=== PATIENT | male | born 1950 ===

== ENCOUNTER 2019-12-14 07:40 | Day surgery (SDC) | payer MEDICARE, OTHER, SELFPAY ==
[2019-12-08 15:07] VITALS: BMI 48.6
--- NOTE | 2019-12-09 10:58 | HO.ANESPROP2 ---
Documented by User: Ciarra Haider 12/13/19 13:17 HPI - Anesthesia Eval Consult details Narrative: 69 yo M for colonoscopy COUNT INCLUDES THE [facility] Past Medical History Medical History (Updated 12/14/19 @ 09:06 by Dixie Washington) Arthritis Asthma DVT (deep venous thrombosis) Elevated PSA History of diverticulitis Surgical History Surgical History H/O nasal septoplasty Hx of colonoscopy Hx of hemorrhoidectomy Social History Social History Smoking Status: Former smoker Smoking Quit Date: 1977 Use of substances other than those prescribed or required for medical reasons: No Advance Directives: No Advance Directives Information Provided: No Advance Directives on File: No Recently lost weight without trying: No Meds Allergies Allergy/AdvReac Type Severity Reaction Status Date / Time Penicillins [PENICILLINS] Allergy Severe CHEST Verified 12/14/19 08:31 TIGHTNESS shellfish derived Allergy Severe CHEST Verified 12/14/19 08:31 [SHELLFISH DERIVED] TIGHTNESS Sulfa (Sulfonamide Allergy Severe CHEST Verified 12/14/19 08:31 Antibiotics) TIGHTNESS [SULFA (SULFONAMIDE ANTIBIOTICS)] meperidine [From Demerol] AdvReac Mild Nausea and Verified 12/14/19 08:31 Vomiting SHELLFISH Allergy Severe CHEST Uncoded 12/08/19 15:01 TIGHTNESS Home Medications Medication Instructions Recorded Confirmed Type albuterol sulfate [ProAir HFA] 2 puff INHALATION Q6H PRN 12/08/19 12/08/19 History aspirin 81 mg PO DAILY 12/08/19 12/08/19 History ibuprofen 400 mg PO Q6H PRN 12/08/19 12/08/19 History omega-3 fatty acids-fish oil 1 cap PO DAILY 12/08/19 12/08/19 History [[place] 3 Fish Oil] Exam Exam Date and Time: December 09, 2019 1058 Height,Weight and Vital Signs: Height 5 ft 8 in Weight 145.15 kg BMI=48 Assessment and Plan Assessment Anesthesia Assessment: Chart Reviewed Documented by User: Dixie Washington 12/14/19 09:07 COUNT INCLUDES THE [facility] Past Medical History Medical History (Updated 12/14/19 @ 09:06 by Dixie Washington) Arthritis Asthma DVT (deep venous thrombosis) Elevated PSA History of diverticulitis Family History Family history of problems with anesthesia: No Surgical History Surgical History H/O nasal septoplasty Hx of colonoscopy Hx of hemorrhoidectomy History of Problems with Anesthesia: No Social History Social History Smoking Status: Former smoker Smoking Quit Date: 1977 Use of substances other than those prescribed or required for medical reasons: No Advance Directives: No Advance Directives Information Provided: No Advance Directives on File: No Recently lost weight without trying: No Meds Allergies Allergy/AdvReac Type Severity Reaction Status Date / Time Penicillins [PENICILLINS] Allergy Severe CHEST Verified 12/14/19 08:31 TIGHTNESS shellfish derived Allergy Severe CHEST Verified 12/14/19 08:31 [SHELLFISH DERIVED] TIGHTNESS Sulfa (Sulfonamide Allergy Severe CHEST Verified 12/14/19 08:31 Antibiotics) TIGHTNESS [SULFA (SULFONAMIDE ANTIBIOTICS)] meperidine [From Demerol] AdvReac Mild Nausea and Verified 12/14/19 08:31 Vomiting SHELLFISH Allergy Severe CHEST Uncoded 12/08/19 15:01 TIGHTNESS Home Medications Medication Instructions Recorded Confirmed Type albuterol sulfate [ProAir HFA] 2 puff INHALATION Q6H PRN 12/08/19 12/08/19 History aspirin 81 mg PO DAILY 12/08/19 12/08/19 History ibuprofen 400 mg PO Q6H PRN 12/08/19 12/08/19 History omega-3 fatty acids-fish oil 1 cap PO DAILY 12/08/19 12/08/19 History [[place] 3 Fish Oil] Exam Height,Weight and Vital Signs: Vital Signs Temp Pulse Resp BP Pulse Ox 12/14/19 08:18 99 F 104 H 20 150/91 H 98 Airway Neck ROM: Full Assessment and Plan Assessment Anesthesia Assessment: Anesthesia Plan Discussed, Consent Obtained and Chart Reviewed Final Anesthetic Review NPO: Yes Intake Type: Clears and Solids Intake Timing: Greater than 8 hours ASA Class: III Final Preanesthetic Review: No Changes in Pt Med Stat, Meds & Allergies Reviewed, Consent Obtained/Reviewed, Med/Surg/Anes Hx Reviewed and Anes Risks/Benef Reviewed Patient Risk: Intermediate Procedure Risk: Low Anesthetic Plan Anesthetic Plan: MAC: Disposition: Standard PACU
--- NOTE | 2019-12-14 | CT_ITS ---
EXAMINATION: CT COLONOGRAPHY CLINICAL INFORMATION: Incomplete colonoscopy COMPARISON: None TECHNIQUE: Bowel preparation: Adequate. Colonic distention: CO2 mechanical insufflator used via enema tube with good distention. Acquisition: Low dose imaging targeted to colonic was performed in the supine and prone positions. Due to patient's body habitus, he was unable to fit adequately into the scanner in the prone position and portions of the left lateral bowel or excluded on the prone exam. Procedure: The procedure was well tolerated. Review: The acquired images were reviewed in axial, coronal and sagittal planes. Additional 3-D fly through images were reviewed at an independent workstation. This CT examination was performed using dose optimization techniques as appropriate, variously including the following: *Automated exposure control *Adjustment of mA and/or kV according to patient size (this includes techniques or standardized protocols for targeted exams where dose is matched to indication/reason for exam; i.e. extremities or head) *Use of iterative reconstruction technique DLP: 1087 mGy-cm FINDINGS: Colonic findings: Colon is redundant with scattered colonic diverticula more so in the region of the sigmoid colon. I do not appreciate any evidence for diverticulitis. Residual fluid is seen but this does appear to be mobile between supine and prone imaging. I do not appreciate any significant colonic wall thickening. No pericolonic inflammatory changes. No discrete colonic mass or significant colonic polyp was identified on the study. Non-colonic findings: Low-attenuation renal cysts are suggested but not well delineated. Small hiatal hernia is present. IMPRESSION: Examination is limited due to patient body habitus. Colon is redundant with scattered diverticulosis but no obvious diverticulitis. No colonic mass lesion or significant fixed colonic polyp.
[2019-12-14 08:18] VITALS: BP 150/91; PULSE 104; RESP 20; TEMP 37.2; O2SAT 98
[2019-12-14] MEDS: Lactated Ringers 1,000 ML 100 ML IVCONT (08:29)
--- NOTE | 2019-12-14 08:51 | MHC.SHP ---
Pre-Procedural Eval Section B Chief Complaint: SCREENING Details of Present Illness: see h and p no changes Relevant Family History (Specify if Yes): No Present Medications: see Short Stay Collaborative assessment Medical History: No relevant PMH (saee h and p no changes) History of Previous Operations: No relevant previous surgery Allergies: Allergies Allergy/AdvReac Type Severity Reaction Status Date / Time Penicillins [PENICILLINS] Allergy Severe CHEST Verified 12/14/19 08:31 TIGHTNESS shellfish derived Allergy Severe CHEST Verified 12/14/19 08:31 [SHELLFISH DERIVED] TIGHTNESS Sulfa (Sulfonamide Allergy Severe CHEST Verified 12/14/19 08:31 Antibiotics) TIGHTNESS [SULFA (SULFONAMIDE ANTIBIOTICS)] meperidine [From Demerol] AdvReac Mild Nausea and Verified 12/14/19 08:31 Vomiting SHELLFISH Allergy Severe CHEST Uncoded 12/08/19 15:01 TIGHTNESS Review of Systems Sugical H&P ROS: Negative: Constitution, Cardiovascular, Respiratory, Neurological, Psychiatric, Hem-Onc, Allergic/Immunologic, Gastrointestinal, Genitourinary, Musculoskeletal, Integumentary, Endocrine and Eyes/Ears/Nose/Throat Exam Surgical H&P Exam: Normal: HEENT, Normal: Heart, Normal: Lungs, Normal: Extremities, Normal: Abdomen, Normal: Skin and Normal: Neurological Plan Diagnosis/Plan: Unchanged Patient has been examined and remains a candidate for the planned procedure
--- NOTE | 2019-12-14 09:34 | PM.OP ---
Brief Operative Note Date of procedure: 12/14/19 Pre-op diagnosis: screening Post-op diagnosis: other (incomplete colonosocpy, diverticulosis) Procedure: colonoscopy to 45 cm Anesthesia: MAC Surgeon: Amaury Sevilla Estimated blood loss (mL): 0 Pathology: none sent Condition: stable Disposition: PACU
[2019-12-14 09:40] VITALS: BP 120/66; PULSE 103; RESP 16; TEMP 37.1; O2SAT 95
[2019-12-14 09:56] VITALS: BP 110/70; PULSE 91; RESP 16; O2SAT 95
[2019-12-14 10:11] VITALS: BP 108/55; PULSE 94; RESP 16; O2SAT 97
[2019-12-14 10:53] VITALS: BP 178/93; PULSE 95; RESP 16; TEMP 36.6; O2SAT 97
--- NOTE | 2019-12-14 11:26 | HO.POSTANES ---
Post Anesthesia Evaluation Post Anesthesia Evaluation Vital Signs: Vital Signs Temp Pulse Resp BP Pulse Ox 12/14/19 10:53 97.8 F 95 16 178/93 H 97 12/14/19 10:11 94 16 108/55 L 97 12/14/19 09:56 91 16 110/70 95 12/14/19 09:40 98.8 F 103 H 16 120/66 95 12/14/19 08:18 99 F 104 H 20 150/91 H 98 recheck bp in discharge = 138/90 Anesthesia: Monitored Mental Status: Awake Pain Control: Satisfactory Nausea/Vomiting: None Hydration: Adequate Anesthesia-Related Issues: No Anes. Related Issues
--- NOTE | 2019-12-14 12:04 | PC.NURSE ---
Anesthesia to bedside to discharge pt from anesthesia. Pt's last BP elevated (178/93). Repeat BP perfromed in DC. Pt BP 138/90. Pt cleared by anesthesia to go home.
--- NOTE | 2019-12-14 12:08 | OP_ITS ---
SURGEON: Amaury Sevilla MD INDICATIONS: Colon cancer screening and prior history of adenomatous colon polyps. PREOPERATIVE DIAGNOSIS: POSTOPERATIVE DIAGNOSIS: PROCEDURE PERFORMED: Colonoscopy to 45 cm. ESTIMATED BLOOD LOSS: COMPLICATIONS: ANESTHESIA: ASSISTANTS: SPECIMENS: MEDICATIONS: Monitored anesthesia care. DESCRIPTION OF PROCEDURE: History and physical performed. The risks and benefits of the procedure were explained to the patient. Informed consent was obtained. The patient was placed in the left lateral decubitus position. A digital rectal exam was performed and was found to be normal. The Olympus pediatric video colonoscope was introduced into the rectum and advanced to the 45 cm quan. At this point, there was acute angulation and moderate to severe diverticulosis, which did not permit further advancement of the scope. Examination was performed and the scope was removed. He tolerated the procedure well and was taken to recovery area in stable condition. FINDINGS: There was moderate to extensive diverticulosis involving the sigmoid. The quality of the prep was good. No polyps were identified. Retroflexed examination showed small internal hemorrhoids. IMPRESSION: Diverticulosis, incomplete colonoscopy. RECOMMENDATIONS: 1. CT colonography will be obtained to evaluate the remainder of the colon. 2. Repeat colonoscopy, which should be done in 5 years. The patient has a prior history of colon polyps, however, followup will depend on his findings at the time of CT colonography. MD PRATIBHA Santizo/GLENIS / [phone]
== END 2019-12-14 13:00 | disposition home or self-care (01) ==
PROVIDERS: PCP Internal Medicine; Visit Provider Internal Medicine Gastroenterology
PROC: 0DJD8ZZ Inspection of Lower Intestinal Tract, Via Natural or Artificial Opening Endoscopic (ICD-10-PCS; CPT 45378; principal; 2019-12-14 09:10)
DX: Z12.11 Encounter for screening for malignant neoplasm of colon (principal); Z86.010 Personal history of colon polyps; K57.30 Diverticulosis of large intestine without perforation or abscess without bleeding; R97.20 Elevated prostate specific antigen [PSA]; J45.909 Unspecified asthma, uncomplicated; E78.00 Pure hypercholesterolemia, unspecified; R73.9 Hyperglycemia, unspecified; Z79.82 Long term (current) use of aspirin; Z88.0 Allergy status to penicillin; Z88.2 Allergy status to sulfonamides; Z88.8 Allergy status to other drugs, medicaments and biological substances; Z91.013 Allergy to seafood; Z86.718 Personal history of other venous thrombosis and embolism; Z87.891 Personal history of nicotine dependence; K64.8 Other hemorrhoids
CPT/HCPCS: 45330; 74261; J2765

== ENCOUNTER 2020-01-26 08:29 | Outpatient (REF) | payer MEDICARE, OTHER, SELFPAY ==
[2020-01-26 11:19] LABS: Hematocrit 48.6 % (42-52); MANUAL DIFF FLAG SCAN; PLT CLUMP 1; SCAN SMEAR FLAG 1
[2020-01-26 11:22] LABS: Basophils Absolute Auto 0.1 X10*3/uL (0.0-0.2); Basophils Percent Auto 0.8 % (0-2); Eosinophils Absolute Auto 0.2 X10*3/uL (0.0-0.4); Eosinophils Percent Auto 2.9 % (0-4); Hemoglobin 16.1 g/dl (14.0-18.0); Imm Gran Abs Auto 0.03 X10*3/uL (0.00-0.03); Imm Gran Pct Auto 0.5 % (0.0-0.4); Lymphocytes Absolute Auto 1.8 X10*3/uL (1.2-4.9); Lymphocytes Percent Auto 26.6 % (20-40); Mean Corpuscular HGB Conc 33.1 g/dl (31.0-36.0); Mean Corpuscular Hemoglobin 32.7 pg (27.0-33.0); Mean Corpuscular Volume 98.8 fL (80-98); Mean Platelet Volume 10.8 fL (9.4-12.4); Monocytes Absolute Auto 0.8 X10*3/uL (0.1-1.2); Monocytes Percent Auto 12.3 % (2-11); Neutrophils Absolute Auto 3.7 X10*3/uL (2.0-8.3); Neutrophils Percent Auto 56.9 % (45-73); Red Blood Count 4.92 X10*6/uL (4.60-5.80); Red Cell Distribution Width 13.2 % (11.0-16.0); White Blood Count 6.6 X10*3/uL (4.8-10.8)
[2020-01-26 12:09] LABS: Estimated Average Glucose 134 mg/dL; Hemoglobin A1c % 6.3 %
[2020-01-26 12:27] LABS: Alanine Aminotransferase 25 U/L (0-40); Albumin Level 4.2 g/dL (3.5-5.0); Alkaline Phosphatase 61 U/L (39-117); Anion Gap 13 (12-20); Aspartate Amino Transferase 20 U/L (5-37); Bilirubin Total 0.4 mg/dL (0.0-1.0); Blood Urea Nitrogen 19 mg/dL (9-16); Calcium 9.8 mg/dL (8.4-10.2); Carbon Dioxide 26 mmol/L (22-29); Chloride 100 mmol/L (96-108); Estimated Glomerular Filt Rate > 60; Glucose Random 125 mg/dL (60-115); Potassium 4.4 mmol/l (3.3-5.1); Sodium 135 mmol/L (135-145)
[2020-01-26 12:36] LABS: Platelet Count 212 X10*3/uL (160-400)
[2020-01-26 12:37] LABS: SLIDE REVIEW VERIFIED
== END 2020-01-26 08:30 | disposition home or self-care (01) ==
LOC: HO.HMGCLDS 08:29
PROVIDERS: PCP Internal Medicine; Visit Provider Internal Medicine
DX: E78.00 Pure hypercholesterolemia, unspecified (principal); R73.03 Prediabetes; J45.909 Unspecified asthma, uncomplicated
CPT/HCPCS: 36415; 80053; 83036; 84153; 85025

== ENCOUNTER 2020-04-14 09:41 | Outpatient (REF) | payer MEDICARE, OTHER, SELFPAY ==
[2020-04-14 10:26] LABS: Estimated Average Glucose 123 mg/dL; Hemoglobin A1c % 5.9 %
[2020-04-14 10:45] LABS: Anion Gap 11 (12-20); Blood Urea Nitrogen 19 mg/dL (9-16); Calcium 9.9 mg/dL (8.4-10.2); Carbon Dioxide 27 mmol/L (22-29); Chloride 105 mmol/L (96-108); Estimated Glomerular Filt Rate > 60; Glucose Random 116 mg/dL (60-115); Potassium 4.9 mmol/L (3.3-5.1); Sodium 138 mmol/L (135-145)
== END 2020-04-14 09:42 | disposition home or self-care (01) ==
LOC: HO.10HDL 09:41
PROVIDERS: Visit Provider Internal Medicine
DX: R73.03 Prediabetes (principal); R03.0 Elevated blood-pressure reading, without diagnosis of hypertension; M19.90 Unspecified osteoarthritis, unspecified site
CPT/HCPCS: 36415; 80048; 83036

== ENCOUNTER 2020-05-10 01:11 | Inpatient (IN) | payer OTHER, MEDICARE, SELFPAY ==
[2020-05-10] VITALS (12 sets, daily range): BP systolic 147–190; BP diastolic 85–99; PULSE 90–110; RESP 12–19; TEMP 36.4–36.6; O2SAT 95–99; BMI 49.2; BMI 51.4
--- NOTE | 2020-05-10 | ECG_ITS ---
Test Reason : EPI GASTRIC Blood Pressure : / mmHG Vent. Rate : 105 BPM Atrial Rate : 105 BPM P-R Int : 126 ms QRS Dur : 086 ms QT Int : 336 ms P-R-T Axes : 033 -36 063 degrees QTc Int : 444 ms Sinus tachycardia Left axis deviation Nonspecific ST and T wave abnormality Abnormal ECG No previous ECGs available Referred By: Jesenia Kenyon Electronically Signed By:NAOMI POWERS
--- NOTE | ~2020-05-10 | CT_ITS ---
EXAMINATION: CT ABDOMEN AND PELVIS WITH CONTRAST CLINICAL INFORMATION: Nausea, vomiting, obstipation COMPARISON: 12/14/2019 TECHNIQUE: Multidetector volumetric images were obtained from the superior aspect of the liver through the pubic symphysis following administration 100 mL of Omnipaque 350 intravenous contrast. Sagittal and coronal reformatted images were obtained on the technologist's workstation. Oral contrast: No This CT examination was performed using dose optimization techniques as appropriate, variously including the following: *Automated exposure control *Adjustment of mA and/or kV according to patient size (this includes techniques or standardized protocols for targeted exams where dose is matched to indication/reason for exam; i.e. extremities or head) *Use of iterative reconstruction technique DLP: 1259 mGy-cm FINDINGS: LUNG BASES: The visualized lung bases are unremarkable. LIVER, GALLBLADDER, AND BILIARY TREE: The liver demonstrates hypoattenuation suggesting steatosis. No focal hepatic lesion or biliary ductal dilatation is present. The gallbladder is unremarkable with no evidence of radiopaque gallstones, gallbladder wall thickening, or obvious pericholecystic inflammatory changes. PANCREAS: Unremarkable. SPLEEN: Unremarkable. ADRENAL GLANDS: Thickened appearance of the right adrenal gland appears similar to 10/01/2014, favoring a benign etiology. KIDNEYS AND URETERS: The kidneys are normal in size, shape, and attenuation. Redemonstrated bilateral renal hypodensities favoring cysts. No hydronephrosis, hydroureter, or obstructing calculi seen. No perinephric stranding. BLADDER: Unremarkable. GASTROINTESTINAL TRACT: There is colonic diverticulosis without convincing diverticulitis. No evidence of bowel obstruction. The appendix is unremarkable. No free fluid or free air is seen. ABDOMINAL WALL: Bilateral fat-containing inguinal hernias. LYMPH NODES: Normal. VASCULAR: Scattered atherosclerotic calcifications. PELVIC VISCERA: The prostate gland is enlarged, measuring 5.6 cm in transverse diameter. OSSEOUS STRUCTURES: Degenerative changes are noted in the spine. CT/CT abdomen pelvis w con IMPRESSION: 1. No acute findings identified in the abdomen/pelvis. 2. Enlarged prostate gland.
--- NOTE | ~2020-05-10 | XR_ITS ---
EXAMINATION: XR CHEST CLINICAL INFORMATION: Cough COMPARISON: None TECHNIQUE: Frontal view of the chest was obtained. FINDINGS: Lung volumes are symmetric. No focal consolidation is seen. No evidence of pneumothorax, significant pleural effusion, or pulmonary edema. The cardiomediastinal contour is unremarkable. No acute osseous findings are seen. XR/XR chest 1V IMPRESSION: No acute cardiopulmonary findings.
--- NOTE | 2020-05-10 01:52 | ED_ITS ---
HPI - Chest Pain General Chief Complaint: Chest Pain Stated Complaint: ?Indigestion Time Seen by Provider: 05/10/20 01:38 Source: patient Mode of arrival: ambulatory History of Present Illness HPI narrative: This is a 69-year-old male who presents with 2-3 days of epigastric/chest burning/sharp, nonradiating pain that is not been associated with fever but he reports chills as well as the inability to burp for the past 6-12 hours. Otherwise, he has not had any nausea, vomiting, shortness of breath, chest pain/palpitations, urinary symptoms. He states he tried to have a bowel movement today but only had a ?pellets? but does endorse that he has a history of constipation. In addition, he states he a has not been passing flatus. The discomfort is worsened by lying flat. Related Data Home Medications Medication Instructions Recorded Confirmed albuterol sulfate [ProAir HFA] 2 puff INHALATION Q6H PRN 12/08/19 12/08/19 aspirin 81 mg PO DAILY 12/08/19 12/08/19 ibuprofen 400 mg PO Q6H PRN 12/08/19 12/08/19 omega-3 fatty acids-fish oil 1 cap PO DAILY 12/08/19 12/08/19 Allergies Allergy/AdvReac Type Severity Reaction Status Date / Time Penicillins [PENICILLINS] Allergy Severe CHEST Verified 12/14/19 08:31 TIGHTNESS shellfish derived Allergy Severe CHEST Verified 12/14/19 08:31 [SHELLFISH DERIVED] TIGHTNESS Sulfa (Sulfonamide Allergy Severe CHEST Verified 12/14/19 08:31 Antibiotics) TIGHTNESS [SULFA (SULFONAMIDE ANTIBIOTICS)] meperidine [From Demerol] AdvReac Mild Nausea and Verified 12/14/19 08:31 Vomiting SHELLFISH Allergy Severe CHEST Uncoded 12/08/19 15:01 TIGHTNESS Review of Systems Review of Systems: Pertinent positives and negatives as stated in HPI 10 point review of systems is otherwise negative. [facility] Past Medical History Source: nursing notes reviewed Medical History Arthritis Asthma DVT (deep venous thrombosis) Elevated PSA History of diverticulitis Surgical History H/O nasal septoplasty Hx of colonoscopy Hx of hemorrhoidectomy Social History Social History Smoking Status: Former smoker Advance Directives: No Physical Exam Vital Signs: Vital Signs: Last Vital Signs Temp 97.5 F 05/10/20 04:18 Pulse 98 05/10/20 06:21 Resp 19 05/10/20 04:18 BP 147/88 H 05/10/20 06:21 Pulse Ox 98 05/10/20 04:18 Body Mass Index 49.2 VITAL SIGNS: Reviewed. GENERAL: Well developed, well nourished, in no acute distress. HEAD: Normocephalic/atraumatic, NOSE: Nares patent bilateral OROPHARYNX: no oral lesions noted, posterior pharynx clear NECK: Supple, no adenopathy LUNGS: Normal breath sounds. No adventitious sounds or accessory muscle use. SpO2<98> CARDIOVASCULAR: Regular rate and rhythm without noted murmurs, no JVD or lower extremity edema. ABDOMEN: Morbidly obese, Soft, non-tender, non-distended with bowel sounds. SKIN: Inspection of the skin reveals no rashes NEUROLOGIC: Alert and oriented x 4. Course Course Course Narrative: This is a 69-year-old male with history and clinical presentation possible pericarditis, gastritis, pancreatitis, GERD, SBO (history of hernia repair), less likely cardiopulmonary etiologies but of note patient does have history of DVT so I will keep that in mind as well. Initial review of all investigations negative for acute findings and on re- evaluation patient without relief after GI cocktail on still needing to remain upright. Chest x-ray, CT scan was negative for any acute findings to explain patient's presenting symptoms. High sensitivity troponin was noted to be 160, but there was no significant findings on EKG however there were none available for comparison. Repeat troponin was noted to be flat, however patient had in the interim as documented below complained of chest pressure and was given 325 mg of aspirin. Repeat EKG demonstrating a bigeminy with maintained hemodynamic stability. Case discussed with cardiology who agrees with admission rule out ACS, and case was discussed with inpatient hospitalist team who agrees with aspirin covering cardiac as well as pericarditis symptoms and recommends administration of morphine. Reevaluation(s) Reevaluation #1: Patient now complains of chest pressure and will receive 325 mg of aspirin, rpt Trop#2, D-dimer. Time: 05:00 [facility] - Chest Pain Lab Data Result diagrams: 05/10/20 02:02 05/10/20 02:02 Labs: Lab Results 05/10/20 05/10/20 05/10/20 Range/Units 02:02 02:02 02:02 WBC 10.4 (4.8-10.8) X10*3/uL RBC 4.80 (4.60-5.80) X10*6/uL Hgb 16.3 (14.0-18.0) g/dl Hct 46.7 (42-52) % MCV 97.3 (80-98) fL MCH 34.0 H (27.0-33.0) pg MCHC 34.9 (31.0-36.0) g/dl RDW 12.8 (11.0-16.0) % Plt Count 214 (160-400) X10*3/uL MPV 10.1 (9.4-12.4) fL Immature Gran % (Auto) 0.6 H (0.0-0.4) % Neut % (Auto) 66.5 (45-73) % Lymph % (Auto) 19.7 L (20-40) % Stevens % (Auto) 10.5 (2-11) % Eos % (Auto) 2.2 (0-4) % Baso % (Auto) 0.5 (0-2) % Lymph # (Auto) 2.0 (1.2-4.9) X10*3/uL Stevens # (Auto) 1.1 (0.1-1.2) X10*3/uL Eos # (Auto) 0.2 (0.0-0.4) X10*3/uL Baso # (Auto) 0.1 (0.0-0.2) X10*3/uL Abs Immat Gran (auto) 0.06 H (0.00-0.03) X10*3/uL Absolute Neuts (auto) 6.9 (2.0-8.3) X10*3/uL Absolute Nucleated RBC 0.000 (0.0-0.012) X10*3/uL Nucleated RBC % (auto) 0.0 (0.0-0.2) /100WBC D-Dimer NG/ML Sodium 137 (135-145) mmol/L Potassium 4.6 (3.3-5.1) mmol/L Chloride 103 (96-108) mmol/L Carbon Dioxide 23 (22-29) mmol/L Anion Gap 16 (12-20) BUN 15 (9-16) mg/dL Creatinine 0.97 (0.5-1.4) mg/dL Estim Creat Clear Calc 104.3 Estimated GFR > 60 Random Glucose 129 H (60-115) mg/dL Calcium 10.2 (8.4-10.2) mg/dL Magnesium 2.1 (1.6-2.6) mg/dL Total Bilirubin 0.5 (0.0-1.0) mg/dL AST 27 (5-37) U/L ALT 32 (0-40) U/L Alkaline Phosphatase 58 (39-117) U/L Troponin I High Sens (<3.5-35.0) ng/L Total Protein 7.1 (6.5-8.0) g/dL Albumin 4.2 (3.5-5.0) g/dL Lipase 45 (8-78) U/L Urine Color Urine Appearance Urine pH (5.0-8.0) Ur Specific [place] (1.005-1.025) Urine Protein (NEG-TRACE) MG/DL Urine Glucose (UA) (NEG) MG/DL Urine Ketones (NEG) MG/DL Urine Blood (NEG) Urine Nitrite (NEG) Ur Leukocyte Esterase (NEG) Urine Opiates Screen (Not Detect) Ur Barbiturates Screen (Not Detect) Ur Phencyclidine Scrn (Not Detect) Ur Amphetamines Screen (Not Detect) U Benzodiazepines Scrn (Not Detect) Urine Cocaine Screen (Not Detect) U Marijuana (THC) Screen (Not Detect) 05/10/20 05/10/20 05/10/20 Range/Units 02:02 02:02 02:02 WBC (4.8-10.8) X10*3/uL RBC (4.60-5.80) X10*6/uL Hgb (14.0-18.0) g/dl Hct (42-52) % MCV (80-98) fL MCH (27.0-33.0) pg MCHC (31.0-36.0) g/dl RDW (11.0-16.0) % Plt Count (160-400) X10*3/uL MPV (9.4-12.4) fL Immature Gran % (Auto) (0.0-0.4) % Neut % (Auto) (45-73) % Lymph % (Auto) (20-40) % Stevens % (Auto) (2-11) % Eos % (Auto) (0-4) % Baso % (Auto) (0-2) % Lymph # (Auto) (1.2-4.9) X10*3/uL Stevens # (Auto) (0.1-1.2) X10*3/uL Eos # (Auto) (0.0-0.4) X10*3/uL Baso # (Auto) (0.0-0.2) X10*3/uL Abs Immat Gran (auto) (0.00-0.03) X10*3/uL Absolute Neuts (auto) (2.0-8.3) X10*3/uL Absolute Nucleated RBC (0.0-0.012) X10*3/uL Nucleated RBC % (auto) (0.0-0.2) /100WBC D-Dimer NG/ML Sodium (135-145) mmol/L Potassium (3.3-5.1) mmol/L Chloride (96-108) mmol/L Carbon Dioxide (22-29) mmol/L Anion Gap (12-20) BUN (9-16) mg/dL Creatinine (0.5-1.4) mg/dL Estim Creat Clear Calc Estimated GFR Random Glucose (60-115) mg/dL Calcium (8.4-10.2) mg/dL Magnesium (1.6-2.6) mg/dL Total Bilirubin (0.0-1.0) mg/dL AST (5-37) U/L ALT (0-40) U/L Alkaline Phosphatase (39-117) U/L Troponin I High Sens 160.8 H (<3.5-35.0) ng/L Total Protein (6.5-8.0) g/dL Albumin (3.5-5.0) g/dL Lipase (8-78) U/L Urine Color YELLOW Urine Appearance CLEAR Urine pH 6.5 (5.0-8.0) Ur Specific [place] 1.015 (1.005-1.025) Urine Protein NEG (NEG-TRACE) MG/DL Urine Glucose (UA) NEG (NEG) MG/DL Urine Ketones NEG (NEG) MG/DL Urine Blood NEG (NEG) Urine Nitrite NEG (NEG) Ur Leukocyte Esterase NEG (NEG) Urine Opiates Screen Not Detected (Not Detect) Ur Barbiturates Screen Not Detected (Not Detect) Ur Phencyclidine Scrn Not Detected (Not Detect) Ur Amphetamines Screen Not Detected (Not Detect) U Benzodiazepines Scrn Not Detected (Not Detect) Urine Cocaine Screen Not Detected (Not Detect) U Marijuana (THC) Screen Not Detected (Not Detect) 05/10/20 05/10/20 Range/Units 05:00 05:00 WBC (4.8-10.8) X10*3/uL RBC (4.60-5.80) X10*6/uL Hgb (14.0-18.0) g/dl Hct (42-52) % MCV (80-98) fL MCH (27.0-33.0) pg MCHC (31.0-36.0) g/dl RDW (11.0-16.0) % Plt Count (160-400) X10*3/uL MPV (9.4-12.4) fL Immature Gran % (Auto) (0.0-0.4) % Neut % (Auto) (45-73) % Lymph % (Auto) (20-40) % Stevens % (Auto) (2-11) % Eos % (Auto) (0-4) % Baso % (Auto) (0-2) % Lymph # (Auto) (1.2-4.9) X10*3/uL Stevens # (Auto) (0.1-1.2) X10*3/uL Eos # (Auto) (0.0-0.4) X10*3/uL Baso # (Auto) (0.0-0.2) X10*3/uL Abs Immat Gran (auto) (0.00-0.03) X10*3/uL Absolute Neuts (auto) (2.0-8.3) X10*3/uL Absolute Nucleated RBC (0.0-0.012) X10*3/uL Nucleated RBC % (auto) (0.0-0.2) /100WBC D-Dimer 267 NG/ML Sodium (135-145) mmol/L Potassium (3.3-5.1) mmol/L Chloride (96-108) mmol/L Carbon Dioxide (22-29) mmol/L Anion Gap (12-20) BUN (9-16) mg/dL Creatinine (0.5-1.4) mg/dL Estim Creat Clear Calc Estimated GFR Random Glucose (60-115) mg/dL Calcium (8.4-10.2) mg/dL Magnesium (1.6-2.6) mg/dL Total Bilirubin (0.0-1.0) mg/dL AST (5-37) U/L ALT (0-40) U/L Alkaline Phosphatase (39-117) U/L Troponin I High Sens 159.7 H (<3.5-35.0) ng/L Total Protein (6.5-8.0) g/dL Albumin (3.5-5.0) g/dL Lipase (8-78) U/L Urine Color Urine Appearance Urine pH (5.0-8.0) Ur Specific [place] (1.005-1.025) Urine Protein (NEG-TRACE) MG/DL Urine Glucose (UA) (NEG) MG/DL Urine Ketones (NEG) MG/DL Urine Blood (NEG) Urine Nitrite (NEG) Ur Leukocyte Esterase (NEG) Urine Opiates Screen (Not Detect) Ur Barbiturates Screen (Not Detect) Ur Phencyclidine Scrn (Not Detect) Ur Amphetamines Screen (Not Detect) U Benzodiazepines Scrn (Not Detect) Urine Cocaine Screen (Not Detect) U Marijuana (THC) Screen (Not Detect) ECG Data ECG #1: Attestation: I personally reviewed and interpreted this ECG as follows: Prior ECG tracings: not available for review Interpretation: Sinus tachycardia, HR -105, no evidence of acute ischemia, [place]/QRS/QTC are within normal limits. Discharge Plan Discharge Clinical Impression: ACS (acute coronary syndrome) Chest pain Qualifiers: Chest pain type: unspecified Qualified Code(s): R07.9 - Chest pain, unspecified Pericarditis Qualifiers: Pericarditis type: unspecified type Chronicity: acute Qualified Code(s): I30.9 - Acute pericarditis, unspecified Patient Disposition: Admitted As Inpatient
[2020-05-10] MEDS: Magnesium Hydrox/Alum Hydrox 30 ML ORAL.SUSP PO (01:57)
[2020-05-10] MEDS: Lidocaine HCl Viscous 2 % 15 ML SOLUTION 10 ML MUCOUS MEM (01:57)
[2020-05-10 02:10] LABS: Basophils Absolute Auto 0.1 X10*3/uL (0.0-0.2); Basophils Percent Auto 0.5 % (0-2); PLT CLUMP 1; SCAN SMEAR FLAG 1
[2020-05-10 02:11] LABS: Glucose Urine UA NEG (NEG); Leukocyte Esterase Urine NEG (NEG); Nitrite Urine NEG (NEG); PH 6.5 (5.0-8.0); Specific Gravity - Urine 1.015 (1.005-1.025); Urine Blood NEG (NEG); Urine Ketones NEG (NEG); Urine Protein NEG (NEG-TRACE)
[2020-05-10 02:13] LABS: Appearance Urine CLEAR; Color Urine YELLOW; UACC Culture Trigger NO
[2020-05-10 02:14] LABS: Monocytes Absolute Auto 1.1 X10*3/uL (0.1-1.2)
[2020-05-10 02:16] LABS: Eosinophils Absolute Auto 0.2 X10*3/uL (0.0-0.4); Eosinophils Percent Auto 2.2 % (0-4); Hematocrit 46.7 % (42-52); Hemoglobin 16.3 g/dl (14.0-18.0); Imm Gran Abs Auto 0.06 X10*3/uL (0.00-0.03); Imm Gran Pct Auto 0.6 % (0.0-0.4); Lymphocytes Percent Auto 19.7 % (20-40); Mean Corpuscular HGB Conc 34.9 g/dl (31.0-36.0); Mean Corpuscular Volume 97.3 fL (80-98); Mean Platelet Volume 10.1 fL (9.4-12.4); Monocytes Percent Auto 10.5 % (2-11); Neutrophils Absolute Auto 6.9 X10*3/uL (2.0-8.3); Neutrophils Percent Auto 66.5 % (45-73); Red Cell Distribution Width 12.8 % (11.0-16.0); White Blood Count 10.4 X10*3/uL (4.8-10.8)
[2020-05-10 02:30] LABS: MANUAL DIFF FLAG NO; Platelet Count 214 X10*3/uL (160-400)
[2020-05-10 02:40] LABS: Alanine Aminotransferase 32 U/L (0-40); Albumin Level 4.2 g/dL (3.5-5.0); Alkaline Phosphatase 58 U/L (39-117); Anion Gap 16 (12-20); Aspartate Amino Transferase 27 U/L (5-37); Bilirubin Total 0.5 mg/dL (0.0-1.0); Blood Urea Nitrogen 15 mg/dL (9-16); Calcium 10.2 mg/dL (8.4-10.2); Carbon Dioxide 23 mmol/L (22-29); Chloride 103 mmol/L (96-108); Creatinine Clr Calc Pharmacy 104.3; Estimated Glomerular Filt Rate > 60; Glucose Random 129 mg/dL (60-115); Lipase 45 U/L (8-78); Potassium 4.6 mmol/L (3.3-5.1); Sodium 137 mmol/L (135-145); Total Protein 7.1 g/dL (6.5-8.0)
[2020-05-10 02:55] LABS: Amphetamine Screen Urine Not Detected (Not Detect); Barbiturates, Urine Not Detected (Not Detect); Benzodiazepines Screen Urine Not Detected (Not Detect); Cannabinoid Screen Urine Not Detected (Not Detect); Cocaine Screen Urine Not Detected (Not Detect); Opiate Screen Urine Not Detected (Not Detect); Phencyclidine Screen Urine Not Detected (Not Detect)
[2020-05-10] MEDS: iohexoL 350 MG/ML 100 ML INFUS..BTL IV (03:03)
[2020-05-10 04:54] LABS: Troponin-I High Sensitivity 160.8 ng/L (<3.5-35.0)
--- NOTE | 2020-05-10 05:01 | ECG_ITS ---
Test Reason : REPEAT Blood Pressure : / mmHG Vent. Rate : 095 BPM Atrial Rate : 095 BPM P-R Int : 130 ms QRS Dur : 096 ms QT Int : 358 ms P-R-T Axes : 042 -33 040 degrees QTc Int : 449 ms Sinus rhythm with frequent Premature ventricular complexes in a pattern of bigeminy Left axis deviation Incomplete right bundle branch block Nonspecific ST abnormality Abnormal ECG When compared with ECG of 10-MAY-2020 01:30, Premature ventricular complexes are now Present Referred By: Jesenia Kenyon Electronically Signed By:NAOMI POWERS
[2020-05-10] MEDS: Aspirin Enteric Coated 325 MG TABLET.DR PO (05:08)
[2020-05-10 05:13] LABS: D Dimer 267 NG/ML
[2020-05-10 05:55] LABS: Troponin-I High Sensitivity 159.7 ng/L (<3.5-35.0)
[2020-05-10 06:10] LABS: Magnesium 2.1 mg/dL (1.6-2.6)
[2020-05-10] MEDS: Morphine Sulfate 2 MG/ML CARTRIDGE 1 MG IVPUSH (06:30)
[2020-05-10 07:00] LABS: COVID-19 Test Negative (Negative); IDNOW Serial# 9DD0AD1C
--- NOTE | 2020-05-10 07:56 | PC.NURSE ---
dr. adler (hosp) at bedside, pt aware of plan of care for admission to hosp. pt amb (i) gait steady earlier to bathroom and btb.
--- NOTE | 2020-05-10 08:07 | PM.IMHP ---
History of Present Illness Date of Service: 05/10/20 Chief Complaint: chest pain 69M presented with chest pain. Chest pain began 2 days prior to presentation. Begins in the epigastric region and radiates upwards. Is dull aching character, persistent, aggravated by lying back, relieved by forward. Denies any shortness of breath, fever, chills, diaphoresis. Patient takes about 800 mg of ibuprofen daily. In ED, EKG with bigeminy lateral ST depressions, troponin flat 160. Review of Systems Review of Systems: Constitutional: Denies fever, denies Chills Eyes: denies blurry vision ENT: denies sore throat CVS: chest pain Respiratory: Denies dyspnea GI: no abdominal pain : denies dysuria MSK: denies neck pain Skin: denies rash Neuro: denies specific motor weakness Psych: denies suicidal ideation Endocrine: denies heat/cold intoleratnce Hematologic: denies easy bleeding Allergy: denies hives [facility] Medical History (Updated 05/10/20 @ 08:11 by Luis Carlos Gunderson MD) Arthritis Asthma DVT (deep venous thrombosis) Elevated PSA History of diverticulitis Pertinent family history: cad Surgical History H/O nasal septoplasty Hx of colonoscopy Hx of hemorrhoidectomy Social History Smoking Status: Former smoker Advance Directives: No Meds Allergies Allergy/AdvReac Type Severity Reaction Status Date / Time Penicillins [PENICILLINS] Allergy Severe CHEST Verified 12/14/19 08:31 TIGHTNESS shellfish derived Allergy Severe CHEST Verified 12/14/19 08:31 [SHELLFISH DERIVED] TIGHTNESS Sulfa (Sulfonamide Allergy Severe CHEST Verified 12/14/19 08:31 Antibiotics) TIGHTNESS [SULFA (SULFONAMIDE ANTIBIOTICS)] meperidine [From Demerol] AdvReac Mild Nausea and Verified 12/14/19 08:31 Vomiting SHELLFISH Allergy Severe CHEST Uncoded 12/08/19 15:01 TIGHTNESS Home Medications Medication Instructions Recorded Confirmed Last Taken Type albuterol sulfate [ProAir HFA] 2 puff INHALATION Q6H PRN 12/08/19 05/10/20 05/09/20 09:00 History aspirin 81 mg PO DAILY 12/08/19 05/10/20 05/09/20 09:00 History ibuprofen 400 mg PO Q6H PRN 12/08/19 05/10/20 05/09/20 09:00 History omega-3 fatty acids-fish oil 1 cap PO DAILY 12/08/19 05/10/20 05/09/20 09:00 History Physical Exam Vital Signs and Narrative: Vital Signs: Last Vital Signs Temp 97.7 F 05/10/20 07:30 Pulse 93 05/10/20 07:30 Resp 13 05/10/20 07:30 BP 161/98 H 05/10/20 07:30 Pulse Ox 96 05/10/20 07:30 Body Mass Index 49.2 General: no acute distress HEENT: atraumatic Neck: normal to visual inspection CVS: S1, S2, RRR Resp: CTA bilateral Chest: non tender GI: soft, non tender, non distended : no CVA tenderness Skin: no rashes Extremities: no edema Neuro: Oriented X3, grossly intact Psych: cooperative, Results Labs CBC and Chem 7: 05/10/20 02:02 05/10/20 02:02 Labs: Laboratory Results - last 24 hr 05/10/20 05/10/20 05/10/20 02:02 02:02 02:02 MCV 97.3 MCH 34.0 H MCHC 34.9 RDW 12.8 Plt Count 214 MPV 10.1 Immature Gran % (Auto) 0.6 H Neut % (Auto) 66.5 Lymph % (Auto) 19.7 L [place] % (Auto) 10.5 Eos % (Auto) 2.2 Baso % (Auto) 0.5 Lymph # (Auto) 2.0 [place] # (Auto) 1.1 Eos # (Auto) 0.2 Baso # (Auto) 0.1 Abs Immat Gran (auto) 0.06 H Absolute Neuts (auto) 6.9 Absolute Nucleated RBC 0.000 Nucleated RBC % (auto) 0.0 D-Dimer Anion Gap 16 Estim Creat Clear Calc 104.3 Estimated GFR > 60 Random Glucose 129 H Calcium 10.2 Magnesium 2.1 Total Bilirubin 0.5 AST 27 ALT 32 Alkaline Phosphatase 58 Troponin I High Sens Total Protein 7.1 Albumin 4.2 Lipase 45 Urine Color Urine Appearance Urine pH Ur Specific [place] Urine Protein Urine Glucose (UA) Urine Ketones Urine Blood Urine Nitrite Ur Leukocyte Esterase Urine Opiates Screen Ur Barbiturates Screen Ur Phencyclidine Scrn Ur Amphetamines Screen U Benzodiazepines Scrn Urine Cocaine Screen U Marijuana (THC) Screen COVID-19 (LAZARO) COVID-19 [facility] Com 05/10/20 05/10/20 05/10/20 02:02 02:02 02:02 MCV MCH MCHC RDW Plt Count MPV Immature Gran % (Auto) Neut % (Auto) Lymph % (Auto) [place] % (Auto) Eos % (Auto) Baso % (Auto) Lymph # (Auto) [place] # (Auto) Eos # (Auto) Baso # (Auto) Abs Immat Gran (auto) Absolute Neuts (auto) Absolute Nucleated RBC Nucleated RBC % (auto) D-Dimer Anion Gap Estim Creat Clear Calc Estimated GFR Random Glucose Calcium Magnesium Total Bilirubin AST ALT Alkaline Phosphatase Troponin I High Sens 160.8 H Total Protein Albumin Lipase Urine Color YELLOW Urine Appearance CLEAR Urine pH 6.5 Ur Specific [place] 1.015 Urine Protein NEG Urine Glucose (UA) NEG Urine Ketones NEG Urine Blood NEG Urine Nitrite NEG Ur Leukocyte Esterase NEG Urine Opiates Screen Not Detected Ur Barbiturates Screen Not Detected Ur Phencyclidine Scrn Not Detected Ur Amphetamines Screen Not Detected U Benzodiazepines Scrn Not Detected Urine Cocaine Screen Not Detected U Marijuana (THC) Screen Not Detected COVID-19 (LAZARO) COVID-19 [employer] Com 05/10/20 05/10/20 05/10/20 05:00 05:00 06:36 MCV MCH MCHC RDW Plt Count MPV Immature Gran % (Auto) Neut % (Auto) Lymph % (Auto) [place] % (Auto) Eos % (Auto) Baso % (Auto) Lymph # (Auto) [place] # (Auto) Eos # (Auto) Baso # (Auto) Abs Immat Gran (auto) Absolute Neuts (auto) Absolute Nucleated RBC Nucleated RBC % (auto) D-Dimer 267 Anion Gap Estim Creat Clear Calc Estimated GFR Random Glucose Calcium Magnesium Total Bilirubin AST ALT Alkaline Phosphatase Troponin I High Sens 159.7 H Total Protein Albumin Lipase Urine Color Urine Appearance Urine pH Ur Specific [place] Urine Protein Urine Glucose (UA) Urine Ketones Urine Blood Urine Nitrite Ur Leukocyte Esterase Urine Opiates Screen Ur Barbiturates Screen Ur Phencyclidine Scrn Ur Amphetamines Screen U Benzodiazepines Scrn Urine Cocaine Screen U Marijuana (THC) Screen COVID-19 (LAZARO) Negative COVID-19 Clin Com See Note Imaging Radiologist's Impressions: Impressions Chest X-Ray 05/10/20 01:39 IMPRESSION: No acute cardiopulmonary findings. Abdomen/Pelvis CT 05/10/20 02:42 IMPRESSION: 1. No acute findings identified in the abdomen/pelvis. 2. Enlarged prostate gland. Assessment and Plan (1) Chest pain: Qualifiers: Chest pain type: unspecified Qualified Code(s): R07.9 - Chest pain, unspecified Status: Acute 69M presented with chest pain, found to have elevated troponin and abnormal EKG epigastric/chest pain differential includes pericarditis, gastritis/PUD, CAD will continue asa, statin check repeat troponin, echo, cardio eval hold NSAIDs start prilosec consitipation miralax hisotry of DVT 2016 was considered provoked, no longer on A/C, ddimer 267, no sob, doubt current VTE morbid obesity weight loss asthma stable
--- NOTE | 2020-05-10 09:00 | PC.NURSE ---
pt eating breakfast.
--- NOTE | 2020-05-10 09:50 | PC.NURSE ---
dr. beltrán at bedside, pt aware of plan of care.
--- NOTE | 2020-05-10 09:55 | P.CONCA_ITS ---
History of Present Illness History of Present Illness Date of Service: 05/10/20 Chief complaint: CHEST PAIN Narrative: This is a cardiology consultation regarding elevated troponins. Patient does not have any known cardiac problems. Few days ago, his brother apparently had chest pain and then was diagnosed to have multivessel CAD and valvular issues. While in the hospital awaiting surgery, he apparently . This happened somewhere in [place]. Patient had just traveled there and came back. Then he just did not feel good at all. He started having some discomfort in the chest that felt like a burning. He thought he was having acid reflux. I but as the symptoms kept getting worse he came to the ER. He was found to have elevated troponins. Thought to have possibly pericarditis as apparently he mention some postural changes but to me he states that he was having the pain no matter how he was. Currently somewhat improved but not resolved completely. Otherwise no previous cardiac issues himself. No coronary disease or myocardial infarction. Not a known hypertensive or diabetic. Remote history of smoking. Review of Systems Review of Systems: Yes all other systems are reviewed and are negative Cardiovascular: Cardiovascular: Reports as per HPI, Reports no additional cardiovascular complaints, Denies acrocyanosis, Denies cool extremities, Denies painful fingertips, Reports chest pain, Denies chest pain at rest, Denies diaphoresis, Denies syncope, Denies irregular heart rhythm, Denies claudication, Denies leg edema, Denies lightheadedness, Denies palpitations and Denies dyspnea Respiratory: Respiratory: Denies dyspnea Neurologic: Denies syncope Endocrine: Endocrine: Denies palpitations [facility] Past Medical History Medical History (Updated 05/10/20 @ 10:05 by Frank Bynum MD) Arthritis Asthma DVT (deep venous thrombosis) Elevated PSA History of diverticulitis Family History Pertinent family history: Coronary disease in brother who from the same at 69. Surgical History Surgical History H/O nasal septoplasty Hx of colonoscopy Hx of hemorrhoidectomy Social History Social History Smoking Status: Former smoker Advance Directives: No Meds Allergies Allergy/AdvReac Type Severity Reaction Status Date / Time Penicillins [PENICILLINS] Allergy Severe CHEST Verified 12/14/19 08:31 TIGHTNESS shellfish derived Allergy Severe CHEST Verified 12/14/19 08:31 [SHELLFISH DERIVED] TIGHTNESS Sulfa (Sulfonamide Allergy Severe CHEST Verified 12/14/19 08:31 Antibiotics) TIGHTNESS [SULFA (SULFONAMIDE ANTIBIOTICS)] meperidine [From Demerol] AdvReac Mild Nausea and Verified 12/14/19 08:31 Vomiting SHELLFISH Allergy Severe CHEST Uncoded 12/08/19 15:01 TIGHTNESS Active Medications: Current Medications Generic Name Dose Route Start Last Admin Trade Name Freq PRN Reason Stop Dose Admin Omeprazole 40 mg 05/10/20 09:37 Omeprazole 40 Mg Capsule.Dr PO DAILY [facility] Home Medications Medication Instructions Recorded Confirmed Last Taken Type albuterol sulfate [ProAir HFA] 2 puff INHALATION Q6H PRN 12/08/19 05/10/20 05/09/20 09:00 History aspirin 81 mg PO DAILY 12/08/19 05/10/20 05/09/20 09:00 History ibuprofen 400 mg PO Q6H PRN 12/08/19 05/10/20 05/09/20 09:00 History omega-3 fatty acids-fish oil 1 cap PO DAILY 12/08/19 05/10/20 05/09/20 09:00 History Physical Exam Vital Signs: Vital Signs: Last Vital Signs Temp 97.7 F 05/10/20 07:30 Pulse 93 05/10/20 07:30 Resp 13 05/10/20 07:30 BP 161/98 H 05/10/20 07:30 Pulse Ox 96 05/10/20 07:30 Body Mass Index 49.2 Const: General: cooperative, comfortable and no acute distress Orientation/consciousness: patient oriented x3 HENMT: Other: Unremarkable Neck: Neck: Yes normal visual inspection Chest: Chest palpation & inspection: normal inspection of the chest Resp: Auscultation: clear to auscultation bilaterally, no crackles and no wheezes Cardio: Jugular venous distension: no JVD Palpation: normal PMI Heart sounds: S1 normal heart sound present, S2 normal heart sound present, no gallops, no murmurs and no rubs GI: Palpation (GI): Soft to palpation Back/Spine/Pelvis: Other: unremarkable Skin: General skin exam: no rashes or lesions noted Neuro: General: patient oriented x3 Extrem: General: Yes no clubbing, cyanosis or edema Psych: Mental Status: mental status grossly normal Results Labs and Meds Result diagrams: 05/10/20 02:02 05/10/20 02:02 Lab results: Laboratory Results - last 24 hr 05/10/20 05/10/20 05/10/20 02:02 02:02 02:02 WBC 10.4 RBC 4.80 Hgb 16.3 Hct 46.7 MCV 97.3 MCH 34.0 H MCHC 34.9 RDW 12.8 Plt Count 214 MPV 10.1 Immature Gran % (Auto) 0.6 H Neut % (Auto) 66.5 Lymph % (Auto) 19.7 L [place] % (Auto) 10.5 Eos % (Auto) 2.2 Baso % (Auto) 0.5 Lymph # (Auto) 2.0 [place] # (Auto) 1.1 Eos # (Auto) 0.2 Baso # (Auto) 0.1 Abs Immat Gran (auto) 0.06 H Absolute Neuts (auto) 6.9 Absolute Nucleated RBC 0.000 Nucleated RBC % (auto) 0.0 D-Dimer Sodium 137 Potassium 4.6 Chloride 103 Carbon Dioxide 23 Anion Gap 16 BUN 15 Creatinine 0.97 Estim Creat Clear Calc 104.3 Estimated GFR > 60 Random Glucose 129 H Calcium 10.2 Magnesium 2.1 Total Bilirubin 0.5 AST 27 ALT 32 Alkaline Phosphatase 58 Troponin I High Sens Total Protein 7.1 Albumin 4.2 Lipase 45 Urine Color Urine Appearance Urine pH Ur Specific [place] Urine Protein Urine Glucose (UA) Urine Ketones Urine Blood Urine Nitrite Ur Leukocyte Esterase Urine Opiates Screen Ur Barbiturates Screen Ur Phencyclidine Scrn Ur Amphetamines Screen U Benzodiazepines Scrn Urine Cocaine Screen U Marijuana (THC) Screen COVID-19 (LAZARO) COVID-19 Clin Com 05/10/20 05/10/20 05/10/20 02:02 02:02 02:02 WBC RBC Hgb Hct MCV MCH MCHC RDW Plt Count MPV Immature Gran % (Auto) Neut % (Auto) Lymph % (Auto) [place] % (Auto) Eos % (Auto) Baso % (Auto) Lymph # (Auto) [place] # (Auto) Eos # (Auto) Baso # (Auto) Abs Immat Gran (auto) Absolute Neuts (auto) Absolute Nucleated RBC Nucleated RBC % (auto) D-Dimer Sodium Potassium Chloride Carbon Dioxide Anion Gap BUN Creatinine Estim Creat Clear Calc Estimated GFR Random Glucose Calcium Magnesium Total Bilirubin AST ALT Alkaline Phosphatase Troponin I High Sens 160.8 H Total Protein Albumin Lipase Urine Color YELLOW Urine Appearance CLEAR Urine pH 6.5 Ur Specific [place] 1.015 Urine Protein NEG Urine Glucose (UA) NEG Urine Ketones NEG Urine Blood NEG Urine Nitrite NEG Ur Leukocyte Esterase NEG Urine Opiates Screen Not Detected Ur Barbiturates Screen Not Detected Ur Phencyclidine Scrn Not Detected Ur Amphetamines Screen Not Detected U Benzodiazepines Scrn Not Detected Urine Cocaine Screen Not Detected U Marijuana (THC) Screen Not Detected COVID-19 ([place]ZARO) COVID-19 [place] 05/10/20 05/10/20 05/10/20 05:00 05:00 06:36 WBC RBC Hgb Hct MCV MCH MCHC RDW Plt Count MPV Immature Gran % (Auto) Neut % (Auto) Lymph % (Auto) [place] % (Auto) Eos % (Auto) Baso % (Auto) Lymph # (Auto) [place] # (Auto) Eos # (Auto) Baso # (Auto) Abs Immat Gran (auto) Absolute Neuts (auto) Absolute Nucleated RBC Nucleated RBC % (auto) D-Dimer 267 Sodium Potassium Chloride Carbon Dioxide Anion Gap BUN Creatinine Estim Creat Clear Calc Estimated GFR Random Glucose Calcium Magnesium Total Bilirubin AST ALT Alkaline Phosphatase Troponin I High Sens 159.7 H Total Protein Albumin Lipase Urine Color Urine Appearance Urine pH Ur Specific [place] Urine Protein Urine Glucose (UA) Urine Ketones Urine Blood Urine Nitrite Ur Leukocyte Esterase Urine Opiates Screen Ur Barbiturates Screen Ur Phencyclidine Scrn Ur Amphetamines Screen U Benzodiazepines Scrn Urine Cocaine Screen U Marijuana (THC) Screen COVID-19 (LAZARO) Negative COVID-19 Clin Com See Note ECG Attestation: I personally reviewed and interpreted this ECG as follows: Interpretation: Admission EKG with sinus rhythm at 105/Min; nonspecific ST-T changes; Repeat EKG with sinus rhythm and PVCs in a bigeminal pattern. Imaging Radiologist's impression: Impressions Chest X-Ray 05/10/20 01:39 IMPRESSION: No acute cardiopulmonary findings. Abdomen/Pelvis CT 05/10/20 02:42 IMPRESSION: 1. No acute findings identified in the abdomen/pelvis. 2. Enlarged prostate gland. Assessment and Plan (1) NSTEMI (non-ST elevated myocardial infarction): Status: Acute His chest pain symptoms and recent from coronary disease/ND in his brother are concerning. Per ER, thought to have possibly pericarditis but need to assess for coronary disease/plaque rupture. He needs a diagnostic cardiac catheterization. Start IV heparin. Aspirin/high-dose statins. Beta-blockers. Will arrange for transferred to [facility]. Discussed with patient about the plan and he understands and agrees. Procedures Date of Service Date of Service: 05/10/20
--- NOTE | 2020-05-10 09:56 | PC.NURSE ---
pt is a/o x 3 no sob/ciera noted, lungs - cta. speaks in full sentences. pt states l ankle is slightly swollen which is chronic from prior injury.
[2020-05-10] MEDS: polyethylene glycoL 3350 17 GM POWD.PACK PO (10:01)
[2020-05-10] MEDS: Omeprazole 40 MG CAPSULE.DR PO (10:01)
[2020-05-10 10:43] LABS: Hematocrit 48.8 % (42-52); Hemoglobin 16.5 g/dl (14.0-18.0); Mean Corpuscular HGB Conc 33.8 g/dl (31.0-36.0); Mean Corpuscular Hemoglobin 32.9 pg (27.0-33.0); Mean Corpuscular Volume 97.4 fL (80-98); Mean Platelet Volume 9.3 fL (9.4-12.4); Platelet Count 290 X10*3/uL (160-400); Red Blood Count 5.01 X10*6/uL (4.60-5.80); Red Cell Distribution Width 12.8 % (11.0-16.0); White Blood Count 12.1 X10*3/uL (4.8-10.8)
[2020-05-10] MEDS: Metoprolol Tartrate 25 MG TABLET PO (10:53)
[2020-05-10 10:54] LABS: Prothrombin Time 11.8 SEC (10.8-13.0)
[2020-05-10] MEDS: Heparin Sodium,Porcine 5,000 UNIT/ML VIAL 10000 UNIT IVPUSH (10:54)
--- NOTE | 2020-05-10 10:54 | CA_ITS ---
Transthoracic Echocardiogram Patient (Last, First, Middle): Manjeet Victor, Gender: Male Date of : 1950 Age: 69 Procedure Date: 05/10/2020 Procedure Type: Transthoracic Echocardiogram Location: ER Height: 172.72 cm Weight: 146.97 kg BSA: 2.51 m2 Heart Rate: bpm BP: 150 / 95 mmHg Oyster Grower: ALYSSA Referring MD: Frank Bynum MD Symptoms: NSTEMI Study Quality: Technically Difficult ECG Rhythm: Sinus Conclusions: - The left ventricular systolic function is normal. The visually estimated ejection fraction is between 55-60%. - Even with contrast use, unable to assess for wall motion abnormalities. Grossly, no major findings. - Valves were not well visualized. There is evidence of mitral annular and aortic valve calcification but no obvious dysfunction. Findings Procedure Information The patient receives contrast. Left Ventricle Normal left ventricular cavity size. There is mildly increased left ventricular wall thickness. The left ventricular systolic function is normal. The visually estimated ejection fraction is between 55-60%. E/E prime ratio is >15, consistent with elevated filling pressures. Evidence suggests grade I (mild) diastolic dysfunction. Even with contrast use, unable to assess for wall motion abnormalities. Grossly, no major findings. Right Ventricle The right ventricle was not well visualized. There is normal right ventricular systolic function. Atria The left atrium is normal in size. The right atrium was not well visualized. Aortic Valve The aortic valve was not well visualized. There is moderate calcification of the aortic valve. There is no aortic valve stenosis. There is no aortic valve regurgitation. Mitral Valve There is moderate mitral annular calcification. There is trace mitral valve regurgitation. There is no mitral valve stenosis. Pulmonic Valve The pulmonic valve was not well visualized. Tricuspid Valve The tricuspid valve was not well visualized. There is trace tricuspid valve regurgitation. Tricuspid regurgitation envelope is inadequate for calculation of right ventricular systolic pressure. Great Vessels The aortic annulus, sinuses of valsalva, and asc aorta are normal in size. Venous The inferior vena cava was not well visualized. Pericardium/Pleural There is no evidence of pericardial effusion. Prior Study Comparison No prior study available for comparison. Measurements 2D Linear Measurements IVSd: 1.24 0.6-0.9/0.6-1.0 cm LVIDd: 3.89 3.9-5.3/4.2-5.9 cm LVIDd Index: 1.55 2.4-3.2/2.2-3.1 cm/m2 LVIDs: 2.43 2.0-3.6 cm LVPWd: 1.22 0.7-1.1 cm Ao Root: 3.50 2.1-3.5 cm LA Diam: 3.20 2.7-3.8/3.0-4.0 cm LAIDs Index: 1.27 1.5-2.3 cm/m2 LV Mass: 205.07 67-162/88-224 g LV Mass Index: 81.70 43-95/49-115 g/m2 LVOT Diam: 2.10 3.0+(-)1.3 cm Mitral Valve MV VTI: 0.24 MV Pk Parviz: 1.46 MV Mn Parviz: 0.80 MV Pk Grad: 9.00 MV Mn Grad: 3.00 MV Pk E: 0.90 MV PK A: 1.46 MV Decel Time: 162.00 E/A: 0.60 E'Lateral: 5.42 E'Medial: 5.13 E/E' Med: 17.60 E/E' Lat: 16.70 PHT: 47.00 MVA PHT: 4.68 MVA Continuity: 2.73 Decel [place]: 5.57 Aortic Valve AoV Pk Parviz: 1.43 AoV Mn Parviz: 0.88 AoV VTI: 0.21 AoV Pk Grad: 8.00 Aov Mn Grad: 4.00 TERELL Cont.VTI: 3.16 LVOT LVOT Pk Parviz: 0.87 LVOT Mn Parviz: 0.62 LVOT VTI: 0.19 LVOT Pk Grad: 3.00 LVOT Mn Grad: 2.00 LVOT Diam: 2.10 LVOT Area: 3.46 Diastolic Function MV Pk E: 0.90 MV Pk A: 1.46 E/A: 0.60 E'Medial: 5.13 E/E' Med: 17.60 E' Laterial: 5.42 E/E' Lat: 16.70 Great Vessels Aorta Ao Root-2D: 3.50 2.0-3.7 cm Ao Asc: 3.30 2.1-3.4 cm Updated in Other Vendor System with Status of Final Frank Bynum MD electronically signed on 05/10/2020 12:11:33 PM with status of Final
--- NOTE | 2020-05-10 10:55 | PM.DS ---
DS: Providers Provider Date of Service: 05/10/20 Date of admission: 05/10/20 10:21 Primary care physician: Mane Huitron MD Consults: 05/10/20 09:37 Consult to Cardiology Routine Consulting Provider: Frank Bynum Reason for consultation: chest pain, troponins, bigeminy, st depressions DS: Diagnosis Discharge Diagnosis (1) NSTEMI (non-ST elevated myocardial infarction): Status: Acute DS: Medications Discharge Medications Home Medications: Home Medications Medication Instructions Recorded Confirmed albuterol sulfate [ProAir HFA] 2 puff INHALATION Q6H PRN 12/08/19 05/10/20 aspirin 81 mg PO DAILY 12/08/19 05/10/20 ibuprofen 400 mg PO Q6H PRN 12/08/19 05/10/20 omega-3 fatty acids-fish oil 1 cap PO DAILY 12/08/19 05/10/20 DS: Summary Hospital Course Hospital Course: patient was admitted for chest pain and elevated troponins, increased from 160 to 917. he was seen by cardiology who felt this was ACS. patient was started on iv heparin and will be transfered to [facility] for cardiac catheterization Time Spent with Patient Time attestation: Total time spent providing and/or coordinating discharge services: Discharge coordination time: Greater than 30 minutes Physical Exam Vital Signs: Vital Signs: Last Vital Signs Temp 97.9 F 05/10/20 10:51 Pulse 104 H 05/10/20 10:51 Resp 19 05/10/20 10:51 BP 150/95 H 05/10/20 10:51 Pulse Ox 98 05/10/20 10:51 Body Mass Index 49.2 General: AO X 3, no acute distress Resp: CTA bilateral CVS: S1,S2,RRR GI: soft, non tender, non distended Neuro: motor grossly intact Psych: appropriate affect DS: Data Data Completed and Pending Labs on day of discharge: Laboratory Results - last 24 hr 05/10/20 05/10/20 05/10/20 02:02 02:02 02:02 WBC 10.4 RBC 4.80 Hgb 16.3 Hct 46.7 MCV 97.3 MCH 34.0 H MCHC 34.9 RDW 12.8 Plt Count 214 MPV 10.1 Immature Gran % (Auto) 0.6 H Neut % (Auto) 66.5 Lymph % (Auto) 19.7 L [place] % (Auto) 10.5 Eos % (Auto) 2.2 Baso % (Auto) 0.5 Lymph # (Auto) 2.0 [place] # (Auto) 1.1 Eos # (Auto) 0.2 Baso # (Auto) 0.1 Abs Immat Gran (auto) 0.06 H Absolute Neuts (auto) 6.9 Absolute Nucleated RBC 0.000 Nucleated RBC % (auto) 0.0 D-Dimer Sodium 137 Potassium 4.6 Chloride 103 Carbon Dioxide 23 Anion Gap 16 BUN 15 Creatinine 0.97 Estim Creat Clear Calc 104.3 Estimated GFR > 60 Random Glucose 129 H Calcium 10.2 Magnesium 2.1 Total Bilirubin 0.5 AST 27 ALT 32 Alkaline Phosphatase 58 Troponin I High Sens Total Protein 7.1 Albumin 4.2 Lipase 45 Urine Color Urine Appearance Urine pH Ur Specific [place] Urine Protein Urine Glucose (UA) Urine Ketones Urine Blood Urine Nitrite Ur Leukocyte Esterase Urine Opiates Screen Ur Barbiturates Screen Ur Phencyclidine Scrn Ur Amphetamines Screen U Benzodiazepines Scrn Urine Cocaine Screen U Marijuana (THC) Screen COVID-19 (LAZARO) COVID-19 [place] 05/10/20 05/10/20 05/10/20 02:02 02:02 02:02 WBC RBC Hgb Hct MCV MCH MCHC RDW Plt Count MPV Immature Gran % (Auto) Neut % (Auto) Lymph % (Auto) [place] % (Auto) Eos % (Auto) Baso % (Auto) Lymph # (Auto) [place] # (Auto) Eos # (Auto) Baso # (Auto) Abs Immat Gran (auto) Absolute Neuts (auto) Absolute Nucleated RBC Nucleated RBC % (auto) D-Dimer Sodium Potassium Chloride Carbon Dioxide Anion Gap BUN Creatinine Estim Creat Clear Calc Estimated GFR Random Glucose Calcium Magnesium Total Bilirubin AST ALT Alkaline Phosphatase Troponin I High Sens 160.8 H Total Protein Albumin Lipase Urine Color YELLOW Urine Appearance CLEAR Urine pH 6.5 Ur Specific [place] 1.015 Urine Protein NEG Urine Glucose (UA) NEG Urine Ketones NEG Urine Blood NEG Urine Nitrite NEG Ur Leukocyte Esterase NEG Urine Opiates Screen Not Detected Ur Barbiturates Screen Not Detected Ur Phencyclidine Scrn Not Detected Ur Amphetamines Screen Not Detected U Benzodiazepines Scrn Not Detected Urine Cocaine Screen Not Detected U Marijuana (THC) Screen Not Detected COVID-19 (LAZARO) COVID-19 Clin Com 05/10/20 05/10/20 05/10/20 05:00 05:00 06:36 WBC RBC Hgb Hct MCV MCH MCHC RDW Plt Count MPV Immature Gran % (Auto) Neut % (Auto) Lymph % (Auto) [place] % (Auto) Eos % (Auto) Baso % (Auto) Lymph # (Auto) [place] # (Auto) Eos # (Auto) Baso # (Auto) Abs Immat Gran (auto) Absolute Neuts (auto) Absolute Nucleated RBC Nucleated RBC % (auto) D-Dimer 267 Sodium Potassium Chloride Carbon Dioxide Anion Gap BUN Creatinine Estim Creat Clear Calc Estimated GFR Random Glucose Calcium Magnesium Total Bilirubin AST ALT Alkaline Phosphatase Troponin I High Sens 159.7 H Total Protein Albumin Lipase Urine Color Urine Appearance Urine pH Ur Specific [place] Urine Protein Urine Glucose (UA) Urine Ketones Urine Blood Urine Nitrite Ur Leukocyte Esterase Urine Opiates Screen Ur Barbiturates Screen Ur Phencyclidine Scrn Ur Amphetamines Screen U Benzodiazepines Scrn Urine Cocaine Screen U Marijuana (THC) Screen COVID-19 (LAZARO) Negative COVID-19 Clin Com See Note 05/10/20 10:32 WBC 12.1 H RBC 5.01 Hgb 16.5 Hct 48.8 MCV 97.4 MCH 32.9 MCHC 33.8 RDW 12.8 Plt Count 290 D MPV 9.3 L Immature Gran % (Auto) Neut % (Auto) Lymph % (Auto) [place] % (Auto) Eos % (Auto) Baso % (Auto) Lymph # (Auto) [place] # (Auto) Eos # (Auto) Baso # (Auto) Abs Immat Gran (auto) Absolute Neuts (auto) Absolute Nucleated RBC 0.000 Nucleated RBC % (auto) 0.0 D-Dimer Sodium Potassium Chloride Carbon Dioxide Anion Gap BUN Creatinine Estim Creat Clear Calc Estimated GFR Random Glucose Calcium Magnesium Total Bilirubin AST ALT Alkaline Phosphatase Troponin I High Sens Total Protein Albumin Lipase Urine Color Urine Appearance Urine pH Ur Specific [place] Urine Protein Urine Glucose (UA) Urine Ketones Urine Blood Urine Nitrite Ur Leukocyte Esterase Urine Opiates Screen Ur Barbiturates Screen Ur Phencyclidine Scrn Ur Amphetamines Screen U Benzodiazepines Scrn Urine Cocaine Screen U Marijuana (THC) Screen COVID-19 (LAZARO) COVID-19 Clin Com Discharge Plan Discharge Patient Disposition: Xfer Acute Care Hospital Referrals: Mane Huitron MD [Primary Care Provider] - Discharge Medications: Continued ibuprofen 200 mg Tablet 400 mg PO Q6H PRN (Reason: Pain) RF: 0 aspirin 81 mg Tablet 81 mg PO DAILY RF: 0 omega-3 fatty acids-fish oil 684-1,200 mg Capsule,Delayed Release(Dr/Ec) 1 cap PO DAILY RF: 0 albuterol sulfate [ProAir HFA] 90 mcg/actuation Hfa Aerosol Inhaler 2 puff INHALATION Q6H PRN (Reason: Shortness Of Breath Or Wheezing) RF: 0 Discharge Orders: Discharge Order (Routine); Ordered 05/10/20 Ordered By: Luis Carlos Gunderson Diet: advance to usual diet Activity on Discharge: As tolerated Stand Alone Forms: Patient Portal Discharge page Care Plan Goals: manage acs Health Concerns: acs Plan of Treatment: transfer to [facility] for cath
[2020-05-10 10:57] LABS: PTT Heparin Drip 31.3 SEC (53-77.9)
[2020-05-10] MEDS: Heparin Sodium,Porcine/1/2NS 25,000 UNIT/250 ML IV.SOLN 20.58 UNIT IVCONT (11:01)
--- NOTE | 2020-05-10 11:04 | PC.NURSE ---
cardiology - echocardiogram is being done at bedside.
[2020-05-10 11:50] LABS: Troponin-I High Sensitivity 917.1 ng/L (<3.5-35.0)
--- NOTE | 2020-05-10 12:33 | PC.NURSE ---
pt appear of plan of care for transfer to [facility] via ambulance.
--- NOTE | 2020-05-10 13:31 | PC.NURSE ---
NURSE TO NURSE GIVEN TO THU THORNE ([facility], [facility], ). PT AWARE OF PLAN OF CARE FOR TRANSFER TO [facility] VIA AMBULANCE.
== END 2020-05-10 17:03 | disposition short-term general hospital (02) | DRG 281 ==
LOC: HO.ED 06:21 → HO.EDOVER 08:20 → HO.IMC 10:17
PROVIDERS: Admitting Provider Internal Medicine; Emergency Provider Student in an Organized Health Care Education/Training Program; PCP Internal Medicine; Visit Provider Internal Medicine
DX: I21.4 Non-ST elevation (NSTEMI) myocardial infarction (principal); Z68.43 Body mass index [BMI] 50.0-59.9, adult; E66.01 Morbid (severe) obesity due to excess calories; K59.00 Constipation, unspecified; Z20.822 Contact with and (suspected) exposure to COVID-19; Z86.718 Personal history of other venous thrombosis and embolism; Z88.0 Allergy status to penicillin; Z88.2 Allergy status to sulfonamides; Z79.1 Long term (current) use of non-steroidal anti-inflammatories (NSAID); Z79.82 Long term (current) use of aspirin; Z79.899 Other long term (current) drug therapy
CPT/HCPCS: 36415; 71045; 74177; 80053; 80307; 81003; 83690; 83735; 84484; 85025; 85027; 85379; 85610; 85730; 87635; 93005; 93306; 96374; 99285; J2270; Q9957; Q9967

== ENCOUNTER → 2020-05-30 11:13 | Outpatient (BNVA) | payer MEDICARE, SELFPAY | PROVIDERS: PCP Internal Medicine; Visit Provider Nurse Practitioner Family | DX: R07.9 Chest pain, unspecified (principal); I21.4 Non-ST elevation (NSTEMI) myocardial infarction; I25.10 Atherosclerotic heart disease of native coronary artery without angina pectoris; I10 Essential (primary) hypertension; E78.5 Hyperlipidemia, unspecified; Z95.1 Presence of aortocoronary bypass graft; Z79.01 Long term (current) use of anticoagulants; Z87.891 Personal history of nicotine dependence | CPT/HCPCS: 93005; 99212 ==

== ENCOUNTER → 2020-07-14 07:28 | Outpatient (REF) | payer MEDICARE, OTHER, SELFPAY ==
--- NOTE | 2020-07-14 07:31 | CA_ITS ---
Transthoracic Echocardiogram Patient (Last, First, Middle): Manjeet Victor, Gender: Male Date of : 1950 Age: 69 Procedure Date: 07/14/2020 Procedure Type: Transthoracic Echocardiogram Location: OP Height: 172.72 cm Weight: 154.22 kg BSA: 2.56 m2 Heart Rate: bpm BP: 130 / 70 mmHg Assistant Professor Surgical Technology: DSG Referring MD: Francy Enriquez INDEPENDENT LIVING SPECIALIST-Franck Symptoms: Z95.1 - Presence of aortocoronary bypass graft Study Quality: Fair with contrast ECG Rhythm: Sinus Conclusions: - The left ventricular systolic function is hyperdynamic. The visually estimated ejection fraction is >70%. Findings Procedure Information Contrast agent, definity, is being given per protocol without apparent complications. Left Ventricle Normal left ventricular cavity size. There is normal left ventricular wall thickness. The left ventricular systolic function is hyperdynamic. The visually estimated ejection fraction is >70%. There is no evidence of regional wall motion abnormalities. There is paradoxical septal motion consistent with post-operative status. Prior Study Comparison No significant change compared to prior study dated: 05/10/2020. Measurements 2D Systolic Function EF 4C: 71.90 >55% EF 2C: 70.10 >55% EF BiP: 72.30 >55% Mitral Valve E'Lateral: 9.38 E'Medial: 6.09 Diastolic Function E'Medial: 6.09 E' Laterial: 9.38 Updated in Other Vendor System with Status of Final Frank Bynum MD electronically signed on 07/15/2020 4:23:55 PM with status of Final
== END ==
LOC: HO.CARD 07:28
PROVIDERS: PCP Internal Medicine; Visit Provider Nurse Practitioner Family
DX: Z95.1 Presence of aortocoronary bypass graft (principal)
CPT/HCPCS: 93308; Q9957

== ENCOUNTER → 2020-07-19 10:42 | Outpatient (BNVA) | payer MEDICARE, OTHER, SELFPAY | PROVIDERS: PCP Internal Medicine; Referring Provider Internal Medicine; Visit Provider Internal Medicine | DX: I25.10 Atherosclerotic heart disease of native coronary artery without angina pectoris (principal); E66.01 Morbid (severe) obesity due to excess calories; Z95.1 Presence of aortocoronary bypass graft | CPT/HCPCS: 99212 ==

== ENCOUNTER 2020-10-06 07:23 | Outpatient (REF) | payer MEDICARE, OTHER, SELFPAY ==
[2020-10-06 11:11] LABS: MANUAL DIFF FLAG NO
[2020-10-06 11:24] LABS: Basophils Percent Auto 0.6 % (0-2); Eosinophils Absolute Auto 0.3 X10*3/uL (0.0-0.4); Eosinophils Percent Auto 4.1 % (0-4); Hematocrit 48.4 % (42-52); Imm Gran Abs Auto 0.03 X10*3/uL (0.00-0.03); Imm Gran Pct Auto 0.4 % (0.0-0.4); Lymphocytes Absolute Auto 1.7 X10*3/uL (1.2-4.9); Lymphocytes Percent Auto 25.4 % (20-40); Mean Corpuscular HGB Conc 33.1 g/dl (31.0-36.0); Mean Corpuscular Hemoglobin 32.1 pg (27.0-33.0); Mean Corpuscular Volume 97.2 fL (80-98); Mean Platelet Volume 9.9 fL (9.4-12.4); Monocytes Percent Auto 13.9 % (2-11); Neutrophils Absolute Auto 3.8 X10*3/uL (2.0-8.3); Neutrophils Percent Auto 55.6 % (45-73); Platelet Count 232 X10*3/uL (160-400); Red Blood Count 4.98 X10*6/uL (4.60-5.80); White Blood Count 6.8 X10*3/uL (4.8-10.8)
[2020-10-06 11:43] LABS: Cholesterol 140 mg/dL; HDL Cholesterol 32 mg/dL; LDL Cholesterol Calculated 88 mg/dl; Triglycerides 101 mg/dL
[2020-10-06 11:46] LABS: Alanine Aminotransferase 25 U/L (0-40); Alkaline Phosphatase 86 U/L (39-117); Anion Gap 11 (12-20); Aspartate Amino Transferase 24 U/L (5-37); Bilirubin Total 0.5 mg/dL (0.0-1.0); Blood Urea Nitrogen 17 mg/dL (9-16); Calcium 9.9 mg/dL (8.4-10.2); Carbon Dioxide 24 mmol/L (22-29); Chloride 108 mmol/L (96-108); Estimated Glomerular Filt Rate > 60; Glucose Random 110 mg/dL (60-115); Potassium 4.5 mmol/L (3.3-5.1); Sodium 138 mmol/L (135-145); Total Protein 6.7 g/dL (6.5-8.0)
[2020-10-06 11:54] LABS: Thyroid Stimulating Hormone 2.65 uIU/mL (0.32-4.0)
== END 2020-10-06 07:24 | disposition home or self-care (01) ==
LOC: HO.HMGCLDS 07:23
PROVIDERS: PCP Internal Medicine; Visit Provider Internal Medicine
DX: I25.10 Atherosclerotic heart disease of native coronary artery without angina pectoris (principal); R60.0 Localized edema; I10 Essential (primary) hypertension; E78.5 Hyperlipidemia, unspecified
CPT/HCPCS: 36415; 80053; 80061; 84443; 85025

== ENCOUNTER 2021-01-08 07:58 | Outpatient (REF) | payer MEDICARE, OTHER, SELFPAY ==
[2021-01-08 11:37] LABS: MANUAL DIFF FLAG NO
[2021-01-08 11:42] LABS: Basophils Percent Auto 0.6 % (0-2); Eosinophils Absolute Auto 0.2 X10*3/uL (0.0-0.4); Eosinophils Percent Auto 3.3 % (0-4); Hematocrit 46.8 % (42.0-52.0); Hemoglobin 15.4 g/dl (14.0-18.0); Imm Gran Abs Auto 0.03 X10*3/uL (0.00-0.03); Imm Gran Pct Auto 0.4 % (0.0-0.4); Lymphocytes Absolute Auto 1.6 X10*3/uL (1.2-4.9); Lymphocytes Percent Auto 22.5 % (20-40); Mean Corpuscular HGB Conc 32.9 g/dl (31.0-36.0); Mean Corpuscular Hemoglobin 32.8 pg (27.0-33.0); Mean Corpuscular Volume 99.8 fL (80.0-98.0); Monocytes Absolute Auto 0.9 X10*3/uL (0.1-1.2); Monocytes Percent Auto 12.4 % (2-11); Neutrophils Percent Auto 60.8 % (45-73); Platelet Count 261 X10*3/uL (160-400); Red Blood Count 4.69 X10*6/uL (4.60-5.80); Red Cell Distribution Width 13.2 % (11.0-16.0); White Blood Count 6.9 X10*3/uL (4.8-10.8)
[2021-01-08 11:54] LABS: Estimated Average Glucose 131 mg/dL; Hemoglobin A1c % 6.2 %
[2021-01-08 12:09] LABS: Alanine Aminotransferase 23 U/L (0-40); Albumin Level 3.9 g/dL (3.5-5.0); Alkaline Phosphatase 78 U/L (39-117); Anion Gap 12 (12-20); Aspartate Amino Transferase 20 U/L (5-37); Bilirubin Total 0.5 mg/dL (0.0-1.0); Blood Urea Nitrogen 14 mg/dL (9-16); Calcium 9.4 mg/dL (8.4-10.2); Carbon Dioxide 23 mmol/L (22-29); Chloride 106 mmol/L (96-108); Cholesterol 139 mg/dL; Estimated Glomerular Filt Rate > 60; Glucose Fasting 130 mg/dL (60-99); HDL Cholesterol 37 mg/dL; LDL Cholesterol Calculated 83 mg/dl; Potassium 4.6 mmol/L (3.3-5.1); Sodium 136 mmol/L (135-145); Total Protein 6.5 g/dL (6.5-8.0); Triglycerides 98 mg/dL
[2021-01-08 12:17] LABS: Prostate Specific Antigen Scr 1.52 ng/mL (<0.05-4.0)
[2021-01-08 12:44] LABS: Creatinine Urine 118.57 mg/dL; Microalbum/Creatinine Ratio Ur 9.2 ug/mg cr
== END 2021-01-08 07:59 | disposition home or self-care (01) ==
LOC: HO.HMGCLDS 07:58
PROVIDERS: PCP Internal Medicine; Visit Provider Internal Medicine
DX: R97.20 Elevated prostate specific antigen [PSA] (principal); R73.03 Prediabetes
CPT/HCPCS: 36415; 80053; 80061; 82043; 83036; 84153; 85025

== ENCOUNTER → 2021-01-31 08:11 | Outpatient (BNVA) | payer MEDICARE, OTHER, SELFPAY | PROVIDERS: PCP Internal Medicine; Referring Provider Internal Medicine; Visit Provider Internal Medicine | DX: I25.10 Atherosclerotic heart disease of native coronary artery without angina pectoris (principal); E78.5 Hyperlipidemia, unspecified; E66.01 Morbid (severe) obesity due to excess calories; Z95.1 Presence of aortocoronary bypass graft | CPT/HCPCS: 99212 ==

== ENCOUNTER → 2021-07-31 08:07 | Outpatient (BNVA) | payer MEDICARE, OTHER, SELFPAY | PROVIDERS: PCP Internal Medicine; Referring Provider Internal Medicine; Visit Provider Internal Medicine | DX: I25.10 Atherosclerotic heart disease of native coronary artery without angina pectoris (principal); E66.01 Morbid (severe) obesity due to excess calories; E78.5 Hyperlipidemia, unspecified; Z95.1 Presence of aortocoronary bypass graft; Z68.43 Body mass index [BMI] 50.0-59.9, adult | CPT/HCPCS: 93005; 99212 ==

== ENCOUNTER 2021-10-25 08:34 | Outpatient (REF) | payer MEDICARE, OTHER, SELFPAY ==
[2021-10-25 11:15] LABS: MANUAL DIFF FLAG NO
[2021-10-25 11:31] LABS: Basophils Absolute Auto 0.1 X10*3/uL (0.0-0.2); Basophils Percent Auto 1.1 % (0-2); Eosinophils Absolute Auto 0.2 X10*3/uL (0.0-0.4); Eosinophils Percent Auto 3.7 % (0-4); Hematocrit 45.2 % (42.0-52.0); Hemoglobin 15.1 g/dl (14.0-18.0); Imm Gran Abs Auto 0.05 X10*3/uL (0.00-0.03); Imm Gran Pct Auto 0.8 % (0.0-0.4); Lymphocytes Absolute Auto 1.7 X10*3/uL (1.2-4.9); Lymphocytes Percent Auto 26.5 % (20-40); Mean Corpuscular HGB Conc 33.4 g/dl (31.0-36.0); Mean Corpuscular Volume 98.7 fL (80.0-98.0); Monocytes Absolute Auto 0.9 X10*3/uL (0.1-1.2); Monocytes Percent Auto 13.9 % (2-11); Neutrophils Absolute Auto 3.6 x10*3/uL (2.0-8.3); Platelet Count 256 X10*3/uL (160-400); Red Blood Count 4.58 X10*6/uL (4.60-5.80); Red Cell Distribution Width 13.2 % (11.0-16.0); White Blood Count 6.6 X10*3/uL (4.8-10.8)
[2021-10-25 11:38] LABS: Estimated Average Glucose 154 mg/dL
[2021-10-25 12:11] LABS: Alanine Aminotransferase 18 U/L (0-40); Albumin Level 3.8 g/dL (3.5-5.0); Alkaline Phosphatase 81 U/L (39-117); Anion Gap 14 (12-20); Aspartate Amino Transferase 16 U/L (5-37); Bilirubin Total 0.4 mg/dL (0.0-1.0); Blood Urea Nitrogen 13 mg/dL (9-16); Calcium 9.5 mg/dL (8.4-10.2); Carbon Dioxide 25 mmol/L (22-29); Chloride 105 mmol/L (96-108); Estimated Glomerular Filt Rate > 60; Glucose Random 169 mg/dL (60-115); Potassium 4.7 mmol/L (3.3-5.1); Sodium 139 mmol/L (135-145); Total Protein 6.4 g/dL (6.5-8.0)
== END 2021-10-25 08:35 | disposition home or self-care (01) ==
LOC: HO.HMGCLDS 08:34
PROVIDERS: PCP Internal Medicine; Visit Provider Internal Medicine
DX: I25.10 Atherosclerotic heart disease of native coronary artery without angina pectoris (principal); I10 Essential (primary) hypertension; R73.03 Prediabetes
CPT/HCPCS: 36415; 80053; 83036; 85025

== ENCOUNTER 2022-04-19 08:18 | Outpatient (REF) | payer MEDICARE, OTHER, SELFPAY ==
[2022-04-19 11:35] LABS: MANUAL DIFF FLAG NO
[2022-04-19 11:45] LABS: Basophils Absolute Auto 0.1 X10*3/uL (0.0-0.2); Basophils Percent Auto 0.8 % (0-2); Eosinophils Absolute Auto 0.4 X10*3/uL (0.0-0.4); Eosinophils Percent Auto 4.8 % (0-4); Hematocrit 47.4 % (42.0-52.0); Imm Gran Abs Auto 0.03 X10*3/uL (0.00-0.03); Imm Gran Pct Auto 0.4 % (0.0-0.4); Lymphocytes Absolute Auto 1.6 X10*3/uL (1.2-4.9); Lymphocytes Percent Auto 22.5 % (20-40); Mean Corpuscular HGB Conc 33.8 g/dl (31.0-36.0); Mean Corpuscular Hemoglobin 33.8 pg (27.0-33.0); Mean Platelet Volume 11.3 fL (9.4-12.4); Monocytes Absolute Auto 0.9 X10*3/uL (0.1-1.2); Monocytes Percent Auto 12.9 % (2-11); Neutrophils Absolute Auto 4.3 x10*3/uL (2.0-8.3); Neutrophils Percent Auto 58.6 % (45-73); Platelet Count 218 X10*3/uL (160-400); Red Blood Count 4.74 X10*6/uL (4.60-5.80); Red Cell Distribution Width 12.9 % (11.0-16.0); White Blood Count 7.3 X10*3/uL (4.8-10.8)
[2022-04-19 12:01] LABS: Estimated Average Glucose 177 mg/dL; Hemoglobin A1c % 7.8 %
[2022-04-19 12:24] LABS: Creatinine Urine 151.47 mg/dL; Microalbum/Creatinine Ratio Ur 17.8 ug/mg cr
[2022-04-19 12:52] LABS: Alanine Aminotransferase 22 U/L (0-40); Albumin Level 3.9 g/dL (3.5-5.0); Alkaline Phosphatase 105 U/L (39-117); Anion Gap 13 (12-20); Aspartate Amino Transferase 22 U/L (5-37); Bilirubin Total 0.6 mg/dL (0.0-1.0); Blood Urea Nitrogen 12 mg/dL (9-16); Calcium 9.7 mg/dL (8.4-10.2); Carbon Dioxide 23 mmol/L (22-29); Chloride 107 mmol/L (96-108); Cholesterol 118 mg/dL; Estimated Glomerular Filt Rate > 60; Glucose Fasting 151 mg/dL (60-99); HDL Cholesterol 32 mg/dL; LDL Cholesterol Calculated 70 mg/dl; Potassium 4.9 mmol/L (3.3-5.1); Sodium 138 mmol/L (135-145); Total Protein 6.6 g/dL (6.5-8.0); Triglycerides 81 mg/dL
== END 2022-04-19 08:19 | disposition home or self-care (01) ==
LOC: HO.HMGCLDS 08:18
PROVIDERS: PCP Internal Medicine; Visit Provider Internal Medicine
DX: Z00.00 Encounter for general adult medical examination without abnormal findings (principal); Z12.5 Encounter for screening for malignant neoplasm of prostate; E11.9 Type 2 diabetes mellitus without complications
CPT/HCPCS: 36415; 80053; 80061; 82043; 83036; 84153; 85025

== ENCOUNTER 2022-07-29 10:06 | Outpatient (REF) | payer MEDICARE, OTHER, SELFPAY ==
[2022-07-29 11:06] LABS: Estimated Average Glucose 134 mg/dL; Hemoglobin A1c % 6.3 %
[2022-07-29 11:40] LABS: Anion Gap 12 (12-20); Blood Urea Nitrogen 12 mg/dL (9-16); Calcium 10.1 mg/dL (8.4-10.2); Carbon Dioxide 24 mmol/L (22-29); Chloride 106 mmol/L (96-108); Estimated Glomerular Filt Rate > 60; Glucose Random 120 mg/dL (60-115); Potassium 4.7 mmol/L (3.3-5.1); Sodium 137 mmol/L (135-145)
[2022-07-29 11:42] LABS: Creatinine Urine 104.83 mg/dL; Microalbum/Creatinine Ratio Ur 10.4 ug/mg cr
== END 2022-07-29 10:07 | disposition home or self-care (01) ==
LOC: HO.10HDL 10:06
PROVIDERS: Visit Provider Internal Medicine
DX: E11.9 Type 2 diabetes mellitus without complications (principal); I10 Essential (primary) hypertension; I25.10 Atherosclerotic heart disease of native coronary artery without angina pectoris
CPT/HCPCS: 36415; 80048; 82043; 83036

== ENCOUNTER → 2022-08-01 13:21 | Outpatient (BNVA) | payer MEDICARE, OTHER, SELFPAY | PROVIDERS: PCP Internal Medicine; Visit Provider Internal Medicine | DX: I25.10 Atherosclerotic heart disease of native coronary artery without angina pectoris (principal); E78.5 Hyperlipidemia, unspecified; E66.01 Morbid (severe) obesity due to excess calories; Z95.1 Presence of aortocoronary bypass graft; Z68.43 Body mass index [BMI] 50.0-59.9, adult | CPT/HCPCS: 93005; 99212 ==

== ENCOUNTER → 2022-10-23 09:48 | Outpatient (BNVA) | payer MEDICARE, OTHER, SELFPAY | PROVIDERS: PCP Internal Medicine; Visit Provider Physician Assistant ==

== ENCOUNTER 2022-11-04 10:41 | Outpatient (REF) | payer MEDICARE, OTHER, SELFPAY ==
[2022-11-04 13:11] LABS: MANUAL DIFF FLAG NO
[2022-11-04 13:19] LABS: Basophils Absolute Auto 0.1 X10*3/uL (0.0-0.2); Eosinophils Absolute Auto 0.3 X10*3/uL (0.0-0.4); Eosinophils Percent Auto 4.4 % (0-4); Hematocrit 45.3 % (42.0-52.0); Hemoglobin 15.1 g/dl (14.0-18.0); Imm Gran Abs Auto 0.03 X10*3/uL (0.00-0.03); Imm Gran Pct Auto 0.4 % (0.0-0.4); Lymphocytes Absolute Auto 1.7 X10*3/uL (1.2-4.9); Mean Corpuscular HGB Conc 33.3 g/dl (31.0-36.0); Mean Corpuscular Hemoglobin 33.3 pg (27.0-33.0); Mean Platelet Volume 10.1 fL (9.4-12.4); Monocytes Absolute Auto 0.8 X10*3/uL (0.1-1.2); Monocytes Percent Auto 10.3 % (2-11); Neutrophils Absolute Auto 4.7 x10*3/uL (2.0-8.3); Neutrophils Percent Auto 61.9 % (45-73); Platelet Count 263 X10*3/uL (160-400); Red Blood Count 4.53 X10*6/uL (4.60-5.80); Red Cell Distribution Width 13.3 % (11.0-16.0); White Blood Count 7.7 X10*3/uL (4.8-10.8)
[2022-11-04 13:30] LABS: Estimated Average Glucose 137 mg/dL; Hemoglobin A1c % 6.4 % (<6.0)
[2022-11-04 13:31] LABS: Alanine Aminotransferase 20 U/L (0-40); Albumin Level 3.8 g/dL (3.5-5.0); Alkaline Phosphatase 79 U/L (39-117); Anion Gap 10 (12-20); Aspartate Amino Transferase 21 U/L (5-37); Bilirubin Total 0.6 mg/dL (0.0-1.0); Blood Urea Nitrogen 12 mg/dL (9-16); Carbon Dioxide 26 mmol/L (22-29); Chloride 106 mmol/L (96-108); Estimated Glomerular Filt Rate > 60; Glucose Random 150 mg/dL (60-115); Potassium 4.5 mmol/L (3.3-5.1); Sodium 137 mmol/L (135-145); Total Protein 6.7 g/dL (6.5-8.0)
== END 2022-11-04 10:42 | disposition home or self-care (01) ==
LOC: HO.10HDL 10:41
PROVIDERS: Visit Provider Internal Medicine
DX: I25.10 Atherosclerotic heart disease of native coronary artery without angina pectoris (principal); I10 Essential (primary) hypertension; R60.0 Localized edema; E11.9 Type 2 diabetes mellitus without complications
CPT/HCPCS: 36415; 80053; 83036; 85025

== ENCOUNTER 2022-12-02 13:00 | Outpatient (AMB) | payer MEDICARE, OTHER, SELFPAY ==
--- NOTE | 2022-12-02 12:56 | MHC.OFFVISWM ---
Intake VS Expanded 12/02/22 14:08 Height 5 ft 8 in Weight 370 lb BMI 56.3 Intake Visit Reasons: (TV) [employer] MAIL [employer]ER SWL BMI 53.3 Allergies Penicillins [PENICILLINS] Allergy (Severe, Verified 08/01/22 13:29) CHEST TIGHTNESS shellfish derived [SHELLFISH DERIVED] Allergy (Severe, Verified 08/01/22 13:29) CHEST TIGHTNESS Sulfa (Sulfonamide Antibiotics) [SULFA (SULFONAMIDE ANTIBIOTICS)] Allergy (Severe, Verified 08/01/22 13:29) CHEST TIGHTNESS meperidine [From Demerol] Adverse Reaction (Mild, Verified 08/01/22 13:29) Nausea and Vomiting HPI HPI Comments History of Present Illness Details This is a 72 year old man s/p Triple cardiac bypass and DVT who wants more information regarding our SWL program. He was referred here by Dr Bynum. His goal is to weigh low 200's. He lives with and his 2 autistic children. 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 He wakes at: 7-8 am, bed at 11 pm - 12 am - has interrupted sleep due to autistic child Breakfast: Coffee 2-3 cups with 2% milk, no sweetener. 8am - bowl of bran flakes with 1% cereal OR 2 rye toast and 2 eggs and ham or sausage Lunch: 1-2 pm - can of tuna and can of spinach with shredded cheese OR ham and cheese sandwich. coffee Dinner: 6pm - pizza OR spaghetti with tomato sauce, vegetables 2-3 d/ week. May have some sausage for dinner but usually no protein at dinner. After dinner: will have popcorn and chips while watching TV. Other snacks: no snacks during the day. Liquids: Drinks coffee all day until bedtime, 10 - 12 cups per day. Has Alcohol intake: last drink 9 months ago, tobacco: quit over 45 years ago, marijuana: none Has shellfish allergy. Exercise: none, ankle injury. Has cane to walk, can walk with ankle brace up to 1/2 mile. LELA: 0 ESS: 7 GERD: 0 QOL: 86 PFSH Medical History Morbid obesity Atherosclerotic cardiovascular disease HLD (hyperlipidemia) HTN (hypertension) Arthritis History of diverticulitis Elevated PSA DVT (deep venous thrombosis) Asthma Surgical History (Updated 12/02/22 @ 13:20 by Susan Valera PA-C) S/P cardiac cath S/P CABG (coronary artery bypass graft) Hx of hemorrhoidectomy H/O nasal septoplasty Hx of colonoscopy Family History Mother No problems noted. Brother No problems noted. Social History Alcohol intake: current Alcohol intake frequency: holidays/special occasions only Patient Tobacco Use Status: Former Tobacco user Quit Date: 1977 Years Smoked: 7 +/- Assessment & Plan Assessment & Plan (1) Morbid obesity: Code(s): E66.01 - Morbid (severe) obesity due to excess calories Plan: This is a 72 yo man with severe cardiac disease and morbid obesity who would like to discuss gastric balloon placement. He is unsure whether he wants to make the changes necessary for bariatric surgery. He is being scheduled for consultation with Dr Richey and in the mean time has agreed to start making the following changes: 1. Decrease caffeine - no caffeine after 3pm - may have decaf for now - try to limit to 6 cups in total per day. 2. Healthy meal plan - have protein at every meal (3 tiems per day), have vegetables at lunch and dinner., limit carbs to 1/4 of plate. 3. Buy protein bar and cut into 10 pieces to eat over 60 minutes whiel watching TV - stop chips and popcorn. Exercise - Gen Kerr 30 minute chair exercises - this week 3 days, next week 4 d then increase to 5 non- consecutive days per week. He needs referral to urology for enlarged prostate on CT in 2020 and urinary symptoms. He does not own a cell phone, but can send information via email . Pt will purchase body composition analyzer (recommended list given to patient) and weight himself weekly. Patient is morbidly obese and is not considered stable at this time.?I spent a total of 60 minutes reviewing/updating records, and counseling the patient via telephone on weight management as detailed above. (2) S/P CABG (coronary artery bypass graft): Comment: May 2020 - triple bypass Code(s): Z95.1 - Presence of aortocoronary bypass graft (3) DVT (deep venous thrombosis): Comment: LEFT LEG. On xarelto for about 18months. Stopped about 2016, considered provoked from perforated diverticulitis Code(s): I82.409 - Acute embolism and thrombosis of unspecified deep veins of unspecified lower extremity (4) S/P cardiac cath: Comment: 05/11/20 Prox LAD 80%, mid LAD 65%, distal LAD 99%, LCx 1st OM 90%, 2nd OM 70%, RCA mild luminal irreg < 30% stenosis Code(s): Z98.890 - Other specified postprocedural states (5) Atherosclerotic cardiovascular disease: Code(s): I25.10 - Atherosclerotic heart disease of alutiiq coronary artery without angina pectoris (6) HLD (hyperlipidemia): Code(s): E78.5 - Hyperlipidemia, unspecified (7) HTN (hypertension): Code(s): I10 - Essential (primary) hypertension (8) NSTEMI (non-ST elevated myocardial infarction): Code(s): I21.4 - Non-ST elevation (NSTEMI) myocardial infarction (9) Pre-op evaluation: Code(s): Z01.818 - Encounter for other preprocedural examination (10) Migraine: Code(s): G43.909 - Migraine, unspecified, not intractable, without status migrainosus Orders: Referrals Urology Referral E66.01 - Morbid (severe) obesity due to excess calories, N40.1 - Benign prostatic hyperplasia with lower urinary tract symptoms, Z95.1 - Presence of aortocoronary bypass graft Telehealth Telehealth Location of provider rendering services: practice address Location of patient: address on file Patient Identification confirmed using: Name, : Yes Telehealth method: voice only Patient verbally consented to treatment: Yes Patient verbally consented to billing insurance company: Yes Patient informed of any privacy concerns related to visit: Yes Coding Level of Care Code Tele Est Pt Level 5 (24480) Diagnoses Morbid obesity E66.01 S/P CABG (coronary artery bypass graft) Z95.1 DVT (deep venous thrombosis) I82.409 S/P cardiac cath Z98.890 Atherosclerotic cardiovascular disease I25.10 HLD (hyperlipidemia) E78.5 HTN (hypertension) I10 NSTEMI (non-ST elevated myocardial infarction) I21.4 Pre-op evaluation Z01.818 Migraine G43.909
[2022-12-02 14:08] VITALS: BMI 56.3
== END 2022-12-02 14:44 | disposition home or self-care (01) ==
LOC: HO.HBS 14:16
PROVIDERS: PCP Internal Medicine; Visit Provider Physician Assistant
DX: E66.01 Morbid (severe) obesity due to excess calories (principal); Z68.43 Body mass index [BMI] 50.0-59.9, adult; I10 Essential (primary) hypertension; G43.909 Migraine, unspecified, not intractable, without status migrainosus
CPT/HCPCS: 99443

== ENCOUNTER → 2022-12-02 13:00 | Outpatient (BNVA) | payer MEDICARE, OTHER, SELFPAY | PROVIDERS: PCP Internal Medicine; Visit Provider Physician Assistant | DX: N40.1 Benign prostatic hyperplasia with lower urinary tract symptoms (principal); E66.01 Morbid (severe) obesity due to excess calories; Z95.1 Presence of aortocoronary bypass graft; I82.409 Acute embolism and thrombosis of unspecified deep veins of unspecified lower extremity; Z98.890 Other specified postprocedural states; I25.10 Atherosclerotic heart disease of native coronary artery without angina pectoris; E78.5 Hyperlipidemia, unspecified; I10 Essential (primary) hypertension; I21.4 Non-ST elevation (NSTEMI) myocardial infarction; Z01.818 Encounter for other preprocedural examination; G43.909 Migraine, unspecified, not intractable, without status migrainosus ==

== ENCOUNTER 2022-12-04 08:02 | Outpatient (AMB) | payer MEDICARE, OTHER, SELFPAY ==
--- NOTE | 2022-12-04 10:54 | A.OFFVIS_ITS ---
Intake VS Expanded 12/04/22 11:18 Height 5 ft 8 in Weight 350 lb 6 oz BMI 53.3 Body Fat 159.4 Body Fat Percentage 45.5 Free Fat Mass 191.2 Visceral Mass 38 Water Mass 153 BMR 2,740 Intake Visit Reasons: TV Gastric Balloon Allergies Penicillins [PENICILLINS] Allergy (Severe, Verified 12/04/22 10:56) CHEST TIGHTNESS shellfish derived [SHELLFISH DERIVED] Allergy (Severe, Verified 12/04/22 10:56) CHEST TIGHTNESS Sulfa (Sulfonamide Antibiotics) [SULFA (SULFONAMIDE ANTIBIOTICS)] Allergy (Severe, Verified 12/04/22 10:56) CHEST TIGHTNESS meperidine [From Demerol] Adverse Reaction (Mild, Verified 12/04/22 10:56) Nausea and Vomiting Medication List - Last Reconciled 12/04/22 by Jorje Gamboa MD albuterol sulfate 90 mcg/actuation (ProAir HFA) 2 puffs inhalation Q6H PRN aspirin 81 mg PO DAILY atorvastatin 80 mg PO BEDTIME ezetimibe (Zetia) 10 mg PO DAILY metoprolol tartrate 50 mg PO BID 90 days HPI TV Gastric Balloon HPI Details Start time: 10.40am, End time: 11.44am ?I spent 59 minutes speaking with the patient on the phone plus an additional 5 minutes reviewing and updating records for a total of 64 minutes HPI Comments History of Present Illness Details Previous weight loss efforts: high protein diet, GOLO Wakes up: 7am, sleep: 11pm Breakfast: 8am (cereal, toast with eggs, sausage) Lunch: 1pm (1/2 can spinach and tuna, ham and cheese sandwich) Dinner: 5-6pm (chicken, vegetables) Snacks: 2-3 times after dinner (chips, popcorn, pretzels) Exercise: none Fluids: Coffee up to 12 cups/day (2% milk), tea: 1 cup/day (milk), soda: none, juice: <1/wk, ETOH: rarely PFSH Medical History (Updated 12/04/22 @ 11:07 by Jorje Gamboa MD) DJD (degenerative joint disease) GERD (gastroesophageal reflux disease) Diverticulitis Morbid obesity Atherosclerotic cardiovascular disease HLD (hyperlipidemia) HTN (hypertension) Arthritis History of diverticulitis Elevated PSA DVT (deep venous thrombosis) Asthma Surgical History (Updated 12/02/22 @ 13:20 by Susan Valera PA-C) S/P cardiac cath S/P CABG (coronary artery bypass graft) Hx of hemorrhoidectomy H/O nasal septoplasty Hx of colonoscopy Family History Mother No problems noted. Brother No problems noted. Social History Alcohol intake: current Alcohol intake frequency: holidays/special occasions only Patient Tobacco Use Status: Former Tobacco user Quit Date: 1977 Smoked: 7 +/- Assessment & Plan Assessment & Plan (1) Morbid obesity: Code(s): E66.01 - Morbid (severe) obesity due to excess calories Plan: 1.? Plan for lap sleeve gastrectomy. If diaphragmatic or ventral hernias are present at time of surgery, these will be repaired laparoscopically as well. Risks and complications were discussed in detail including possible conversion to an open procedure, anastomotic leak, bleeding requiring transfusion, small bowel obstruction, , DVT and pulmonary embolism, cardiac, or pulmonary complications, as snf complications such as anastomotic ulcer, insufficient weight loss and vitamin deficiencies. I emphasized the importance of close follow-up, adherence to instructions and good communication. 2. Nutritional counseling. Start with 2 CELEBRATE REBUILD protein (buy at [facility]) shakes (ONE scoop EACH in 8oz low fat unsweetened almond milk each) at 8am-10am and 11am-1pm, 1 CELEBRATE protein bar (buy at the [facility] [employer]) at 2pm-4pm, dinner at 5pm (14 forks of protein and 14 forks of salad/vegetables) and two more protein barS after dinner at 6pm-8pm and 8pm-10pm. Meal to include lean meat (beef, fish, pork, turkey, chicken), or maltese yogurt, or egg whites, or beans with a salad with olive oil and fruits (berries, pears, apples, kiwi). Avoid salt, breads, potatoes, rice, pasta, desserts. 3. Each shake would be drunk slowly, like coffee in a period of 2 hours. May add your coffee into your shakes, if flavors match. 4. Cut each bar in 4 pieces and eat each piece in 30min ?to make each bar last 2 hours. 5. I emphasized the importance of measuring accurately the food portion and measure it when serving the food in plate 6. The meal portions include 14 full-size forks of meat and 14 full-size forks of salad. You always eat the meat portion but you can replace up to 7 forks for salad/vegetables with rice, potatoes or pasta, or a fruit ?if you like. The less you do it the better weight loss will be. 7. One full-size fork is what it can be scooped on the fork without falling aside and not what can be bit with the fork. Use regular forks like those you find in a typical restaurant. 8.? Please send me weight measurements as soon as possible and then once a week. Always include your diet and exercise plan. 9. Please purchase a stationary bike, or a rowing machine at home that can track calories. Let me know if you do so I can give you an exercise plan. 10.?Goal is to lose at least 1.5-2lbs per week 11. Goal to lose 10% of your weight before surgery, which is about 35lbs. Ultimate weight goal: 315lbs before surgery 12. Please follow the diet plan exactly without any change. If you don't like something about the plan or you feel hungry you need to communicate with me so I can help you revise the plan. You should not change the plan yourself. (2) Atherosclerotic cardiovascular disease: Code(s): I25.10 - Atherosclerotic heart disease of [place] coronary artery without angina pectoris (3) HLD (hyperlipidemia): Code(s): E78.5 - Hyperlipidemia, unspecified (4) HTN (hypertension): Code(s): I10 - Essential (primary) hypertension (5) CAD (coronary artery disease): Code(s): I25.10 - Atherosclerotic heart disease of [place] coronary artery without angina pectoris (6) NSTEMI (non-ST elevated myocardial infarction): Code(s): I21.4 - Non-ST elevation (NSTEMI) myocardial infarction (7) Migraine: Code(s): G43.909 - Migraine, unspecified, not intractable, without status migrainosus (8) DVT (deep venous thrombosis): Comment: LEFT LEG. On xarelto for about 18months. Stopped about 2017, considered provoked from perforated diverticulitis Code(s): I82.409 - Acute embolism and thrombosis of unspecified deep veins of unspecified lower extremity Orders: Orders Insulin Today E66.01 - Morbid (severe) obesity due to excess calories, E78.5 - Hyperlipidemia, unspecified, I10 - Essential (primary) hypertension, I21.4 - Non-ST elevation (NSTEMI) myocardial infarction, I25.10 - Atherosclerotic heart disease of [place] coronary artery without angina pectoris, I82.409 - Acute embolism and thrombosis of unspecified deep veins of unspecified lower extremity Lipid Panel Today E66.01 - Morbid (severe) obesity due to excess calories, E78.5 - Hyperlipidemia, unspecified, I10 - Essential (primary) hypertension, I21.4 - Non-ST elevation (NSTEMI) myocardial infarction, I25.10 - Atherosclerotic heart disease of [place] coronary artery without angina pectoris, I82.409 - Acute embolism and thrombosis of unspecified deep veins of unspecified lower extremity Vitamin A Today E66.01 - Morbid (severe) obesity due to excess calories, E78.5 - Hyperlipidemia, unspecified, I10 - Essential (primary) hypertension, I21.4 - Non-ST elevation (NSTEMI) myocardial infarction, I25.10 - Atherosclerotic heart disease of [place] coronary artery without angina pectoris, I82.409 - Acute embolism and thrombosis of unspecified deep veins of unspecified lower extremity C Reactive Protein Today E66.01 - Morbid (severe) obesity due to excess calories, E78.5 - Hyperlipidemia, unspecified, I10 - Essential (primary) hypertension, I21.4 - Non-ST elevation (NSTEMI) myocardial infarction, I25.10 - Atherosclerotic heart disease of [place] coronary artery without angina pectoris, I82.409 - Acute embolism and thrombosis of unspecified deep veins of unspecified lower extremity Ferritin Today E66.01 - Morbid (severe) obesity due to excess calories, E78.5 - Hyperlipidemia, unspecified, I10 - Essential (primary) hypertension, I21.4 - Non-ST elevation (NSTEMI) myocardial infarction, I25.10 - Atherosclerotic heart disease of [place] coronary artery without angina pectoris, I82.409 - Acute embolism and thrombosis of unspecified deep veins of unspecified lower extremity Vitamin D 25-OH Total Today E66.01 - Morbid (severe) obesity due to excess calories, E78.5 - Hyperlipidemia, unspecified, I10 - Essential (primary) hypertension, I21.4 - Non-ST elevation (NSTEMI) myocardial infarction, I25.10 - Atherosclerotic heart disease of [place] coronary artery without angina pectoris, I82.409 - Acute embolism and thrombosis of unspecified deep veins of unspecified lower extremity Hemoglobin A1c Today E66.01 - Morbid (severe) obesity due to excess calories, E78.5 - Hyperlipidemia, unspecified, I10 - Essential (primary) hypertension, I21.4 - Non-ST elevation (NSTEMI) myocardial infarction, I25.10 - Atherosclerotic heart disease of [place] coronary artery without angina pectoris, I82.409 - Acute embolism and thrombosis of unspecified deep veins of unspecified lower extremity US abdomen comp w elastography Today E66.01 - Morbid (severe) obesity due to excess calories, E78.5 - Hyperlipidemia, unspecified, I10 - Essential (primary) hypertension, I21.4 - Non-ST elevation (NSTEMI) myocardial infarction, I25.10 - Atherosclerotic heart disease of [place] coronary artery without angina pectoris, I82.409 - Acute embolism and thrombosis of unspecified deep veins of unspecified lower extremity XR chest 2V Today E66.01 - Morbid (severe) obesity due to excess calories, E78.5 - Hyperlipidemia, unspecified, I10 - Essential (primary) hypertension, I21.4 - Non-ST elevation (NSTEMI) myocardial infarction, I25.10 - Atherosclerotic heart disease of [place] coronary artery without angina pectoris, I82.409 - Acute embolism and thrombosis of unspecified deep veins of unspecified lower extremity ECG 12 lead EKG Today E66.01 - Morbid (severe) obesity due to excess calories, E78.5 - Hyperlipidemia, unspecified, I10 - Essential (primary) hypertension, I21.4 - Non-ST elevation (NSTEMI) myocardial infarction, I25.10 - Atheroscler otic heart disease of [place] coronary artery without angina pectoris, I82.409 - Acute embolism and thrombosis of unspecified deep veins of unspecified lower extremity IRON PROFILE Today E66.01 - Morbid (severe) obesity due to excess calories, E78.5 - Hyperlipidemia, unspecified, I10 - Essential (primary) hypertension, I21.4 - Non-ST elevation (NSTEMI) myocardial infarction, I25.10 - Atherosclerotic heart disease of [place] coronary artery without angina pectoris, I82.409 - Acute embolism and thrombosis of unspecified deep veins of unspecified lower extremity Complete Blood Count Auto Diff Today E66.01 - Morbid (severe) obesity due to excess calories, E78.5 - Hyperlipidemia, unspecified, I10 - Essential (primary) hypertension, I21.4 - Non-ST elevation (NSTEMI) myocardial infarction, I25.10 - Atherosclerotic heart disease of [place] coronary artery without angina pectoris, I82.409 - Acute embolism and thrombosis of unspecified deep veins of unspecified lower extremity Vitamin B12 and Folate Today E66.01 - Morbid (severe) obesity due to excess calories, E78.5 - Hyperlipidemia, unspecified, I10 - Essential (primary) hypertension, I21.4 - Non-ST elevation (NSTEMI) myocardial infarction, I25.10 - Atherosclerotic heart disease of [place] coronary artery without angina pectoris, I82.409 - Acute embolism and thrombosis of unspecified deep veins of unspecified lower extremity Zinc Today E66.01 - Morbid (severe) obesity due to excess calories, E78.5 - Hyperlipidemia, unspecified, I10 - Essential (primary) hypertension, I21.4 - Non-ST elevation (NSTEMI) myocardial infarction, I25.10 - Atherosclerotic heart disease of [place] coronary artery without angina pectoris, I82.409 - Acute embolism and thrombosis of unspecified deep veins of unspecified lower extremity Comprehensive Met. Panel Today E66.01 - Morbid (severe) obesity due to excess calories, E78.5 - Hyperlipidemia, unspecified, I10 - Essential (primary) hypertension, I21.4 - Non-ST elevation (NSTEMI) myocardial infarction, I25.10 - Atherosclerotic heart disease of [place] coronary artery without angina pectoris, I82.409 - Acute embolism and thrombosis of unspecified deep veins of unspecified lower extremity Vitamin B1 Today E66.01 - Morbid (severe) obesity due to excess calories, E78.5 - Hyperlipidemia, unspecified, I10 - Essential (primary) hypertension, I21.4 - Non-ST elevation (NSTEMI) myocardial infarction, I25.10 - Atherosclerotic heart disease of [place] coronary artery without angina pectoris, I82.409 - Acute embolism and thrombosis of unspecified deep veins of unspecified lower extremity PTHI Today E66.01 - Morbid (severe) obesity due to excess calories, E78.5 - Hyperlipidemia, unspecified, I10 - Essential (primary) hypertension, I21.4 - Non-ST elevation (NSTEMI) myocardial infarction, I25.10 - Atherosclerotic heart disease of [place] coronary artery without angina pectoris, I82.409 - Acute embolism and thrombosis of unspecified deep veins of unspecified lower extremity TSH reflex Free T4 Today E66.01 - Morbid (severe) obesity due to excess calories, E78.5 - Hyperlipidemia, unspecified, I10 - Essential (primary) hypertension, I21.4 - Non-ST elevation (NSTEMI) myocardial infarction, I25.10 - Atherosclerotic heart disease of [place] coronary artery without angina pectoris, I82.409 - Acute embolism and thrombosis of unspecified deep veins of unspecified lower extremity H Pylori Breath Test Today E66.01 - Morbid (severe) obesity due to excess calories, E78.5 - Hyperlipidemia, unspecified, I10 - Essential (primary) hypertension, I21.4 - Non-ST elevation (NSTEMI) myocardial infarction, I25.10 - Atherosclerotic heart disease of [place] coronary artery without angina pectoris, I82.409 - Acute embolism and thrombosis of unspecified deep veins of unspecified lower extremity FL upper GI w air Today E66.01 - Morbid (severe) obesity due to excess calories, E78.5 - Hyperlipidemia, unspecified, I10 - Essential (primary) hypertension, I21.4 - Non-ST elevation (NSTEMI) myocardial infarction, I25.10 - Atherosclerotic heart disease of [place] coronary artery without angina pectoris, I82.409 - Acute embolism and thrombosis of unspecified deep veins of unspecified lower extremity Referrals Behavioral Health Referral E66.01 - Morbid (severe) obesity due to excess calories, E78.5 - Hyperlipidemia, unspecified, I10 - Essential (primary) hypertension, I21.4 - Non-ST elevation (NSTEMI) myocardial infarction, I25.10 - Atherosclerotic heart disease of [place] coronary artery without angina pectoris, I82.409 - Acute embolism and thrombosis of unspecified deep veins of unspecified lower extremity Nutrition/Dietitian Referral E66.01 - Morbid (severe) obesity due to excess calories, E78.5 - Hyperlipidemia, unspecified, I10 - Essential (primary) hypertension, I21.4 - Non-ST elevation (NSTEMI) myocardial infarction, I25.10 - Atherosclerotic heart disease of [place] coronary artery without angina pectoris, I82.409 - Acute embolism and thrombosis of unspecified deep veins of unspecified lower extremity Telehealth Telehealth Location of provider rendering services: practice address Location of patient: address on file Patient Identification confirmed using: Name, : Yes Telehealth method: voice only Patient verbally consented to treatment: Yes Patient verbally consented to billing insurance company: Yes Patient informed of any privacy concerns related to visit: Yes Minutes spent on Phone/Video with Pt.: 64 Coding Level of Care Code Tele Est Pt Level 5 (86506) Diagnoses Morbid obesity E66.01 Atherosclerotic cardiovascular disease I25.10 HLD (hyperlipidemia) E78.5 HTN (hypertension) I10 CAD (coronary artery disease) I25.10 NSTEMI (non-ST elevated myocardial infarction) I21.4 Migraine G43.909 DVT (deep venous thrombosis) I82.409 Time Spent (min) 64
[2022-12-04 11:18] VITALS: BMI 53.3
== END 2022-12-04 11:46 | disposition home or self-care (01) ==
LOC: HO.HBS 08:02
PROVIDERS: PCP Internal Medicine; Visit Provider Surgery
DX: E66.01 Morbid (severe) obesity due to excess calories (principal); Z68.43 Body mass index [BMI] 50.0-59.9, adult
CPT/HCPCS: 99443

== ENCOUNTER → 2022-12-04 08:02 | Outpatient (BNVA) | payer MEDICARE, OTHER, SELFPAY | PROVIDERS: PCP Internal Medicine; Visit Provider Surgery ==

== ENCOUNTER 2023-01-03 09:28 | Outpatient (REF) | payer MEDICARE, OTHER, SELFPAY ==
--- NOTE | ~2023-01-03 | FL_ITS ---
EXAMINATION: XR FLUOROSCOPY UPPER GI WITH AIR CLINICAL INFORMATION: Obesity. COMPARISON: None available. TECHNIQUE: Upper GI was performed using thin and thick barium and effervescent granules. FINDINGS: Esophageal motility is normal. There is mild gastroesophageal reflux. There is a small sliding-type hiatal hernia with Schatzki ring. There is question of a small sliding-type paraesophageal hernia as well. The stomach and duodenum are otherwise normal. No fold thickening, mass, ulcer or stricture. FLUOROSCOPY TIME: 1 minute 14 seconds. DOSE AREA PRODUCT: 251 dGy-cm2. Total Dose: 53 mGy. 31 saved fluoroscopic images. FL/FL upper GI w air IMPRESSION: Gastroesophageal reflux. Small sliding hiatal hernia with Schatzki ring. Question small sliding paraesophageal hernia.
--- NOTE | ~2023-01-03 | XR_ITS ---
EXAMINATION: XR CHEST CLINICAL INFORMATION: Morbid obesity due to excess calories COMPARISON: 05/10/2020 TECHNIQUE: 3 views of the chest. Limited visualization due to body habitus. FINDINGS: There is no gross pneumothorax. Status post median sternotomy with mediastinal wires and plates. Degenerative changes in the thoracic spine. Heart size is normal. There is no gross pneumothorax. Chin obscures the lung apices. No focal consolidation to suggest pneumonia. Possible trace left pleural effusion. XR/XR chest 2V IMPRESSION: Postsurgical mediastinal changes. Possible trace left pleural effusion. Limited visualization due to body habitus.
== END 2023-01-03 09:29 | disposition home or self-care (01) ==
LOC: HO.XRAY 09:28
PROVIDERS: PCP Internal Medicine; Visit Provider Surgery
DX: E66.01 Morbid (severe) obesity due to excess calories (principal); I25.10 Atherosclerotic heart disease of native coronary artery without angina pectoris; E78.5 Hyperlipidemia, unspecified; I10 Essential (primary) hypertension; I21.4 Non-ST elevation (NSTEMI) myocardial infarction
CPT/HCPCS: 71046; 74246

== ENCOUNTER → 2023-01-03 09:32 | Outpatient (BNV) | payer MEDICARE, OTHER, SELFPAY | PROVIDERS: PCP Internal Medicine; Visit Provider Radiology Diagnostic Radiology | DX: K21.9 Gastro-esophageal reflux disease without esophagitis (principal); K44.0 Diaphragmatic hernia with obstruction, without gangrene | CPT/HCPCS: 74246 ==

== ENCOUNTER 2023-01-06 12:41 | Outpatient (AMB) | payer MEDICARE, OTHER, SELFPAY ==
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
== END 2023-01-06 13:55 | disposition home or self-care (01) ==
PROVIDERS: PCP Internal Medicine; Visit Provider Counselor Mental Health
DX: F43.20 Adjustment disorder, unspecified (principal); E66.01 Morbid (severe) obesity due to excess calories; Z68.43 Body mass index [BMI] 50.0-59.9, adult
CPT/HCPCS: 90791

== ENCOUNTER → 2023-01-06 12:41 | Outpatient (BNVA) | payer MEDICARE, OTHER, SELFPAY | PROVIDERS: PCP Internal Medicine; Visit Provider Counselor Mental Health ==

== ENCOUNTER 2023-01-08 08:05 | Outpatient (AMB) | payer MEDICARE, OTHER, SELFPAY ==
--- NOTE | 2023-01-08 09:01 | MHC.OFFVISWM ---
Intake VS Expanded 01/08/23 15:05 Height 5 ft 8 in Weight 332 lb BMI 50.5 Intake Visit Reasons: TV Follow Up SWL - 1ST Allergies Penicillins [PENICILLINS] Allergy (Severe, Verified 12/04/22 10:56) CHEST TIGHTNESS shellfish derived [SHELLFISH DERIVED] Allergy (Severe, Verified 12/04/22 10:56) CHEST TIGHTNESS Sulfa (Sulfonamide Antibiotics) [SULFA (SULFONAMIDE ANTIBIOTICS)] Allergy (Severe, Verified 12/04/22 10:56) CHEST TIGHTNESS meperidine [From Demerol] Adverse Reaction (Mild, Verified 12/04/22 10:56) Nausea and Vomiting HPI TV Follow Up SWL - 1ST HPI Details Start time: 8.45am, End time: 9.30am ?I spent 35 minutes speaking with the patient on the phone plus an additional 10 minutes reviewing and updating records for a total of 45 minutes HPI Comments History of Present Illness Details Overall weight loss: 18.6 lbs, or 5.31% TBWL Reviewed recent UGI and Chest xray results Coming tomorrow for the abdominal US [facility] Medical History (Updated 01/06/23 @ 13:53 by Shauna Goznales) DJD (degenerative joint disease) GERD (gastroesophageal reflux disease) Diverticulitis Morbid obesity Atherosclerotic cardiovascular disease HLD (hyperlipidemia) HTN (hypertension) Arthritis History of diverticulitis Elevated PSA DVT (deep venous thrombosis) Asthma Surgical History (Updated 12/02/22 @ 13:20 by Susan Valera PA-C) S/P cardiac cath S/P CABG (coronary artery bypass graft) Hx of hemorrhoidectomy H/O nasal septoplasty Hx of colonoscopy Family History Mother No problems noted. Brother No problems noted. Social History Alcohol intake: current Alcohol intake frequency: holidays/special occasions only Patient Tobacco Use Status: Former Tobacco user Quit Date: 1977 Years Smoked: 7 +/- Assessment & Plan Assessment & Plan (1) Morbid obesity: Code(s): E66.01 - Morbid (severe) obesity due to excess calories Plan: 1. Nutritional counseling. Start with 2 CELEBRATE REBUILD protein (buy at [facility] gift shop) shakes (ONE scoop EACH in 8oz low fat unsweetened almond milk each) at 8am-10am and 11am-1pm, 1 CELEBRATE protein bar (buy at the hospital's gift shop) at 2pm-4pm, dinner at 5pm (14 forks of protein and 14 forks of salad/vegetables) and two more protein barS after dinner at 6pm-8pm and 8pm-10pm. Meal to include lean meat (beef, fish, pork, turkey, chicken), or slovenian yogurt, or egg whites, or beans with a salad with olive oil and fruits (berries, pears, apples, kiwi). Avoid salt, breads, potatoes, rice, pasta, desserts. 2. Each shake would be drunk slowly, like coffee in a period of 2 hours. May add your coffee into your shakes, if flavors match. 3. Cut each bar in 4 pieces and eat each piece in 30min ?to make each bar last 2 hours. 4. I emphasized the importance of measuring accurately the food portion and measure it when serving the food in plate 5. The meal portions include 14 full-size forks of meat and 14 full-size forks of salad. You always eat the meat portion but you can replace up to 7 forks for salad/vegetables with rice, potatoes or pasta, or a fruit ?if you like. The less you do it the better weight loss will be. 6. One full-size fork is what it can be scooped on the fork without falling aside and not what can be bit with the fork. Use regular forks like those you find in a typical restaurant. 7.? Please send me weight measurements as soon as possible and then once a week. Always include your diet and exercise plan. If you can't send from your home scale through your phone, please come to the office for a weight check weekly 8. Please purchase a stationary bike, or a rowing machine at home that can track calories. Let me know if you do so I can give you an exercise plan. 9.?Goal is to lose at least 1.5-2lbs per week 10. Goal to lose 10% of your weight before surgery, which is about 35lbs. Ultimate weight goal: 315lbs before surgery 11. Please follow the diet plan exactly without any change. If you don't like something about the plan or you feel hungry you need to communicate with me so I can help you revise the plan. You should not change the plan yourself. Telehealth Telehealth Location of provider rendering services: practice address Location of patient: address on file Patient Identification confirmed using: Name, : Yes Telehealth method: voice only Patient verbally consented to treatment: Yes Patient verbally consented to billing insurance company: Yes Patient informed of any privacy concerns related to visit: Yes Minutes spent on Phone/Video with Pt.: 45 Coding Level of Care Code Tele Est Pt Level 4 (58778) Diagnoses Morbid obesity E66.01 Time Spent (min) 45
[2023-01-08 15:05] VITALS: BMI 50.5
== END 2023-01-08 15:13 | disposition home or self-care (01) ==
LOC: HO.HBS 08:05
PROVIDERS: PCP Internal Medicine; Visit Provider Surgery
DX: E66.01 Morbid (severe) obesity due to excess calories (principal); Z68.43 Body mass index [BMI] 50.0-59.9, adult
CPT/HCPCS: 99443

== ENCOUNTER → 2023-01-08 08:05 | Outpatient (BNVA) | payer MEDICARE, OTHER, SELFPAY | PROVIDERS: PCP Internal Medicine; Visit Provider Surgery ==

== ENCOUNTER 2023-01-09 07:41 | Outpatient (REF) | payer MEDICARE, OTHER, SELFPAY ==
--- NOTE | ~2023-01-09 | US_ITS ---
EXAMINATION: US COMPLETE ABDOMEN WITH LIVER ELASTOGRAPHY CLINICAL INFORMATION: Morbid (severe) obesity due to excess calories COMPARISON: CT scan abdomen and pelvis 05/10/2020 TECHNIQUE: Real-time imaging of the abdominal viscera. Noninvasive ultrasound liver fibrosis assessment is performed using Cecy ElastPQ point quantification shear wave elastography (2D-SWE) with a C5-2 MHz transducer. Multiple elastography samples are obtained. FINDINGS: PANCREAS: Normal. The visualized pancreatic head and body are normal in appearance. The remainder of the pancreas is obscured from visualization by the overlying bowel gas. ABDOMINAL AORTA: The proximal abdominal aorta is normal in caliber. The mid and distal abdominal aorta are obscured by bowel gas. INFERIOR VENA CAVA: Visualized portions are normal. LIVER: The liver is enlarged. There is increased echogenicity of the liver which can be seen with hepatic steatosis. 1.0 x 0.6 x 0.6 cm simple cyst is seen in the inferior tip of the right lobe. No intrahepatic biliary duct dilatation. The right lobe measures 16.0 cm in length. The left lobe measures 12.0 cm in length. Portal flow is hepatopedal. Shear wave liver elastography median stiffness is 1.27 m/s (reference: normal median stiffness is 1.3 m/s or less). IQR/median stiffness to assess sampling precision is 0.15 (reference: good quality data set is IQR/median stiffness of 0.15 or less). GALLBLADDER: Normal. The gallbladder is physiologically distended without evidence of stones, sludge, polyps, wall thickening or pericholecystic fluid. COMMON BILE DUCT: Normal in caliber measuring 0.6 cm in diameter. RIGHT KIDNEY: 2.0 x 1.8 x 1.8 cm simple medial exophytic upper pole cyst is seen. No imaging follow-up is recommended. 2.4 x 2.2 x 2.4 cm lateral mid pole with dependent calcification likely represents benign milk of calcium. No imaging follow-up is recommended. No hydronephrosis. No renal calculi or focal parenchymal lesions. The kidney measures 13.1 cm in maximum dimension. LEFT KIDNEY: 6.4 x 6.2 x 6.3 cm exophytic upper pole simple cyst is seen. No imaging follow-up is recommended. No hydronephrosis. No renal calculi or focal parenchymal lesions. The kidney measures 11.8 cm in maximum dimension. SPLEEN: Normal. The spleen measures 8.9 cm in maximum dimension. FREE FLUID: None. US/US abdomen comp w elastography IMPRESSION: 1. Enlarged liver with increased echogenicity which can be seen with fatty infiltration and 1.0 cm simple cyst in the inferior tip of the right lobe. 2. Liver elastography: Normal median stiffness. High probability of being normal. Good quality of data set. REFERENCE: Society of Radiologists in Ultrasound Liver Stiffness Thresholds (2020): LIVER STIFFNESS THRESHOLDS: *Liver Stiffness equal or less than 1.3 m/s: High probability of being normal. *Liver Stiffness less than 1.7 m/s: In the absence of other known clinical signs, rules out compensated advanced chronic liver disease. *Liver Stiffness 1.7-2.1 m/s: Suggestive of compensated advanced chronic liver disease but need further test for confirmation. *Liver Stiffness over 2.1 m/s: Rules in compensated advanced chronic liver disease. *Liver Stiffness over 2.4 m/s: Suggestive of clinically significant portal hypertension. QUALITY OF DATA SET: *IQR/Median value equal or less than 0.15 implies a quality data set. *IQR/Median value over 0.15 implies a poor quality data set. SIGNIFICANT CHANGE FROM PRIOR EXAM: Significant change if liver stiffness measurement is 10% or greater from prior exam. OTHER CONSIDERATIONS: The stage of liver fibrosis may be overestimated in the setting of acute hepatitis, liver inflammation, elevated liver function tests, hepatic vascular congestion, obstructive cholestasis, non-fasting state, and infiltrative diseases such as amyloidosis and lymphoma. In some patients with NAFLD, the liver stiffness thresholds for compensated advanced chronic liver disease may be lower. In causes other than viral hepatitis and NAFLD, liver stiffness thresholds are not well established.
[2023-01-09 10:29] LABS: MANUAL DIFF FLAG NO
[2023-01-09 10:54] LABS: Basophils Percent Auto 0.5 % (0-2); Eosinophils Absolute Auto 0.2 X10*3/uL (0.0-0.4); Eosinophils Percent Auto 3.3 % (0-4); Hematocrit 45.4 % (42.0-52.0); Hemoglobin 15.4 g/dl (14.0-18.0); Imm Gran Abs Auto 0.03 X10*3/uL (0.00-0.03); Imm Gran Pct Auto 0.4 % (0.0-0.4); Lymphocytes Absolute Auto 1.7 X10*3/uL (1.2-4.9); Lymphocytes Percent Auto 23.7 % (20-40); Mean Corpuscular HGB Conc 33.9 g/dl (31.0-36.0); Mean Corpuscular Hemoglobin 32.8 pg (27.0-33.0); Mean Corpuscular Volume 96.6 fL (80.0-98.0); Mean Platelet Volume 9.5 fL (9.4-12.4); Monocytes Absolute Auto 0.7 X10*3/uL (0.1-1.2); Monocytes Percent Auto 9.4 % (2-11); Neutrophils Absolute Auto 4.6 x10*3/uL (2.0-8.3); Neutrophils Percent Auto 62.7 % (45-73); Platelet Count 279 X10*3/uL (160-400); Red Cell Distribution Width 12.5 % (11.0-16.0); White Blood Count 7.3 X10*3/uL (4.8-10.8)
[2023-01-09 11:03] LABS: Estimated Average Glucose 140 mg/dL; Hemoglobin A1c % 6.5 % (<6.0)
[2023-01-09 11:31] LABS: Alanine Aminotransferase 38 U/L (0-40); Albumin Level 4.1 g/dL (3.5-5.0); Alkaline Phosphatase 95 U/L (39-117); Anion Gap 11 (12-20); Aspartate Amino Transferase 31 U/L (5-37); Bilirubin Total 0.5 mg/dL (0.0-1.0); Blood Urea Nitrogen 13 mg/dL (9-16); C Reactive Protein 0.16 mg/dL (< or = 0.50); Calcium 10.2 mg/dL (8.4-10.2); Carbon Dioxide 22 mmol/L (22-29); Chloride 109 mmol/L (96-108); Cholesterol 109 mg/dL (<200); Estimated Glomerular Filt Rate > 60; Glucose Random 130 mg/dL (60-115); HDL Cholesterol 25 mg/dL (>40); Iron 99 mcg/dL (45-160); LDL Cholesterol Calculated 69 mg/dL (<100); Percent Iron Saturation 36 % (15-50); Potassium 4.4 mmol/L (3.3-5.1); Sodium 138 mmol/L (135-145); Total Iron Binding Capacity 277 mcg/dL (228-428); Total Protein 7.3 g/dL (6.5-8.0); Triglycerides 79 mg/dL (<150); Unsaturated Iron Binding 178 ug/dL
[2023-01-09 11:48] LABS: Ferritin 443 ng/mL (20-250); Insulin 22 uU/mL (2-29); TSH reflex Free T4 0.75 uIU/mL (0.32-4.0)
[2023-01-09 12:00] LABS: Folate 10.1 ng/mL (> or = 4.0); Vitamin B12 837 pg/mL (200-900)
[2023-01-10 17:49] LABS: Calcium (PTHI) 10.2 mg/dL (8.6-10.3); PTHI 76 pg/mL (16-77)
[2023-01-13 16:18] LABS: Zinc 74 mcg/dL (60-130)
[2023-01-14 00:47] LABS: Vitamin B1 12 nmol/L (8-30)
[2023-01-14 08:44] LABS: Vitamin A 66 mcg/dL (38-98)
== END 2023-01-09 07:42 | disposition home or self-care (01) ==
LOC: HO.US 07:41
PROVIDERS: PCP Internal Medicine; Visit Provider Surgery
DX: E66.01 Morbid (severe) obesity due to excess calories (principal); I25.10 Atherosclerotic heart disease of native coronary artery without angina pectoris; E78.5 Hyperlipidemia, unspecified; I10 Essential (primary) hypertension; I21.4 Non-ST elevation (NSTEMI) myocardial infarction; Z86.718 Personal history of other venous thrombosis and embolism
CPT/HCPCS: 36415; 76705; 76981; 80053; 80061; 82306; 82607; 82728; 82746; 83036; 83525; 83540; 83970; 84425; 84443; 84590; 84630; 85025; 86140

== ENCOUNTER 2023-01-13 08:36 | Outpatient (REF) | payer MEDICARE, OTHER, SELFPAY ==
[2023-01-15 15:24] LABS: H Pylori Breath Test Negative (Negative)
[2023-01-15 21:34] LABS: Zinc 65 mcg/dL (60-130)
[2023-01-16 04:19] LABS: Vitamin A 55 mcg/dL (38-98)
[2023-01-18 16:54] LABS: Vitamin B1 9 nmol/L (8-30)
== END 2023-01-13 08:37 | disposition home or self-care (01) ==
LOC: HO.LAB 08:36
PROVIDERS: Absent Provider Surgery; PCP Internal Medicine; Visit Provider Physician Assistant Surgical
DX: E66.9 Obesity, unspecified (principal); Z11.0 Encounter for screening for intestinal infectious diseases; Z71.3 Dietary counseling and surveillance
CPT/HCPCS: 36415; 83013; 84425; 84590; 84630; 97802; 99211

== ENCOUNTER 2023-01-14 15:54 | Outpatient (REF) | payer MEDICARE, OTHER, SELFPAY | END 2023-01-14 15:55 | disposition home or self-care (01) | LOC: HO.LNP 15:54 | PROVIDERS: Visit Provider Surgery | DX: Z13.89 Encounter for screening for other disorder (principal) | CPT/HCPCS: 83013 ==

== ENCOUNTER → 2023-01-15 09:35 | Outpatient (REF) | payer MEDICARE, OTHER, SELFPAY | LOC: HO.SL 09:35 | PROVIDERS: PCP Internal Medicine; Visit Provider Surgery | DX: G47.10 Hypersomnia, unspecified (principal) | CPT/HCPCS: 95806 ==

== ENCOUNTER → 2023-01-15 09:52 | Outpatient (BNV) | payer MEDICARE, OTHER, SELFPAY | PROVIDERS: PCP Internal Medicine; Visit Provider Internal Medicine | DX: G47.33 Obstructive sleep apnea (adult) (pediatric) (principal) | CPT/HCPCS: 95806 ==

== ENCOUNTER 2023-01-22 09:38 | Outpatient (AMB) | payer MEDICARE, OTHER, SELFPAY ==
--- NOTE | 2023-01-22 09:49 | MHC.OFFVISWM ---
Intake VS Expanded 01/22/23 09:57 BP 131/71 Blood Pressure Location Rt brachial Blood Pressure Position Sitting Pulse 77 Pulse Source Pulse Oximeter Temp 97.1 F Temperature Source Temporal Artery Scan Pulse Oximetry 97 Oxygen Delivery Method Room Air Height 5 ft 8 in Weight 325 lb 12.8 oz BMI 49.5 Body Fat % 43.9 Body Fat Mass 142.8 Fat Free Mass 182.8 Visceral Fat Rating 34.0 Body Water % 42.0 Body Water Mass 136.6 Muscle Mass/Score 173.8 Basal Metabolic Rate/Score 2,589 Neck Circumference 20.5 in Waist Circumference 4 ft 8 in Intake Visit Reasons: OV Follow Up SWL Allergies Penicillins [PENICILLINS] Allergy (Severe, Verified 01/22/23 09:54) CHEST TIGHTNESS shellfish derived [SHELLFISH DERIVED] Allergy (Severe, Verified 01/22/23 09:54) CHEST TIGHTNESS Sulfa (Sulfonamide Antibiotics) [SULFA (SULFONAMIDE ANTIBIOTICS)] Allergy (Severe, Verified 01/22/23 09:54) CHEST TIGHTNESS meperidine [From Demerol] Adverse Reaction (Mild, Verified 01/22/23 09:54) Nausea and Vomiting HPI HPI Comments History of Present Illness Details Overall weight loss: 24.8 lbs, or 7.07% TBWL His abdominal complaints have improved since we adjusted the bar and food portions Is doing 2 Celebrate Rebuild shakes with one scoop each in 8oz almond milk, 2.5 Celebrate protein bars and one meal (10 forks of protein and 10 forks of salad or vegetables). Exercise: walking outside daily Reviewed with the patient recent results: H pylori: negative Abd US: hepatoegaly Blood work: low vitamin D PFSH Medical History (Updated 01/22/23 @ 10:23 by Jorje Gamboa MD) DJD (degenerative joint disease) GERD (gastroesophageal reflux disease) Diverticulitis Morbid obesity Atherosclerotic cardiovascular disease HLD (hyperlipidemia) HTN (hypertension) Arthritis History of diverticulitis Elevated PSA DVT (deep venous thrombosis) Asthma Surgical History S/P cardiac cath S/P CABG (coronary artery bypass graft) Hx of hemorrhoidectomy H/O nasal septoplasty Hx of colonoscopy Family History Mother No problems noted. Brother No problems noted. Social History Alcohol intake: current Alcohol intake frequency: holidays/special occasions only Patient Tobacco Use Status: Former Tobacco user Quit Date: 1977 Years Smoked: 7 +/- Physical Exam Vital Signs: Last Vital Signs Temp 97.1 F 01/22/23 09:57 Pulse 77 01/22/23 09:57 BP 131/71 01/22/23 09:57 Pulse Ox 97 01/22/23 09:57 Oxygen Delivery Method Room Air 01/22/23 09:57 BMI result Body Mass Index 49.5 Assessment & Plan Assessment & Plan (1) Morbid obesity: Code(s): E66.01 - Morbid (severe) obesity due to excess calories Plan: 1. Continue same nutritional plan of 2 Celebrate Rebuild shakes with one scoop each in 8oz almond milk, 2.5 Celebrate protein bars and one meal (10 forks of protein and 10 forks of salad or vegetables). 2. Exercise: continue walking outside daily 3. Send me weight measurements with the [employer] scale on the Wednesdays that you are not coming at the office Medications: New cholecalciferol (vitamin D3) 125 mcg PO DAILY 30 caps 2RF E55.9 - Vitamin D deficiency, unspecified Coding Level of Care Code Est Pt Level 4 (29214) Diagnoses Morbid obesity E66.01 Time Spent (min) 30
[2023-01-22 09:57] VITALS: BP 131/71; PULSE 77; TEMP 36.2; O2SAT 97; BMI 49.5
== END 2023-01-22 10:31 | disposition home or self-care (01) ==
PROVIDERS: PCP Internal Medicine; Visit Provider Surgery
DX: E66.01 Morbid (severe) obesity due to excess calories (principal); Z68.42 Body mass index [BMI] 45.0-49.9, adult
CPT/HCPCS: 99214

== ENCOUNTER → 2023-01-22 09:38 | Outpatient (BNVA) | payer MEDICARE, OTHER, SELFPAY | PROVIDERS: PCP Internal Medicine; Visit Provider Surgery | DX: E66.01 Morbid (severe) obesity due to excess calories (principal); Z68.42 Body mass index [BMI] 45.0-49.9, adult | CPT/HCPCS: 99212 ==

== ENCOUNTER 2023-01-27 08:39 | Outpatient (AMB) | payer MEDICARE, OTHER, SELFPAY ==
--- NOTE | 2023-01-27 08:59 | A.OFFVIS_ITS ---
Intake Intake Visit Reasons: BPH Intake Note: New Patient is Present for BPH Urology Medication: None Antibiotic Allergies: Penicillin, Sulfa Blood Thinners: Aspirin PVR: 57 Complaints: Urinates more than 6 times during the night. Has history of Urinary Tract Infections, has not had one recently. States that when he does feel like he has a UTI he will drink lots of cranberry juice and states that it does help. Allergies Penicillins [PENICILLINS] Allergy (Severe, Verified 01/27/23 09:00) CHEST TIGHTNESS shellfish derived [SHELLFISH DERIVED] Allergy (Severe, Verified 01/27/23 09:00) CHEST TIGHTNESS Sulfa (Sulfonamide Antibiotics) [SULFA (SULFONAMIDE ANTIBIOTICS)] Allergy (Severe, Verified 01/27/23 09:00) CHEST TIGHTNESS meperidine [From Demerol] Adverse Reaction (Mild, Verified 01/27/23 09:00) Nausea and Vomiting Medication List - Last Reconciled 01/27/23 by Pato Burden MD albuterol sulfate 90 mcg/actuation (ProAir HFA) 2 puffs inhalation Q6H PRN alfuzosin ER 10 mg PO DAILY aspirin 81 mg PO DAILY atorvastatin 80 mg PO BEDTIME cholecalciferol (vitamin D3) 125 mcg PO DAILY ezetimibe (Zetia) 10 mg PO DAILY metoprolol tartrate 50 mg PO BID HPI HPI Comments History of Present Illness Details Manjeet is a 72-year-old male who is here as a new patient evaluation for enlarged prostate. Past medical history includes coronary artery disease status post CABG, former smoker quit 1977, morbid obesity, degenerative joint disease, hypertension, arthritis, asthma. The patient complains of getting up many times at night up to 5 times, he has a sensation of not emptying the bladder some of the time, weak stream and urgency. AUA symptoms score 14. He states that he has UTI symptoms in the past and has used cranberry juice with improvement in symptoms. In regards to nocturia symptoms, nocturia can be associated with sleep apnea and the patient states that he did have a sleep study done bleeding results in have discussed a trial of an alpha gissel. I have discussed side effects to include retrograde ejaculation, stuffy nose. And he is to call with any concerns regarding the medication. The patient states he is being evaluated by the Bariatric surgeon; he has been losing weight, he was 396 lb now down to 325lb he has been cutting carbohydrates out of his diet. Evaluation today: Urinalysis-leukocytes negative, blood negative, bladder scan PVR 57 mL. Review of chart: Imaging CT scan of abdomen and pelvis with IV contrast 05/10/2020 kidneys within n ormal limits enlarged prostate noted. Labs 04/19/2022--PSA 2.50 01/08/2021--PSA 1.5 to Plan: Alfuzosin 10 mg daily follow-up in 3 months. [facility] Medical History DJD (degenerative joint disease) GERD (gastroesophageal reflux disease) Diverticulitis Morbid obesity Atherosclerotic cardiovascular disease HLD (hyperlipidemia) HTN (hypertension) Arthritis History of diverticulitis Elevated PSA DVT (deep venous thrombosis) Asthma Surgical History S/P cardiac cath S/P CABG (coronary artery bypass graft) Hx of hemorrhoidectomy H/O nasal septoplasty Hx of colonoscopy Family History Mother No problems noted. Brother No problems noted. Social History Alcohol intake: current Alcohol intake frequency: holidays/special occasions only Patient Tobacco Use Status: Former Tobacco user Quit Date: 1977 Years Smoked: 7 +/- Questionnaire AUA Symptom Score AUA Incomplete emptying - It does not feel like I empty my bladder all the way.: 2 - Less than half the time Frequency - I have to go again less than two hours after I finish urinating.: 3 - About half the time Intermittency - I stop and start again several times when I urinate.: 2 - Less than half the time Urgency - It is hard to wait when I have to urinate.: 0 - Not at all Weak stream - I have a weak urinary stream.: 2 - Less than half the time Straining - I have to push or strain to begin urination.: 0 - Not at all Nocturia - I get up to urinate after I go to bed until the time I get up in the morning.: 5 time or more AUA Symptom Score: 14 Quality of life due to urinary symptoms: If you were to spend the rest of your life with your urinary condition the way it is now, how would you feel about that?: Mixed: about equally satisfied and dissatisfied Source: Steve CHEN, Maryjane ROCA Jr, O'Doris MP, et al, and the Measurement Committee of the [employer]. The [employer] symptom index for benign prostatic hyperplasia. J Urol. 1992; 148: 0039-8677. Copyright 1992 [employer] Review of Systems Const All systems reviewed & are unremarkable except as noted in HPI and below Reports no additional complaints Eyes Reports no additional complaints ENT Reports no additional complaints Card Denies dyspnea Resp Denies cough and Denies dyspnea GI Reports no additional complaints Musc Reports no additional complaints Skin/Breast Denies rash and Denies unusual bruising Neuro Reports no additional complaints Psych Reports no additional complaints Endo Reports no additional complaints Augie/Lymph Reports no additional complaints Aller/Immun Reports no additional complaints Physical Exam Const General: healthy appearing, no acute distress and well developed Orientation/consciousness: patient oriented x3 HEENT Head: Yes normocephalic and Yes atraumatic Eyes Conjunctivae: conjunctivae normal Neck Neck: Yes normal visual inspection Chest Chest palpation & inspection: normal inspection of the chest Resp Effort & Inspection: normal respiratory effort Cardio Rate: regular rate GI Inspection: Yes normal to inspection Palpation (GI): Soft to palpation Other: Prostate Exam: deferred Skin General skin exam: no rashes or lesions noted Neuro General: patient oriented x3 Extrem General: No pedal edema Psych Appearance: grossly normal Affect: normal affect Office Procedures Post Void Residual Post Residual Void Post Void Residual (PVR): 57 [id number] Void Residual by ultrasound Results AMB Urinalysis, Automated UA Leukoctes 0 Tosha/uL Last Edit by BRENDA Ledezma on 01/27/23 09:18 UA Nitrite Negative Last Edit by BRENDA Ledezma on 01/27/23 09:18 UA Urobilinogen 0.2 mg/dL Last Edit by BRENDA Ledezma on 01/27/23 09:1 8 UA Protein 0 mg/dL Last Edit by BRENDA Ledezma on 01/27/23 09:18 UA pH 6.0 Last Edit by BRENDA Ledezma on 01/27/23 09:18 UA Blood 0 Samuel/uL Last Edit by Yue Woodson A on 01/27/23 09:18 UA Specific [place] 1.015 Last Edit by Yue Woodson A on 01/27/23 09: 18 UA Ketone Negative Last Edit by Yue Woodson A on 01/27/23 09:18 UA Bilirubin 0 mg/dL Last Edit by Yue Woodson A on 01/27/23 09:18 UA Glucose 0 mg/dL Last Edit by Yue Woodson A on 01/27/23 09:18 Results Reviewed Results Reviewed: Laboratory Last Values Urine pH (Auto) 6.0 01/27/23 09:06 Specific [place] (Auto) 1.015 01/27/23 09:06 Urine Protein (Auto) 0 mg/dL 01/27/23 09:06 Glucose (UA)(Auto) 0 mg/dL 01/27/23 09:06 Urine Ketones (Auto) Negative 01/27/23 09:06 Urine Blood (Auto) 0 Samuel/uL 01/27/23 09:06 Urine Nitrite (Auto) Negative 01/27/23 09:06 Urine Bilirubin (Auto) 0 mg/dL 01/27/23 09:06 Urine Urobilinogen (Auto) 0.2 mg/dL 01/27/23 09:06 Leukocyte Esterase (Auto) 0 Tosha/uL 01/27/23 09:06 Date of Service: 05/10/20 EXAMINATION: CT ABDOMEN AND PELVIS WITH CONTRAST CLINICAL INFORMATION: Nausea, vomiting, obstipation COMPARISON: 12/14/2019 TECHNIQUE: Multidetector volumetric images were obtained from the superior aspect of the liver through the pubic symphysis following administration 100 mL of Omnipaque 350 intravenous contrast. Sagittal and coronal reformatted images were obtained on the technologist's workstation. Oral contrast: No This CT examination was performed using dose optimization techniques as appropriate, variously including the following: *Automated exposure control *Adjustment of mA and/or kV according to patient size (this includes techniques or standardized protocols for targeted exams where dose is matched to indication/reason for exam; i.e. extremities or head) *Use of iterative reconstruction technique DLP: 1259 mGy-cm FINDINGS: LUNG BASES: The visualized lung bases are unremarkable. LIVER, GALLBLADDER, AND BILIARY TREE: The liver demonstrates hypoattenuation suggesting steatosis. No focal hepatic lesion or biliary ductal dilatation is present. The gallbladder is unremarkable with no evidence of radiopaque gallstones, gallbladder wall thickening, or obvious pericholecystic inflammatory changes. PANCREAS: Unremarkable. SPLEEN: Unremarkable. ADRENAL GLANDS: Thickened appearance of the right adrenal gland appears similar to 10/01/2014, favoring a benign etiology. KIDNEYS AND URETERS: The kidneys are normal in size, shape, and attenuation. Redemonstrated bilateral renal hypodensities favoring cysts. No hydronephrosis, hydroureter, or obstructing calculi seen. No perinephric stranding. BLADDER: Unremarkable. GASTROINTESTINAL TRACT: There is colonic diverticulosis without convincing diverticulitis. No evidence of bowel obstruction. The appendix is unremarkable. No free fluid or free air is seen. ABDOMINAL WALL: Bilateral fat-containing inguinal hernias. LYMPH NODES: Normal. VASCULAR: Scattered atherosclerotic calcifications. PELVIC VISCERA: The prostate gland is enlarged, measuring 5.6 cm in transverse diameter. OSSEOUS STRUCTURES: Degenerative changes are noted in the spine. IMPRESSION: 1. No acute findings identified in the abdomen/pelvis. 2. Enlarged prostate gland. Assessment & Plan Assessment & Plan (1) BPH loc w urin obs/LUTS: Code(s): N40.1 - Benign prostatic hyperplasia with lower urinary tract symptoms (2) Nocturia: Code(s): R35.1 - Nocturia Plan Alfuzosin 10 mg daily follow-up in 3 months. Orders: Orders AMB Urinalysis Automated Today Z13.9 - Encounter for screening, unspecified AMB Post Void Residual by ultrasound Today N40.1 - Benign prostatic hyperplasia with lower urinary tract symptoms Medications: New alfuzosin ER administer after the same meal each day 10 mg PO DAILY 90 tabs 1RF Patient Instructions: The patient had an opportunity to ask questions regarding treatment plan. All questions were answered. Imaging, Laboratory studies and physical exam results were discussed and reviewed in detail. No major barriers to understanding were identified. The patient expressed understanding and agreement with the above treatment plan. The patient is aware they should contact our office by phone for worsening of their current condition or the appearance of new symptoms. Compliance is encouraged with any medications and followup testing that is ordered. It is a privilege to be allowed the opportunity to participate in the urologic care of your patient. If you have any questions or concerns regarding treatment for the above conditions please do not hesitate to contact me. The office telephone contact is [phone]. This note is constructed in part using voice recognition software. While every effort has been made to ensure accuracy foreign exchange services manager errors may have been included. Yours sincerely, Pato Burden MD Quality Reporting (2019) Benign Prostatic Hyperplasia ([facility] [address]) AUA symptom score: 14 Quality of life due to urinary symptoms: If you were to spend the rest of your life with your urinary condition the way it is now, how would you feel about that?: Mixed: about equally satisfied and dissatisfied Coding Level of Care Code New Pt Level 4 (21455) Diagnoses BPH loc w urin obs/LUTS N40.1 Nocturia R35.1 CPT Codes Post Residual Void - PVR CPT Code: 57401-Rcfb Void Residual by ultrasound ([id number])
== END 2023-01-27 10:07 | disposition home or self-care (01) ==
PROVIDERS: PCP Internal Medicine; Referring Provider Physician Assistant; Visit Provider Urology
DX: N40.1 Benign prostatic hyperplasia with lower urinary tract symptoms (principal); R35.1 Nocturia; Z13.9 Encounter for screening, unspecified
CPT/HCPCS: 99204

== ENCOUNTER → 2023-01-27 08:39 | Outpatient (BNVA) | payer MEDICARE, OTHER, SELFPAY | PROVIDERS: PCP Internal Medicine; Referring Provider Physician Assistant; Visit Provider Urology | DX: N40.1 Benign prostatic hyperplasia with lower urinary tract symptoms (principal); R35.1 Nocturia | CPT/HCPCS: 51798; 81003; 99202 ==

== ENCOUNTER 2023-02-05 09:41 | Outpatient (AMB) | payer MEDICARE, OTHER, SELFPAY ==
--- NOTE | 2023-02-05 09:43 | MHC.OFFVISWM ---
Intake VS Expanded 02/05/23 09:49 BP 140/69 H Blood Pressure Location Rt brachial Blood Pressure Position Sitting Pulse 80 Pulse Source Pulse Oximeter Temp 968 F H Temperature Source Temporal Artery Scan Pulse Oximetry 98 Oxygen Delivery Method Room Air Height 5 ft 8 in Weight 325 lb 12.8 oz BMI 49.5 Body Fat % 43.7 Body Fat Mass 142.2 Fat Free Mass 183.4 Visceral Fat Rating 34.0 Body Water % 42.6 Body Water Mass 138.6 Muscle Mass/Score 174.4 Basal Metabolic Rate/Score 2,597 Intake Visit Reasons: OV Follow Up SWL Allergies Penicillins [PENICILLINS] Allergy (Severe, Verified 02/05/23 09:48) CHEST TIGHTNESS shellfish derived [SHELLFISH DERIVED] Allergy (Severe, Verified 02/05/23 09:48) CHEST TIGHTNESS Sulfa (Sulfonamide Antibiotics) [SULFA (SULFONAMIDE ANTIBIOTICS)] Allergy (Severe, Verified 02/05/23 09:48) CHEST TIGHTNESS meperidine [From Demerol] Adverse Reaction (Mild, Verified 02/05/23 09:48) Nausea and Vomiting HPI HPI Comments History of Present Illness Details Overall weight loss: 24.8lbs, or 7.07% TBWL Is doing 2 Celebrate Rebuild protein shakes (1 scoop each in 8oz almond milk), 2 Celebrate protein bars and one meal (10 forks of protein and 10 forks of salad or vegetables) Exercise: walking outside [facility] Medical History DJD (degenerative joint disease) GERD (gastroesophageal reflux disease) Diverticulitis Morbid obesity Atherosclerotic cardiovascular disease HLD (hyperlipidemia) HTN (hypertension) Arthritis History of diverticulitis Elevated PSA DVT (deep venous thrombosis) Asthma Surgical History S/P cardiac cath S/P CABG (coronary artery bypass graft) Hx of hemorrhoidectomy H/O nasal septoplasty Hx of colonoscopy Family History Mother No problems noted. Brother No problems noted. Social History Alcohol intake: current Alcohol intake frequency: holidays/special occasions only Comment: used for heart protection Patient Tobacco Use Status: Former Tobacco user Quit Date: 1977 Years Smoked: 7 +/- Physical Exam Vital Signs: Last Vital Signs Temp 968 F H 02/05/23 09:49 Pulse 80 02/05/23 09:49 BP 140/69 H 02/05/23 09:49 Pulse Ox 98 02/05/23 09:49 Oxygen Delivery Method Room Air 02/05/23 09:49 BMI result Body Mass Index 49.5 GI Inspection: Yes obesity Palpation (GI): Soft to palpation (softer) Extrem Right lower extremity: normal to inspection (decreased edema) Left lower extremity: normal to inspection (decreased edema) Assessment & Plan Assessment & Plan (1) Sleep apnea: Code(s): G47.30 - Sleep apnea, unspecified Plan: 1. Continue same nutritional plan of 2 Celebrate Rebuild protein shakes (1 scoop each in 8oz almond milk), 2 Celebrate protein bars and one meal (10 forks of protein and 10 forks of salad or vegetables) 2. Exercise: walking outside. Recommended multiple, but short (10-15min) walks per day, daily 3. Continue to send me weight measurements weekly on Wednesdays (2) Morbid obesity: Code(s): E66.01 - Morbid (severe) obesity due to excess calories Orders: Referrals Sleep Medicine Referral E66.01 - Morbid (severe) obesity due to excess calories, G47.30 - Sleep apnea, unspecified Coding Level of Care Code Est Pt Level 4 (18251) Diagnoses Sleep apnea G47.30 Morbid obesity E66.01 Time Spent (min) 30
[2023-02-05 09:49] VITALS: BP 140/69; PULSE 80; TEMP 520; TEMP 968; O2SAT 98; BMI 49.5
== END 2023-02-05 10:26 | disposition home or self-care (01) ==
PROVIDERS: PCP Internal Medicine; Visit Provider Surgery
DX: E66.01 Morbid (severe) obesity due to excess calories (principal); Z68.42 Body mass index [BMI] 45.0-49.9, adult; G47.30 Sleep apnea, unspecified
CPT/HCPCS: 99213

== ENCOUNTER → 2023-02-05 09:41 | Outpatient (BNVA) | payer MEDICARE, OTHER, SELFPAY | PROVIDERS: PCP Internal Medicine; Visit Provider Surgery | DX: E66.01 Morbid (severe) obesity due to excess calories (principal); G47.30 Sleep apnea, unspecified; Z68.42 Body mass index [BMI] 45.0-49.9, adult | CPT/HCPCS: 99212 ==

== ENCOUNTER 2023-02-19 09:30 | Outpatient (AMB) | payer MEDICARE, OTHER, SELFPAY ==
--- NOTE | 2023-02-19 09:32 | MHC.OFFVISWM ---
Intake VS Expanded 02/19/23 09:39 BP 124/68 Blood Pressure Location Rt brachial Blood Pressure Position Sitting Pulse 78 Pulse Source Pulse Oximeter Temp 96.9 F Temperature Source Tympanic Pulse Oximetry 97 Oxygen Delivery Method Room Air Height 5 ft 8 in Weight 320 lb 3.2 oz BMI 48.7 Body Fat % 42.9 Body Fat Mass 137.4 Fat Free Mass 182.8 Visceral Fat Rating 33.0 Body Water % 43.3 Body Water Mass 138.6 Muscle Mass/Score 173.8 Basal Metabolic Rate/Score 2,579 Intake Visit Reasons: OV Follow Up SWL Allergies Penicillins [PENICILLINS] Allergy (Severe, Verified 02/19/23 09:44) CHEST TIGHTNESS shellfish derived [SHELLFISH DERIVED] Allergy (Severe, Verified 02/19/23 09:44) CHEST TIGHTNESS Sulfa (Sulfonamide Antibiotics) [SULFA (SULFONAMIDE ANTIBIOTICS)] Allergy (Severe, Verified 02/19/23 09:44) CHEST TIGHTNESS meperidine [From Demerol] Adverse Reaction (Mild, Verified 02/19/23 09:44) Nausea and Vomiting HPI HPI Comments History of Present Illness Details Overall weight loss: 30.3lbs, or 8.64% TBWL Is doing 2 Celebrate Rebuild protein shakes with one scoop each in 8oz almond milk, 3 Celebrate protein bars and one meal (10 forks of meat and 10 forks of salad or vegetables) Exercise: Increased to 3 walks per day, daily PFSH Medical History DJD (degenerative joint disease) GERD (gastroesophageal reflux disease) Diverticulitis Morbid obesity Atherosclerotic cardiovascular disease HLD (hyperlipidemia) HTN (hypertension) Arthritis History of diverticulitis Elevated PSA DVT (deep venous thrombosis) Asthma Surgical History S/P cardiac cath S/P CABG (coronary artery bypass graft) Hx of hemorrhoidectomy H/O nasal septoplasty Hx of colonoscopy Family History Mother No problems noted. Brother No problems noted. Social History Alcohol intake: current Alcohol intake frequency: holidays/special occasions only Comment: used for heart protection Patient Tobacco Use Status: Former Tobacco user Quit Date: 1977 Years Smoked: 7 +/- Physical Exam Vital Signs: Last Vital Signs Temp 96.9 F 02/19/23 09:39 Pulse 78 02/19/23 09:39 BP 124/68 02/19/23 09:39 Pulse Ox 97 02/19/23 09:39 Oxygen Delivery Method Room Air 02/19/23 09:39 BMI result Body Mass Index 48.7 Assessment & Plan Assessment & Plan (1) Morbid obesity: Code(s): E66.01 - Morbid (severe) obesity due to excess calories Plan: 1. Continue same nutritional plan of 2 Celebrate Rebuild protein shakes with one scoop each in 8oz almond milk, 3 Celebrate protein bars and one meal (10 forks of meat and 10 forks of salad or vegetables) 2. Exercise: continue the 3 walks per day, daily. Try to increase the time of each walk a little as you feel better 3. Try again the rowing machine 4. Continue to send me weight measurements weekly Coding Level of Care Code Est Pt Level 3 (01645) Diagnoses Morbid obesity E66.01 Time Spent (min) 25
[2023-02-19 09:39] VITALS: BP 124/68; PULSE 78; TEMP 36.1; O2SAT 97; BMI 48.7
== END 2023-02-19 10:22 | disposition home or self-care (01) ==
PROVIDERS: PCP Internal Medicine; Visit Provider Surgery
DX: E66.01 Morbid (severe) obesity due to excess calories (principal); Z68.32 Body mass index [BMI] 32.0-32.9, adult; Z90.3 Acquired absence of stomach [part of]; Z98.84 Bariatric surgery status
CPT/HCPCS: 99213

== ENCOUNTER → 2023-02-19 09:30 | Outpatient (BNVA) | payer MEDICARE, OTHER, SELFPAY | PROVIDERS: PCP Internal Medicine; Visit Provider Surgery | DX: E66.01 Morbid (severe) obesity due to excess calories (principal); Z68.42 Body mass index [BMI] 45.0-49.9, adult | CPT/HCPCS: 99212 ==

== ENCOUNTER 2023-03-12 09:00 | Outpatient (AMB) | payer MEDICARE, OTHER, SELFPAY ==
--- NOTE | 2023-03-12 09:03 | MHC.OFFVISWM ---
Intake VS Expanded 03/12/23 09:10 BP 145/75 H Blood Pressure Location Rt brachial Blood Pressure Position Sitting Pulse 72 Pulse Source Pulse Oximeter Temp 96.2 F L Temperature Source Temporal Artery Scan Pulse Oximetry 98 Oxygen Delivery Method Room Air Height 5 ft 8 in Weight 324 lb BMI 49.3 Body Fat % 43.0 Body Fat Mass 139.4 Fat Free Mass 184.6 Visceral Fat Rating 34.0 Body Water % 44.2 Body Water Mass 143.4 Muscle Mass/Score 175.4 Basal Metabolic Rate/Score 2,608 Intake Visit Reasons: OV Follow Up SWL Allergies Penicillins [PENICILLINS] Allergy (Severe, Verified 03/12/23 09:10) CHEST TIGHTNESS shellfish derived [SHELLFISH DERIVED] Allergy (Severe, Verified 03/12/23 09:10) CHEST TIGHTNESS Sulfa (Sulfonamide Antibiotics) [SULFA (SULFONAMIDE ANTIBIOTICS)] Allergy (Severe, Verified 03/12/23 09:10) CHEST TIGHTNESS meperidine [From Demerol] Adverse Reaction (Mild, Verified 03/12/23 09:10) Nausea and Vomiting HPI HPI Comments History of Present Illness Details Overall weight loss: 26.6lbs, or 7.6% TBWL PFSH Medical History DJD (degenerative joint disease) GERD (gastroesophageal reflux disease) Diverticulitis Morbid obesity Atherosclerotic cardiovascular disease HLD (hyperlipidemia) HTN (hypertension) Arthritis History of diverticulitis Elevated PSA DVT (deep venous thrombosis) Asthma Surgical History S/P cardiac cath S/P CABG (coronary artery bypass graft) Hx of hemorrhoidectomy H/O nasal septoplasty Hx of colonoscopy Family History Mother No problems noted. Brother No problems noted. Social History Alcohol intake: current Alcohol intake frequency: holidays/special occasions only Comment: used for heart protection Patient Tobacco Use Status: Former Tobacco user Quit Date: 1977 Years Smoked: 7 +/- Physical Exam Vital Signs: Last Vital Signs Temp 96.2 F L 01/03/24 09:10 Pulse 72 03/12/23 09:10 BP 145/75 H 03/12/23 09:10 Pulse Ox 98 03/12/23 09:10 Oxygen Delivery Method Room Air 03/12/23 09:10 BMI result Body Mass Index 49.3 Assessment & Plan Assessment & Plan (1) Morbid obesity: Code(s): E66.01 - Morbid (severe) obesity due to excess calories Plan: 1. Continue same nutritional plan of 2 Celebrate Rebuild protein shakes with one scoop each in 8oz almond milk, 3 Celebrate protein bars and one meal (10 forks of meat and 10 forks of salad or vegetables) 2. Exercise: continue the 3 walks per day, daily. Try to increase the time of each walk a little as you feel better 3. Try again the rowing machine 4. Continue to send me weight measurements weekly Coding Level of Care Code Est Pt Level 3 (55882) Diagnoses Morbid obesity E66.01 Time Spent (min) 25
[2023-03-12 09:10] VITALS: BP 145/75; PULSE 72; TEMP 35.7; O2SAT 98; BMI 49.3
== END 2023-03-12 10:41 | disposition home or self-care (01) ==
PROVIDERS: PCP Internal Medicine; Visit Provider Surgery
DX: E66.01 Morbid (severe) obesity due to excess calories (principal); Z68.42 Body mass index [BMI] 45.0-49.9, adult
CPT/HCPCS: 99213

== ENCOUNTER → 2023-03-12 09:00 | Outpatient (BNVA) | payer MEDICARE, OTHER, SELFPAY | PROVIDERS: PCP Internal Medicine; Visit Provider Surgery | DX: E66.01 Morbid (severe) obesity due to excess calories (principal); Z68.42 Body mass index [BMI] 45.0-49.9, adult | CPT/HCPCS: 99212 ==

== ENCOUNTER 2023-04-11 08:57 | Outpatient (AMB) | payer MEDICARE, OTHER, SELFPAY ==
--- NOTE | 2023-04-11 09:06 | A.OFFVIS_ITS ---
Intake VS Expanded 04/11/23 09:13 BP 120/59 L Blood Pressure Location Rt brachial Blood Pressure Position Sitting Pulse 86 Pulse Source Pulse Oximeter Temp 96.3 F L Temperature Source Temporal Artery Scan Pulse Oximetry 97 Oxygen Delivery Method Room Air Height 5 ft 8 in Weight 312 lb BMI 47.4 Body Fat % 42.2 Body Fat Mass 131.6 Fat Free Mass 180.4 Visceral Fat Rating 32.0 Body Water % 43.7 Body Water Mass 136.2 Muscle Mass/Score 171.6 Basal Metabolic Rate/Score 2,534 Intake Visit Reasons: OV Follow Up SWL Allergies Penicillins [PENICILLINS] Allergy (Severe, Verified 04/11/23 09:06) CHEST TIGHTNESS shellfish derived [SHELLFISH DERIVED] Allergy (Severe, Verified 04/11/23 09:06) CHEST TIGHTNESS Sulfa (Sulfonamide Antibiotics) [SULFA (SULFONAMIDE ANTIBIOTICS)] Allergy (Severe, Verified 04/11/23 09:06) CHEST TIGHTNESS meperidine [From Demerol] Adverse Reaction (Mild, Verified 04/11/23 09:06) Nausea and Vomiting HPI HPI Comments History of Present Illness Details Overall weight loss: 38.6lbs, or 11% TBWL Is doing 2 Celebrate Rebuild shakes (1 scoop each in 8oz almond milk), 2 Celebrate protein bars and one meal (7 forks of protein and 7 forks of salad or vegetables) Did more walking since last visit [facility] Medical History DJD (degenerative joint disease) GERD (gastroesophageal reflux disease) Diverticulitis Morbid obesity Atherosclerotic cardiovascular disease HLD (hyperlipidemia) HTN (hypertension) Arthritis History of diverticulitis Elevated PSA DVT (deep venous thrombosis) Asthma Surgical History S/P cardiac cath S/P CABG (coronary artery bypass graft) Hx of hemorrhoidectomy H/O nasal septoplasty Hx of colonoscopy Family History Mother No problems noted. Brother No problems noted. Social History Alcohol intake: current Alcohol intake frequency: holidays/special occasions only Comment: used for heart protection Patient Tobacco Use Status: Former Tobacco user Quit Date: 1977 Years Smoked: 7 +/- Physical Exam Vital Signs: Last Vital Signs BP 120/59 L 04/11/23 09:13 GI Inspection: Yes normal to inspection Palpation (GI): Soft to palpation (softer than before) Extrem Right lower extremity: normal to inspection (+1 edema) Left lower extremity: normal to inspection (+1 edema) Assessment & Plan Assessment & Plan (1) Morbid obesity: Code(s): E66.01 - Morbid (severe) obesity due to excess calories Plan: 1. Continue same nutritional plan of 2 Celebrate Rebuild protein shakes with one scoop each in 8oz almond milk, 2 Celebrate protein bars and one meal (7 forks of meat and 7 forks of salad or vegetables) 2. Exercise: continue the 3 walks per day, daily. Try to increase the time of each walk a little as you feel better 3. Try again the rowing machine 4. Continue to send me weight measurements weekly Coding Level of Care Code Est Pt Level 3 (40287) Diagnoses Morbid obesity E66.01 Time Spent (min) 25
[2023-04-11 09:13] VITALS: BP 120/59; PULSE 86; TEMP 35.7; O2SAT 97; BMI 47.4
== END 2023-04-11 09:31 | disposition home or self-care (01) ==
PROVIDERS: PCP Internal Medicine; Visit Provider Surgery
DX: E66.01 Morbid (severe) obesity due to excess calories (principal); Z68.42 Body mass index [BMI] 45.0-49.9, adult
CPT/HCPCS: 99213

== ENCOUNTER → 2023-04-11 08:57 | Outpatient (BNVA) | payer MEDICARE, OTHER, SELFPAY | PROVIDERS: PCP Internal Medicine; Visit Provider Surgery | DX: E66.01 Morbid (severe) obesity due to excess calories (principal); Z68.42 Body mass index [BMI] 45.0-49.9, adult | CPT/HCPCS: 99212 ==

== ENCOUNTER 2023-04-21 08:24 | Outpatient (AMB) | payer MEDICARE, OTHER, SELFPAY ==
--- NOTE | 2023-04-21 08:25 | A.OFFVIS_ITS ---
Intake Vital Signs 04/21/23 08:32 Height 5 ft 8 in Weight 318 lb 6 oz BMI 48.4 BP 132/80 Blood Pressure Location Lt brachial Position Sitting Pulse 63 Pulse Source Pulse Oximeter Temp 98 F Pulse Oximetry (%) 98 Oxygen Delivery Method Room Air Intake Visit Reasons: I-CERTIFIED DIALYSIS TECHNICIAN: Sleep Apnea-Conf Intake Note: Patient presents for f/u. Allergies Penicillins [PENICILLINS] Allergy (Severe, Verified 04/11/23 09:06) CHEST TIGHTNESS shellfish derived [SHELLFISH DERIVED] Allergy (Severe, Verified 04/11/23 09:06) CHEST TIGHTNESS Sulfa (Sulfonamide Antibiotics) [SULFA (SULFONAMIDE ANTIBIOTICS)] Allergy (Severe, Verified 04/11/23 09:06) CHEST TIGHTNESS meperidine [From Demerol] Adverse Reaction (Mild, Verified 04/11/23 09:06) Nausea and Vomiting HPI HPI Comments History of Present Illness Details 72 y/o male patient presents for new in- person visit for sleep consultation. Pt reports he is in medical wt loss program and plans to have gastric sleeve soon. Pt underwent sleep study and diagnosed with COURTNEY in January,. He lost about 70 lb since January 2023. The home sleep study result was mild to moderate degree of sleep apnea. The total sleep AHI was 14/hr, snoring for 47% for the sleep time. There is also mild hypoxemia with average O2 sat 93%, lowest O2 sat 81% and O2 sat below 88% for 15 min. Pt reports he has claustrophobia wants to try nasal mask. Sleep questionnaire: Have you ever been diagnosed with a sleep disorder? Yes, COURTNEY. Have you ever had a sleep study in the past? Yes, home sleep study. Have you ever been treated for a sleep disorder? Not yet. Do you take medications for a sleep disorder? No. Do you snore? Yes. Do you wake up gasping at night? No. Do you have episodes of apneas? Yes. If yes, are they witnessed? Yes. Do you have episodes of nocturnal chest pain or dyspnea? Yes. Do you have difficulty initiating sleep? No. Do you have difficulty maintaining sleep? Yes, due to his autistic son. Do you wake up tired? Yes, if he sleep 5-6 hrs. Do you have headaches upon awakening? No. Do you wake up with dry mouth or throat? Yes. Do you have GERD? Yes. Do you have nocturia? Yes. Do you have nocturnal leg cramps? No. Do you have symptoms of restless legs? No. Do you act out your dreams? No. Sleep hygiene questionnaire: What is your usual sleep routine? Usual bedtime is at 12 am; Usual wake up time is at 8 am. Do you take naps? Yes. Is your sleep environment cool, dark, and quiet? Yes. Do you exercise? Walking. Do you take caffeine or other stimulants? Coffee 10-12 cups a day. Do you use electronics in bed? No. What is your work schedule? Retired. Hypersomnolence questionnaire: Do you have daytime tiredness or fatigue? Yes. Do you easily fall asleep when inactive? Yes. Have you ever had episodes of sudden weakness? No. Have you ever had episodes of sudden weakness associated with strong emotions? No. PFSH Medical History DJD (degenerative joint disease) GERD (gastroesophageal reflux disease) Diverticulitis Morbid obesity Atherosclerotic cardiovascular disease HLD (hyperlipidemia) HTN (hypertension) Arthritis History of diverticulitis Elevated PSA DVT (deep venous thrombosis) Asthma Surgical History S/P cardiac cath S/P CABG (coronary artery bypass graft) Hx of hemorrhoidectomy H/O nasal septoplasty Hx of colonoscopy Family History Mother No problems noted. Brother No problems noted. Social History Alcohol intake: current Alcohol intake frequency: holidays/special occasions only Comment: used for heart protection Patient Tobacco Use Status: Former Tobacco user Quit Date: 1977 Years Smoked: 7 +/- Review of Systems Const All systems reviewed & are unremarkable except as noted in HPI and below Physical Exam Vital Signs: Last Vital Signs Temp 98 F 04/21/23 08:32 Pulse 63 04/21/23 08:32 BP 132/80 04/21/23 08:32 Pulse Ox 98 04/21/23 08:32 Oxygen Delivery Method Room Air 04/21/23 08:32 BMI result Body Mass Index 48.4 Const General: cooperative Nutritional Appearance: obese Orientation/consciousness: patient oriented x3 Neck Neck: Yes full ROM and Yes supple Resp Effort & Inspection: normal respiratory effort and able to speak in complete sentences Neuro General: patient oriented x3 and gait normal Cranial nerves: Yes CN's II-XII intact bilaterally Cognition (Neuro): normal cognition Motor exam (neuro): 5/5 motor strength present throughout Psych Appearance: grossly normal Mental Status: mental status grossly normal Speech and movement: Normal speech and movement present Affect: normal affect Attitude: cooperative Assessment & Plan Assessment & Plan (1) Sleep apnea: Comment: mild to moderate degree sleep apnea. The AHI was 14/hr and oxygen brien was 81%. Code(s): G47.30 - Sleep apnea, unspecified Plan Advised patient to start APAP [id number] with nasal mask. Stressed compliance, use CPAP nightly and more than 4hrs. Continue to follow up with wt management. Sleep hygiene education provided. Coding Level of Care Code New Pt Level 3 (91687) Diagnoses Sleep apnea G47.30
[2023-04-21 08:32] VITALS: BP 132/80; PULSE 63; TEMP 36.6; O2SAT 98; BMI 48.4
== END 2023-04-21 09:01 | disposition home or self-care (01) ==
PROVIDERS: PCP Internal Medicine; Visit Provider Nurse Practitioner Family
DX: G47.30 Sleep apnea, unspecified (principal)
CPT/HCPCS: 99203; 99213

== ENCOUNTER → 2023-04-21 08:24 | Outpatient (BNVA) | payer MEDICARE, OTHER, SELFPAY | PROVIDERS: PCP Internal Medicine; Visit Provider Nurse Practitioner Family | DX: G47.30 Sleep apnea, unspecified (principal) | CPT/HCPCS: 99202 ==

== ENCOUNTER 2023-04-30 12:57 | Outpatient (AMB) | payer MEDICARE, OTHER, SELFPAY ==
--- NOTE | 2023-04-30 12:59 | A.OFFVIS_ITS ---
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 He states he is doing well he denies dysuria. Bladder scan PVR 11 mL Urinalysis leukocytes 0, blood 0 Review of chart 01/28/24-- Manjeet is a 72-year-old male who is here as a new patient evaluation for enlarged prostate. Past medical history includes coronary artery disease status post CABG, former smoker quit 1977, morbid obesity, degenerative joint disease, hypertension, arthritis, asthma. The patient complains of getting up many times at night up to 5 times, he has a sensation of not emptying the bladder some of the time, weak stream and urgency. AUA symptoms score 14. He states that he has UTI symptoms in the past and has used cranberry juice with improvement in symptoms. In regards to nocturia symptoms, nocturia can be associated with sleep apnea and the patient states that he did have a sleep study done bleeding results in have discussed a trial of an alpha gissel. I have discussed side effects to include retrograde ejaculation, stuffy nose. And he is to call with any concerns regarding the medication. The patient states he is being evaluated by the Bariatric surgeon; he has been losing weight, he was 396 lb now down to 325lb he has been cutting carbohydrates out of his diet. Evaluation today: Urinalysis-leukocytes negative, blood negative, bladder scan PVR [address] scan of abdomen and pelvis with IV contrast 05/10/2020 kidneys within normal limits enlarged prostate noted. Labs 04/19/2022--PSA 2.50 01/08/2021--PSA 1.5 to Plan: Prescribed Alfuzosin 10 mg daily [facility] Medical History DJD (degenerative joint disease) GERD (gastroesophageal reflux disease) Diverticulitis Morbid obesity Atherosclerotic cardiovascular disease HLD (hyperlipidemia) HTN (hypertension) Arthritis History of diverticulitis Elevated PSA DVT (deep venous thrombosis) Asthma Surgical History S/P cardiac cath S/P CABG (coronary artery bypass graft) Hx of hemorrhoidectomy H/O nasal septoplasty Hx of colonoscopy Family History Mother No problems noted. Brother No problems noted. Social History Alcohol intake: current Alcohol intake frequency: holidays/special occasions only Comment: used for heart protection Patient Tobacco Use Status: Former Tobacco user Quit Date: 1977 Years Smoked: 7 +/- Review of Systems Const All systems reviewed & are unremarkable except as noted in HPI and below Reports no additional complaints Eyes Reports no additional complaints ENT Reports no additional complaints Card Reports no additional complaints Resp Reports no additional complaints GI Reports no additional complaints Reports as per HPI Musc Reports no additional complaints Skin/Breast Reports system reviewed and no additional complaints, except as documented Neuro Reports no additional complaints Psych Reports no additional complaints Endo Reports no additional complaints Augie/Lymph Reports no additional complaints Aller/Immun Reports no additional complaints Office Procedures Post Void Residual Post Residual Void Post Void Residual (PVR): 11 [id number] Void Residual by ultrasound Results AMB Urinalysis, Automated UA Leukoctes 0 Tosha/uL Last Edit by BRENDA Frye on 04/30/23 13:14 UA Nitrite Negative Last Edit by BRENDA Frye on 04/30/23 13:14 UA Urobilinogen 0.2 mg/dL Last Edit by Neel Bose, A on 04/30/23 13:1 4 UA Protein 0 mg/dL Last Edit by Neel Bose, A on 04/30/23 13:14 UA pH 6.5 Last Edit by Neel Bose, A on 04/30/23 13:14 UA Blood 0 Samuel/uL Last Edit by Neel Bose, A on 04/30/23 13:14 UA Specific [place] 1.015 Last Edit by Neel Bose, A on 04/30/23 13: 14 UA Ketone Negative Last Edit by Neel Bose A on 04/30/23 13:14 UA Bilirubin 0 mg/dL Last Edit by Neel Bose A on 04/30/23 13:14 UA Glucose 0 mg/dL Last Edit by Neel Bose A on 04/30/23 13:14 Results Reviewed Results Reviewed: Laboratory Last Values Urine pH (Auto) 6.5 04/30/23 13:05 Specific [place] (Auto) 1.015 04/30/23 13:05 Urine Protein (Auto) 0 mg/dL 04/30/23 13:05 Glucose (UA)(Auto) 0 mg/dL 04/30/23 13:05 Urine Ketones (Auto) Negative 04/30/23 13:05 Urine Blood (Auto) 0 Samuel/uL 04/30/23 13:05 Urine Nitrite (Auto) Negative 04/30/23 13:05 Urine Bilirubin (Auto) 0 mg/dL 04/30/23 13:05 Urine Urobilinogen (Auto) 0.2 mg/dL 04/30/23 13:05 Leukocyte Esterase (Auto) 0 Tosha/uL 04/30/23 13:05 Assessment & Plan Assessment & Plan (1) BPH loc w urin obs/LUTS: Code(s): N40.1 - Benign prostatic hyperplasia with lower urinary tract symptoms (2) Nocturia: Code(s): R35.1 - Nocturia Plan Alfuzosin 10 mg daily Orders: Orders AMB Urinalysis Automated 04/30/23 Z13.9 - Encounter for screening, unspecified AMB Post Void Residual by ultrasound 04/30/23 N39.8 - Other specified disorders of urinary system Patient Instructions: The patient had an opportunity to ask questions regarding treatment plan. All questions were answered. The patient is aware they should contact our office by phone for worsening of their current condition or the appearance of new symptoms. Compliance is encouraged with any medications and followup testing that is ordered. It is a privilege to be allowed the opportunity to participate in the urologic care of your patient. If you have any questions or concerns regarding treatment for the above conditions please do not hesitate to contact me. The office telephone contact is [phone]. This note is constructed in part using voice recognition software. While every e ffort has been made to ensure accuracy disability advocate errors may have been included. Yours sincerely, Pato Burden MD Coding Level of Care Code Est Pt Level 3 (77588) Diagnoses BPH loc w urin obs/LUTS N40.1 Nocturia R35.1 CPT Codes Post Residual Void - PVR CPT Code: 28617-Vjbo Void Residual by ultrasound ([id number])
== END 2023-04-30 14:11 | disposition home or self-care (01) ==
PROVIDERS: PCP Internal Medicine; Visit Provider Urology
DX: N40.1 Benign prostatic hyperplasia with lower urinary tract symptoms (principal); R35.1 Nocturia
CPT/HCPCS: 99213

== ENCOUNTER → 2023-04-30 12:57 | Outpatient (BNVA) | payer MEDICARE, OTHER, SELFPAY | PROVIDERS: PCP Internal Medicine; Visit Provider Urology | DX: N40.1 Benign prostatic hyperplasia with lower urinary tract symptoms (principal); R35.1 Nocturia | CPT/HCPCS: 51798; 81003; 99212 ==

== ENCOUNTER 2023-05-16 08:14 | Outpatient (AMB) | payer MEDICARE, OTHER, SELFPAY ==
--- NOTE | 2023-05-16 08:17 | A.OFFVIS_ITS ---
Intake VS Expanded 05/16/23 08:22 BP 119/68 Blood Pressure Location Rt brachial Blood Pressure Position Sitting Pulse 88 Pulse Source Pulse Oximeter Temp 96.4 F L Temperature Source Tympanic Pulse Oximetry 98 Oxygen Delivery Method Room Air Height 5 ft 8 in Weight 307 lb 3.2 oz BMI 46.7 Body Fat % 41.7 Body Fat Mass 128.0 Fat Free Mass 179.0 Visceral Fat Rating 31.0 Body Water % 43.8 Body Water Mass 134.4 Muscle Mass/Score 170.2 Basal Metabolic Rate/Score 2,509 Intake Visit Reasons: OV Follow Up SWL Allergies Penicillins [PENICILLINS] Allergy (Severe, Verified 05/16/23 08:28) CHEST TIGHTNESS shellfish derived [SHELLFISH DERIVED] Allergy (Severe, Verified 05/16/23 08:28) CHEST TIGHTNESS Sulfa (Sulfonamide Antibiotics) [SULFA (SULFONAMIDE ANTIBIOTICS)] Allergy (Severe, Verified 05/16/23 08:28) CHEST TIGHTNESS meperidine [From Demerol] Adverse Reaction (Mild, Verified 05/16/23 08:28) Nausea and Vomiting HPI HPI Comments History of Present Illness Details Overall weight loss: 43.4lbs, or 12.4% TBWL Is doing 2 Celebrate Rebuild shakes with one scoop each in 8oz almond milk,one Celebrate bar and one meal (7 forks each) Exercise: walking outside when weather allows [facility] Medical History DJD (degenerative joint disease) GERD (gastroesophageal reflux disease) Diverticulitis Morbid obesity Atherosclerotic cardiovascular disease HLD (hyperlipidemia) HTN (hypertension) Arthritis History of diverticulitis Elevated PSA DVT (deep venous thrombosis) Asthma Surgical History S/P cardiac cath S/P CABG (coronary artery bypass graft) Hx of hemorrhoidectomy H/O nasal septoplasty Hx of colonoscopy Family History Mother No problems noted. Brother No problems noted. Social History Alcohol intake: current Alcohol intake frequency: holidays/special occasions only Comment: used for heart protection Patient Tobacco Use Status: Former Tobacco user Quit Date: 1977 Years Smoked: 7 +/- Physical Exam Vital Signs: Last Vital Signs Temp 96.4 F L 05/16/23 08:22 Pulse 88 05/16/23 08:22 BP 119/68 05/16/23 08:22 Pulse Ox 98 05/16/23 08:22 Oxygen Delivery Method Room Air 05/16/23 08:22 BMI result Body Mass Index 46.7 GI Inspection: Yes normal to inspection and Yes obesity Palpation (GI): Soft to palpation (softer) Extrem Right lower extremity: normal to inspection (mild ankle edema) Left lower extremity: normal to inspection (mild ankle edema) Assessment & Plan Assessment & Plan (1) Morbid obesity: Code(s): E66.01 - Morbid (severe) obesity due to excess calories Plan: 1. Continue same nutritional plan of 2 Celebrate Rebuild shakes with one scoop each in 8oz almond milk,one Celebrate bar and one meal (7 forks each). 2. Consider replacing the dinner 2 days per week with an additional Celebrate Rebuild shake with 2 scoops in almond milk 3. Continue walking outside as much as possible 4. Consider purchasing a stationary bike at home to use the days you can't walk outside 5. Continue to send me weight measurements weekly Coding Level of Care Code Est Pt Level 3 (34496) Diagnoses Morbid obesity E66.01 Time Spent (min) 25
[2023-05-16 08:22] VITALS: BP 119/68; PULSE 88; TEMP 35.8; O2SAT 98; BMI 46.7
== END 2023-05-16 08:48 | disposition home or self-care (01) ==
PROVIDERS: PCP Internal Medicine; Visit Provider Surgery
DX: E66.01 Morbid (severe) obesity due to excess calories (principal); Z68.42 Body mass index [BMI] 45.0-49.9, adult
CPT/HCPCS: 99213

== ENCOUNTER → 2023-05-16 08:14 | Outpatient (BNVA) | payer MEDICARE, OTHER, SELFPAY | PROVIDERS: PCP Internal Medicine; Visit Provider Surgery | DX: E66.01 Morbid (severe) obesity due to excess calories (principal); Z68.42 Body mass index [BMI] 45.0-49.9, adult | CPT/HCPCS: 99212 ==

== ENCOUNTER 2023-06-20 08:41 | Outpatient (AMB) | payer MEDICARE, OTHER, SELFPAY ==
--- NOTE | 2023-06-20 08:45 | A.OFFVIS_ITS ---
Intake VS Expanded 06/20/23 08:51 BP 154/72 H Blood Pressure Location Rt brachial Blood Pressure Position Sitting Pulse 72 Pulse Source Pulse Oximeter Temp 96.9 F Temperature Source Temporal Artery Scan Pulse Oximetry 96 Oxygen Delivery Method Room Air Height 5 ft 8 in Weight 308 lb 12.8 oz BMI 46.9 Body Fat % 41.4 Body Fat Mass 127.8 Fat Free Mass 180.8 Visceral Fat Rating 31.0 Body Water % 44.4 Body Water Mass 137.2 Muscle Mass/Score 172.0 Basal Metabolic Rate/Score 2,534 Intake Visit Reasons: OV Follow Up SWL Allergies Penicillins [PENICILLINS] Allergy (Severe, Verified 06/20/23 08:47) CHEST TIGHTNESS shellfish derived [SHELLFISH DERIVED] Allergy (Severe, Verified 06/20/23 08:47) CHEST TIGHTNESS Sulfa (Sulfonamide Antibiotics) [SULFA (SULFONAMIDE ANTIBIOTICS)] Allergy (Severe, Verified 06/20/23 08:47) CHEST TIGHTNESS meperidine [From Demerol] Adverse Reaction (Mild, Verified 06/20/23 08:47) Nausea and Vomiting HPI HPI Comments History of Present Illness Details Overall weight loss: 41.8lbs, or 11.92% TBWL Is doing one Celebrate Rebuild protein shake (2 scoops in 8oz almond milk), another Rebuild shake with one scoop in 8oz almond milk), one Celebrate protein bar and one meal (10 forks of protein and 10 forks of salad or vegetables) Exercise: none, hurt his back with the stationary bike Is using the CPAP but has difficulties as he breathes with mouth open PFSH Medical History DJD (degenerative joint disease) GERD (gastroesophageal reflux disease) Diverticulitis Morbid obesity Atherosclerotic cardiovascular disease HLD (hyperlipidemia) HTN (hypertension) Arthritis History of diverticulitis Elevated PSA DVT (deep venous thrombosis) Asthma Surgical History S/P cardiac cath S/P CABG (coronary artery bypass graft) Hx of hemorrhoidectomy H/O nasal septoplasty Hx of colonoscopy Family History Mother No problems noted. Brother No problems noted. Social History Alcohol intake: current Alcohol intake frequency: holidays/special occasions only Comment: used for heart protection Patient Tobacco Use Status: Former Tobacco user Quit Date: 1977 Years Smoked: 7 +/- Physical Exam Vital Signs: Last Vital Signs Temp 96.9 F 06/20/23 08:51 Pulse 72 06/20/23 08:51 BP 154/72 H 06/20/23 08:51 Pulse Ox 96 06/20/23 08:51 Oxygen Delivery Method Room Air 06/20/23 08:51 BMI result Body Mass Index 46.9 GI Inspection: Yes normal to inspection and Yes obesity Palpation (GI): Soft to palpation (softer) Extrem Right lower extremity: normal to inspection (+1 edema) Left lower extremity: normal to inspection (+1 edema) Assessment & Plan Assessment & Plan (1) Morbid obesity: Code(s): E66.01 - Morbid (severe) obesity due to excess calories Plan: 1. Continue same nutritional plan of one Celebrate Rebuild protein shake (2 scoops in 8oz almond milk), another Rebuild shake with one scoop in 8oz almond milk), one Celebrate protein bar and one meal (10 forks of protein and 10 forks of salad or vegetables) 2. Consider trying a recumbent stationary bike 3. Continue to use the CPAP as much as possible and encouraged him to continue to talk to the clerical coordinator for an alternative face mask 4. Continue to send me weight measurements weekly on Fridays Coding Level of Care Code Est Pt Level 3 (68927) Diagnoses Morbid obesity E66.01 Time Spent (min) 25
[2023-06-20 08:51] VITALS: BP 154/72; PULSE 72; TEMP 36.1; O2SAT 96; BMI 46.9
== END 2023-06-20 09:26 | disposition home or self-care (01) ==
PROVIDERS: PCP Internal Medicine; Visit Provider Surgery
DX: E66.01 Morbid (severe) obesity due to excess calories (principal); Z68.42 Body mass index [BMI] 45.0-49.9, adult
CPT/HCPCS: 99213

== ENCOUNTER → 2023-06-20 08:41 | Outpatient (BNVA) | payer MEDICARE, OTHER, SELFPAY | PROVIDERS: PCP Internal Medicine; Visit Provider Surgery | DX: E66.01 Morbid (severe) obesity due to excess calories (principal); Z68.42 Body mass index [BMI] 45.0-49.9, adult | CPT/HCPCS: 99212 ==

== ENCOUNTER 2023-07-18 09:49 | Outpatient (AMB) | payer MEDICARE, OTHER, SELFPAY ==
[2023-07-18 10:07] VITALS: BP 118/67; PULSE 75; TEMP 35.8; O2SAT 96; BMI 46.8
--- NOTE | 2023-07-18 10:07 | MHC.OFFVISWM ---
VS Expanded 07/18/23 10:07 BP 118/67 Blood Pressure Location Rt brachial Blood Pressure Position Sitting Pulse 75 Pulse Source Pulse Oximeter Temp 96.5 F L Temperature Source Tympanic Pulse Oximetry 96 Oxygen Delivery Method Room Air Height 5 ft 8 in Weight 307 lb 12.8 oz BMI 46.8 Body Fat % 41.3 Body Fat Mass 127.2 Fat Free Mass 180.6 Visceral Fat Rating 31.0 Body Water % 44.6 Body Water Mass 137.4 Muscle Mass/Score 171.8 Basal Metabolic Rate/Score 2,530 Intake Visit Reasons: OV Follow Up SWL Allergies Penicillins [PENICILLINS] Allergy (Severe, Verified 07/18/23 10:09) CHEST TIGHTNESS shellfish derived [SHELLFISH DERIVED] Allergy (Severe, Verified 07/18/23 10:09) CHEST TIGHTNESS Sulfa (Sulfonamide Antibiotics) [SULFA (SULFONAMIDE ANTIBIOTICS)] Allergy (Severe, Verified 07/18/23 10:09) CHEST TIGHTNESS meperidine [From Demerol] Adverse Reaction (Mild, Verified 07/18/23 10:09) Nausea and Vomiting HPI Comments Details: Overall weight loss: 42.8lbs, or 12.21% TBWL Is doing 2 Celebrate Rebuild protein shakes (2 scoops in almond venita), one Celebrate bar and one meal (10 forks of meat and 10 forks of salad or vegetables) Exercise: none due to back pain and hey fever [facility] Medical History DJD (degenerative joint disease) GERD (gastroesophageal reflux disease) Diverticulitis Morbid obesity Atherosclerotic cardiovascular disease HLD (hyperlipidemia) HTN (hypertension) Arthritis History of diverticulitis Elevated PSA DVT (deep venous thrombosis) Asthma Surgical History S/P cardiac cath S/P CABG (coronary artery bypass graft) Hx of hemorrhoidectomy H/O nasal septoplasty Hx of colonoscopy Family History Mother No problems noted. Brother No problems noted. Social History Alcohol intake: current Alcohol intake frequency: holidays/special occasions only Comment: used for heart protection Patient Tobacco Use Status: Former Tobacco user Quit Date: 1977 Years Smoked: 7 +/- Physical Exam Vital Signs: Last Vital Signs Temp 96.5 F L 07/18/23 10:07 Pulse 75 07/18/23 10:07 BP 118/67 07/18/23 10:07 Pulse Ox 96 07/18/23 10:07 Oxygen Delivery Method Room Air 07/18/23 10:07 BMI result Body Mass Index 46.8 GI Inspection: Yes normal to inspection and Yes obesity Palpation (GI): Soft to palpation Extrem Right lower extremity: normal to inspection Left lower extremity: normal to inspection Assessment & Plan Assessment & Plan (1) Morbid obesity: Code(s): E66.01 - Morbid (severe) obesity due to excess calories Category: Medical Plan: 1. Continue same nutritional plan 2. Continue to try to exercise 3. We discussed that if by next appointment there is no substantial weight loss (>7lbs) we will proceed with surgery
== END 2023-07-18 10:36 | disposition home or self-care (01) ==
PROVIDERS: PCP Internal Medicine; Visit Provider Surgery
DX: E66.01 Morbid (severe) obesity due to excess calories (principal)
CPT/HCPCS: 99212; 99213

== ENCOUNTER → 2023-07-18 09:49 | Outpatient (BNVA) | payer MEDICARE, OTHER, SELFPAY | PROVIDERS: PCP Internal Medicine; Visit Provider Surgery | DX: E66.01 Morbid (severe) obesity due to excess calories (principal); Z68.42 Body mass index [BMI] 45.0-49.9, adult | CPT/HCPCS: 99212 ==

== ENCOUNTER 2023-08-22 08:06 | Outpatient (AMB) | payer MEDICARE, OTHER, SELFPAY ==
--- NOTE | 2023-08-22 09:00 | MHC.OFFVISWM ---
VS Expanded 08/22/23 09:02 Height 5 ft 8 in Weight 292 lb 8 oz BMI 44.5 Intake Visit Reasons: TV Follow Up SWL Allergies Penicillins [PENICILLINS] Allergy (Severe, Verified 07/18/23 10:09) CHEST TIGHTNESS shellfish derived [SHELLFISH DERIVED] Allergy (Severe, Verified 07/18/23 10:09) CHEST TIGHTNESS Sulfa (Sulfonamide Antibiotics) [SULFA (SULFONAMIDE ANTIBIOTICS)] Allergy (Severe, Verified 07/18/23 10:09) CHEST TIGHTNESS meperidine [From Demerol] Adverse Reaction (Mild, Verified 07/18/23 10:09) Nausea and Vomiting HPI HPI TV Follow Up SWL: Details: Start time: 8.58am, End time: 9.12am ?I spent 9 minutes speaking with the patient on the phone plus an additional 5 minutes reviewing and updating records for a total of 14 minutes HPI Comments Details: Overall weight loss: Is doing 2 Celebrate Rebuild protein shakes (1 scoop in 8oz almond milk), one Celebrate protein bar and one meal (10 forks of protein and 10 forks of vegetables) Exercise: 2 walks per day, daily [facility] Medical History DJD (degenerative joint disease) GERD (gastroesophageal reflux disease) Diverticulitis Morbid obesity Atherosclerotic cardiovascular disease HLD (hyperlipidemia) HTN (hypertension) Arthritis History of diverticulitis Elevated PSA DVT (deep venous thrombosis) Asthma Surgical History S/P cardiac cath S/P CABG (coronary artery bypass graft) Hx of hemorrhoidectomy H/O nasal septoplasty Hx of colonoscopy Family History Mother No problems noted. Brother No problems noted. Social History Alcohol intake: current Alcohol intake frequency: holidays/special occasions only Comment: used for heart protection Patient Tobacco Use Status: Former Tobacco user Years Smoked: 7 +/- Telehealth Telehealth Telehealth Platform: Telephone Location of provider rendering services: practice address Location of patient: address on file Patient Identification confirmed using: Name, : Yes Telehealth method: voice only Patient verbally consented to treatment: Yes Patient verbally consented to billing insurance company: Yes Patient informed of any privacy concerns related to visit: Yes Minutes spent on Phone/Video with Pt.: 14 Assessment & Plan Assessment & Plan (1) Morbid obesity: Code(s): E66.01 - Morbid (severe) obesity due to excess calories Category: Medical Plan: 1. Plan for lap sleeve gastrectomy including upper GI endoscopy. All tests has been completed and reviewed and the patient is cleared for the surgery. ?If diaphragmatic or ventral hernias are present at time of surgery, these will be repaired laparoscopically as well. Risks and complications were discussed in detail including possible conversion to an open procedure, anastomotic leak, bleeding requiring transfusion, small bowel obstruction, , DVT and pulmonary embolism, cardiac, or pulmonary complications, as oysterman complications such as anastomotic ulcer, insufficient weight loss and vitamin deficiencies. I emphasized the importance of close follow-up, adherence to instructions and good communication. So far she has proven to be an excellent communicator and very compliant with all our directions accomplishing a great weight loss. I believe that she is an excellent candidate and she is ready. 2. The patient participated in a structured preoperative lifestyle intervention program supervised by a physician the 8 months preceding the surgical procedure. The lifestyle intervention included a structured nutritional plan with a specific daily protein intake goal, an exercise plan with a 2000 calorie burn weekly goal, weekly behavior modification guidance and completion of eight 1-hour online nutritional classes and passing successfully the corresponding quizzes. Adherence to preoperative care plan was demonstrated by completing an extensive preoperative work-up. Program participation was demonstrated by completing 13 visits with our medical team and by sharing weekly weight measurements weekly for 8 consecutive months via an approved body composition scale. Compliance to the lifestyle intervention was demonstrated by achieving a 57.8lbs weight-loss or 16.5% total body weight loss (TBWL). No medications were used to achieve this weight loss. In our published experience an over 7% preoperative TBWL, achieved by meeting the diet and exercise goals of our program improves surgical outcomes, reduces the potential for surgical complications, and predicts a statistically significant higher weight loss up to 6 years postoperatively. 3. Continue present nutritional plan of 2 Celebrate Rebuild protein shakes (1 scoop in 8oz almond milk), one Celebrate protein bar and one meal (10 forks of protein and 10 forks of vegetables) 4. Exercise: continue 2 walks per day, daily
[2023-08-22 09:02] VITALS: BMI 44.5
== END 2023-08-22 09:13 | disposition home or self-care (01) ==
LOC: HO.HBS 08:06
PROVIDERS: PCP Internal Medicine; Visit Provider Surgery
DX: E66.01 Morbid (severe) obesity due to excess calories (principal); Z68.41 Body mass index [BMI] 40.0-44.9, adult
CPT/HCPCS: 99442

== ENCOUNTER → 2023-08-22 08:06 | Outpatient (BNVA) | payer MEDICARE, OTHER, SELFPAY | PROVIDERS: PCP Internal Medicine; Visit Provider Surgery ==

== ENCOUNTER 2023-08-25 13:43 | Outpatient (AMB) | payer MEDICARE, OTHER, SELFPAY ==
--- NOTE | 2023-08-25 14:27 | A.OFFVIS_ITS ---
Vital Signs 08/25/23 14:28 Height 5 ft 8 in Weight 310 lb 13.628 oz BMI 47.3 BP 128/68 Blood Pressure Location Lt brachial Position Sitting Pulse 78 Pulse Source Pulse Oximeter Intake Visit Reasons: 1 yr fu Allergies Penicillins [PENICILLINS] Allergy (Severe, Verified 07/18/23 10:09) CHEST TIGHTNESS shellfish derived [SHELLFISH DERIVED] Allergy (Severe, Verified 07/18/23 10:09) CHEST TIGHTNESS Sulfa (Sulfonamide Antibiotics) [SULFA (SULFONAMIDE ANTIBIOTICS)] Allergy (Severe, Verified 07/18/23 10:09) CHEST TIGHTNESS meperidine [From Demerol] Adverse Reaction (Mild, Verified 07/18/23 10:09) Nausea and Vomiting Medication List - Last Reconciled 08/25/23 by Frank Bynum MD albuterol sulfate 90 mcg/actuation (ProAir HFA) 2 puffs inhalation Q6H PRN aspirin 81 mg PO DAILY atorvastatin 80 mg PO BEDTIME cholecalciferol (vitamin D3) 125 mcg PO DAILY ezetimibe (Zetia) 10 mg PO DAILY metoprolol tartrate 50 mg PO BID HPI Comments Details: Manjeet returns for follow-up regarding coronary artery disease and coronary artery bypass surgery. Overall, no new issues. Seems to be doing well. [facility]LY [facility] Medical History DJD (degenerative joint disease) GERD (gastroesophageal reflux disease) Diverticulitis Morbid obesity Atherosclerotic cardiovascular disease HLD (hyperlipidemia) HTN (hypertension) Arthritis History of diverticulitis Elevated PSA DVT (deep venous thrombosis) Asthma Surgical History S/P cardiac cath S/P CABG (coronary artery bypass graft) Hx of hemorrhoidectomy H/O nasal septoplasty Hx of colonoscopy Family History Mother No problems noted. Brother No problems noted. Social History Alcohol intake: current Alcohol intake frequency: holidays/special occasions only Comment: used for heart protection Patient Tobacco Use Status: Former Tobacco user Years Smoked: 7 +/- Review of Systems Const Denies weakness ENT Denies dizziness Card Denies chest pain, Denies chest pain with activity, Denies syncope, Denies rapid heart rate, Denies pedal edema, Denies edema, Denies leg edema, Denies lightheadedness, Denies palpitations, Denies dyspnea, Denies dyspnea on exertion and Denies orthopnea Resp Denies cough, Denies dyspnea and Denies dyspnea on exertion GI Denies hematochezia and Denies change in stool character Musc Denies abnormal gait, Denies muscle cramps, Denies muscle weakness, Denies numbness, Denies radiating pain into limb and Denies tingling Neuro Denies abnormal gait, Denies dizziness, Denies syncope, Denies numbness, Denies tingling and Denies weakness Endo Denies palpitations Physical Exam Vital Signs: Last Vital Signs Pulse 78 08/25/23 14:28 BP 128/68 08/25/23 14:28 BMI result Body Mass Index 47.3 Const General: comfortable and no acute distress Orientation/consciousness: patient oriented x3 HEENT Other: Unremarkable Head: Yes normal to inspection Neck Neck: Yes normal visual inspection Chest Chest palpation & inspection: normal inspection of the chest Resp Auscultation: clear to auscultation bilaterally Cardio Palpation: normal PMI Heart sounds: S1 normal heart sound present, S2 normal heart sound present, no gallops, no murmurs and no rubs GI Palpation (GI): Soft to palpation Back/Spine/Pelvis Other: unremarkable Skin General skin exam: no rashes or lesions noted Neuro General: patient oriented x3 Extrem General: Yes normal to inspection Psych Mental Status: mental status grossly normal Office Procedures EKG Details: EKG with sinus rhythm at 78/Min; no significant ST-T changes and otherwise [place]remark[place]. [id number]-[id number], Complete Assessment & Plan Assessment & Plan (1) Atherosclerotic cardiovascular disease: Code(s): I25.10 - Atherosclerotic heart disease of [place] coronary artery without angina pectoris Category: Medical Plan: Doing well. Remains on aspirin, beta-blockers and statins. Last LDL 69 mg/dL. (2) S/P CABG (coronary artery bypass graft): Comment: May 2020 - triple bypass Code(s): Z95.1 - Presence of aortocoronary bypass graft Category: Surgical Plan: Doing well. (3) Other and unspecified hyperlipidemia: Code(s): E78.5 - Hyperlipidemia, unspecified Category: Medical Plan: Stable. On statins and Zetia. (4) Morbid obesity: Code(s): E66.01 - Morbid (severe) obesity due to excess calories Category: Medical Plan: He has going to the bariatric department. Patient states he would rather not have any surgery but just medical weight loss. Coding Level of Care Code Est Pt Level 4 (32264) Diagnoses Atherosclerotic cardiovascular disease I25.10 S/P CABG (coronary artery bypass graft) Z95.1 Other and unspecified hyperlipidemia E78.5 Morbid obesity E66.01 CPT Codes EKG - CPT: 85049-[id number], Complete ([id number])
[2023-08-25 14:28] VITALS: BP 128/68; PULSE 78; BMI 47.3
== END 2023-08-25 15:05 | disposition home or self-care (01) ==
PROVIDERS: PCP Internal Medicine; Visit Provider Internal Medicine
DX: I25.10 Atherosclerotic heart disease of native coronary artery without angina pectoris (principal); Z95.1 Presence of aortocoronary bypass graft; E78.5 Hyperlipidemia, unspecified; E66.01 Morbid (severe) obesity due to excess calories
CPT/HCPCS: 93010; 99214

== ENCOUNTER → 2023-08-25 13:43 | Outpatient (BNVA) | payer MEDICARE, OTHER, SELFPAY | PROVIDERS: PCP Internal Medicine; Visit Provider Internal Medicine | DX: I25.10 Atherosclerotic heart disease of native coronary artery without angina pectoris (principal); E78.5 Hyperlipidemia, unspecified; E66.01 Morbid (severe) obesity due to excess calories; Z95.1 Presence of aortocoronary bypass graft; Z68.42 Body mass index [BMI] 45.0-49.9, adult | CPT/HCPCS: 93005; 99212 ==

== ENCOUNTER 2023-10-31 10:08 | Outpatient (REF) | payer MEDICARE, OTHER, SELFPAY ==
[2023-10-31 13:51] LABS: Estimated Average Glucose 126 mg/dL
[2023-10-31 14:00] LABS: Alanine Aminotransferase 17 U/L (0-40); Albumin Level 3.9 g/dL (3.5-5.0); Alkaline Phosphatase 64 U/L (39-117); Anion Gap 10 (12-20); Aspartate Amino Transferase 19 U/L (5-37); Bilirubin Total 0.5 mg/dL (0.0-1.0); Blood Urea Nitrogen 14 mg/dL (9-16); Calcium 10.3 mg/dL (8.4-10.2); Carbon Dioxide 27 mmol/L (22-29); Chloride 108 mmol/L (96-108); Estimated Glomerular Filt Rate > 60; Glucose Random 118 mg/dL (60-115); Potassium 4.5 mmol/L (3.3-5.1); Sodium 140 mmol/L (135-145); Total Protein 6.7 g/dL (6.5-8.0)
[2023-10-31 14:09] LABS: Creatinine Urine 60.87 mg/dL; Microalbum/Creatinine Ratio Ur 16.4 ug/mg cr (<30)
== END 2023-10-31 10:09 | disposition home or self-care (01) ==
LOC: HO.HMGCLDS 10:08
PROVIDERS: PCP Internal Medicine; Visit Provider Internal Medicine
DX: E11.9 Type 2 diabetes mellitus without complications (principal); I10 Essential (primary) hypertension; I25.10 Atherosclerotic heart disease of native coronary artery without angina pectoris; E78.00 Pure hypercholesterolemia, unspecified
CPT/HCPCS: 36415; 80053; 82043; 82570; 83036

== ENCOUNTER 2024-03-15 14:14 | Outpatient (AMB) | payer MEDICARE, OTHER, SELFPAY ==
[2024-03-15 14:19] VITALS: BP 122/70; PULSE 83; O2SAT 91; BMI 54.5
--- NOTE | 2024-03-15 14:19 | A.OFFVIS_ITS ---
Vital Signs 03/15/24 14:19 Height 5 ft 8 in Weight 358 lb 8 oz BMI 54.5 BP 122/70 Blood Pressure Location Rt brachial Position Sitting Pulse 83 Pulse Source Pulse Oximeter Pulse Oximetry (%) 91 L Oxygen Delivery Method Room Air Intake Visit Reasons: Follow up Accompanied by: self Allergies Penicillins [PENICILLINS] Allergy (Severe, Verified 03/15/24 14:21) CHEST TIGHTNESS shellfish derived [SHELLFISH DERIVED] Allergy (Severe, Verified 03/15/24 14:21) CHEST TIGHTNESS Sulfa (Sulfonamide Antibiotics) [SULFA (SULFONAMIDE ANTIBIOTICS)] Allergy (Severe, Verified 03/15/24 14:21) CHEST TIGHTNESS meperidine [From Demerol] Adverse Reaction (Mild, Verified 03/15/24 14:21) Nausea and Vomiting Medication List - Last Reconciled 03/15/24 by YANIRA Bernal albuterol sulfate 90 mcg/actuation (ProAir HFA) 2 puffs inhalation Q6H PRN aspirin 81 mg PO DAILY atorvastatin 80 mg PO BEDTIME ezetimibe (Zetia) 10 mg PO DAILY metoprolol tartrate 50 mg PO BID HPI Comments Details: 73-yr-old male presents for follow-up visit of sleep apnea. Patient reports he tried to use the CPAP, however he could not tolerate the CPAP even with using a nasal mask. He acknowledges that he has a chronic history of claustrophobia and anxiety. He has a remote history of nasal injury and repair, some 40 years ago. He continues to have bothersome snoring. [facility] Medical History DJD (degenerative joint disease) GERD (gastroesophageal reflux disease) Diverticulitis Morbid obesity Atherosclerotic cardiovascular disease HLD (hyperlipidemia) HTN (hypertension) Arthritis History of diverticulitis Elevated PSA DVT (deep venous thrombosis) Asthma Surgical History S/P cardiac cath S/P CABG (coronary artery bypass graft) Hx of hemorrhoidectomy H/O nasal septoplasty Hx of colonoscopy Family History Mother No problems noted. Brother No problems noted. Social History Alcohol intake: current Alcohol intake frequency: holidays/special occasions only Comment: used for heart protection Patient Tobacco Use Status: Former Tobacco user Years Smoked: 7 +/- Physical Exam Vital Signs: Last Vital Signs Pulse 83 03/15/24 14:19 BP 122/70 03/15/24 14:19 Pulse Ox 91 L 03/15/24 14:19 Oxygen Delivery Method Room Air 03/15/24 14:19 BMI result Body Mass Index 54.5 Const General: no acute distress Orientation/consciousness: patient oriented x3 Resp Effort & Inspection: normal respiratory effort and able to speak in complete sentences Neuro General: patient oriented x3 Psych Mental Status: mental status grossly normal Speech and movement: Clear speech present Attitude: cooperative Assessment & Plan Assessment & Plan (1) Sleep apnea: Comment: mild to moderate degree sleep apnea. The AHI was 14/hr and oxygen brien was 81%. Code(s): G47.30 - Sleep apnea, unspecified Category: Medical (2) Snoring: Code(s): R06.83 - Snoring Category: Medical Plan We will request ENT consult, to assess for alternate treatment intervention for patient's snoring and sleep apnea symptoms.. In the meantime, patient may try sleeping inclined, or on his left side (as he had most mild degree of sleep apnea in this position), and continue weight loss efforts. Will follow-up upon review of above and patient to follow-up in clinic in 6 months or sooner prn. Orders: Referrals Ear/Nose/Throat Referral G47.30 - Sleep apnea, unspecified, R06.83 - Snoring Coding Level of Care Code Est Pt Level 3 (97118) Diagnoses Sleep apnea G47.30 Snoring R06.83
--- OUTSIDE RECORDS SUMMARY | 2024-03-15 16:29 | XMS_ITS | Encounter Summary ---
Author Name [facility] [facility] [place] [facility] [place] Address [address] [place] [address] Care Team Providers Care Softball Umpire Name Role Phone DUSTY PATEL Primary Care Provider Unavailabl e Insurance Providers: All historical and current Section Date Range: From patient's date of to the date document was created. This section includes the names of all active insurance providers for the patient. Insurance Provider Type of Coverage Plan Name Start of Policy Coverage End of Policy Coverage Group Number Member ID Insurance Provider's Telephone Number Policy Howard's Name Patient's Relationship to Policy Howard MEDICARE (WNR) MEDICARE (M) PART A Aug 08, 2017 PART A [id number] [facility] [phone] TERRI WILSON PATIENT MEDICARE (WNR) MEDICARE (M) PART B Aug 08, 2017 PART B [id number] [facility] TERRI WILSON PATIENT FOR LIFE TFL* Aug 08, 2017 [id number] TERRI WILSON PATIENT [facility] USP Oct 08, 2012 [facility] [id number] TERRI WILSON PATIENT Selected Encounter This section includes the information on record at [place] for the Encounter. Date/Time Encounter Type Encounter Description Reason Provider Source July 28, 2023 09:30 AM OFFICE O/P EST LOW 20 MIN PRIMARY CARE/MEDICINE ICD-10-CM I10 Essential (primary) hypertension DUSTY PATEL Encounter Template Text not used by [place] Assessments - Encounter Diagnoses This section includes the primary and secondary diagnoses documented for the Encounter. Date/Time Primary/Secondary Diagnosis Diagnosis Name Provider Source July 28, 2023 10:06 AM PRIMARY Essential (primary) hypertension DUSTY PATEL July 28, 2023 10:06 AM SECONDARY Morbid (severe) obesity due to excess calories DUSTY PATEL MICHELINE Social History: Smoking Status (Most current) and Tobacco Use (All prior to encounter date) This section includes the most current, and the historical, smoking and tobacco- related health factors from the [place] facility where the Encounter took place. Current Smoking Status This section includes the most current smoking, or tobacco-related health factor, from the [place] facility where the Encounter took place. Date/Time Current Smoking Status Comment Facil ity July 28, 2023 09:30 AM VA-TOBACCO NEVER USED [place] Tobacco Use History This section includes a history of the smoking, or tobacco-related health factors, that were collected on or before the date of the Encounter. The data comes from the [place] facility where the Encounter took place. Date/Time Smoking Status/Tobacco Use Comment F acility July 23, 2022 02:00 PM VA-TOBACCO FORMER USER [facility] July 23, 2022 02:00 PM VA-TOBACCO QUIT 15 YRS OR MORE [facility] Encounter Notes: All associated encounter notes This section contains the clinical notes associated to the Encounter. Date/Time Encounter Note(s) Provider Source July 28, 2023 09:39 AM PREVENTIVE MEDICIN E NURSING NOTE: LOCAL TITLE: CLINICAL REMINDERS/NURSING STANDARD TITLE: PREVENTIVE MEDICINE NURSING NOTE DATE OF NOTE: JULY 28, 2023@09:39 ENTRY DATE: JULY 28, 2023@09:40 AUTHOR: ELI KELLY COSIGNER: URGENCY: STATUS: COMPLETED Advance Directive Screen MH AD: Patient does not have a completed advance directive on file at any facility, [place] or outside. S/he is not interested in completing one at this time. The patient received education about Advance Directives and written notification of his/her rights. Suicide Screen: C-SSRS Screening [place] Suicide Severity Rating Scale (C-SSRS) screener 1. Over the past month, have you wished you were or wished you could go to sleep and not wake up? No 2. Over the past month, have you had any actual thoughts of killing yourself? No 3. Over the past month, have you been thinking about how you might do this? Response not required due to responses to other questions. 4. Over the past month, have you had these thoughts and had some intention of acting on them? Response not required due to responses to other questions. 5. Over the past month, have you started to work out or worked out the details of how to kill yourself? Response not required due to responses to other questions. 6. If yes, at any time in the past month did you intend to carry out this plan? Response not required due to responses to other questions. 7. In your lifetime, have you ever done anything, started to do anything, or prepared to do anything to end your life (for example, collected pills, obtained a gun, gave away valuables, went to the roof but didn't jump)? No 8. If YES, was this within the past 3 months? Response not required due to responses to other questions. Homelessness/Food Insecurity Screen: In the past 2 months, have you been living in stable housing that you own, rent, or stay in as part of a household? Yes - Living in stable housing. Are you worried or concerned that in the next 2 months you may NOT have stable housing that you own, rent, or stay in as part of a household? No - Not worried about housing near future [facility] [place] reports the following: Within the past 12 months, you worried whether your food would run out before you got money to buy more. Never true Within the past 12 months, the food you bought just didn't last and you didn't have money to get more. Never true Depression Screening: Perform PHQ-2 A PHQ-2 screen was performed. The score was 0 which is a negative screen for depression. Over the past two weeks, how often have you been bothered by the following problems? 1. Little interest or pleasure in doing things Not at all 2. Feeling down, depressed, or hopeless Not at all Pneumococcal Conjugate Vaccine (PCV15/PCV20): Refuses PCV vaccine Immunization: PNEUMOCOCCAL CONJUGATE, UNSPECIFIED FORMULATION Refusal Reason: PATIENT DECISION Patient refuses all immunization(s) in the PneumoPCV group Date Documented: 07/28/23 09:41 Tobacco Use Screening: The patient has never used tobacco. Influenza Immunization: No influenza vaccination was received during the recent influenza season. Alcohol Use Screen (AUDIT-C): Alcohol Screen: SCREEN FOR ALCOHOL (AUDIT-C) An alcohol screening test (AUDIT-C) was negative (score=1). 1. How often did you have a drink containing alcohol in the past year? Consider a drink to be a 12 ounce can or bottle of regular beer, 8 ounces of malt liquor, a 5 ounce glass of table wine, or a 1.5 ounce shot of liquor (like scotch, gin, or vodka). Monthly or less 2. How many drinks containing alcohol did you have on a typical day when you were drinking in the past year? One or two drinks 3. How often did you have six or more drinks on one occasion in the past year? Never COVID-19 Immunization: Refused Moderna Monovalent COVID-19 vaccine Immunization: COVID-19 (MODERNA), MRNA, LNP-S, PF, 50 MCG/0.5 ML (AGES 12+ YEARS) Refusal Reason: PATIENT DECISION Patient refuses all immunization(s) in the COVID-19 group Date Documented: 07/28/23 09:42 Refused Pfizer Monovalent COVID-19 vaccine Immunization: COVID-19 (PFIZER), MRNA, LNP-S, PF, OWEN-SUCROSE, 30 MCG/0.3 ML (AGES 12+ YEARS) Refusal Reason: PATIENT DECISION Patient refuses all immunization(s) in the COVID-19 group Date Documented: 07/28/23 09:42 Refused Novavax COVID-19 vaccine Immunization: COVID-19 (NOVAVAX), SUBUNIT, RS-NANOPARTICLE, ADJUVANTED, PF, 5 MCG/0.5 ML (AGES 12+ YEARS) Refusal Reason: PATIENT DECISION Patient refuses all immunization(s) in the COVID-19 group Date Documented: 07/28/23 09:42 Tdap Immunization: The patient declines to receive the recommended dose of Tdap vaccine. Immunization: TDAP Refusal Reason: PATIENT DECISION Patient refuses all immunization(s) in the TDAP group Date Documented: 07/28/23 09:42 Herpes Zoster (Shingles) Vaccine: The patient declines to receive the recommended dose of zoster (shingles) vaccine. Immunization: ZOSTER RECOMBINANT Refusal Reason: PATIENT DECISION Patient refuses all immunization(s) in the ZOSTER group Date Documented: 07/28/23 09:43 Sexual Orientation: The patient thinks of their sexual orientation as: Straight or Heterosexual RHS Screen: RHS Screen Session Format: Face to Face Environmental Check Upon inquiry, the individual reports that the environment is safe to proceed. Informed Consent to Screen and Document The individual consents to proceed with screening. The individual consents to documentation of responses. PRIMARY SCREEN: In the past 12 months, how often did a current or former intimate partner (e.g., boyfriend, girlfriend, , , sexual partner): 1. Scream or curse at you Never 2. Insult or talk down to you Never 3. Threaten you with harm Never 4. Physically hurt you Never 5. Force or pressure you to have sexual contact against your will, or when you were unable to say no Never ?? The HITS tool (items 1-4 above) is [place] copyright protected by Ramy Ruvalcaba MD, and the user has full rights to use it throughout the [place] system. PRIMARY SCREEN RESULT: The Primary Screen is NEGATIVE. The individual answered never to all forms of IPV above (i.e., answered never to all 5 items) The individual accepts education and/or resources: No EDUCATION: The individual indicated readiness to learn. Education offered during this session as noted above. The individual indicated understanding by asking relevant questions and making appropriate comments. No barriers to learning were observed or identified. PAVE Foot Check: A complete foot check was completed at this encounter. VISUAL INSPECTION: Includes inspection for skin breaks, deformity, erythema, trauma, pallor on elevation, dependent rubor, nail deformities, extensive callus and pitting edema. Visual exam results: Normal PEDAL PULSES: Includes palpation of dorsalis and posterior tibial pulses and signs/symptoms of vascular compromise like pain, pallor, parasthesia or paralysis. Present (even if diminished) SENSORY CHECK: Includes 10 gram Monofilament ([place]) test of sensation. Intact (Greater than or equal to 80% of sites checked) Abnormal (Less than 80% of sites checked): Intact LOW-RISK: LOW RISK INFORMATION PROVIDED: 1. Advised patient not to walk barefoot. 2. Explained the importance of daily foot checks for changes. 3. Stressed the importance of daily foot hygiene, including bathing and complete drying. The patient verbalized understanding and was offered a detailed handout on diabetic foot care. Eye Care At-Risk Screen : Patient identified to be at risk for the following eye condition(s): DIABETIC RETINOPATHY: Diabetes Diagnosis Information: Encounter Diagnosis: 07/23/2022@14:00 E11.9 (ICD-10-CM) Type 2 Diabetes Mellitus without Complications rank: SECONDARY Prov. Narr. - Type 2 diabetes mellitus ([facility] [id number]) MACULAR DEGENERATION: Macular Degeneration Risk Factors Information: Reminder Term: VA-AMD RISK FACTORS Encounter Diagnosis: 07/23/2022@14:00 I25.10 (ICD-10-CM) Atherosclerotic Heart Disease of [place] Coronary Artery without Angina Pectoris rank: PRIMARY Prov. Narr. - Coronary artery disease ([facility] [id number]) Action: No Referral Ordered: The patient declined/refused referral for Tele-Eye screening and Eye Clinic appointment. Comment: refused /es/ ELI KELLY LPN PACT 10 Signed: 07/28/2023 09:44 ELI KELLY [facility] July 28, 2023 05:31 AM PHYSICIAN NOTE: LOCAL TITLE: MD NOTE STANDARD TITLE: PHYSICIAN NOTE DATE OF NOTE: JULY 28, 2023@05:31 ENTRY DATE: JULY 28, 2023@05:31:53 AUTHOR: DUSTY PATEL EXP COSIGNER: URGENCY: STATUS: COMPLETED HISTORY OF PRESENT ILLNESS: TERRI ZAYDA WILSON, is a 72 yo MALE [place], who presents at the [facility] for his annual visit. He maintains a nonVA PCP: Dr Mane Huitron. He established 07/23/22 w/[facility]. No prior medical records to date. Active problems - Computerized Problem List is the source for the followin. Colonoscopy Screening 2. Ex-smoker 3. Hyperlipidemia 4. Hypertension 5. Coronary artery disease 6. History of deep vein thrombosis 7. Type 2 diabetes mellitus 8. Asthma 9. Obesity 10. Seasonal Allergies 11. Outside Providers The following VA and Non-VA meds were reconciled with patient: Active Outpatient Medications (including Supplies): Start Date Active Non-VA Medications Refills Expiration ======= 1) Non-VA ALBUTEROL 90MCG (CFC-F) 200D ORAL ACTIVE INHL Si PUFFS BY MOUTH Q4-6HRS NEEDED 2) Non-VA ASPIRIN 81MG EC TAB SiMG BY ACTIVE MOUTH ONCE DAILY 3) Non-VA ATORVASTATIN CALCIUM 80MG TAB ACTIVE SiMG BY MOUTH AT BEDTIME 4) Non-VA EZETIMIBE 10MG TAB SiMG BY ACTIVE MOUTH ONCE DAILY 5) Non-VA METOPROLOL TARTRATE 50MG TAB ACTIVE SiMG BY MOUTH TWICE DAILY ALLERGIES: ========= PENICILLIN, SHELLFISH HISTORY: PERIOD OF SERVICE - [employer] FROM Nov TO Nov COMBAT SERVICE INDICATED: No VITAL SIGNS: Blood Pressure 121/78 (07/28/2023 09:38) Pulse 73 (07/28/2023 09:38) Respiration 18 (07/28/2023 09:38) Pulse Oximetry 95% (07/28/2023 09:38) Temperature 97.6 F [36.4 C] (07/28/2023 09:38) Pain 0 (07/28/2023 09:38) Height 68 in [172.7 cm] (07/28/2023 09:38) Weight 319.8 lb [145.06 kg] (07/28/2023 09:38) BMI BMI: 48.7 REVIEW OF SYSTEMS: ENT: No sore throat, no cough CARDIOVASCULAR: No chest pain, no palpitations RESPIRATORY: No SOB, no wheezing GASTROINTESTINAL: No abd pain, no N/V/D GENITOURINARY: No dysuria, no hematuria MUSCULOSKELETAL: No joint pain, no joint swelling PSYCHIATRIC: No anxiety, no trouble sleeping, no depression NEUROLOGIC: No H/A, no numbness, no weakness, no tingling EXAMINATION: GENERAL: WD/WN , pleasant & in NAD HEENT: Moist mucosa NECK: Supple HEART: RRR, S1-S2 LUNGS: CTA B/L ABDOMEN: Soft, NT/ND, morbidly obese PERIPH PULSES: 2+ B/L EXTREMITIES: FROM x 4 NEUROLOGIC: AAO x3, no focal neurological deficits PSYCHIATRIC: Good eye contact, affect normal ASSESSMENT/PLAN: 1. CAD: s/p CABG x 3 in 2020, on BB, statin, & ASA, managed by Dr Anil Bynum/cardio 2. Hx Left DVT: 2015 (in the calf) 3. Hypertension: on metoprolol tartrate 50mg/BID 4. Hyperlipidemia: on atorvastatin 80mg/QHS and zetia 10mg/day 5. DM II: diet controlled 6. Morbid Obesity: BMI ~49, considering getting his stomach stapled 7. Colonoscopy Screenin, Dr Amaury Sevilla, ? repeat FOLLOW UP: 1 year - Annual - vet to bring PCP labs ========= No barriers; Patient understands and agrees to current treatment plan. If pt has any questions, concerns, or changes in current health status he/she will call or come in to the [facility]. Assess Statin Use - Lipids (CVD/DM): The patient is still taking the NON-VA statin medication as documented. Hemoglobin A1C: Patient declines Hemoglobin A1C testing at this time. Hepatitis C Testing: Patient declines HCV lab test. HIV Screening: Patient has been offered HIV testing and has declined. I have explained that HIV testing is recommended for all adults, even if all risk factors are absent. The patient was educated on the risk of delayed screening. Lipid Screening: Patient was educated about cardiac risk factors related to cholesterol control, which includes, all elements of the Lipid Panel including HDL, LDL and Triglycerides. [facility] declined testing at this time. Comment: nonVA PCP orders labs Diabetes: Kidney Health Evaluation: Last eGFR: EGFR No data available for: eGFR(CKD-EPI 2020) eGFR Last uACR: No uACR found within the past year eGFR and uACR (estimated Glomerular Filtration Rate and Urine Albumin-Creatinine Ratio)* Patient declines having lab(s) done Comment: nonVA PCO orders labs Eye Care At-Risk Eval (Provider) : Patient identified to be at risk for the following eye condition(s): DIABETIC RETINOPATHY: Diabetes Diagnosis Information: Encounter Diagnosis: 07/23/2022@14:00 E11.9 (ICD-10-CM) Type 2 Diabetes Mellitus without Complications rank: SECONDARY Prov. Narr. - Type 2 diabetes mellitus ([facility] [id number]) MACULAR DEGENERATION: Macular Degeneration Risk Factors Information: Reminder Term: VA-AMD RISK FACTORS Encounter Diagnosis: 07/28/2023@09:30 E66.01 (ICD-10-CM) Morbid (Severe) Obesity due to Excess Calories rank: SECONDARY Prov. Narr. - Morbid (Severe) Obesity due to Excess Calories Provider educated patient on potential risk of permanent vision loss and recommendation to obtain eye care assessment. Patient verbalized understanding and No Referral Ordered: Eye exam completed elsewhere by an Stud Setter or Egg Breaking Machine Operator Diabetic retinal exam result: Results Unknown (recommended that patient proceed with eye care request or obtain outside retinal exam result within 90 days) Date: August, ? Exact date is unknown Location: Outside Healthcare Provider // DUSTY PATEL MD Primary Care Physician Signed: 07/28/2023 10:07 DUSTY PATEL
--- OUTSIDE RECORDS SUMMARY | 2024-03-15 16:29 | XMS_ITS ---
Author Name [facility] Organization Unknown Problems Problem Status Onset Date Problem Type Date of Resoluti on Source Pain, unspecified active EncounterDiagnosisAct [id number]
--- OUTSIDE RECORDS SUMMARY | 2024-03-15 16:29 | XMS_ITS | Encounter Summary ---
Author Name [facility] [place] [facility] [place] [facility] [place] Address [address] [place] [id number] Care Team Providers Care Belly Dump Driver Name Role Phone DUSTY PATEL Primary Care [...] PART A Aug 08, 2017 PART A [id number] [facility] TERRI WILSON PATIENT MEDICARE (WNR) MEDICARE (M) PART B Aug 08, 2017 PART B [id number] [facility] TERRI WILSON PATIENT FOR LIFE TFL* Aug 08, 2017 [id number] TERRI WILSON PATIENT [facility] [id number] [phone] TERRI WILSON PATIENT Selected Encounter This section includes the information on record at [place] for the Encounter. Date/Time Encounter Type Encounter Description Reason Pro vider Source Jun 20, 2023 12:00 AM Outpatient Encounter EVENT (HISTORICAL) IHE Encounter Template Text not used by [place] Plan of Treatment: Future Appointments (+ 6 months) and Future Tests (+/- 45 days) The Plan of Treatment section includes future care activities for the patient from all [place] treatmentfacilities. This section includes future appointments and future orders which are active, pending or scheduled. Future Appointments This section includes appointments that were scheduled to occur 6 months from the date of the Encounter, up to a maximum of 20 appointments. The data comes from all [place] treatment facilities. Appointment Date/Time Appointment Type Appointme nt Facility Name July 28, 2023 09:30 AM AMBULATORY - MEDICINE [facility] Encounter Notes: All associated encounter notes This section contains the clinical notes associated to the Encounter. Date/Time Encounter Note(s) Provider Source Jun 20, 2023 12:00 AM NONVA NOTE: LOCAL TITLE: NON-VA OUTPATIENT NOTES STANDARD TITLE: NONVA NOTE DATE OF NOTE: JUN 20, 2023 ENTRY DATE: AUGUST 07, 2023@12:45:45 AUTHOR: RENETTA SALAZAR EXP COSIGNER: URGENCY: STATUS: COMPLETED VistA Imaging - Scanned Document SCANNED DOCUMENT SIGNATURE NOT REQUIRED Electronically Filed: 08/07/2023 by: RENETTA ELL[facility]OTT [facility]
--- OUTSIDE RECORDS SUMMARY | 2024-03-15 16:29 | XMS_ITS | Continuity of Care Document ---
Author Name [facility] Organization [facility] Care Team Providers Care Sample Color Maker Name Role Phone [facility] Unavailable Unavailable Problems Combined list of problems from Department of [facility] and [facility] facilities. It does not include entries that were removed or entered in error. Problem Status Onset Date Problem Type Date of Resolution Comments Source Asthma Active Condition [facility] Colonoscopy Screening Active Condition July 23, 2022 Entered By: DUSTY PATEL Comment: 2009, 2014, 2019 [facility] Coronary artery disease Active Condition July 23, 2022 Entered By: DUSTY PATEL Comment: 2020 - CABG x 3 [facility] Ex-smoker Active Condition July 23 Entered By: DUSTY PATEL Comment: Quit 1977 - smoked x 6 yrs [facility] History of deep vein thrombosis Active Condition July 23, 2022 Entered By: DUSTY PATEL Comment: 2015 [facility] Hyperlipidemia Active Condition [facility] Hypertension Active Condition [facility] Morbid obesity Active Condition [facility] Outside Providers Active Condition [place] 2022 Entered By: DUSTY PATEL Comment: Dr. Mane Huitron- Primary Care, P: [phone] [id number] Entered By: MILLIE KELLY Comment: Dr. Anil Bynum- Cardiology, P: [phone] [id number] Entered By: DUSTY PATEL Comment: Dr Conti - Test Car Driver [facility] Seasonal Allergies Active Condition [facility] Type 2 diabetes mellitus Active Condition [facility] Diagnosis: ICD-10-CM I10 Essential (primary) hypertension Active Diagnosis [facility] Medications Combined list of outpatient medications from Department of [facility] facilities.Medications provided include 1) outpatient medications from the last 15 months, and 2) patient-reported medications. Medication Details Route Status Patient Instructions Prescription Expires Prescription Number Last Dispense Date Ordering Provider Order Date Order Qty Source ALBUTEROL 90MCG/ACTUA T (CFC-F) INHL,ORAL,8 .5GM DOSE COUNTER INHALE 2 PUFFS BY MOUTH Q4-6HRS PRN RESPIR ATORY (INHAL ATION) ACTIVE ANA CRISTINA PATEL SA spring [place] ALFUZOSIN HCL ER (alfuzosin HCl), 10 MG, TAB ER 24H, ORAL, APOTEX ARAVIND, 90 ea. BOTTLE Cancele d [id number] : 2023 0 Pharmac y Data Transac tion Service Facilit y ALFUZOSIN HCL ER (alfuzosin HCl), 10 MG, TAB ER 24H, ORAL, APOTEX ARAVIND, 90 ea. BOTTLE Active [id number] 4 2023 9 Pharmac y Data Transac tion Service Facilit y ALFUZOSIN HCL ER (ALFUZOSIN HCL), 10 MG, TAB ER 24H, ORAL, CITRON PHARMA L, 90 ea. BOTTLE Cancele d [id number] : 2023 0 Pharmac y Data Transac tion Service Facilit y ALFUZOSIN HCL ER (ALFUZOSIN HCL), 10 MG, TAB ER 24H, ORAL, CITRON PHARMA L, 90 ea. BOTTLE Cancele d [id number] : 2023 0 Pharmac y Data Transac tion Service Facilit y ASPIRIN 81MG TAB,EC TAKE ONE TABLET BY MOUTH ONCE DAILY ORAL ACTIVE ANA CRISTINA PATEL SA [place] ATORVASTATI N CA 80MG TAB TAKE ONE TABLET BY MOUTH AT BEDTIME ORAL ACTIVE ANA CRISTINA PATEL SA [place] ATORVASTATI N CALCIUM (atorvastat in calcium), 80 MG, TABLET, ORAL, 'S LAB, 500 ea. BOTTLE Active [id number] 3 2022 90 Pharmac y Data Transac tion Service Facilit y ATORVASTATI N CALCIUM (atorvastat in calcium), 80 MG, TABLET, ORAL, 'S LAB, 500 ea. BOTTLE Active [id number] 2023 90 Pharmac y Data Transac tion Service Facilit y ATORVASTATI N CALCIUM (atorvastat in calcium), 80 MG, TABLET, ORAL, 'S LAB, 500 ea. BOTTLE Active [id number] 4 2023 90 Pharmac y Data Transac tion Service Facilit y EZETIMIBE (ezetimibe) , 10 MG, TABLET, ORAL, AUROBINDO PHARM, 30 ea. BOTTLE Cancele d [id number] : 2023 0 Pharmac y Data Transac tion Service Facilit y EZETIMIBE (ezetimibe) , 10 MG, TABLET, ORAL, AUROBINDO PHARM, 90 ea. BOTTLE Active [id number] 4 2023 90 Pharmac y Data Transac tion Service Facilit y EZETIMIBE (ezetimibe) , 10 MG, TABLET, ORAL, AUROBINDO PHARM, 90 ea. BOTTLE Cancele d [id number] : 2022 0 Pharmac y Data Transac tion Service Facilit y Ezetimibe ([employer] [place]) 30 TABLET in 1 BOTTLE Cancele d [id number] : 2023 0 Pharmac y Data Transac tion Service Facilit y EZETIMIBE 10MG TAB TAKE ONE TABLET BY MOUTH ONCE DAILY ORAL ACTIVE ANA CRISTINA PATEL SA 2022 [place] METOPROLOL TARTRATE (METOPROLOL TARTRATE), 50MG, TABLET, ORAL, MYLAN, 1000 ea. BOTTLE Active [id number] 3 2022 180 Pharmac y Data Transac tion Service Facilit y METOPROLOL TARTRATE (METOPROLOL TARTRATE), 50MG, TABLET, ORAL, MYLAN, 1000 ea. BOTTLE Active [id number] 4 2023 180 Pharmac y Data Transac tion Service Facilit y METOPROLOL TARTRATE (METOPROLOL TARTRATE), 50MG, TABLET, ORAL, MYLAN, 1000 ea. BOTTLE Active [id number] 4 2023 180 Pharmac y Data Transac tion Service Facilit y METOPROLOL TARTRATE 50MG TAB TAKE ONE TABLET BY MOUTH TWICE DAILY ORAL ACTIVE ANA CRISTINA PATEL SA 2022 [facility] Allergies, Adverse Reactions, Alerts Combined list of allergies from Department of Defense and Veterans Affairs facilities. It does not include entries that were removed or entered in error. Substance Category Reaction Severity Reaction type Status Date Reported Comments Source PENICILLIN Propensity to adverse reactions to drug (finding) Chest pain active 3 [facility] PENICILLINS Drug allergy (disorder) Chest Pain active 3 [facility] SHELLFISH Propensity to adverse reactions to food (finding) Chest pain active 3 [facility] Immunizations Combined list of available immunizations from the Department of Defense and Veterans Affairs facilities. Immunization Series Date Given Administered By Site Reaction Lot Number CVX Code Drug Bleach Boiler Packer Status Comments Source zoster recombinant 2021 BOGDASARIAN, () Not Given zoster recombina nt [facility] zoster recombinant 2020 BOGDASARIAN, () Not Given zoster recombina nt [facility] Results Combined list of recent chemistry, hematology and other laboratory results from [facility], ranging from 15 months to all on record, depending upon the facility. Order Name Results Value Reference Range Date Interpretation Specimen Comments Source OCCULT BLOOD FIT X1 SCREEN (MFP ONLY) HEMOGLOBIN. GASTROINTES TINAL.LOWER [PRESENCE] IN STOOL BY IMMUNOASSAY Negative 02/27 Specimen Type: FECES No comment entered. Ordering Provider: DUSTY PATEL Report Released Date/Time: Feb 09, 2024 11:04 AM Reporting [facility] [address] [address] Performing Lab: [facility] [address] [address] [facility] Vital Signs Combined list of inpatient and outpatient Vital Signs from [facility], ranging from 12 months to all on record, depending upon the facility. Vital Sign Value Date Comments Source SYSTOLIC BLOOD PRESSURE 121 07/28/19 24 09:38:52 [facility] DIASTOLIC BLOOD PRESSURE 78 024 09:38:52 [facility] PULSE OXIMETRY 95 07/28/2023 09:38:52 [facility] WEIGHT 319.8 07/28/2023 09:38:52 [facility] BMI 49kg/m2 07/28/2023 09:38:52 [facility] PAIN 0 07/28/2023 09:38:52 [facility] HEIGHT 68 07/28/2023 09:38:52 [facility] TEMPERATURE 97.6 07/28/2023 09:38:52 [facility] PULSE 73 07/28/2023 09:38:52 [facility] RESPIRATION 18 07/28/2023 09:38:52 [facility] Encounters Combined list of: 1) Encounters from Department of Veterans Affairs facilities going back up to thelast 18 months. 2) Encounters from the Department of Defense facilities going back up to 280 months. Location Location Details Encounter Type Encounter Number Reason For Visit Attending Provider ADM Date DC Date Status Disposition Source [facility] Outpatient Encounter [id number] 01/13 [facility] Outpatient Encounter [id number] 06/19 [facility] OFFICE O/P EST LOW 20 MIN [id number] Diagnos is: ICD-10- CM I10 Essenti al (primar y) hyperte nsion<b r/> PEE PATEL PREM 07/27 [facility] Social History Combined list of available smoking, tobacco, and other social history from Department of Defense and Veterans Affairs facilities. Social History Type Response Date Comment Sourc e Tobacco smoking status [facility] VA-TOBACCO NEVER USED 07/28/19 [facility] History of tobacco use NM-TOBACCO FORMER USER 07/23/2022 [facility] This section is an empty soc ial history section. DoD Plan of Care List of future care activities from Department of Veterans Affairs facilities. Additional future care activities may be listed in the Assessment and Plan section. Date/Time Care Activity Care Activity Detail Facili ty 07/27/2024 AMBULATORY - MEDICINE AMBULATORY - MEDICI [facility]
== END 2024-03-15 15:15 | disposition home or self-care (01) ==
PROVIDERS: PCP Internal Medicine; Visit Provider Nurse Practitioner Family
DX: G47.30 Sleep apnea, unspecified (principal); R06.83 Snoring
CPT/HCPCS: 99213

== ENCOUNTER 2024-07-09 09:20 | Outpatient (AMB) | payer MEDICARE, OTHER, SELFPAY ==
[2024-07-09 09:35] VITALS: BP 124/80; PULSE 80; TEMP 36.2; O2SAT 97; BMI 56.7
--- NOTE | 2024-07-09 09:35 | A.OFFPC_ITS ---
Vital Signs 07/09/24 09:35 Height 5 ft 8 in Weight 373 lb BMI 56.7 BP 124/80 Blood Pressure Location Rt brachial Position Sitting Pulse 80 Pulse Source Pulse Oximeter Temp 97.2 F Temp Source Axillary Pulse Oximetry (%) 97 Oxygen Delivery Method Room Air Intake Visit Reasons: Routine Stereo Equipment Salesperson Required: No Accompanied by: Self / Same As Patient Allergies Penicillins [PENICILLINS] Allergy (Severe, Verified 07/09/24 09:36) CHEST TIGHTNESS shellfish derived [SHELLFISH DERIVED] Allergy (Severe, Verified 07/09/24 09:36) CHEST TIGHTNESS Sulfa (Sulfonamide Antibiotics) [SULFA (SULFONAMIDE ANTIBIOTICS)] Allergy (Severe, Verified 07/09/24 09:36) CHEST TIGHTNESS meperidine [From Demerol] Adverse Reaction (Mild, Verified 07/09/24 09:36) Nausea and Vomiting Tobacco use date assessed: 07/09/24 Fall risk assessment: No Falls in past year Last assessed Fall Risk: 07/09/24 Dental Screening Dental Screen Date: 07/09/24 Did you have a dental visit in the last 12 months?: Yes Did you have a dental problem in the last 6 months where you did not have access to dental care?: No HPI HPI Comments History of Present Illness Details The patient is a 73 year old male with a past medical history of CAD s/p CABG, DM, htn, hld, obesity, courtney, GERD, bph presenting for follow up CV: Follows with cardiology [facility] [place]. last seen 08/2023. On metoprolol, atorvastatin, ASA. Endorses fatigue DM: Controlled off medications.Decline trial of GLP. 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 Has OA. Colonoscopy: 2019 Dr Roel YIP CONSTITUTIONAL: Denies weight loss, fever and chills. HEENT: Denies changes in vision and hearing. RESPIRATORY: Denies SOB and cough. CV: Denies palpitations and CP GI: Denies abdominal pain, nausea, vomiting and diarrhea. : Denies dysuria and urinary frequency. MSK: Denies new myalgia and joint pain. SKIN: Denies rash and pruritus. NEUROLOGICAL: Denies headache PSYCHIATRIC: Denies recent changes in mood. PHYSICAL EXAM: GENERAL: Alert and oriented x 3. NAD EYES: EOMI. Anicteric. HENT: Moist mucous membranes. No scleral icterus. No cervical lymphadenopathy. LUNGS: Clear to auscultation bilaterally. CARDIOVASCULAR: Regular rate and rhythm. No murmur. No JVD. ABDOMEN: Soft, non-tender +bs EXTREMITIES: No edema. Non-tender. SKIN: No rashes or lesions. Warm. NEUROLOGIC: No focal neurological deficits. CN II-XII grossly intact PSYCHIATRIC: Cooperative. Appropriate mood and affect [facility] Medical History DJD (degenerative joint disease) GERD (gastroesophageal reflux disease) Diverticulitis Morbid obesity Atherosclerotic cardiovascular disease HLD (hyperlipidemia) HTN (hypertension) Arthritis History of diverticulitis Elevated PSA DVT (deep venous thrombosis) Asthma Surgical History S/P cardiac cath S/P CABG (coronary artery bypass graft) Hx of hemorrhoidectomy H/O nasal septoplasty Hx of colonoscopy (~12/14/19) Family History Mother No problems noted. Brother No problems noted. Social History Housing: House Alcohol intake: current Alcohol intake frequency: holidays/special occasions only Comment: used for heart protection Patient Tobacco Use Status: Former Tobacco user Years Smoked: 7 +/- e-Cigarette/Vaping Use: Former Use service: No Current occupational status: retired Cognitive needs: No Hearing needs: No Vision needs: Yes (rx glasses) Questionnaire PHQ-9 Over the last 2 weeks, how often have you been bothered by any of the following problems? 1. Little interest or pleasure in doing things: not at all 2. Feeling down, depressed, or hopeless: not at all 3. Trouble falling or staying asleep, or sleeping too much: not at all 4. Feeling tired or having little energy: not at all 5. Poor appetite or overeating: not at all 6. Feeling bad about yourself - or that you are a failure or have let yourself or your family down: not at all 7. Trouble concentrating on things, such as reading the newspaper or watching television: not at all 8. Moving or speaking so slowly that other people could have noticed. Or the opposite - being so fidgety or restless that you have been moving around a lot more than usual: not at all 9. Thoughts that you would be better off or of hurting yourself in some way: not at all Total score: 0 Depression Screening Interpretation: Negative Depression Screening Done: Yes 99110 - PHQ-9 Billing: Yes Source: Developed by Drs. Sabas Silva, Em Rice, Paco Melo and colleagues, with an educational moriah from [employer]. Thrive Questionnaire Date Thrive assessed: 07/09/24 I am a: Patient Within the past 12 months, did the food you bought not last and you didn't have the money to get more?: Never true Within the past 12 months, did you worry whether your food would run out before you got money to buy more?: Never true Do you have trouble paying for medicines?: No Do you have trouble getting transportation to medical appointments?: No Do you have trouble paying your heating and electricity bill?: No Do you have trouble taking care of your child, family member or friend?: No Do you have trouble with day-to-day activities such as bathing, preparing meals, shopping, managing finances, etc.?: No Are you currently unemployed and looking for a job?: No Are you interested in more education?: No THRIVE Score: 0 AUDIT C Alcohol Use Questionnaire (AUDIT-C) 1. How often do you have a drink containing alcohol?: Monthly or less 2. How many drinks containing alcohol do you have on a typical day when you are drinking?: 1 or 2 3. How often do you have six or more drinks on one occasion?: Less than monthly Total Score: 2 STEFANIA-7 AMB Questionnaire STEFANIA-7 Date STEFANIA - 7 assessed: 07/09/24 Feeling nervous, anxious, or on edge: 0 = Not at all Not being able to stop or control worryin = Not at all Worrying too much about different things: 0 = Not at all Trouble relaxin = Not at all Being so restless that it is hard to sit still: 0 = Not at all Becoming easily annoyed or irritable: 0 = Not at all Feeling afraid as if something awful might happen: 0 = Not at all Total STEFANIA-7 score (0-4 normal; 5-9 mild; 10-14 moderate; 15-21 severe): 0 Source: Developed by Drs. Sabas Silva, Em Rice, Paco Melo and colleagues, with an educational moriah from [employer]. Physical exam (Primary Care) Vital Signs: Last Vital Signs Temp 97.2 F 07/09/24 09:35 Pulse 80 07/09/24 09:35 BP 124/80 07/09/24 09:35 Pulse Ox 97 07/09/24 09:35 Oxygen Delivery Method Room Air 07/09/24 09:35 BMI result Body Mass Index 56.7 Tobacco/Smoking Status: Tobacco use Status Tobacco use date assessed 07/09/24 07/09/24 09:38 Patient Tobacco Use Status Former Tobacco user 07/09/24 09:38 e-Cigarette/Vaping Use Former Use 07/09/24 09:48 PHQ-9: PHQ-9 Score PHQ-9: Total score 0 07/09/24 09:49 Depression Screening Interpretation: Negative Thrive Assessment: Date of Thrive Assessment Date Thrive assessed 07/09/24 07/09/24 09:38 Coding Level of Care Code New Pt Level 4 (81843) Complex EM visit Add On G2211 Diagnoses Obstructive sleep apnea syndrome G47.33 Sleep apnea type: obstructive Primary osteoarthritis involving multiple joints M15.0 Osteoarthritis location: multiple joints Osteoarthritis type: primary Fatigue, unspecified type R53.83 Fatigue type: unspecified Gastroesophageal reflux disease, unspecified whether esophagitis present K21.9 Esophagitis presence: esophagitis presence not specified Morbid obesity E66.01 BPH loc w urin obs/LUTS N40.1 Additional Codes PHQ-9 - 43975 - PHQ-9 Billing: Yes ([id number]) Assessment & Plan Assessment & Plan (1) Sleep apnea: Comment: mild to moderate degree sleep apnea. The AHI was 14/hr and oxygen brien was 81%. Code(s): G47.30 - Sleep apnea, unspecified Category: Medical Qualifiers: Sleep apnea type: obstructive Qualified Code(s): G47.33 - Obstructive sleep apnea (adult) (pediatric) (2) DJD (degenerative joint disease): Code(s): M19.90 - Unspecified osteoarthritis, unspecified site Category: Medical Qualifiers: Osteoarthritis location: multiple joints Osteoarthritis type: primary Qualified Code(s): M15.0 - Primary generalized (osteo)arthritis (3) Fatigue: Code(s): R53.83 - Other fatigue Category: Medical Qualifiers: Fatigue type: unspecified Qualified Code(s): R53.83 - Other fatigue (4) GERD (gastroesophageal reflux disease): Code(s): K21.9 - Gastro-esophageal reflux disease without esophagitis Category: Medical Qualifiers: Esophagitis presence: esophagitis presence not specified Qualified Code(s): K21.9 - Gastro-esophageal reflux disease without esophagitis (5) Morbid obesity: Code(s): E66.01 - Morbid (severe) obesity due to excess calories Category: Medical (6) BPH loc w urin obs/LUTS: Code(s): N40.1 - Benign prostatic hyperplasia with lower urinary tract symptoms Category: Medical Plan 73 yo to establish care past medical, surgical, social reviewed CV: weightloss recommended. has follow up withcardiology DM-A1C is overdue and ordered Orders: Orders Comprehensive Met. Panel Today G47.30 - Sleep apnea, unspecified, I10 - Essential (primary) hypertension, I25.10 - Atherosclerotic heart disease of [place] coronary artery without angina pectoris, K21.9 - Gastro-esophageal reflux disease without esophagitis, R53.83 - Other fatigue Lipid Panel Today G47.30 - Sleep apnea, unspecified, I10 - Essential (primary) hypertension, I25.10 - Atherosclerotic heart disease of [place] coronary artery without angina pectoris, K21.9 - Gastro-esophageal reflux disease without esophagitis, R53.83 - Other fatigue Vitamin B12 and Folate Today R53.83 - Other fatigue Complete Blood Count Auto Diff Today G47.30 - Sleep apnea, unspecified, I10 - Essential (primary) hypertension, I25.10 - Atherosclerotic heart disease of [place] coronary artery without angina pectoris, K21.9 - Gastro-esophageal reflux disease without esophagitis, R53.83 - Other fatigue TSH reflex Free T4 Today G47.30 - Sleep apnea, unspecified, I10 - Essential (primary) hypertension, I25.10 - Atherosclerotic heart disease of [place] coronary artery without angina pectoris, K21.9 - Gastro-esophageal reflux disease without esophagitis, R53.83 - Other fatigue Hemoglobin A1c Today G47.30 - Sleep apnea, unspecified, I10 - Essential (primary) hypertension, I25.10 - Atherosclerotic heart disease of [place] coronary artery without angina pectoris, K21.9 - Gastro-esophageal reflux disease without esophagitis, R53.83 - Other fatigue Lyme IgG/IgM w/reflex to WB Today G47.30 - Sleep apnea, unspecified, I10 - Essential (primary) hypertension, I25.10 - Atherosclerotic heart disease of [place] coronary artery without angina pectoris, K21.9 - Gastro-esophageal reflux disease without esophagitis, R53.83 - Other fatigue
--- OUTSIDE RECORDS SUMMARY | 2024-07-09 09:57 | XMS_ITS | Clinical Summary ---
Author Organization [facility] Address [address] [place] [address] Care Team Providers Care Link Assembler Name Role Phone Md, Unknown Primary Care Provider Unavailabl e Social History Tobacco Use Types Packs/Day Years Used Date Smoking Tobacco: Never Assessed Sex and Gender Information Value Date Recorded Sex Assigned at Not on file Legal Sex Male 9:56 AM EST Gender Identity Not on file Sexual Orientation Not on file Plan of Treatment Health Maintenance Due Date Last Done Comments CT Colonography 1952 Colonoscopy 1952 Colorectal Cancer Screening 1952 FIT-DNA 1952 FIT 1952 FOBT 1952 Hepatitis C Screening 1952 Lipid Panel 1952 Sigmoidoscopy 1952 Annual Physical Exam 1970 Tdap and Td Vaccines Adult 09/06/1971 Pneumococcal Vaccine: 50+ Ye ars (1 of 1 - PCV) 2002 Zoster Vaccines (1 of 2) 2002 Abdominal Aortic Aneurysm (A AA) Screen 2017 Fall Risk Screening 2017 COVID-19 Vaccine ( - 2023-2 5 season) 2023 Influenza Vaccine (Season Ended) 2024 RSV 60+ (1 - 1-dose 75+ series) 09/06/2027 HIB Vaccines Aged Out No longer eligi ble based on patient's age to complete this topic HPV Vaccines Aged Out No longer eligi ble based on patient's age to complete this topic Hepatitis A Vaccines Aged Out No long er eligible based on patient's age to complete this topic IPV Vaccines Aged Out No longer eligi ble based on patient's age to complete this topic Meningococcal Vaccine Aged Out No tereso halima eligible based on patient's age to complete this topic RSV <20 Months Aged Out No longer misael gible based on patient's age to complete this topic Insurance [employer] Care Teams Link Assembler Relationship Specialty Start Date End Date , Unknown 1 Dont Change PCP - General 02/06/23
--- OUTSIDE RECORDS SUMMARY | 2024-07-09 09:57 | XMS_ITS ---
Author Organization [facility] Address [address] [address] Care Team Providers Care Allocation Analyst Name Role Phone TrinaMane nelson Primary Care Provider UnavailLUCY King Unavailable [phone] Allergies Allergen (clinical drug ingredient) Drug/Non Drug Allergy documented on EMR Reaction Allergy Type Onset Date Status Penicillin Unknown Drug Allergy Active REASON FOR VISIT 6wk Medications Medication SIG (Take, Route, Frequency, Duration) Notes Start Date End Date Status Atorvastatin Calcium 80 MG 1 tablet Orally Once a day Active Ezetimibe 10 MG 1 tablet Orally Once a day Active Metoprolol Tartrate 50 MG 1 tablet with food Orally Twice a day Active Alfuzosin HCl ER 10 MG 1 tablet immediat tika after the same meal Orally Once a day Not-Taking Albuterol Sulfate 108 (90 Base) MCG/ACT 1 puff as needed Inhalation every 4 hrs Not-Takin g Baby Aspirin Active Vital Signs Height 5ft 9in in 07/08/2024 Weight 372.2 lbs 07/08/2024 BMI 54.96 kg/m2 07/08/2024 Encounters Encounter Location Date Provider Diagnosis [facility] [address] [address] 07/08/2024 LUCY RUIZ 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 Patient has chronic left ankle pain since in injury in 1991. He has significant osteoarthritic changes to the left subtalar joint along with some mild changes to the ankle joint, talonavicular joint, and naviculocuneiform joints. At his last visit he had a steroid injection given into the subtalar joint. This has improved his pain quite a bit. I advised that this injection may last for a little while.. If the pain starts to come back to the same severity the injection can be repeated. I do limit three injections a year into the same area to decrease the risk of tissue damage. He was understanding and will continue to monitor for now. 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 Cultures taken at the last visit were negaitve for any fungal or bacterial colonization. It appears the nail changes are chronic in nature. I discussed with him that there is no medication I can give that will normallize this nail. I discussed the options of temp nail removal and permanent nail removal. I also discussed that he can live with it the way it is. He wishes to proceed with a permanent removal of the left hallux nail plate. I discussed the recovery of 3-4 weeks and the risk of recurrence. He understood. He will schedule this in the future to be done. I encouraged him to call if he has any additional questions or concerns. Plan Of Treatment Treatment Notes Assessment Notes Arthritis of left subtalar joint Patient examined and evaluated. Patient has chronic left ankle pain since in injury in 1991. He has significant osteoarthritic changes to the left subtalar joint along with some mild changes to the ankle joint, talonavicular joint, and naviculocuneiform joints. At his last visit he had a steroid injection given into the subtalar joint. This has improved his pain quite a bit. I advised that this injection may last for a little while.. If the pain starts to come back to the same severity the injection can be repeated. I do limit three injections a year into the same area to decrease the risk of tissue damage. He was understanding and will continue to monitor for now. Nail dystrophy Patient with dystrop hic left hallux toenail. Cultures taken at the last visit were negaitve for any fungal or bacterial colonization. It appears the nail changes are chronic in nature. I discussed with him that there is no medication I can give that will normallize this nail. I discussed the options of temp nail removal and permanent nail removal. I also discussed that he can live with it the way it is. He wishes to proceed with a permanent removal of the left hallux nail plate. I discussed the recovery of 3-4 weeks and the risk of recurrence. He understood. He will schedule this in the future to be done. I encouraged him to call if he has any additional questions or concerns. Next Appt Details Provider Name:LUCY RUIZ, 07/14/2024 08:00:00 AM, [address] [facility] [address], [place], [address], Progress Notes * Manjeet VICTOR KDOB: [birth year] (73 yo M)Acc No.[id number]:07/08/2024 Progress Note Patient:?Manjeet VICTOR Provider:?Lucy Reid DPInessa :1950???Age:73 Y???Sex:Male Luther e:07/08/2024 Phone: Address: [address], [address] [facility], [id number] Pcp:Mane Huitron Subjective: * Chief Complaints: * ???6wk * HPI: ???Foot & Ankle:?Mr. Victor presents for a 6 week follow up. He states his left ankle pain is aboout 80% better. He no longer has constant aching. He is able to walk and sleep. He states if he is sitting for long periods of time and goes to get up he can feel the pain, but it does slowly get better. He states the injection kicked in right away. He has had no swelling or discoloration since the injection. The left great toenail continues to cause some increased tenderness in closed toed shoe gear. He has no redness, swelling or drainage from the nail bed. He has had this nail removed in the past, but it grew back the exact same. * ROS:?General/Constitutional:?Denies?Chills.?Denies?Fatigue.?Denies?Fever.?Denies?Headache.?Endocrine:?Denies?Excessive sweating.?Denies?Excessive thirst.?Denies?Frequent urination.?Respiratory:?Denies?Cough.?Denies?Shortness of breath,?denies.?Denies?Wheezing.?Cardiovascular:?Denies?Chest pain.?Denies?Claudication.?Denies?Cyanosis.?Gastrointestinal:?Denies?Abdominal pain.?Denies?Constipation.?Denies?Diarrhea.?Musculoskeletal:?Patient complaining of?Left ankle pain, chronic.?Admits?Arthritis/Arthralgia.?Admits?Back problems.?Denies?Leg cramps.?Peripheral Vascular:?Denies?Blanching of skin.?Blood clots in legs?Denies.?Denies?Cold extremities.?Skin:?Denies?Masses.?Admits?Nail changes.?Denies?Skin lesion(s).? * Medical History:? * Surgical History:?rhinosepto plasty 1980hernia repair 2016hemmorhoid removal 2018triple bipass olonoscopy olonoscopy 2018colonoscopy 2006 * Hospitalization/Major Diagno stic Procedure:?Denies Past Hospitalization * Family History:?Father: dece ased.?Mother: .? 3 brothers, one from heart problems 5 children, 2 have autism. * Social History:?tobacco: never alcohol:rarely. * Medications:?TakingBaby Aspi rin Metoprolol Tartrate 50 MG Tablet 1 tablet with food Orally Twice a day Atorvastatin Calcium 80 MG Tablet 1 tablet Orally Once a day Ezetimibe 10 MG Tablet 1 tablet Orally Once a day Taking Baby Aspirin Taking Metoprolol Tartrate 50 MG Tablet 1 tablet with food Orally Twice a day Taking Atorvastatin Calcium 80 MG Tablet 1 tablet Orally Once a day Taking Ezetimibe 10 MG Tablet 1 tablet Orally Once a day Not-TakingAlfuzosin HCl ER 10 MG Tablet Extended Release 24 Hour 1 tablet immediately after the same meal Orally Once a day Albuterol Sulfate 108 (90 Base) MCG/ACT Aerosol Powder Breath Activated 1 puff as needed Inhalation every 4 hrs Medication List reviewed and reconciled with the patientNot-Taking Alfuzosin HCl ER 10 MG Tablet Extended Release 24 Hour 1 tablet immediately after the same meal Orally Once a day Not-Taking Albuterol Sulfate 108 (90 Base) MCG/ACT Aerosol Powder Breath Activated 1 puff as needed Inhalation every 4 hrs Medication List reviewed and reconciled with the patient * Allergies:?Penicillin: Aller gyno[Allergies Verified] Objective: * Vitals:?Wt:372.2lbs, Ht: 5ft 9in, BMI:54.96Index, Ht-cm: 175.26, Wt-k.83 kg. * Examination: ???General Examination: ???This is a morbidly obese elderly male.? Alert and oriented today and in no acute distress. Patient comes in ambulating in sandals without using any assistive devices. Breathing is regular with occasional deep breaths needed after movements or extended speaking. Affect is pleasant and cooperative. No unusual anxiety or depression noted. Hearing intact to spoken word. No evidence of visual impairment that would impact self care or ambulation. Patient has palpable dorsalis pedis and posterior tibial pulse bilaterally. varicosities are present to both lower extremities. There is hemosiderin deposition to the lower extremities with nonpitting edema present. Capillary refill is less than 3 seconds to all digits bilaterally. Light touch sensation is symmetrical to all lower extremity dermatomes. Skin has some mild dermal atrophy.? There is minimal tenderness around the medial subtalar joint line into the posterior deep ankle space on the left. There is no tenderness along the posterior tibial tendon on the left at the malleolar level. His left ankle joint range of motion is nonrestricted and nonpainful. His left subtalar joint range of motion has slight restriction and crepitus with mild tenderness. He has hallux valgus deformities present bilaterally with restricted nonpainful 1st MTPJ motion. Mild flexion deformities present to the lesser toes. There is a mild pes planus deformity present bilaterally. The left hallux toenail has +5mm increased thickness to the entire nail plate with green discoloration and crumbling. There is no erythema, edema, or drainage from the surrounding nail folds. No tenderness. No lysis of the toenail.?? 5/5 strength for anterior, posterior, and lateral lower extremity muscle groups on the left and right. Gastrocnemius equinus is present bilaterally. Assessment: * Assessment: 1.?Arthritis of left subtala r joint - M19.072 (Primary)???2.?Left ankle instability - M25.372???3.?Nail dystrophy - L60.3??? Plan: * Treatment: 2.?Nail dystrophy? Notes: Patient with dystrophic left hallux toenail. Cultures taken at the last visit were negaitve for any fungal or bacterial colonization. It appears the nail changes are chronic in nature. I discussed with him that there is no medication I can give that will normallize this nail. I discussed the options of temp nail removal and permanent nail removal. I also discussed that he can live with it the way it is. He wishes to proceed with a permanent removal of the left hallux nail plate. I discussed the recovery of 3-4 weeks and the risk of recurrence. He understood. He will schedule this in the future to be done. I encouraged him to call if he has any additional questions or concerns. ?? * Procedure Codes:? * Billing Information: * Visit Code:? 74452 Office Visit, Est Pt., Level 3. * Procedure Codes:? * Sign off status: Completed true * Provider:Qasim Reid DPM Date:?07/08 Generated for Flor watson/Erik/Gabeitting on:?07/09/2024 09:56 AM EDT History and Physical Notes * Examination Category Sub-Category Detail Notes Category Not es General Examination This is a morbidly obese elderly male. Alert and oriented today and in no acute distress. Patient comes in ambulating in sandals without using any assistive devices. Breathing is regular with occasional deep breaths needed after movements or extended speaking. Affect is pleasant and cooperative. No unusual anxiety or depression noted. Hearing intact to spoken word. No evidence of visual impairment that would impact self care or ambulation. Patient has palpable dorsalis pedis and posterior tibial pulse bilaterally. varicosities are present to both lower extremities. There is hemosiderin deposition to the lower extremities with nonpitting edema present. Capillary refill is less than 3 seconds to all digits bilaterally. Light touch sensation is symmetrical to all lower extremity dermatomes. Skin has some mild dermal atrophy. There is minimal tenderness around the medial subtalar joint line into the posterior deep ankle space on the left. There is no tenderness along the posterior tibial tendon on the left at the malleolar level. His left ankle joint range of motion is nonrestricted and nonpainful. His left subtalar joint range of motion has slight restriction and crepitus with mild tenderness. He has hallux valgus deformities present bilaterally with restricted nonpainful 1st MTPJ motion. Mild flexion deformities present to the lesser toes. There is a mild pes planus deformity present bilaterally. The left hallux toenail has +5mm increased thickness to the entire nail plate with green discoloration and crumbling. There is no erythema, edema, or drainage from the surrounding nail folds. No tenderness. No lysis of the toenail. 5/5 strength for anterior, posterior, and lateral lower extremity muscle groups on the left and right. Gastrocnemius equinus is present bilaterally.
--- OUTSIDE RECORDS SUMMARY | 2024-07-09 09:57 | XMS_ITS ---
Author Organization [facility] Address [address] [address] Care Team Providers Care Software Security Consultant Name Role Phone TrinaMane nelson Primary Care Provider MIGUEL Irwin Unavailable [phone] REASON FOR VISIT last pcp office note Encounters Encounter Location Date Provider Diagnosis [facility] [address] [address] 05/14/2024 MIGUEL RUIZ Plan Of Treatment Next Appt Details Provider Name:MIGUEL RUIZ, 07/14/2024 08:00:00 AM, [address] [address], [place], [address], Progress Notes * Manjeet VICTORDOB: (73 yo M)Acc No.[id number]:05/14/2024 Patient:?Manjeet VICTOR :1950???Age:73 Y???Sex:Male Phone: Address:[address], [place], [address] * true * Date:? Generated for Printi shirley/Erik/eTransmitting on:?07/09/2024 09:56 AM EDT
--- OUTSIDE RECORDS SUMMARY | 2024-07-09 09:57 | XMS_ITS | Continuity of Care Document ---
Author Name [facility] Organization [facility] Care Team Providers Care Tin Plater Name Role Phone [facility] Unavailable Unavailable Problems Combined list of problems from Department of [facility] and [facility] facilities. It does not include entries that were removed or entered in error. Problem Status Onset Date Problem Type Date of Resolution Comments Source Asthma Active Condition [facility] Colonoscopy Screening Active Condition July 23, 2022 Entered By: DUSTY PATEL Comment: 2009, 2014, 2019 [facility] Coronary artery disease Active Condition July 23, 2022 Entered By: DUSTY PATEL Comment: 2020 - CABG x 3 [facility] Ex-smoker Active Condition July 23 Entered By: DUSTY PATEL Comment: Quit 1977 - smoked x 6 yrs [facility] History of deep vein thrombosis Active Condition July 23, 2022 Entered By: DUSTY PATEL Comment: 2015 [facility] Hyperlipidemia Active Condition [facility] Hypertension Active Condition [facility] Morbid obesity Active Condition [facility] Outside Providers Active Condition [place] 2022 Entered By: DUSTY PATEL Comment: Dr. Mane Huitron- Primary Care, P: [phone] [id number] Entered By: MILLIE KELLY Comment: Dr. Anil Bynum- Cardiology, P: [phone] [id number] Entered By: DUSTY PATEL Comment: Dr Conti - Surgical Manager [facility] Seasonal Allergies Active Condition [facility] Type 2 diabetes mellitus Active Condition [facility] Diagnosis: ICD-10-CM I10 Essential (primary) hypertension Active Diagnosis [facility] Medications Combined list of outpatient medications from Department of [facility] and [facility] facilities.Medications provided include 1) outpatient medications from the last 15 months, and 2) patient-reported medications. Medication Details Route Status Patient Instructions Prescription Expires Prescription Number Last Dispense Date Ordering Provider Order Date Order Qty Source ALBUTEROL 90MCG/ACTUA T (CFC-F) INHL,ORAL,8 .5GM DOSE COUNTER INHALE 2 PUFFS BY MOUTH Q4-6HRS PRN RESPIR ATORY (INHAL ATION) ACTIVE ANA CRISTINA PATEL SA 2022 [facility] ALFUZOSIN HCL ER (alfuzosin HCl), 10 MG, TAB ER 24H, ORAL, APOTEX ARAVIND, 90 ea. BOTTLE Cancele d [id number] : 2023 0 Pharmac y Data Transac tion Service Facilit y ALFUZOSIN HCL ER (ALFUZOSIN HCL), 10 MG, TAB ER 24H, ORAL, CITRON PHARMA L, 90 ea. BOTTLE Cancele d [id number] : 2023 0 Pharmac y Data Transac tion Service Facilit y ALFUZOSIN HCL ER (ALFUZOSIN HCL), 10 MG, TAB ER 24H, ORAL, CITRON PHARMA L, 90 ea. BOTTLE Cancele d [id number] : 2023 0 Pharmac y Data Transac tion Service Facilit y ASPIRIN 81MG TAB,EC TAKE ONE TABLET BY MOUTH ONCE DAILY ORAL ACTIVE ANA CRISTINA PATEL SA 2022 [facility] IELD ATORVASTATI N CA 80MG TAB TAKE ONE TABLET BY MOUTH AT BEDTIME ORAL ACTIVE ANA CRISTINA PATEL SA 2022 [facility] EZETIMIBE (ezetimibe) , 10 MG, TABLET, ORAL, A[employer]OB[employer]ARM, 30 ea. BOTTLE Cancele d [id number] : 2023 0 Pharmac y Data Transac tion Service Facilit y EZETIMIBE (ezetimibe) , 10 MG, TABLET, ORAL, AUROBINDO PHARM, 90 ea. BOTTLE Active [id number] 2023 90 Pharmac y Data Transac tion Service Facilit y Ezetimibe ([employer] [place]) 30 TABLET in 1 BOTTLE Cancele d [id number] : 2023 0 Pharmac y Data Transac tion Service Facilit y EZETIMIBE 10MG TAB TAKE ONE TABLET BY MOUTH ONCE DAILY ORAL ACTIVE ANA CRISTINA PATEL SA 2022 IELD METOPROLOL TARTRATE 50MG TAB TAKE ONE TABLET BY MOUTH TWICE DAILY ORAL ACTIVE ANA CRISTINA PATEL SA 2022 IELD Allergies, Adverse Reactions, Alerts Combined list of allergies from Department of Defense and Veterans Affairs facilities. It does not include entries that were removed or entered in error. Substance Category Reaction Severity Reaction type Status Date Reported Comments Source PENICILLIN Propensity to adverse reactions to drug (finding) [facility] PENIC[facility] Drug allergy (disorder) Chest Pain active 3 [facility] SHELLFISH Propensity to adverse reactions to food (finding) Chest pain active 3 [facility] Immunizations Combined list of available immunizations from the Department of Defense and Veterans Affairs facilities. Immunization Series Date Given Administered By Site Reaction Lot Number CVX Code Drug Data Conversion Analyst Status Comments Source zoster recombinant 2021 BOGDASARIAN, () Not Given zoster recombina nt [facility] zoster recombinant 2020 BOGDASARIAN, () Not Given zoster recombina nt [facility] Results Combined list of recent chemistry, hematology and other laboratory results from Department of [facility] and [facility], ranging from 15 months to all on record, depending upon the facility. Order Name Results Value Reference Range Date Interpretation Specimen Comments Source OCCULT BLOOD FIT X1 SCREEN (MFP ONLY) HEMOGLOBIN. GASTROINTES TINAL.LOWER [PRESENCE] IN STOOL BY IMMUNOASSAY Negative 02/27 Specimen Type: FECES No comment entered. Ordering Provider: DUSTY PATEL Report Released Date/Time: Feb 09, 2024 11:04 AM Reporting Lab: [facility] [address] [facility] [address] Performing Lab: [facility] [address] [address] [facility] Vital Signs Combined list of inpatient and outpatient Vital Signs from Department of [facility] and [facility], ranging from 12 months to all on record, depending upon the facility. Vital Sign Value Date Comments Source SYSTOLIC BLOOD PRESSURE 121 07/28/19 24 09:38:52 [facility] DIASTOLIC BLOOD PRESSURE 78 024 09:38:52 [facility] PULSE OXIMETRY 95 07/28/2023 09:38:52 [facility] WEIGHT 319.8 07/28/2023 09:38:52 [facility] BMI 49 kg/m2 07/28/2023 09:38:52 [facility] [...] from Department of Veterans Affairs facilities going backup to the last 18 months, not all VA inpatient encounters are included; 2) Encounters from the Department of Defense facilities going backup to 280 months. Location Location Details Encounter Type Encounter Number Reason For Visit Attending Provider ADM Date DC Date Status Disposition Source [facility] Outpatient Encounter [id number] 01[facility]13 [facility] Outpatient Encounter [id number] 06/19 [facility] OFF[facility] O/P EST LOW 20 MIN [id number] Diagnos is: ICD-10- CM I10 Essenti al (primar y) hyperte nsPEE Ryan PREM spring [facility]ELD Social History Combined list of available smoking, tobacco, and other social history from Department of Defense and Veterans Affairs facilities. Social History Type Response Date Comment Sourc e Tobacco smoking status FORMERLY NAMED [facility]-TOBACCO NEVER USED 07/28/19springMICHELINE History of tobacco use [facility]-TOBACCO FORMER USER 07/23/2022 [place] This section is an empty soc ial history section. [facility] Plan of Care List of future care activities from Department of Veterans Affairs facilities. Additional future care activities may be listed in the Assessment and Plan section. Date/Time Care Activity Care Activity Detail Facili ty 07/27/2024 AMBULATORY - MEDICINE AMBULATORY - MEDICI [facility]
--- OUTSIDE RECORDS SUMMARY | 2024-07-09 09:57 | XMS_ITS | Clinical Summary ---
Author Organization [facility] Address [address] [address] Care Team Providers Care Extract Mixer Name Role Phone Unavailable Primary Care Provider Unavailabl e Social History Tobacco Use Types Packs/Day Years Used Date Smoking Tobacco: Never Assessed Sex and Gender Information Value Date Recorded Sex Assigned at Not on file Legal Sex Male 8:58 AM EST Gender Identity Not on file Sexual Orientation Not on file Plan of Treatment Health Maintenance Due Date Last Done Comments Colorectal Cancer Screening: Annual FOBT 2001 Colorectal Cancer Screening: Colonoscopy 2001 Colorectal Cancer Screening: Sigmoidoscopy 2001 Pneumococcal Vaccine: 50+ Ye ars (1 of - PCV) 2002 Influenza Vaccine (Season Ended) 2024 Hepatitis B Vaccine Aged Out No longe r eligible based on patient's age to complete this topic Insurance Medicare [facility] Medicare [facility]
--- OUTSIDE RECORDS SUMMARY | 2024-07-09 09:57 | XMS_ITS | Patient Health Record ---
Author Organization [facility] Address [address] [address] Care Team Providers Care Quality Control Director Name Role Phone Mane Huitron Primary Care Provider UnavailMIGUEL King Unavailable [phone] Allergies Allergen (clinical drug ingredient) Drug/Non Drug Allergy documented on EMR Reaction Allergy Type Onset Date Status Penicillin Unknown Drug Allergy Active Reason For Referral No Information Medications Medication SIG (Take, Route, Frequency, Duration) Notes Start Date End Date Status Atorvastatin Calcium 80 MG 1 tablet Orally Once a day Active Ezetimibe 10 MG 1 tablet Orally Once a day Active Baby Aspirin Active Metoprolol Tartrate 50 MG 1 tablet with food Orally Twice a day Active Alfuzosin HCl ER 10 MG 1 tablet immediat tika after the same meal Orally Once a day Not-Taking Albuterol Sulfate 108 (90 Base) MCG/ACT 1 puff as needed Inhalation every 4 hrs Not-Takin g Problems Problem Type SNOMED Code ICD Code Onset Dates Problem Status W/U Status Risk Notes Problem [id number] 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 confirmed Problem 359695002 Morbid obesity (E66.01) Active confirmed Vital Signs Height 5ft 9in in 07/08/2024 Weight 372.2 lbs 07/08/2024 BMI 54.96 kg/m2 07/08/2024 Procedures Procedure Date Ordered Date Performed Result Body Sit e DRAIN/INJECT, INTERMEDIATE JOINT/BURSA 05/26/2024 N/A Encounters Encounter Location Date Provider Diagnosis [facility] [address] [address] 05/26/2024 MIGUEL RUIZ Arthritis of left subtalar joint M19.072 ; 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 ; Nail dystrophy L60.3 and Morbid obesity E66.01 [facility] [address] [address] 07/08/2024 MIGUEL RUIZ Arthritis of left subtalar joint M19.072 ; 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 Time was 45 minutes spent in review of all these facets including face to face discussion with the patient regarding my findings and in discussion of a current and future treatment plan. Patient has chronic left ankle pain since in injury in 1991. Four weightbearing radiographs were taken in the office today of the left foot and ankle. He has significant osteoarthritic changes to the left subtalar joint along with some mild changes to the ankle joint, talonavicular joint, and naviculocuneiform joints. I discussed the findings with him. I discussed conservative options of treatment with NSAIDs (topical and oral) vs intra articular steroid injections. I also advised that he should be using that Gilmer brace more often to help stabilize the subtalar joint. I discussed that surgery at this stage would be fusing the arthritic joint, which would be a big extensive recovery. With his weight, history of DVT, and current other health issues- surgery is not a good option. I disussed that weightloss can be done without having to do high impact activity. Biking, diet changes, and strength training can be just as effective. He also may want to look into the option of GLP-1 medications as well. He expressed understanding. He did wish to try the steroid injection into the subtalar joint today. He has had injections into his knees in the past and did well with these. This was given in the office. He tolerated this well. I advised resting for the next couple of days and icing the area. I would like to re-evaluate him in 6 weeks to see how he is doing. I encouraged him to call in the meantime with any additional questions or concerns. 05/26/2024 Left ankle instability (ICD-10 - M25.372) 07/08/2024 Arthritis of left subtalar joint (ICD-10 [...] 07/08/2024 Left ankle instability (ICD-10 - M25.372) 05/26/2024 Nail dystrophy (ICD-10 - L60.3) Educated the patient on fungal toenail infections and the difficulty of treating them. Treatment options include topical medications and oral medications. Patient was educated that trauma to the nail bed can also cause a fungal like appearance to the nail, however there are no treatment option to normalize the nail plate in this instance. We also discussed how inflammatory issues, vitamin deficiencies, vascular issues and medications can change the nail plate as well. Patient understood. Advised patient that it can take 9-12 months for the toenail(s) to improve with treatment, and that recurrence is common. Oral medications were discussed. All risks of taking oral antifungals were reviewed which included liver toxicity and failure, along with GI upset, rash, headache/dizziness, and unusual taste/loss of taste. Patient advised to watch for nausea, vomiting, abdominal pain, loose stools, and jaundice while on medication. If any symptoms do occur, patient should stop taking the medication immediately and contact the office. Baseline hepatic function tests are monitored when taking oral antifungal medications. Topical antifungals were discussed with the patient as well. Advised that these need to be used daily to the affected nails. They are less effective in eradicating the fungal infection than the oral medication, but have minimal side effects. This treatment should be done consistently over a 48 week period. I discussed the option of permanent removal of the toenail as well. I took samples of the left hallux toenail today with sterile nail nippers. These were sent off to [facility] for further testing. Will await results to see if something is treatable to normalize the nail or improve it some for the patient. 07/08/2024 Nail dystrophy (ICD-10 - L60.3) Patient [...] he has any additional questions or concerns. 05/26/2024 Morbid obesity (ICD-10 - E66.01) Plan Of Treatment Pending Test Test Name Order Date X ray : Foot, left 3v 05/26/2024 DRAIN/INJECT, INTERMEDIATE JOINT/BURSA 0 05/26/2024 Next Appt Details Provider Name:MIGUEL RUIZ, 07/14/2024 08:00:00 AM, [address], [address], Insurance Providers Payer Name Payer Address Payer Phone Subscriber Number Group Number Insured Name Patient Relationship to Insured Coverage Start Date Coverage End Date [employer] of [place] [address] [place] [phone] [id number] Manjeet Victor Self - patient is the insured FOR LIFE [address] [place] [address] [id number] Manjeet Victor Self - patient is the insured Medications Administered Medication Instructions Date of Administration Dosage Notes dexAMETHasone Sod Phosphate PF 05/26/2024 2 mg Kenalog 05/26/2024 5 mg Medical (General) History Medical History History ICD Code morbid obesity coronary artery disease CABG elevated cholesterol hypertension [id number] diabetes fatty liver hay fever asthma diverticulosis obstructive sleep apnea gastroesophageal reflux disease BPH Surgical History Surgery Date(Month/Year) rhinoseptoplasty 1979 hernia repair 2016 hemmorhoid removal 2017 triple bipass 2022 colonoscopy 2021 colonoscopy 2017 colonoscopy 2006
--- OUTSIDE RECORDS SUMMARY | 2024-07-09 09:57 | XMS_ITS ---
Author Organization [facility] Address [address] [address] Care Team Providers Care Commissioned Defence [employer] Officer Name Role Phone Trinaomar Mane Primary Care Provider LUCY Irwin Unavailable [phone] Allergies Allergen (clinical drug ingredient) Drug/Non Drug Allergy documented on EMR Reaction Allergy Type Onset Date Status Penicillin Unknown Drug Allergy Active REASON FOR VISIT left ankle pain, Great toenail fungus requesting the nail to removed Medications Medication SIG (Take, Route, Frequency, Duration) Notes Start Date End Date Status Alfuzosin HCl ER 10 MG 1 tablet immediat tika after the same meal Orally Once a day Not-Taking Atorvastatin Calcium 80 MG 1 tablet Orally Once a day Active Metoprolol Tartrate 50 MG 1 tablet with food Orally Twice a day Active Albuterol Sulfate 108 (90 Base) MCG/ACT 1 puff as needed Inhalation every 4 hrs Not-Takin g Ezetimibe 10 MG 1 tablet Orally Once a day Active Baby Aspirin Active Problems Problem Type SNOMED Code ICD Code Onset Dates Problem Status W/U Status Risk Notes Problem [id number] 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 confirmed Problem 679294647 Morbid obesity (E66.01) Active confirmed Vital Signs Height 5ft 9in in 05/26/2024 Procedures Procedure Date Ordered Date Performed Result Body Sit e DRAIN/INJECT, INTERMEDIATE JOINT/BURSA 05/26/2024 N/A Encounters Encounter Location Date Provider Diagnosis [facility] [address] [address] 05/26/2024 LUCY RUIZ Arthritis of left subtalar joint M19.072 ; 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 These were sent off to [facility] for further testing. Will await results to see if something is treatable to normalize the nail or improve it some for the patient. 05/26/2024 Morbid obesity (ICD-10 - E66.01) Plan Of Treatment Treatment Notes Assessment Notes Arthritis of left subtalar joint This is an outpatient visit for evaluation [...] advised that he should be using that Denilson brace more often to help stabilize the [...] meantime with any additional questions or concerns. Nail dystrophy Educated the patient on fungal toenail infections [...] nail nippers. These were sent off to [facility] for further testing. Will await results to see if something is treatable to normalize the nail or improve it some for the patient. Pending Test Test Name Order Date X ray : Foot, left 3v 05/26/2024 DRAIN/INJECT, INTERMEDIATE JOINT/BURSA 0 05/26/2024 Next Appt Details Follow Up: 6 Weeks, Reason: Provider Name:LUCY RUIZ, 07/14/2024 08:00:00 AM, [address] [facility] [address], [place], [address], Medications Administered Medication Instructions Date of Administration Dosage Notes dexAMETHasone Sod Phosphate PF 05/26/2024 2 mg Kenalog 05/26/2024 5 mg Progress Notes * Manjeet VICTORDOB: 3 (73 yo M)Acc No.[id number]:05/26/2024 Consult note Patient:?Manjeet VICTOR Provider:?Lucy Reid DPInessa :1950???Age:73 Y???Sex:Male Luther e:05/26/2024 Phone: Address: [address], [facility], [id number] Pcp:Mane Huitron Subjective: * Chief Complaints: * ???left ankle pain, Great to enail fungus requesting the nail to removed * HPI: ???Foot & Ankle:?Mr. Victor is a very pleasant 73 year old male who presents for a consultation. He has been having issues with his left ankle since an injury that occurred in 1991. He had what sounds to be a severe ankle sprain when he was in the service. He states since the injury he has had issues with the ankle. It feels unstable and is always swollen. He also gets a sharp pain when he walks at times. He has seen a few different specialists and was told he would need a ligament recontruction that would have a 50% success rate so he declined. He also was given a Denilson brace by another specialist. He does use this for long walks and it does help. He will use ibuprofen on and off for pain control as well. He has been interested in weightloss surgery, but has been worried about the risks afterward. He states he rather lose weight by walking, but can not walk due to his ankle pain. He also admits to arthritic issues in numerous joints including the left knee. He denies having a diagnosis of diabetes mellitus, but has been told in the past that his HgbA1c was getting higher. He has not had it checked in a few years. He also admits to having a provoked DVT in the left lower extremity after a hernia surgery. He has significant coronary artery disease that has required a triple bypass in the past. He takes aspirin daily and is also on medication for his cholesterol and BP. He also complains about a thickened discolored toenail on the left great toe. This nail has been this way for over 10 years. He has had it removed and it grew back the exact same. It rubs on shoe gear at times. Not really painful most of the time. He did have some treatments in the remote past for fungus that were minimally helpful. * ROS:?General/Constitutional:?Denies?Chills.?Denies?Fatigue.?Denies?Fever.?Denies?Headache.?Allergy/Immunology:?Denies?Hives.?Denies?Itching.?Denies?Rash.?Endocrine:?Denies?Excessive sweating.?Denies?Excessive thirst.?Denies?Frequent urination.?Respiratory:?Denies?Cough.?Denies?Shortness of breath,?denies.?Denies?Wheezing.?Cardiovascular:?Denies?Chest pain.?Denies?Claudication.?Denies?Cyanosis.?Gastrointestinal:?Denies?Abdominal pain.?Denies?Constipation.?Denies?Diarrhea.?Hematology:?Denies?Bleeding problems,?denies.?Denies?Easy bruising,?denies.?Denies?Swollen glands.?Musculoskeletal:?Patient complaining of?Left ankle pain, chronic.?Admits?Arthritis/Arthralgia.?Admits?Back problems.?Denies?Leg cramps.?Peripheral Vascular:?Denies?Blanching of skin.?Blood clots in legs?Denies.?Denies?Cold extremities.?Skin:?Denies?Masses.?Admits?Nail changes.?Denies?Skin lesion(s).?Neurologic:?Denies?Paralysis.?Denies?Tingling/Numbness.?Denies?Tremor.?Psychiatric:?Denies?Auditory/visual hallucinations.?Denies?Delusions.?Denies?Suicidal thoughts.? * Medical History:? * Surgical History:?rhinosepto plasty 1980hernia repair 2016hemmorhoid removal 2018triple bipass 3colonoscopy olonoscopy 2018colonoscopy 2007 * Hospitalization/Major Diagno stic Procedure:?Denies Past Hospitalization [...] * Allergies:?Penicillin: Aller gyno[Allergies Verified] Objective: * Vitals:?Ht: 5ft 9in, Ht-cm: 175.26. * Examination: ???General Examination: ???This is a morbidly obese elderly male.? Alert and oriented today and in no acute distress. Patient comes in ambulating in sneakers without using any assistive devices. Breathing is [...] has some mild dermal atrophy. There is some localized nonpitting edema around the medial aspect of the left ankle region. There is tenderness around the medial subtalar joint line into the posterior deep ankle space on the left. There is also some tenderness along the posterior tibial tendon on [...] and right. Gastrocnemius equinus is present bilaterally. Therapeutic Interventions: Assessment: * Assessment: 1.?Arthritis of left subtala r joint - M19.072 (Primary)???2.?Left ankle instability - M25.372???3.?Nail dystrophy - L60.3???4.?Morbid obesity - E66.01??? Plan: * Treatment: 2.?Left ankle instability?Imaging: X ray : Foot, left 3v 3.?Nail dystrophy? Notes: Educated the patient on fungal toenail infections [...] nail nippers. These were sent off to [facility] for further testing. Will await results to see if something is treatable to normalize the nail or improve it some for the patient. ?? * Procedures:?LEFT FOOT AND ANKLE RADIOGRAPHS 05/26/2024 4 weight bearing views (AP, LAT, LO PROJECTION/MO VIEW, AP ANKLE) Taken in the office and read by the physician. Osseous mineralization is age appropriate. There are no acute fractures or dislocations. No abnormal bone lesions or tumors. Hallux valgus deformity present with narrowing and sclerosis to the 1st MTPJ. The sesamoids are also hypertrophied. There is a metatarsus adductus deformity present. Mild degenerative changes to the tarsometatarsal joints, naviculocuneiform joints, and talonavicular joint. There is severe sclerosis to the subtalar joint. Large os trigonum with osteophytic changes present. The ankle has normal alignment with mild narrowing. There is atherosclerotic changes seen along with phleboliths in the soft tissue.? STEROID INJECTION: All risks and benefits of steroid injections were discussed in detail with the patient. Risks included infection, increased pain, steroid flare, thinning of soft tissue, ligaments, tendons, allergic reaction, and/or discoloration of skin at site of injection. Benefits included decrease of pain and inflammation. Patient expressed understanding and consent was signed. Patient advised to rest today after the injection. The patient should ice the area daily 20 minutes on and 20 minutes off for twice daily for the next three days. The patient can return to high impact activities next week. Patient was educated that it may take up to a week for the steroid to take full effect. The left foot was prepped and draped appropriately. The area was cleansed with an chlorahexadine solution. Ethyl chloride spray was then utilized to topically anesthetize the skin. 2cc steroid injection consisting of 1cc of 0.5% Marcaine Plain, 0.5cc Kenalog 10 and 0.5cc of 4mg/ml Dexamethasone were injected into the left subtalar joint.?Pt tolerated the procedure well. Hemostasis was controlled with pressure and bandage applied. ? * Therapeutic Injections:? Dexamethasone : 2 mg given by LUCY RUIZ D.P.M. (Arthritis of left subtalar joint)??? Kenalog : 5 mg given by LUCY RUIZ D.P.M. (Arthritis of left subtalar joint) * Procedure Codes:?92156 X-RAY EXAM OF FOOT 3 Views, [place]ifiers: [place] [address] DRAIN/INJECT, INTERMEDIATE JOINT/BURSA, Modifiers: LT J1100 INJ DEXAMETHASONE SODIM PHOSHATE 1 MG, Units: 2.00 J3301 INJ TRIAMCINOLONE ACETONIDE 10 MG * Follow Up:?6 Weeks * Billing Information: * Visit Code:? 96524 Office Visit, New Pt., Level 4. Modifiers: 25 * Procedure Codes:? 97956 X-RAY EXAM OF FOOT 3 [place]: [place] [address] DRAIN/INJECT, INTERMEDIATE JOINT/BURSA. Modifiers: LT J1100 INJ DEXAMETHASONE SODIM PHOSHATE 1 MG. Units: 2.00. J3301 INJ TRIAMCINOLONE ACETONIDE 10 MG. * Sign off status: Completed true * Provider:Qasim Reid DPM Date:?05/26 Generated for Flor watson/Erik/Anasmitting on:?07/09/2024 09:56 AM EDT History and Physical Notes * Examination Category Sub-Category Detail Notes Category Not es General Examination This is a morbidly obese elderly male. Alert and oriented today and in no acute distress. Patient comes in ambulating in sneakers without using any assistive devices. Breathing is [...] has some mild dermal atrophy. There is some localized nonpitting edema around the medial aspect of the left ankle region. There is tenderness around the medial subtalar joint line into the posterior deep ankle space on the left. There is also some tenderness along the posterior tibial tendon on [...]
--- OUTSIDE RECORDS SUMMARY | 2024-07-09 09:57 | XMS_ITS | Clinical Summary ---
Author Organization [facility] Address [address] [place] [address] Care Team Providers Care Valve Seater Operator Name Role Phone Mane Huitron MD Primary Care Provider [phone] Medications Medication Sig Dispensed Refills Start Date End Date Status Metoprolol Tartrate (FIRST - METOPROLOL PO) Take by mouth. 0 Active clopidogrel (PLAVIX) 75 MG tablet Take 75 mg by mouth daily. 0 Active Social History Tobacco Use Types Packs/Day Years Used Date Smoking Tobacco: Never Assessed Sex and Gender Information Value Date Recorded Sex Assigned at Not on file Gender Identity Not on file Sexual Orientation Not on file Job Start Date Occupation Industry Not on file Not on file Not on file Last Filed Vital Signs Vital Sign Reading Time Taken Comments Blood Pressure - - Pulse - - Temperature - - Respiratory Rate - - Oxygen Saturation - - Inhaled Oxygen Concentration - - Weight 142.9 kg (315 lb) 11/02/2020 8:23 AM EDT Height 172.7 cm (5' 8 ) 11/02/2020 8:23 AM EDT Body Mass Index 47.9 11/02/2020 8:23 AM EDT Plan of Treatment Health Maintenance Due Date Last Done Comments Hepatitis C Screening 1950 COVID-19 Vaccine (#1) 03/07/1951 Depression Screening 1964 BMI Counseling 1970 Preventative Health Evaluation 1970 DTap / Tdap / Td (1 - Tdap) 09/06/1971 Colon Cancer Screening (Colonoscopy) 1997 Shingrix-Zoster Vaccine (1 of 2) 2002 Fall Risk Assessment 2017 Pneumococcal Vaccine (1 of 1 - PCV) 2017 Influenza Vaccine (#1) 2023 RSV Adult > 60+ Yrs or Pregn ant (1 - 1-dose 75+ series) 09/06/2027 Hepatitis B Vaccines Aged Out No long er eligible based on patient's age to complete this topic RSV Ped < 20 months Aged Out No longe r eligible based on patient's age to complete this topic Care Teams Valve Seater Operator Relationship Specialty Start Date End Date Mane Huitron MD [address] [place] [address] Dr [address] [place] [address] PCP - General Fudge Candy Maker 09/27/20
--- OUTSIDE RECORDS SUMMARY | 2024-07-09 09:57 | XMS_ITS | Encounter Summary ---
Author Organization [facility] Address [address] [place] [id number] Care Team Providers Care Aluminum Can Collector Name Role Phone Md, Unknown Primary Care Provider Unavailabl e Reason for Referral * Imaging (Routine) - Closed Specialty Diagnoses / Procedures Referred By Contac t Referred To Contact Radiology Diagnoses Pain, unspecified Procedures XR ANKLE 2 VIEWS LEFT Raquel Rodríguez PA-C [address] [place] [phone] Phone: tel: fax: [facility] Radiology - Central Scheduling [facility] Phone: tel: fax: Referral ID Status Reason Start Date Expiration Date V isits Requested Visits Authorized [id number] Closed Perform Procedure 02/06/2023 02/06/2024 1 1 Encounter Details Date Type Department Care Team ([facility] Contact Info) Description 02/06/2023 Ancillary Orders [facility] Access [address] [place] [id number] Raquel Rodríguez PA-C [address] [place] [phone] Pain, unspecified (Primary Dx) Social History Tobacco Use Types Packs/Day Years Used Date Smoking Tobacco: Never Assessed Sex and Gender Information Value Date Recorded Sex Assigned at Not on file Legal Sex Male 9:56 AM EST Gender Identity Not on file Sexual Orientation Not on file documented as of this encounter Plan of Treatment Not on file documented as of this encounter Results * XR ANKLE 2 VIEWS LEFT (02/06/2023 10:13 AM EST) Anatomical Region Laterality Modality Left Radio Fluoroscop y 02/06/2023 11:2 0 AM EST Impressions 02/06/2023 11:32 AM EST No acute osseous abnormality. Narrative 02/06/2023 11:32 AM EST XR ANKLE 2 VIEWS LEFT CLINICAL INDICATION: Pain, unspecified, pain///pt states chronic left ankle pain COMPARISON: None available. FINDINGS: No fracture or malalignment of the ankle. No substantial osteoarthritis. The mortise is symmetric. Mild generalized soft tissue swelling and vascular calcifications. Procedure Note Jesús Almaraz MD - 02/06/2023 XR ANKLE 2 VIEWS LEFT CLINICAL INDICATION: Pain, unspecified, pain///pt states chronic leftankle pain COMPARISON: None available. FINDINGS: No fracture or malalignment of the ankle. No substantial osteoarthritis.The mortise is symmetric. Mild generalized soft tissue swelling andvascular calcifications. IMPRESSION: No acute osseous abnormality. Raquel Rodríguez PA-C IMG XR PROCEDURES Final Resu lt documented in this encounter Visit Diagnoses Diagnosis Pain, unspecified- Primary Pain, unspecified documented in this encounter Care Teams Aluminum Can Collector Relationship Specialty Start Date End Date Md, Unknown 1 Dont Change PCP - General 02/06/23 documented as of this encounter
== END 2024-07-09 10:11 | disposition home or self-care (01) ==
LOC: HO.HMCHD 09:20
PROVIDERS: PCP Internal Medicine; Visit Provider Internal Medicine
DX: G47.33 Obstructive sleep apnea (adult) (pediatric) (principal); M15.0 Primary generalized (osteo)arthritis; R53.83 Other fatigue; K21.9 Gastro-esophageal reflux disease without esophagitis; E66.01 Morbid (severe) obesity due to excess calories; N40.1 Benign prostatic hyperplasia with lower urinary tract symptoms

== ENCOUNTER → 2024-07-09 09:20 | Outpatient (BNVA) | payer MEDICARE, OTHER, SELFPAY | PROVIDERS: PCP Internal Medicine; Visit Provider Internal Medicine | DX: Z13.89 Encounter for screening for other disorder (principal) | CPT/HCPCS: 96127; 99202 ==

== ENCOUNTER 2024-07-09 10:27 | Outpatient (REF) | payer MEDICARE, OTHER, SELFPAY ==
--- OUTSIDE RECORDS SUMMARY | 2024-07-09 11:31 | XMS_ITS | Continuity of Care Document ---
Author Name [facility] Organization [facility] Care Team Providers Care Vice Provost Name Role Phone [facility] Unavailable Unavailable Problems Combined list of problems from Department of [facility] and [facility] facilities. It does not include entries that were removed or entered in error. Problem Status Onset Date Problem Type Date of Resolution Comments Source Asthma Active Condition [place] Colonoscopy Screening Active Condition July 23, 2022 Entered By: DUSTY PATEL Comment: 2009, 2014, 2019 [place] Coronary artery disease Active Condition July 23, 2022 Entered By: DUSTY PATEL Comment: 2020 - CABG x 3 [place] Ex-smoker Active Condition July 23 Entered By: DUSTY PATEL Comment: Quit 1977 - smoked x 6 yrs [place] History of deep vein thrombosis Active Condition July 23, 2022 Entered By: DUSTY PATEL Comment: 2015 [place] Hyperlipidemia Active Condition [facility] IELD Hypertension Active Condition [facility] LD Morbid obesity Active Condition [facility] I[facility] Outside Providers Active Condition Nv 2022 Entered By: DUSTY PATEL Comment: Dr. Mane Huitron- Primary Care, P: [phone] 0Ma2022 Entered By: MILLIE KELLY Comment: Dr. Anil Bynum- Cardiology, P: [phone] 0Ma2022 Entered By: DUSTY PATEL Comment: Dr Conti - Certified Lactation Educator [place] Seasonal Allergies Active Condition [facility] Type 2 diabetes mellitus Active Condition [place] Diagnosis: ICD-10-CM I10 Essential (primary) hypertension Active Diagnosis [place] Medications Combined list of outpatient medications from Department of [facility] and [facility] facilities.Medications provided include 1) outpatient medications from the last 15 months, and 2) patient-reported medications. Medication Details Route Status Patient Instructions Prescription Expires Prescription Number Last Dispense Date Ordering Provider Order Date Order Qty Source ALBUTEROL 90MCG/ACTUA T (CFC-F) INHL,ORAL,8 .5GM DOSE COUNTER INHALE 2 PUFFS BY MOUTH Q4-6HRS PRN RESPIR ATORY (INHAL ATION) ACTIVE ANA CRISTINA PATEL SA 2022 [facility] IELD ALFUZOSIN HCL ER (alfuzosin HCl), 10 MG, TAB ER 24H, ORAL, APOTEX ARAVIND, 90 ea. BOTTLE Cancele d [id number] : 2023 0 Pharmac y Data Transac tion Service Facilit y ALFUZOSIN HCL ER (ALFUZOSIN HCL), 10 MG, TAB ER 24H, ORAL, CITRON PHARMA L, 90 ea. BOTTLE Cancele d [id number] : 2023 0 Pharmac y Data Transac tion Service Facilit y ALFUZOSIN HCL ER (ALFUZOSIN HCL), 10 MG, TAB ER 24H, ORAL, CITRON PHARMA L, 90 ea. BOTTLE Cancele d [id number] : 2023 0 Pharmac y Data Transac tion Service Facilit y ASPIRIN 81MG TAB,EC TAKE ONE TABLET BY MOUTH ONCE DAILY ORAL ACTIVE ANA CRISTINA PATEL SA 2022 [facility] IELD ATORVASTATI N CA 80MG TAB TAKE ONE TABLET BY MOUTH AT BEDTIME ORAL ACTIVE ANA CRISTINA PATEL SA 2022 [facility] IELD EZETIMIBE (ezetimibe) , 10 MG, TABLET, ORAL, AUROBINDO PHARM, 30 ea. BOTTLE Cancele d [id number] : 2023 0 Pharmac y Data Transac tion Service Facilit y EZETIMIBE (ezetimibe) , 10 MG, TABLET, ORAL, AUROBINDO PHARM, 90 ea. BOTTLE Active [id number] 2023 90 Pharmac y Data Transac tion Service Facilit y Ezetimibe ([employer] [place]) 30 TABLET in 1 BOTTLE Cancele d [id number] : 2023 0 Pharmac y Data Transac [...] to drug (finding) Chest pain active 3 [facility] [place] Drug allergy (disorder) Chest Pain active 3 [facility] [place] Propensity to adverse reactions to food (finding) Chest pain active 3 [facility] Immunizations Combined list of available immunizations from the Department of Defense and Veterans Affairs facilities. Immunization Series Date Given Administered By Site Reaction Lot Number CVX Code Drug Screw Machine Operator Swiss Type Status Comments Source zoster recombinant 2021 BOGDASARIAN, () Not Given zoster recombina nt [facility] zoster recombinant 2020 BOGDASARIAN, () Not Given zoster recombina nt [facility] Results Combined list of recent chemistry, hematology and other laboratory results from Department of [facility] and [facility], ranging from 15 months to all on record, depending upon the facility. Order Name Results Value Reference Range Date Interpretation Specimen Comments Source OCCULT BLOOD FIT X1 SCREEN (MFP ONLY) HEMOGLOBIN. GASTROINTES TINAL.LOWER [PRESENCE] IN STOOL BY IMMUNOASSAY Negative 02/27 Specimen Type: FECES No comment entered. Ordering Provider: DUSTY PATEL Report Released Date/Time: Feb 09, 2024 11:04 AM Reporting Lab: [facility] [address] [facility] [address] Performing Lab: [facility] [address] [address] [facility] Vital Signs Combined list of inpatient and outpatient Vital Signs from Department of [facility] and [facility], ranging from 12 months to all [...] [facility] [id number] 01[facility]13 [facility] Encounter [id number] 06/19 [facility] OFFICE O/P EST LOW 20 MIN [id number] Diagnos is: ICD-10- CM I10 Essenti al (primar y) hyperte nsPEE Ryan [facility] IELD Social History Combined list of available smoking, tobacco, and other social history from Department of Defense and Veterans Affairs facilities. Social History Type Response Date Comment Sourc e Tobacco smoking status [facility]-TOBACCO NEVER USED 07/28/19[facility] History of tobacco use [facility] FORMER US[facility] 07/23/2022 [place] This section is an empty soc ial history section. [facility] Plan of Care List of future care activities from Department of Veterans Affairs facilities. Additional future care activities may be listed in the Assessment and Plan section. Date/Time Care Activity Care Activity Detail Facili ty 07/27/2024 AMBULATORY - MEDICINE AMBULATORY - MEDICI [facility]
--- OUTSIDE RECORDS SUMMARY | 2024-07-09 11:31 | XMS_ITS | Clinical Summary ---
Author Organization [facility] Address [address] [place] [address] Care Team Providers Care Electronic Engraver Name Role Phone Mane Huitron MD Primary Care Provider [phone] Medications Medication Sig Dispensed Refills Start Date [...] age to complete this topic Care Teams Electronic Engraver Relationship Specialty Start Date End Date Mane Huitron MD [address] [place] [address] Dr [address] [place] [address] PCP - General Rat Culturist 09/27/20
--- OUTSIDE RECORDS SUMMARY | 2024-07-09 11:31 | XMS_ITS | Clinical Summary ---
Author Organization [employer] Address [address] [place] [address] Care Team Providers Care Table Cover Folder Name Role Phone Md, Unknown Primary Care [...] this topic Insurance [employer] Care Teams Table Cover Folder Relationship Specialty Start Date End Date , Unknown 1 Dont Change PCP - General 02/06/23
--- OUTSIDE RECORDS SUMMARY | 2024-07-09 11:31 | XMS_ITS | Clinical Summary ---
Author Organization [facility] Address [address] [address] Care Team Providers Care Air Drier Machine Operator Name Role Phone Unavailable Primary Care Provider [...] age to complete this topic Insurance Medicare [facility] Medicare [facility]
--- OUTSIDE RECORDS SUMMARY | 2024-07-09 11:31 | XMS_ITS | Encounter Summary ---
Author Organization [facility] Address [address] [place] [address] Care Team Providers Care Inspector Precision Name Role Phone Md, Unknown Primary Care Provider Unavailabl e Reason for Referral * Imaging (Routine) - Closed Specialty Diagnoses / Procedures Referred By Contac t Referred To Contact Radiology Diagnoses Pain, unspecified Procedures XR ANKLE 2 VIEWS LEFT Raquel Rodríguez PA-C [address] [place] [phone] Phone: tel: fax: [facility] Radiology - Central Scheduling CT Phone: tel: fax: Referral ID Status Reason Start Date Expiration Date V isits Requested Visits Authorized [id number] Closed Perform Procedure 02/06/2023 02/06/2024 1 1 Encounter Details Date Type Department Care Team ([facility] Contact Info) Description 02/06/2023 Ancillary Orders [facility] Access [address] [place] [id number] Raquel Rodríguez PA-C [address] [place] [phone] Pain, unspecified (Primary Dx) Social History [...] unspecified documented in this encounter Care Teams Inspector Precision Relationship Specialty Start Date End Date Md, Unknown 1 Dont Change PCP - General 02/06/23 documented as of this encounter
[2024-07-09 11:42] LABS: MANUAL DIFF FLAG NO
[2024-07-09 11:51] LABS: Basophils Absolute Auto 0.1 X10*3/uL (0.0-0.2); Basophils Percent Auto 0.7 % (0-2); Eosinophils Absolute Auto 0.4 X10*3/uL (0.0-0.4); Eosinophils Percent Auto 4.9 % (0-4); Hematocrit 44.6 % (42.0-52.0); Hemoglobin 15.1 g/dl (14.0-18.0); Imm Gran Abs Auto 0.04 X10*3/uL (0.00-0.03); Imm Gran Pct Auto 0.6 % (0.0-0.4); Lymphocytes Absolute Auto 1.5 X10*3/uL (1.2-4.9); Lymphocytes Percent Auto 20.4 % (20-40); Mean Corpuscular HGB Conc 33.9 g/dl (31.0-36.0); Mean Corpuscular Hemoglobin 33.3 pg (27.0-33.0); Mean Corpuscular Volume 98.5 fL (80.0-98.0); Mean Platelet Volume 9.6 fL (9.4-12.4); Monocytes Absolute Auto 0.8 X10*3/uL (0.1-1.2); Monocytes Percent Auto 10.5 % (2-11); Neutrophils Absolute Auto 4.5 x10*3/uL (2.0-8.3); Neutrophils Percent Auto 62.9 % (45-73); Platelet Count 234 X10*3/uL (160-400); Red Blood Count 4.53 X10*6/uL (4.60-5.80); Red Cell Distribution Width 12.8 % (11.0-16.0); White Blood Count 7.2 X10*3/uL (4.8-10.8)
[2024-07-09 12:04] LABS: Estimated Average Glucose 192 mg/dL; Hemoglobin A1C 269.2615 umol/L; Hemoglobin A1c % 8.3 % (<6.0); Total Hemoglobin (HGBA1C) 4032.8823 umol/L
[2024-07-09 12:19] LABS: Alanine Aminotransferase 32 U/L (0-40); Alkaline Phosphatase 83 U/L (39-117); Anion Gap 11 (12-20); Aspartate Amino Transferase 24 U/L (5-37); Bilirubin Total 0.5 mg/dL (0.0-1.0); Blood Urea Nitrogen 12 mg/dL (9-16); Calcium 9.6 mg/dL (8.4-10.2); Carbon Dioxide 26 mmol/L (22-29); Chloride 105 mmol/L (96-108); Cholesterol 133 mg/dL (<200); Estimated Glomerular Filt Rate > 60; Glucose Random 239 mg/dL (60-115); HDL Cholesterol 40 mg/dL (>40); LDL Cholesterol Calculated 72 mg/dL (<100); Potassium 4.6 mmol/L (3.3-5.1); Sodium 137 mmol/L (135-145); Total Protein 6.7 g/dL (6.5-8.0); Triglycerides 106 mg/dL (<150)
[2024-07-09 12:22] LABS: TSH reflex Free T4 1.36 uIU/mL (0.32-4.0)
[2024-07-09 12:37] LABS: Folate 9.2 ng/mL (> or = 4.0); Vitamin B12 442 pg/mL (200-900)
[2024-07-12 22:38] LABS: Lyme Abs Screen <0.90 index
== END 2024-07-09 10:28 | disposition home or self-care (01) ==
LOC: HO.10HDL 10:27
PROVIDERS: Visit Provider Internal Medicine
DX: G47.33 Obstructive sleep apnea (adult) (pediatric) (principal); M15.0 Primary generalized (osteo)arthritis; R53.83 Other fatigue; K21.9 Gastro-esophageal reflux disease without esophagitis; E66.01 Morbid (severe) obesity due to excess calories; N40.1 Benign prostatic hyperplasia with lower urinary tract symptoms; N13.8 Other obstructive and reflux uropathy; I10 Essential (primary) hypertension; I25.10 Atherosclerotic heart disease of native coronary artery without angina pectoris; Z13.1 Encounter for screening for diabetes mellitus
CPT/HCPCS: 36415; 80053; 80061; 82607; 82746; 83036; 84443; 85025; 86617; 86618; 96127; 99202

== ENCOUNTER 2024-08-26 09:55 | Outpatient (AMB) | payer MEDICARE, OTHER, SELFPAY ==
--- OUTSIDE RECORDS SUMMARY | 2024-07-27 11:15 | XMS_ITS ---
Author Organization [facility] Address [address] [address] Care Team Providers Care [place] Manager Name Role Phone Mane Huitron Primary Care Provider MIGUEL Irwni Unavailable [phone] REASON FOR VISIT 2WK Encounters Encounter Location Date Provider Diagnosis [facility] [address] [address] 07/27/2024 MIGUEL RUIZ Plan Of Treatment No Information Progress Notes * VICTORManjeet KDOB: [birth year] (73 yo M)Acc No.[id number]:07/27/2024 Progress Note Patient: Manjeet CARL Provider: Gracie Reid DPM :1950 A ge:73 Y S ex:Male Date:07/27/2024 Phone: Address[address] [id number] Pcp:Mane Huitron Subjective: * Chief Complaints: * 1 . 2WK. * Medical History: Objective: * Vitals: Assessment: Plan: * Treatment: * Billing Information: * Visit Code: * Procedure Codes: * Electronic signature of DENNY RUIZ D.P.M. on 08/26/2024 at 11:00 AM EDT Sign off status: Pending * Provider: Gracie Reid DPM Date: 07/27/2024 Generated for Flor watson/Erik/eTransmitting on: 08/26/2024 11:00 AM EDT
--- NOTE | 2024-08-26 10:01 | MHC.OFFVIS ---
Vital Signs 08/26/24 10:02 Height 5 ft 8 in Weight 368 lb 2.751 oz BMI 56.0 BP 122/76 Blood Pressure Location Lt brachial Position Sitting Pulse 82 Pulse Source Monitor Intake Visit Reasons: 1 yr f/up Allergies Penicillins (PENICILLINS) Allergy (Severe, Verified 07/09/24 09:36) CHEST TIGHTNESS shellfish derived (SHELLFISH DERIVED) Allergy (Severe, Verified 07/09/24 09:36) CHEST TIGHTNESS Sulfa (Sulfonamide Antibiotics) (SULFA (SULFONAMIDE ANTIBIOTICS)) Allergy (Severe, Verified 07/09/24 09:36) CHEST TIGHTNESS meperidine (From Demerol) Adverse Reaction (Mild, Verified 07/09/24 09:36) Nausea and Vomiting Medication List - Last Reconciled 08/26/24 by Frank Bynum MD albuterol sulfate 90 mcg/actuation (ProAir HFA) 2 puffs inhalation Q6H PRN aspirin 81 mg PO DAILY atorvastatin 80 mg PO BEDTIME ezetimibe (Zetia) 10 mg PO DAILY fluticasone propionate 50 mcg/actuation 1 spray intranasal DAILY metoprolol tartrate 50 mg PO BID HPI Comments Details: Manjeet returns for follow-up regarding coronary artery disease and coronary artery bypass surgery. Denies any clear-cut symptoms like exertional angina. He states that he has generalized tiredness and occasionally feels dizzy. Otherwise, feels fine. [facility] Medical History DJD (degenerative joint disease) GERD (gastroesophageal reflux disease) Diverticulitis Morbid obesity Atherosclerotic cardiovascular disease HLD (hyperlipidemia) HTN (hypertension) Arthritis History of diverticulitis Elevated PSA DVT (deep venous thrombosis) Asthma Surgical History S/P cardiac cath S/P CABG (coronary artery bypass graft) Hx of hemorrhoidectomy H/O nasal septoplasty Hx of colonoscopy (~12/14/19) Family History Mother No problems noted. Brother No problems noted. Social History Housing: House Alcohol intake: current Alcohol intake frequency: holidays/special occasions only Comment: used for heart protection Patient Tobacco Use Status: Former Tobacco user Years Smoked: 7 +/- e-Cigarette/Vaping Use: Former Use service: No Current occupational status: retired Cognitive needs: No Hearing needs: No Vision needs: Yes (rx glasses) Review of Systems Const Reports fatigue and Denies weakness ENT Reports dizziness Card Denies chest pain, Denies chest pain with activity, Denies syncope, Denies rapid heart rate, Denies pedal edema, Denies edema, Denies leg edema, Denies lightheadedness, Denies palpitations, Reports dyspnea, Denies dyspnea on exertion and Denies orthopnea Resp Denies cough, Reports dyspnea and Denies dyspnea on exertion GI Denies hematochezia and Denies change in stool character Musc Denies abnormal gait, Denies muscle cramps, Denies muscle weakness, Denies numbness, Denies radiating pain into limb and Denies tingling Neuro Denies abnormal gait, Reports dizziness, Denies syncope, Denies numbness, Denies tingling and Denies weakness Endo Reports fatigue and Denies palpitations Physical Exam Vital Signs: Last Vital Signs Pulse 82 08/26/24 10:02 BP 122/76 08/26/24 10:02 BMI result Body Mass Index 56.0 Const General: comfortable and no acute distress Orientation/consciousness: patient oriented x3 HEENT Other: Unremarkable Head: Yes normal to inspection Neck Neck: Yes normal visual inspection Chest Chest palpation & inspection: normal inspection of the chest Resp Auscultation: clear to auscultation bilaterally Cardio Palpation: normal PMI Heart sounds: S1 normal heart sound present, S2 normal heart sound present, no gallops, Murmur heart sound present systolic III/ and at the right sternal border and no rubs GI Palpation (GI): Soft to palpation Back/Spine/Pelvis Other: unremarkable Skin General skin exam: no rashes or lesions noted Neuro General: patient oriented x3 Extrem General: Yes normal to inspection Psych Mental Status: mental status grossly normal Office Procedures EKG Details: EKG with underlying sinus rhythm at 82/Min; incomplete right bundle-branch block pattern; [place]. [id number], Complete Assessment & Plan Assessment & Plan (1) Atherosclerotic cardiovascular disease: Code(s): I25.10 - Atherosclerotic heart disease of [place] coronary artery without angina pectoris Category: Medical Plan: Doing well. Remains on aspirin, beta-blockers, statins and Zetia. Last LDL 69 mg/dL. Due to tiredness, we can cut back on the beta-gissel dosing. Due to aortic systolic murmur, obtain echocardiogram. (2) S/P CABG (coronary artery bypass graft): Comment: May 2020 - triple bypass Code(s): Z95.1 - Presence of aortocoronary bypass graft Category: Surgical Plan: No recent issues. (3) Other and unspecified hyperlipidemia: Code(s): E78.5 - Hyperlipidemia, unspecified Category: Medical Plan: Stable. On statins and Zetia. (4) Morbid obesity: Code(s): E66.01 - Morbid (severe) obesity due to excess calories Category: Medical Plan: Weight has been in this range for a long time and may not change. Orders: Orders CA echo transthoracic complete Today I25.10 - Atherosclerotic heart disease of [place] coronary artery without angina pectoris, I35.0 - Nonrheumatic aortic (valve) stenosis Medications: New metoprolol succinate ER (Toprol XL) 50 mg PO DAILY 90 tabs 3RF metoprolol succinate ER (Toprol XL) 50 mg PO DAILY 90 tabs 3RF Discontinued metoprolol tartrate Discontinued Reason: Doctor's Order 50 mg PO BID 180 tabs 3RF Coding Level of Care Code Est Pt Level 4 (02663) Complex EM visit Add On G2211 Diagnoses Atherosclerotic cardiovascular disease I25.10 S/P CABG (coronary artery bypass graft) Z95.1 Other and unspecified hyperlipidemia E78.5 Morbid obesity E66.01 CPT Codes EKG - CPT: 40563-[id number], Complete ([id number])
[2024-08-26 10:02] VITALS: BP 122/76; PULSE 82; BMI 56.0
== END 2024-08-26 10:36 | disposition home or self-care (01) ==
LOC: HO.HCS 09:56
PROVIDERS: PCP Internal Medicine; Visit Provider Internal Medicine
DX: I25.10 Atherosclerotic heart disease of native coronary artery without angina pectoris (principal); Z95.1 Presence of aortocoronary bypass graft; E78.5 Hyperlipidemia, unspecified; E66.01 Morbid (severe) obesity due to excess calories
CPT/HCPCS: 93010; 99214; G2211

== ENCOUNTER → 2024-08-26 09:55 | Outpatient (BNVA) | payer MEDICARE, OTHER, SELFPAY | PROVIDERS: PCP Internal Medicine; Visit Provider Internal Medicine | DX: I25.10 Atherosclerotic heart disease of native coronary artery without angina pectoris (principal); E78.5 Hyperlipidemia, unspecified; E66.01 Morbid (severe) obesity due to excess calories; Z95.1 Presence of aortocoronary bypass graft; Z68.43 Body mass index [BMI] 50.0-59.9, adult | CPT/HCPCS: 93005; 99212 ==

== ENCOUNTER 2024-09-15 18:29 | Emergency (ER) | payer OTHER, SELFPAY ==
--- OUTSIDE RECORDS SUMMARY | 2024-07-27 11:15 | XMS_ITS ---
Author Organization [facility] Address [address] [address] Care Team Providers Care Permaculture Contractor Name Role Phone Mane Huitron Primary Care Provider MIGUEL Irwin Unavailable [phone] REASON FOR VISIT 2WK Encounters Encounter Location Date Provider Diagnosis [facility] [address] [address] 07/27/2024 MIGUEL RUIZ Plan Of Treatment Next Appt Details Provider Name:MIGUEL RUIZ, 09/21/2024 08:00:00 AM, [address] [address], [place], [address], Progress Notes * Manjeet VICTOR KDOB: [birth year] (74 yo M)Acc No.[id number]:07/27/2024 Progress Note Patient: Manjeet CARL Provider: Gracie Reid DPM :1950 A ge:73 Y S ex:Male Date:07/27/2024 Phone: Address: [address] [id number] Pcp:Mane Huitron Subjective: * Chief Complaints: * 1 . 2WK. * Medical History: Objective: * Vitals: Assessment: Plan: * Treatment: * Billing Information: * Visit Code: * Procedure Codes: * Electronic signature of Rafaela GOREPPer on 09/15/2024 at 09:01 PM EDT Sign off status: Pending * Provider: Gracie Reid DPM Date: 07/27/2024 Generated for Flor watson/Erik/eTransmitting on: 0 09/15/2024 09:01 PM EDT
--- NOTE | ~2024-09-15 | US_ITS ---
CLINICAL HISTORY: leg pain, hx of DVTs Venous duplex ultrasound left lower extremity Comparison: None provided Findings: The visualized deep veins are compressible with normal Doppler color flow and spectral tracings. Left-sided peroneal veins are obscured. Increased echogenicity of the imaged soft tissues can be seen with cellulitis and edema. IMPRESSION: 1. Negative for left lower extremity deep vein thrombosis. 2. Left-sided peroneal veins are obscured. Consider attention on follow-up, if clinically indicated. This document has been electronically signed by: Ayaz Gamboa MD on 09/15/2024 19:23:22
[2024-09-15 18:31] VITALS: BP 145/83; PULSE 95; RESP 18; TEMP 36.1; O2SAT 97; BMI 55.4
--- NOTE | 2024-09-15 18:32 | ED.GENADULT ---
HPI - General Adult General Chief complaint: Extremity Problem Stated complaint: Sharp pain back of lt thigh Time Seen by Provider: 09/15/24 21:10 Source: patient Mode of arrival: ambulatory Limitations: no limitations History of Present Illness ED Provider: Dr. Ann-Marie Conley HPI narrative: patient comes to the emergency room complaining of intermittent sharp pain in the posterior aspect of the left thigh. Patient states that about 10 years ago, he had a DVT and had a similar experience consisting of sharp pains. However, the last time that he had DVT, patient's leg was red, swollen and consistently tender. This time, it is intermittent. Patient states that for last 4 hours he has been completely pain-free. Patient denies any chest pain or shortness of breath. Patient is not on blood thinners. Related Data Home Medications ?Medication ?Instructions ?Recorded ?Confirmed albuterol sulfate 90 mcg/actuation 2 puff inhalation Q6H PRN 12/08/19 08/26/24 aerosol inhaler (ProAir HFA) Shortness Of Breath Or Wheezing aspirin 81 mg tablet 81 mg PO DAILY 12/08/19 08/26/24 fluticasone propionate 50 1 spray intranasal DAILY 07/09/24 08/26/24 mcg/actuation nasal spray,suspension Previous Rx's ?Medication ?Instructions ?Recorded atorvastatin 80 mg tablet 80 mg PO BEDTIME #90 tabs 12/01/23 ezetimibe 10 mg tablet (Zetia) 10 mg PO DAILY #90 tabs 07/30/24 metoprolol succinate 50 mg 50 mg PO DAILY #90 tabs 08/26/24 tablet,extended release 24 hr (Toprol XL) Allergies Allergy/AdvReac Type Severity Reaction Status Date / Time Penicillins (PENICILLINS) Allergy Severe CHEST Verified 09/15/24 18:34 TIGHTNESS shellfish derived (SHELLFISH Allergy Severe CHEST Verified 09/15/24 18:34 DERIVED) TIGHTNESS Sulfa (Sulfonamide Allergy Severe CHEST Verified 09/15/24 18:34 Antibiotics) (SULFA TIGHTNESS (SULFONAMIDE ANTIBIOTICS)) meperidine (From Demerol) AdvReac Mild Nausea and Verified 09/15/24 18:34 Vomiting Review of Systems Review of Systems: Constitutional : No Weight loss, No Fever, No Chills, No Night Sweats, No Fatigue, No Malaise ENT/Mouth : No Hearing loss, No Ear Pain, No Nasal Congestion, No Sinus Pain, No Hoarseness, No sore throat, No Rhinorrhea, No Swallowing Difficulty Eyes: No Eye Pain, No Swelling, No Redness, No Foreign Body, No Discharge, No Vision Changes Cardiovascular : No Chest Pain, No SOB, No Dyspnea on Exertion, No Orthopnea, No Edema, No Palpitations Respiratory : No Cough, No Sputum, No Wheezing, No Smoke Exposure, No Dyspnea Gastrointestinal : No Nausea, No Vomiting, No Diarrhea, No Constipation, No abdominal Pain, No Hematochezia, No Melena Genitourinary : no irregular bleeding, No Dysuria, No Urinary Frequency, No Hematuria, No Urinary Incontinence, No Urgency, No Flank Pain, No Urinary Flow Changes, No Hesitancy Musculoskeletal : Complaining of intermittent sharp pain in the left thigh, asymptomatic for the last 4 hours, No joint pain, No Myalgias, No Joint Swelling Skin : No Skin Lesions, No rash Neuro : No Weakness, No Numbness, No Paresthesias, No Loss of Consciousness, No Dizziness, No Headache Psych : No Anxiety/Panic, No Depression, No SI/HI/AH/VH, No Social Issues, Heme/Lymph: No Bruising, No Bleeding,No Lymphadenopathy Endocrine : No Polyuria, No Polydipsia, No Temperature Intolerance [facility] Past Medical History Medical History DJD (degenerative joint disease) GERD (gastroesophageal reflux disease) Diverticulitis Morbid obesity Atherosclerotic cardiovascular disease HLD (hyperlipidemia) HTN (hypertension) Arthritis History of diverticulitis Elevated PSA DVT (deep venous thrombosis) Asthma Surgical History S/P cardiac cath S/P CABG (coronary artery bypass graft) Hx of hemorrhoidectomy H/O nasal septoplasty Hx of colonoscopy (~12/14/19) Family History Family History Mother No problems noted. Brother No problems noted. Social History Social History Housing: House Alcohol intake: current Alcohol intake frequency: holidays/special occasions only Alcohol type: beer and hard liquor Comment: used for heart protection Patient Tobacco Use Status: Former Tobacco user Years Smoked: 7 +/- Smoked in Last 30 Days: No e-Cigarette/Vaping Use: Former Use Use of substances other than those prescribed or required for medical reasons: No Advance Directives: Yes Advance Directives Information Provided: Yes Advance Directives on File: No Do you have a plan to hurt others: No Plan service: No Current occupational status: retired Cognitive needs: No Hearing needs: No Vision needs: Yes (rx glasses) Physical Exam ED Vital Signs: Vital Signs - 24 hr 09/15/24 18:31 09/15/24 21:06 Temperature 97 F 97.8 F Pulse Rate 95 86 Respiratory Rate 18 20 Blood Pressure 145/83 H 122/55 L Pulse Oximetry 97 96 Oxygen Delivery Method Room Air Room Air BMI result Body Mass Index 55.4 Const Other: Appearance: Alert. Oriented X3. No acute distress. Eyes: Pupils equal, round and reactive to light. ENT: Pharynx normal. Neck: Normal inspection. Neck supple. No lymph nodes noted. No crepitus CVS: Normal heart rate and rhythm. Pulses normal. Normal S1 and S2 Respiratory: No respiratory distress. Breath sounds normal. No Wheezing. No rales Abdomen: Soft and nontender. No rigidity. No distention. Skin: Skin warm and dry. Normal skin color. Normal skin turgor. Extremities: No lower extremity edema. No Lacerations. No Rash. Patient has +1 nonpitting edema bilaterally. There is no erythema, no additional swelling, legs are symmetric. At this time there is no pain to palpation Neuro: Oriented X 3. No motor deficit. No sensory deficit. Moving all extremities. No slurred speech. CN 2 through 12 grossly intact Psych: calm, cooperative, normal affect Course Course Course Narrative: This is an RME: Additional HPI, ROS, PE not included below will be deferred to primary provider. RME assessment and note performed by: Theresa Brown PA-C This is a 72-ylph-ylo-male, with a hx of CAD s/p CABG, DM, HTN, HLD, Obesity, Thor, GERD, BPH, DVT not on anticoagulation, here with left posterior thigh pain intermittent. Describing it as a sharp pain in the posterior upper leg started last night, resolved until 5pm. Hx of DVTs in left leg - previously on anticoagulation about 10 years ago. No CP or SOB. Plan: Labs, US further ER eval needed Medical Decision Making Medical Decision Making MDM Narrative: ultrasound of the left extremity does not show deep vein thrombosis, left peroneal veins are obscured. I discussed with the patient that if he continues having pain or any new symptoms, he needs to return for a repeat ultrasound. Patient agrees with plan. At this time, patient states that he has no pain at all and he has been pain-free 4+ hours Differential Diagnosis Differential Diagnoses: The differential diagnosis associated with the presentation includes ( DVT, thrombophlebitis, musculoskeletal pain) Admission/Observation Consideration of admission/observation: Escalation of care including admission/observation considered ( given patient's past medical history and current symptoms, observation was considered) Lab Data 09/15/24 19:19 09/15/24 19:19 Labs: Lab Results 09/15/24 Range/Units 19:19 WBC 8.0 (4.8-10.8) X10*3/uL RBC 4.32 L (4.60-5.80) X10*6/uL Hgb 14.7 (14.0-18.0) g/dl Hct 41.4 L (42.0-52.0) % MCV 95.8 (80.0-98.0) fL MCH 34.0 H (27.0-33.0) pg MCHC 35.5 (31.0-36.0) g/dl RDW 12.6 (11.0-16.0) % Plt Count 215 (160-400) X10*3/uL MPV 9.1 L (9.4-12.4) fL Immature Gran % (Auto) 0.6 H (0.0-0.4) % Neut % (Auto) 59.7 (45-73) % Lymph % (Auto) 24.9 (20-40) % [place] % (Auto) 10.9 (2-11) % Eos % (Auto) 3.3 (0-4) % Baso % (Auto) 0.6 (0-2) % Lymph # (Auto) 2.0 (1.2-4.9) X10*3/uL [place] # (Auto) 0.9 (0.1-1.2) X10*3/uL Eos # (Auto) 0.3 (0.0-0.4) X10*3/uL Baso # (Auto) 0.1 (0.0-0.2) X10*3/uL Abs Immat Gran (auto) 0.05 H (0.00-0.03) X10*3/uL Absolute Neuts (auto) 4.8 (2.0-8.3) x10*3/uL Absolute Nucleated RBC 0.000 (0.0-0.012) X10*3/uL Nucleated RBC % (auto) 0.0 (0.0-0.2) /100WBC Sodium 138 (135-145) mmol/L Potassium 4.3 (3.3-5.1) mmol/L Chloride 108 (96-108) mmol/L Carbon Dioxide 24 (22-29) mmol/L Anion Gap 10 L (12-20) BUN 19 H (9-16) mg/dL Creatinine 0.95 (0.5-1.4) mg/dL Estim Creat Clear Calc 109.8 Estimated GFR > 60 Random Glucose 235 H (60-115) mg/dL Calcium 9.9 (8.4-10.2) mg/dL Magnesium 2.1 (1.6-2.6) mg/dL Total Bilirubin 0.3 (0.0-1.0) mg/dL Direct Bilirubin 0.1 (0.0-0.5) mg/dL AST 23 (5-37) U/L ALT 29 (0-40) U/L Alkaline Phosphatase 85 (39-117) U/L Total Protein 6.5 (6.5-8.0) g/dL Albumin 4.1 (3.5-5.0) g/dL Critical Care Time Critical Care Time Critical Care Time: Yes Total Critical Care Time: 35 Attestation: I have personally provided critical care time. Time includes review of lab data, radiology results, discussion with consultants, and monitoring for potential decompensation. Intervention performed as documented. Discharge Plan Discharge Clinical Impression: Left thigh pain Patient Disposition: Home, Self-Care Instructions: Leg Pain (ED) Additional Instructions: If you continue having intermittent pain in your left leg, you may need a repeat ultrasound within a week. Please follow-up with your primary care physician tomorrow. If you have any worsening or new symptoms, please return to the emergency room or call 911 Prescriptions: No Action atorvastatin 80 mg tablet 80 mg PO BEDTIME Qty: 90 3RF ezetimibe [Zetia] 10 mg tablet 10 mg PO DAILY Qty: 90 3RF aspirin 81 mg Tablet 81 mg PO DAILY albuterol sulfate [ProAir HFA] 90 mcg/actuation Hfa Aerosol Inhaler 2 puff INHALATION Q6H PRN (Reason: Shortness Of Breath Or Wheezing) fluticasone propionate 50 mcg/actuation spray,suspension 1 spray intranasal DAILY metoprolol succinate [Toprol XL] 50 mg tablet extended release 24 hr 50 mg PO DAILY Qty: 90 3RF Print Language: Emirati
[2024-09-15 19:22] LABS: MANUAL DIFF FLAG NO
[2024-09-15 19:25] LABS: Hematocrit 41.4 % (42.0-52.0); Hemoglobin 14.7 g/dl (14.0-18.0); Imm Gran Abs Auto 0.05 X10*3/uL (0.00-0.03); Imm Gran Pct Auto 0.6 % (0.0-0.4); Lymphocytes Absolute Auto 2.0 X10*3/uL (1.2-4.9); Mean Corpuscular HGB Conc 35.5 g/dl (31.0-36.0); Mean Corpuscular Hemoglobin 34.0 pg (27.0-33.0); Mean Corpuscular Volume 95.8 fL (80.0-98.0); NRBC Abs Auto 0.000 X10*3/uL (0.0-0.012); NRBC Pct Auto 0.0 /100WBC (0.0-0.2); Platelet Count 215 X10*3/uL (160-400); Red Blood Count 4.32 X10*6/uL (4.60-5.80); White Blood Count 8.0 X10*3/uL (4.8-10.8)
[2024-09-15 19:38] LABS: Alanine Aminotransferase 29 U/L (0-40); Albumin Level 4.1 g/dL (3.5-5.0); Alkaline Phosphatase 85 U/L (39-117); Anion Gap 10 (12-20); Aspartate Amino Transferase 23 U/L (5-37); Blood Urea Nitrogen 19 mg/dL (9-16); Calcium 9.9 mg/dL (8.4-10.2); Carbon Dioxide 24 mmol/L (22-29); Chloride 108 mmol/L (96-108); Creatinine Clr Calc Pharmacy 109.8; Estimated Glomerular Filt Rate > 60; Magnesium 2.1 mg/dL (1.6-2.6); Potassium 4.3 mmol/L (3.3-5.1); Sodium 138 mmol/L (135-145); Total Protein 6.5 g/dL (6.5-8.0)
--- OUTSIDE RECORDS SUMMARY | 2024-09-15 21:00 | XMS_ITS | Continuity of Care Document ---
Author Name [facility] Organization [facility] Care Team Providers Care Dry Mill Worker Name Role Phone [facility] Unavailable Unavailable Problems Combined list of problems from Department of [facility] and [facility] facilities. It does not include entries that were removed or entered in error. Problem Status Onset Date Problem Type Date of Resolution Comments Source Asthma Active Condition [facility] Colonoscopy Screening Active Condition July 23, 2022 Entered By: DUSTY PATEL Comment: 2009, 2014, 2019 [facility] Coronary artery disease Active Condition July 23, 2022 Entered By: DUSTY PATEL Comment: 2020 - CABG x 3 [facility] Ex-smoker Active Condition July 23 Entered By: DUSTY PATEL Comment: Quit 1977 - smoked x 6 yrs [facility] History of deep vein thrombosis Active Condition July 23, 2022 Entered By: DUSTY PATEL Comment: 2015 [facility] Hyperlipidemia Active Condition [facility] Hypertension Active Condition [facility] Morbid obesity Active Condition [facility] Outside Providers Active Condition Ak 2022 Entered By: DUSTY PATEL Comment: Dr. Mane Huitron- Primary Care, P: [phone] [id number] Entered By: MILLIE KELLY Comment: Dr. 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 and [facility] facilities.Medications provided include 1) [...] ANA CRISTINA PATEL SA 2022 IELD EZETIMIBE (ezetimibe) , 10 MG, TABLET, ORAL, AUROBINDO PHARM, 90 ea. BOTTLE Active [id number] 4 2023 90 Pharmac y Data Transac tion Service Facilit y EZETIMIBE 10MG TAB TAKE ONE TABLET BY MOUTH ONCE DAILY ORAL ACTIVE ANA CRISTINA PATEL SA 2022 IELD METOPROLOL TARTRATE 50MG TAB TAKE ONE TABLET BY MOUTH TWICE DAILY ORAL ACTIVE ANA CRISTINA PATEL SA PREM 2022 IELD Allergies, Adverse Reactions, Alerts Combined list of allergies from Department of Defense and Veterans Affairs facilities. It does not include entries that were removed or entered in error. Substance Category Reaction Severity Reaction type Status Date Reported Comments Source PENICILLIN Propensity to adverse reactions to drug (finding) Chest pain active 3 [facility] PENICILLINS Drug allergy (disorder) Chest Pain active 3 [facility] SHELLFISH Propensity to adverse reactions to food (finding) Chest pain active 3 [facility] Immunizations Combined list of available immunizations from the Department of Defense and Veterans Affairs facilities. Immunization Series Date Given Administered By Site Reaction Lot Number CVX Code Drug Night Shift Supervisor Status Comments Source zoster recombinant 2021 BOGDASARIAN, () Not Given zoster recombina nt [facility] zoster recombinant 2020 BOGDASARIAN, () Not Given zoster recombina nt [facility] Results Combined list of recent chemistry, hematology and other laboratory results from Department of Defense and Veterans Affairs, ranging from 15 months to all on record, depending upon the facility. Order Name Results Value Reference Range Date Interpretation Specimen Comments Source OCCULT BLOOD FIT X1 SCREEN ([facility] ONLY) HEMOGLOBIN. GASTROINTES TINAL.LOWER [PRESENCE] IN STOOL BY IMMUNOASSAY Negative 02/27 Specimen Type: FECES No comment entered. Ordering Provider: DUSTY PATEL Report Released Date/Time: Feb 09, 2024 11:04 AM Reporting Lab: [facility] [address] [id number] Performing Lab: [facility] [place] [facility] [address] [id number] [facility] Vital Signs Combined list of inpatient and outpatient Vital Signs from Department of Defense and Veterans Affairs, ranging from 12 months to all on record, depending upon the facility. Vital Sign Value Date Comments Source SYSTOLIC BLOOD PRESSURE 116 07/28/19 25 15:53:58 [facility] DIASTOLIC BLOOD PRESSURE 73 025 15:53:58 [facility] [place] [facility] PULSE OXIMETRY 96 07/27/2024 15:53:58 [facility] [...] 16 07/27/2024 15:53:[address] [facility] [place] [facility] Encounters Combined list of: 1) Encounters from Department of Veterans Affairs facilities going backup to the last 18 months, not all VA inpatient encounters are included; 2) Encounters from the Department of Defense facilities going backup to 280 months. Location Location Details Encounter Type Encounter Number Reason For Visit Attending Provider ADM Date DC Date Status Disposition Source [facility] Outpatient Encounter [id number] 06/19 [facility] [place] [facility] OFF[facility] O/P EST LOW 20 MIN [id number] Diagnos is: ICD-10- CM I10 Essenti al (primar y) hyperte PEE [place] PREM 07/27 [facility] O/P EST LOW 20 MIN [id number] Diagnos is: ICD-10- CM I10 Essenti al (primar y) hyperte PEE [place] PREM 07/27 [facility] Social History Combined list of available smoking, tobacco, and other social history from Department of Defense and Veterans Affairs facilities. Social History Type Response Date Comment Sourc e Tobacco smoking status [facility] VA-TOBACCO USE FORMER CIGARETTES 07/27/2024 [facility] History of tobacco use SC-TOBACCO NEVER USED OTHER TYPE 07/27/2024 [facility] History of tobacco use VA-TOBACCO NEVER USED 07/28/2023 [facility] History of tobacco use SC-TOBACCO FORMER USER 07/23/2022 [facility] This section is an empty social history section. DoD
--- OUTSIDE RECORDS SUMMARY | 2024-09-15 21:01 | XMS_ITS | Clinical Summary ---
Author Organization [facility] Address [address] [place] [address] Care Team Providers Care Senior Ux Designer Name Role Phone Md, Unknown Primary Care [...] 2017 Fall Risk Screening 2017 COVID-19 Vaccine (1 - 2023-2 5 season) 2023 Influenza Vaccine (#1) 2024 RSV 60+ (1 - 1-dose 75+ series) 09/06/2027 HIB Vaccines Aged Out No longer eligi ble based on patient's age to complete this topic HPV Vaccines (No Doses Required) Completed Hepatitis A Vaccines Aged Out No long [...] this topic Insurance [employer] Care Teams Senior Ux Designer Relationship Specialty Start Date End Date , Unknown 1 Dont Change PCP - General 02/06/23
--- OUTSIDE RECORDS SUMMARY | 2024-09-15 21:01 | XMS_ITS | Clinical Summary ---
Author Organization [facility] Facility Address [address] [address] Care Team Providers Care Publicity Writer Name Role Phone Unavailable Primary Care Provider [...] ars (1 of 1 - PCV) 2002 Influenza Vaccine (#1) 2024 Hepatitis B Vaccine Aged Out No longe r eligible based on patient's age to complete this topic Insurance Medicare [facility] Medicare [facility]
--- OUTSIDE RECORDS SUMMARY | 2024-09-15 21:01 | XMS_ITS | Patient Health Record ---
Author Organization [facility] Address [address] [place] [address] Care Team Providers Care Customer Support Analyst Name Role Phone Mane Huitron MD Primary Care Provider Amaury Esparza Jr Unavailable Allergies Allergen (clinical drug ingredient) Drug/Non Drug Allergy documented on EMR Reaction Allergy Type Onset Date Status Sulfa Unknown Drug Allergy Active Penicillin Unknown Drug Allergy Active seasonal (uncoded) Unknown Allergy A ctive Reason For Referral No Information Medications Medication SIG (Take, Route, Frequency, Duration) Notes Start Date End Date Status Guttenberg 3 Active MiraLax (colon prep) 8.3 ounce ((238) grams mixed with Gatorade or Crystal Light orally begin at 5:00 p.m. the day before the procedure for 1 day 10/28/2019 Active ibuprofen PRN Active Aspir-81 Active Immunizations Vaccine Route Administration Date Status Comme nts Influenza Unknown 12/08/2018 Administered Social History Tobacco Use: Social History Observation Description Date Details (start date - stop date) Former Smoker NA - NA Tobacco Use/Smoking Question Answer Notes Patient is a former smoker How long has it been since you last smoked? > 10 years Additional Findings: Tobacco Non-User Ex-cigaret te smoker Alcohol Screen Question Answer Notes Did you have a drink contain ing alcohol in the past year? Yes How often did you have a dri nk containing alcohol in the past year? Monthly or less (1 point) How many drinks did you have on a typical day when you were drinking in the past year? 1 or 2 drinks (0 point) How often did you have 6 or more drinks on one occasion in the past year? Never (0 point) Points 1 Interpretation Negative Problems Problem Type SNOMED Code ICD Code Onset Dates Problem Status W/U Status Risk Notes Problem 141675850 Colon cancer screening (Z12.11) Active confirmed Problem 993732486 Encounter for other preprocedural examination (Z01.818) Active confirmed Problem 707002494385603 long term care administrator (current) use of aspirin (Z79.82) Active confirmed Plan Of Treatment Future Test Test Name Order Date COLONOSCOPY 12/22/2013 COLONOSCOPY 10/28/2019 Insurance Providers Payer Name Payer Address Payer Phone Subscriber Number Group Number Insured Name Patient Relationship to Insured Coverage Start Date Coverage End Date MEDICARE OF [place] [address] [place] [address] [id number] TERRI WILSON Self - patient is the insured FOR LIFE [address] [place] [address] [id number] TERRI WILSON Self - patient is the insured Medical (General) History Medical History History ICD Code colonoscopy 04/20/14, small tubular adeno ma, five-year followup 04/29 elevated blood sugar arthritis elevated cholesterol diverticulitis DVT elevated PSA Surgical History Surgery Date(Month/Year) deviated septum repair 1979 hemorrhoidectomy 2014 hernia repair 2018
--- OUTSIDE RECORDS SUMMARY | 2024-09-15 21:01 | XMS_ITS | Clinical Summary ---
Author Organization [facility] Address [address] [place] [address] Care Team Providers Care Adobe Architect Name Role Phone Mane Huitron MD Primary Care Provider [phone] Medications Medication Sig Dispensed Refills Start Date [...] 1 - PCV) 2017 Influenza Vaccine (#1) 2024 RSV Adult > 60+ Yrs or Pregn ant (1 - 1-dose 75+ series) 09/06/2027 Hepatitis B Vaccines Aged Out No long er eligible based on patient's age to complete this topic RSV Ped < 20 months Aged Out No longe r eligible based on patient's age to complete this topic Care Teams Adobe Architect Relationship Specialty Start Date End Date Mane Huitron MD [address] [place] [address] [address] [place] [address] PCP - General Jammer Operator 09/27/20
--- OUTSIDE RECORDS SUMMARY | 2024-09-15 21:01 | XMS_ITS ---
Author Name [facility] Organization Unknown Problems Problem Status Onset Date Problem Type Date of Resoluti on Source Pain, unspecified active EncounterDiagnosisAct [id number] Encounters Encounter Type Encounter Reason Primary Diagnosis Location Date Ambulatory Pain, unspecified Pain, unspecified [facility] 02/06/2023 Care Team Organization Name Specialty Phone Email Start Date End Da te [facility] 02/06/202301/10 [facility] 02/06/2023
--- OUTSIDE RECORDS SUMMARY | 2024-09-15 21:02 | XMS_ITS | Data Portability ---
Author Organization [place] - [facility], Allergy Address [address] [place] [address] [place], [place] [address] Care Team Providers Care Dedenter Name Role Phone ROLANDOJUAN M AYON Primary Care Provider TICO DIANA Referring Provider Assessment Encounter Date Assessment Date Assessment LastModified by Organization Details LastModified Time 06/28/2024 06/28/2024 Patient presents for evaluation of untreated sleep apnea. Diagnosed last year on a home study with JONEL of 13.6. He attributes much of his poor sleep quality to nasal congestion. Physical exam reveals rightward deviated septum and nasal tip, Mallampati 3+, and obesity. He is unable to tolerate a CPAP mask due to claustrophobia. Today we discussed the morbidity and mortality of untreated obstructive sleep apnea to include increased risk of heart attack, stroke, diabetes, dementia, and early . Treatment options reviewed to include weight loss, mandibular advancement device, and Inspire device. We reviewed that unfortunately his BMI exceeds the approved range for Inspire device. Recommend he continue to discuss mandibular advancement with his dentist. Discussed he would need follow up sleep study thereafter to verify resolution of the apnea. For his nasal congestion, recommend a trial of intranasal steroid spray. Follow up in a month or two to discuss efficacy. Could potentially benefit from septoplasty down the road, though we discussed this would not eliminate or even treat the apnea. Patient with subjective hearing loss. Next available audiometric testing has been scheduled. [email or web address] Not available 06/28/2024 17:11:36 08/11/2024 08/11/2024 73yo male presen ts for evaluation of hearing loss. He reports bilateral tinnitus and infrequent vertigo, which is self-limiting. TMs are normal to inspection. Audiogram demonstrates normal sloping to mild to moderate sensorineural hearing loss bilaterally, left worse than right. Tympanometry is normal. Patient is medically cleared for left amplification, but prefers to observe. We also discussed that he is a candidate for retrocochlear workup with MRI of the IACs, but patient prefers to observe at this time. Recommend repeat audiometric testing in 1 year, sooner with sudden changes to hearing. He will continue daily intranasal fluticasone for nasal congestion, as this has been symptomatically beneficial. [email or web address] Not available 08/11/2024 17:04:40 Plan of Treatment Reminders Order Date Submit Date Provider Last Modified By Organization Details Last Modified Time Details Appointments LAZARO Initial Fitting 2025 09:00A M PABLO SPENCERNAUGH , AUD Not available Not available Not available Lab None recorded. Referral None recorded. Procedures None recorded. Surgeries None recorded. Imaging None recorded. Medication Orders fluticaso ne propionat e 50 mcg/actua tion nasal spray,milli pension 2024 025 LESLIE Not available 06/28/2024 16:21:39 Patient TargetsNo targets recorded. Patient InstructionsNo instructions recorded. Reason for Referral None Reported. Results Created Date Observation Date Name Description Value Unit Range Abnormal Flag Note LastModifiedBy Organization Detail LastModifiedTime 08/13/19 25 audio gram No observ ation record ed. BARCODE Not Available 2024 09:21:18 Result Notes None recorded. Problems Name Problem SNOMED Code Status Onset Date Resolution Date Notes Provider Name and Address Organization Details Recorded Time Obstructive sleep apnea syndrome 34498902 Active 2024 ANA INGRAM PA-C [address] [place], [place] [address] [place] [address], [address], [facility] - [facility] 5 16:14:18 Deviated nasal septum 804642284 Active 2024 ANA INGRAM PA-C [facility] [employer] [facility] [place], [address], [facility] - [facility] 5 16:18:44 Nasal congestion 81725305 Active 2024 ANA INGRAM PA-C [address] [place], [place] [address]CURRENT [place] [address], [place], [address], [facility] - [facility] 17:11:43 Sensorineur al hearing loss of bilateral ears 880273099 Active 2024 SHIVAM LING MA, CCC-A [address] [facility],[address] [facility], [place], [address], [facility] - [facility] 14:59:06 Bilateral tinnitus 2762527550767 Active 2024 BRII MORALES [address] [facility], [address], [place], [address], [facility] 17:04:52 Problem Notes None recorded. Procedures Surgical History Date Name Laterality Status Provider Name and Address Organization Details Recorded Time 08/11/2024 Comp Audio with Tymps - 30040 & 01986 completed SHIVAM LING [place], [facility]3]-A [address] [facility],[place] [address], [place], [address], [facility] - [facility] 08/11/2024 14:59:15 Imaging Results None recorded. Procedure Notes None recorded. Medical Equipment None Reported. Allergies Allergen ID Allergen Name Allergen Category Reaction Reaction Severity Criticality Documentation Date Start Date Code Code System Note Provider Name and Address Organization Details Recorded Time 068461 Product containin g penicilli n (product) medicatio n Not available Not available Not available 06/28/2024 46750 8001 SNOMED Palmirabrenda paul [place] - [facility] 15:39:35 611651 shellfish derived food,medi cation Not available Not available Not available 06/28/2024 42145 UNK Palmira Eren paul [place] - [facility] 15:39:48 568885 Substance with sulfonami de structure and antibacte rial mechanism of action (substanc e) medicatio n Not available Not available Not available 06/28/2024 17251 8003 SNOMED ANA BHARGAV INGRAM [address] [facility] [place],[address], [place], [address], [facility] - [facility] 16:11:00 Medications Name Sig Start Date Stop Date Status Note LastModified by Organization Details LastModified Time atorvastatin 80 mg tablet Take 1 tablet every day by oral route. active Not Available Not Available No t Available metoprolol tartrate 50 mg tablet Take 1 tablet twice a day by oral route. active Not Available Not Available No t Available fluticasone propionate 50 mcg/actuatio n nasal spray,suspen brian [place] 1 spray every day by intranasal route for 30 days. 2024 active Not Available Not Available Not Avai lable Adult Low Dose Aspirin 81 mg tablet,delay ed release Take 1 tablet every day by oral route. active Not Available Not Available No t Available ezetimibe 10 mg tablet Take 1 tablet every day by oral route. active Not Available Not Available No t Available Vitals Date Recorded Body height Body mass index (BMI) Body weight Provider Name and Address Organization Details Last Updated DateTime 06/28/2024 175.26 cm 51.7 kg/m2 405250.33 g Palmira Jason [facility] 06/28/2024 15:39:13 Date Recorded Body height Body mass index (BMI) Body weight Provider Name and Address Organization Details Last Updated DateTime 08/11/2024 175.26 cm 51.7 kg/m2 334200.33 g Palmira Jason [facility] 08/11/2024 14:22:24 Social History None recorded. Functional Status None recorded. Mental Status None recorded. Family History Nothing Reported. Medical History Condition Response Allergies/Hayfever N Heart Problems N Anxiety N Tonsil Infections N Emphysema N Migraines Y Thyroid Problems N Glaucoma N Depression N COPD N Developmental Delay N Nasal or Sinus Problems N Anemia N Immune System Disorder N Anesthesia Complications N Heart Attack ([place]) N Other Skin Condition N Diabetes Y Rhinitis N Bleeding Disorder N Food Allergy N Arthritis Y Hearing Loss N Hyperlipidemia N Cancer N Stroke N Dementia N Nasal polyps N Asthma Y High Cholesterol N Sleep Disorder N GERD/Reflux N Liver Disease N Headaches Y Fibromyalgia N Hypertension N Speech Delay N Kidney Disease N Past Encounters Encounter ID Performer Location Encounter Start Date Encounter Closed Date Diagnosis/Indication Diagnosis SNOMED-CT Code Diagnosis ICD10 Code Diagnosis Note [id number] ANA INGRAM PA-C [facility] [address] [place] [address] 06/28/2024 15:30:07 06/28/2024 16:28:03 Obstructive sleep apnea syndrome 37185710 G47.33 Deviated nasal septum 12 5726025 J34.2 Nasal congestion 7555734 0 R09.81 [id number] CLAUDE ANAYA PA-C [facility] [address] [address] 08/11/2024 14:16:36 08/11/2024 15:25:00 Bilateral tinnitus 0412667406 102 H93.13 Nasal congestion 7946073 0 R09.81 Sensorineu ral hearing loss of bilateral ears 989115143 H90.3 Audiologic al evaluation results: Right ear: Normal hearing thru 3000Hz dropping to a mild SNHL with excellent word recognitio n. Left ear: Normal /borderlin e normal hearing thru 2000Hz sloping to a mild moderate SNHL with excellent word recognitio n. Tympanomet ry: Right Ear:Type A Left Ear:Type A Health Concerns Section Related Observation LastModified by Organization Detai ls LastModified Time None Recorded Concern Status LastModified by Organization Details LastModified Time None Recorded Advance Directives Directive None Recorded Payers Insurance Date Sequence Insurance Name Policy Number Policy Howard Covered Member ID Howard Member ID Guarantor Name 08/11/2024 1 [place] [employer] Manjeet Victor [id number] Manjeet Victor 08/11/2024 2 FOR LIFE ( - MEDICARE SUPPLEMENT) Manjeet Victor [id number] Manjeet Victor Notes Date Note Type Note Provider Name and Address Organization Details Recorded Time 06/28/2024 text/html 73 year old male presents for evaluation of sleep disordered breathing. Has nasal congestion and postnasal drip that are bothersome at night. Uses saline spray, which helps. He sleeps for about 4 hours then wakes up feeling the nasal congestion again. Underwent home sleep study that demonstrated JONEL of 13.6. He was prescribed a CPAP but cannot use it due to claustrophobia from an attempted suffocation as a child. He tried the full face mask, nasal mask, and the nasal pillows but could not tolerate it. He has a history of a few traumas to the nose, has had one fracture repaired. Around age 22 he had an illness that he believes was EBV and states since then he has had nasal congestion and intermittently purulent nasal drainage. Had skin prick allergy testing years ago that was negative. He reports daytime fatigue. Naps in the afternoon. Not falling asleep driving etc. ANA INGRAM PA-C [address] [facility] [address], [place], [address], [place] - [facility] 06/28/2024 17:11:58 08/11/2024 text/html 73yo male presen ts for reevaluation of nasal congestion. He reports moderate improvement with intranasal fluticasone. Denies nasal drainage, anosmia, or facial pain. He has underlying obstructive sleep apnea. Patient obtained audiometric testing today. He reports gradual hearing loss bilaterally, left better than right. He endorses loud noise exposure in the . He has bilateral tinnitus, left worse than right. He experiences room spinning dizziness 5-6 times per year, self-limiting. JULIETA GROVER MD [address] [facility] [address], [place], [address], [place] [facility] 08/12/2024 08:39:33
[2024-09-15 21:06] VITALS: BP 122/55; PULSE 86; RESP 20; TEMP 36.6; O2SAT 96
[2024-09-15 21:46] VITALS: BP 122/55; PULSE 86; RESP 20; TEMP 36.6; O2SAT 96
== END 2024-09-15 21:46 | disposition home or self-care (01) ==
PROVIDERS: Physician Assistant Medical; Emergency Provider Emergency Medicine
DX: M79.652 Pain in left thigh (principal); R60.0 Localized edema; Z86.718 Personal history of other venous thrombosis and embolism; Z79.899 Other long term (current) drug therapy
CPT/HCPCS: 36415; 80048; 80076; 83735; 85025; 93971; 99284

== ENCOUNTER → 2024-09-15 18:36 | Outpatient (BNV) | payer MEDICARE, OTHER, SELFPAY | PROVIDERS: Visit Provider Radiology Neuroradiology | DX: M79.605 Pain in left leg (principal) | CPT/HCPCS: 93971 ==

== ENCOUNTER → 2024-10-05 08:21 | Outpatient (REF) | payer MEDICARE, OTHER, SELFPAY ==
--- NOTE | 2024-10-05 08:25 | CA_ITS ---
Transthoracic Echocardiogram Patient (Last, First, Middle): Manjeet Victor, Gender: Male Date of : 1950 Age: 74 Procedure Date: 10/05/2024 Procedure Type: Transthoracic Echocardiogram Location: OP Height: 172.72 cm Weight: 166.92 kg BSA: 2.65 m2 Heart Rate: bpm BP: 118 / 60 mmHg Corporate Development Officer: TO Referring MD: Frank Bynum MD Symptoms: I25.10 - Atherosclerotic heart disease of [place] coronary artery without... Study Quality: Technically Difficult w contrast Conclusions: - 1. Technically limited study 2. On one view LV ejection fraction appears to be normal with LV EF of 55-60% with impaired relaxation filling pattern with elevated filling pressures 3. Calcified aortic and mitral valve changes noted with at least mild aortic stenosis. Findings Procedure Information Contrast agent, definity, is being given per protocol without apparent complications. Left Ventricle The left ventricle was not well visualized. Normal left ventricular cavity size. The left ventricular systolic function is normal. The visually estimated ejection fraction is between 55-60%. Spectral Doppler is indicative of an impaired relaxation filling pattern. Elevated filling pressures. Right Ventricle The right ventricle was not well visualized. Atria The left atrium was not well visualized. Interatrial shunt cannot be excluded. The right atrium was not well visualized. Aortic Valve There is moderate calcification of the aortic valve. There is moderate thickening of the aortic valve. There is mild aortic valve stenosis. There is no aortic valve regurgitation. Mitral Valve The mitral valve was not well visualized. There is severe anterior mitral leaflet thickening. There is severe mitral annular calcification. Pulmonic Valve The pulmonic valve was not well visualized. Tricuspid Valve The tricuspid valve was not well visualized. Tricuspid regurgitation envelope is inadequate for calculation of right ventricular systolic pressure. Great Vessels The aorta was not well visualized. The pulmonary artery was not well visualized. Venous The inferior vena cava was not well visualized. Pericardium/Pleural The pericardium was not well visualized. Measurements 2D Linear Measurements IVSd: 1.43 0.6-0.9/0.6-1.0 cm LVIDd: 5.03 3.9-5.3/4.2-5.9 cm LVIDd Index: 1.90 2.4-3.2/2.2-3.1 cm/m2 LVIDs: 3.38 2.0-3.6 cm LVPWd: 1.08 0.7-1.1 cm LV Mass: 313.45 67-162/88-224 g LV Mass Index: 118.28 43-95/49-115 g/m2 LVOT Diam: 2.30 3.0+(-)1.3 cm 2D Systolic Function EF 4C: 55.80 >55% Mitral Valve MV VTI: 0.44 MV Pk Parviz: 1.51 MV Mn Parviz: 1.00 MV Pk Grad: 9.00 MV Mn Grad: 4.00 MV Pk E: 1.22 MV PK A: 1.35 MV Decel Time: 286.00 E/A: 0.90 E'Lateral: 8.16 E'Medial: 5.33 E/E' Med: 22.90 E/E' Lat: 15.00 PHT: 84.00 MVA PHT: 2.62 MVA Continuity: 2.39 Decel Camas: 4.26 Aortic Valve AoV Pk Parviz: 2.68 AoV Mn Parviz: 1.85 AoV VTI: 0.47 AoV Pk Grad: 29.00 Aov Mn Grad: 15.00 TERELL Cont.VTI: 2.21 LVOT LVOT Pk Parviz: 1.21 LVOT Mn Parviz: 0.81 LVOT VTI: 0.25 LVOT Pk Grad: 6.00 LVOT Mn Grad: 3.00 LVOT Diam: 2.30 LVOT Area: 4.15 Diastolic Function MV Pk E: 1.22 MV Pk A: 1.35 E/A: 0.90 E'Medial: 5.33 E/E' Med: 22.90 E' Laterial: 8.16 E/E' Lat: 15.00 Great Vessels Aorta Sinus of Valsalva: 3.59 2.0-3.5 cm Ao Asc: 3.50 2.1-3.4 cm Updated in Other Vendor System with Status of Final Neal Sánchez MD electronically signed on 10/06/2024 3:39:13 PM with status of Final
--- OUTSIDE RECORDS SUMMARY | 2024-10-05 08:29 | XMS_ITS | Continuity of Care Document ---
Author Name [facility] Organization [facility] Care Team Providers Care Fiberglass Roving Winder Name Role Phone [facility] Unavailable Unavailable Problems Combined list of problems from Department of [facility] and [facility] facilities. It does not include entries that were removed or entered in error. Problem Status Onset Date Problem Type Date of Resolution Comments Source Asthma Active Condition [place] Colonoscopy Screening Active Condition July 23, 2022 Entered By: DUSTY PATEL Comment: 2009, 2014, 2019 [place] Coronary artery disease Active Condition July 23, 2022 Entered By: DUSTY PATEL Comment: 2020 - CABG x 3 [place] Ex-smoker Active Condition July 23 Entered By: DUSTY PATEL Comment: Quit 1977 - smoked x 6 yrs [place] History of deep vein thrombosis Active Condition July 23, 2022 Entered By: DUSTY PATEL Comment: 2015 [place] Hyperlipidemia Active Condition [facility] Hypertension Active Condition [facility] Morbid obesity Active Condition [facility] Outside Providers Active Condition Ms 2022 Entered By: DUSTY PATEL Comment: Dr. Mane Huitron- Primary Care, P: [phone] [id number] Entered By: MILLIE KELLY Comment: Dr. Anil Bynum- Cardiology, P: [phone] [id number] Entered By: DUSTY PATEL Comment: Dr Conti - Wet End Supervisor [place] Seasonal Allergies Active Condition [facility] Type 2 diabetes mellitus Active Condition [place] Diagnosis: ICD-10-CM I10 Essential (primary) hypertension Active Diagnosis [place] Medications Combined list of outpatient medications from Department of [facility] and [facility] Affairs facilities.Medications provided include 1) [...] ORAL, A[employer], 90 ea. BOTTLE Active [id number] 4 2023 90 Pharmac y Data Transac [...] to drug (finding) Chest pain active 3 [facility] [place] Drug allergy (disorder) Chest Pain active 3 [facility] [place] Propensity to adverse reactions to food (finding) Chest pain active 3 [facility] Immunizations Combined list of available immunizations from the Department of Defense and Veterans Affairs facilities. Immunization Series Date Given Administered By Site Reaction Lot Number CVX Code Drug Car Sales Consultant Status Comments Source zoster recombinant 2021 BOGDASARIAN, () Not Given zoster recombina nt [facility] zoster recombinant 2020 BOGDASARIAN, () Not Given zoster recombina nt [facility] Results Combined list of recent chemistry, hematology [...] AM Reporting Lab: [facility] [address] [facility] [address] Performing Lab: [facility] [address] [facility] [address] [facility] Vital Signs Combined list of inpatient and outpatient Vital Signs from Department of Defense and Veterans Affairs, ranging from 12 months to all on record, depending upon the facility. Vital Sign Value Date Comments Source SYSTOLIC BLOOD PRESSURE 116 07/28/19 25 15:53:58 [facility] DIASTOLIC BLOOD PRESSURE 73 025 15:53:58 [facility] PULSE OXIMETRY 96 07/27/2024 15:53:58 VA [...] 16 07/27/2024 15:53:58 [facility] Encounters Combined list of: 1) Encounters [...] Disposition Source [facility] Outpatient Encounter [id number] 06/19 [facility] [place] OFFICE O/P EST LOW 20 MIN [id number] Diagnos is: ICD-10- CM I10 Essenti al (primar y) hyperte PEE [place] PREM 07/27 [facility]P EST LOW 20 MIN [id number] Diagnos is: ICD-10- CM I10 Essenti al (primar y) hyperte PEE [place] PREM 07/27 [facility] Social History Combined list of available smoking, tobacco, and other social history from Department of Defense and Veterans Affairs facilities. Social History Type Response Date Comment Sourc e Tobacco smoking status [facility] VA-TOBACCO USE FORMER CIGARETTES 07/27/2024 [place] History of tobacco use MO-TOBACCO NEVER USED OTHER TYPE 07/27/2024 [place] History of tobacco use VA-TOBACCO NEVER USED 07/28/2023 [place] History of tobacco use MO-TOBACCO FORMER USER 07/23/2022 [place] This section is an empty social history section. DoD
--- OUTSIDE RECORDS SUMMARY | 2024-10-05 08:31 | XMS_ITS | Clinical Summary ---
Author Organization [facility] Address [address] [place] [address] Care Team Providers Care Rn Supplemental Name Role Phone Md, Unknown Primary Care [...] this topic Insurance [employer] Care Teams Rn Supplemental Relationship Specialty Start Date End Date , Unknown 1 Dont Change PCP - General 02/06/23
--- OUTSIDE RECORDS SUMMARY | 2024-10-05 08:31 | XMS_ITS | Clinical Summary ---
Author Organization [facility] Facility Address [address] [address] Care Team Providers Care Soil Tester Name Role Phone Unavailable Primary Care Provider [...] age to complete this topic Insurance Medicare [facility] Medicare [facility]
--- OUTSIDE RECORDS SUMMARY | 2024-10-05 08:31 | XMS_ITS | Clinical Summary ---
Author Organization [facility] Address [address] [place] [address] Care Team Providers Care Housefellow Name Role Phone Mane Huitron MD Primary Care Provider [phone] Medications Medication Sig Dispensed Refills Start Date [...] age to complete this topic Care Teams Housefellow Relationship Specialty Start Date End Date Mane Huitron MD [address] [place] [address] Dr [address] [place] [address] PCP - General Greeting Card Editor 09/27/20
--- OUTSIDE RECORDS SUMMARY | 2024-10-05 08:31 | XMS_ITS | Patient Health Record ---
Author Organization [facility] Address [address] [place] [address] Care Team Providers Care Upholstery Bundler Name Role Phone Elana (RETIRED) Mane DEAN Primary Care Provide Amaury Guo Jr Unavailable [phone] Allergies Allergen (clinical drug ingredient) Drug/Non Drug Allergy documented on EMR Reaction Allergy Type Onset Date Status Sulfa Unknown Drug Allergy Active Penicillin Unknown Drug Allergy Active seasonal (uncoded) Unknown Allergy A ctive Reason For Referral No Information Medications Medication SIG (Take, Route, Frequency, Duration) Notes Start Date End Date Status [place] 3 Active MiraLax (colon prep) 8.3 ounce [...] Problem Status W/U Status Risk Notes Problem 019523098 Colon cancer screening (Z12.11) Active confirmed Problem 035815874 Encounter for other preprocedural examination (Z01.818) Active confirmed Problem [id number] rn long term care (current) use of aspirin (Z79.82) Active confirmed Plan Of Treatment Future Test Test Name Order Date COLONOSCOPY 12/22/2013 COLONOSCOPY 10/28/2019 Insurance Providers Payer Name Payer Address Payer Phone Subscriber Number Group Number Insured Name Patient Relationship to Insured Coverage Start Date Coverage End Date MEDICARE OF [place] [address] [place] [address] [id number] TERRI WILSON Self - patient is the insured [employer] [address] [place] [address] [id number] TERRI WILSON Self - patient is the insured Medical (General) History Medical History History ICD Code colonoscopy 04/20/14, small tubular adeno in, five-year followup 04/29 elevated blood sugar arthritis elevated cholesterol diverticulitis DVT elevated PSA Surgical History Surgery Date(Month/Year) deviated septum repair 1979 hemorrhoidectomy 2014 hernia repair 2018
--- OUTSIDE RECORDS SUMMARY | 2024-10-05 08:31 | XMS_ITS | Patient Health Record ---
Author Organization [facility] Address [address] [facility] [address] [place] [address] Care Team Providers Care French Binding Folder Name Role Phone Mnae Huitron Primary Care Provider UnavailMIGUEL King Unavailable [phone] Allergies Allergen (clinical drug ingredient) Drug/Non Drug Allergy documented on EMR Reaction Allergy Type Onset Date Status Penicillin Unknown Drug Allergy Active Reason For Referral No Information Medications Medication SIG (Take, Route, Frequency, Duration) Notes Start Date End Date Status Albuterol Sulfate 108 (90 Base) MCG/ACT 1 puff as needed Inhalation every 4 hrs Not-Takin g Alfuzosin HCl ER 10 MG 1 tablet immediat tika after the same meal Orally Once a day Not-Taking Flonase Active Metoprolol Succinate ER Active Metoprolol Tartrate 50 MG 1 tablet with food Orally Twice a day Not-Taking Ezetimibe 10 MG 1 tablet Orally Once a day Active Atorvastatin Calcium 80 MG 1 tablet Orally Once a day Active Baby Aspirin Active Problems Problem Type SNOMED Code ICD Code Onset Dates Problem Status W/U Status Risk Notes Problem 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) Active confirmed Problem Arthritis of left subtalar joint ([id number] 80486) 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 confirmed Problem Morbid obesity (E66.01) Active confirmed Vital Signs Heart Rate 81 /min 09/23/2024 Temperature 96.5 degrees Fahrenheit 09/23/2024 Respiratory Rate 20 /min 09/23/2024 Height 5ft 9in in 09/23/2024 Weight 369.2 lbs 09/23/2024 BMI 54.52 kg/m2 09/23/2024 Procedures Procedure Date Ordered Date Performed Result Body Sit e DRAIN/INJECT, INTERMEDIATE JOINT/BURSA 05/26/2024 N/A Removal of nail matrix 07/14/2024 N/A DRAIN/INJECT, INTERMEDIATE JOINT/BURSA 09/21/2024 N/A Encounters Encounter Location Date Provider Diagnosis [facility] [address] 05/26/2024 MIGUEL JOSEPH Arthritis of left subtalar joint M19.072 ; 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 ; Nail dystrophy L60.3 and Morbid obesity E66.01 [facility] [address] 07/08/2024 MIGUEL JOSEPH Arthritis of left subtalar joint M19.072 ; 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 and Nail dystrophy L60.3 [facility] [address] 07/14/2024 MIGUEL JOSEPH Nail dystrophy L60.3 ; 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 and Pain around toenail, left foot M79.675 [facility] [address] 07/30/2024 MIGUEL JOSEPH Nail dystrophy L60.3 and Osteoarthritis of left subtalar joint M19.072 [facility] [address] 09/21/2024 MIGUEL JOSEPH Osteoarthritis of le ft subtalar joint M19.072 and Pain of joint of left ankle and foot M25.572 [facility] [address] 09/23/2024 MIGUEL JOSEPH Acquired deformity o f nail plate L60.8 ; Pain around toenail, right foot M79.674 and Onychodystrophy L60.3 [facility] [address] 05/14/2024 MIGUEL JOSEPH Assessments Encounter Date Diagnosis (ICD Code) Assessment [...] 07/08/2024 Left ankle instability (ICD-10 - M25.372) 07/14/2024 Nail dystrophy (ICD-10 - L60.3) Patient with dystrophic left hallux toenail. Cultures taken at the last visit were negaitve for any fungal or bacterial colonization. It appears the nail changes are chronic in nature. I discussed with him that there is no medication I can give that will normallize this nail. I discussed the options of temp nail removal and permanent nail removal. He wished to proceed with permanent removal today. This was done in the office under local anesthetic. He tolerated this well. He was bandaged and given written post procedural care instructions. I will see him back in 2 weeks or sooner if needed. I encouraged him to call with any questions or concerns. 07/30/2024 Nail dystrophy (ICD-10 - L60.3) Patient is 16 days s/p total avulsion of the left hallux toenail with phenol application. He has healed nicely. He no longer needs to cover the area. He is thinking about doing the same for the other side. He will let us know in the future. 09/21/2024 Osteoarthritis of left subtalar joint (ICD-10 - M19.072) Patient with OA to the left STJ. He had a steroid injection about 4 months ago and has done well up until 3 weeks ago. He has been wearing sandals more and this may be triggering some of the pain. We discussed repeat injection and better shoe gear. He was agreeable. He was given a steroid injection into the left subtalar joint today. He tolerated this well. I advised icing and resting over the next couple of days. He will follow back with me as needed. I encouraged him to call if he has any questions or concerns. 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 He has significant onychodystrophy to the right hallux and right 2nd toenails causing discomfort and making it hard for him to maintain. He has had the same issue in the past to the left great toenail and had this removed. He would like to do the same to the right great toenail and right 2nd toenail. All risks and benefits were discussed. Total phenol matrixectomies were performed under local anesthestic today to the right hallux toenail and the right 2nd toenail. He tolerated these procedures well. He was bandaged and given written after care instructions. I will see him back in 2 weeks or sooner if needed. 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 He had an injection and is still doing well with this. We discussed that the injections can be repeated if needed in the future. He will let us know. I encouraged him to call with any additional questions or concerns. 05/26/2024 Nail dystrophy (ICD-10 - L60.3) Educated [...] nail nippers. These were sent off to [facility] for further testing. Will await results [...] concerns. 05/26/2024 Morbid obesity (ICD-10 - E66.01) 07/14/2024 Pain around toenail, left foot (ICD-10 - M79.675) Plan Of Treatment Pending Test Test Name Order Date X ray : Foot, left 3v 05/26/2024 Removal of nail matrix 07/14/2024 DRAIN/INJECT, INTERMEDIATE JOINT/BURSA 0 09/21/2024 DRAIN/INJECT, INTERMEDIATE JOINT/BURSA 0 05/26/2024 Next Appt Details Provider Name:MIGUEL RUIZ, 10/08/2024 08:00:00 AM, [address] [facility] [address], [place], [address], Insurance Providers Payer Name Payer Address Payer Phone Subscriber Number Group Number Insured Name Patient Relationship to Insured Coverage Start Date Coverage End Date Medicare of [place] [address] [place] [phone] [id number] Manjeet Victor Self - patient is the insured [facility] [employer] [facility] [address] [place] [address] [phone] [id number] Manjeet Victor Self - patient is the insured Medications Administered Medication Instructions Date of Administration Dosage Notes dexAMETHasone Sod Phosphate PF 05/26/2024 2 mg dexAMETHasone Sod Phosphate PF 09/21/2024 2 mg Kenalog 05/26/2024 5 mg Kenalog 09/21/2024 5 mg Medical (General) History Medical History History ICD Code morbid obesity coronary artery disease CABG elevated cholesterol hypertension koc-karwsag-vshyrsesz diabetes fatty liver hay fever asthma diverticulosis obstructive sleep apnea gastroesophageal reflux disease BPH Surgical History Surgery Date(Month/Year) rhinoseptoplasty 1979 hernia repair 2016 hemmorhoid removal 2018 triple bipass 2022 colonoscopy 2021 colonoscopy 2017 colonoscopy 2006
--- OUTSIDE RECORDS SUMMARY | 2024-10-05 08:32 | XMS_ITS | Data Portability ---
Author Organization [place] [facility] Address [address] [place] [address] [place], [place] [address] Care Team Providers Care Lending Advisor Name Role Phone ROLANDOJUAN M AYON Primary [...] Details Recorded Time Obstructive sleep apnea syndrome 58199230 Active 2024 ANA INGRAM PA-C [address] [place], [place] [address] [address], [address], [facility] - [facility] 5 16:14:18 Deviated nasal septum 287054922 Active 2024 ANA INGRAM PA-C [facility] [employer] [facility] [place], [address], [facility] - [facility] 5 16:18:44 Nasal congestion 22396979 Active 2024 ANA INGRAM PA-C [address] [place], [place] [address]I[place] [address], [place], [address], [facility] - [facility] 17:11:43 Sensorineur al hearing loss of bilateral ears 165476949 Active 2024 SHIVAM LING MA, CCC-A [address] [facility] [facility], [place], [address], [facility] - [facility] 14:59:06 Bilateral tinnitus 1514656926638 Active 2024 BRII MORALES [address] [facility], [place], [address], [facility] - [facility] [place] 17:04:52 Problem Notes None recorded. Procedures Surgical History Date Name Laterality Status Provider Name and Address Organization Details Recorded Time 08/11/2024 Comp Audio with Tymps - 70130 & 26466 completed SHIVAM LING [place], [facility] [address] [facility],[place] [address], [place], [address], [facility] - [facility] 08/11/2024 14:59:15 Imaging Results None recorded. Procedure Notes None recorded. Medical Equipment None Reported. Allergies Allergen ID Allergen Name Allergen Category Reaction Reaction Severity Criticality Documentation Date Start Date Code Code System Note Provider Name and Address Organization Details Recorded Time 785343 Product containin g penicilli n (product) medicatio n Not available Not available Not available 06/28/2024 98442 8001 SNOMED Palmirabrenda paul [place] [facility] 15:39:35 059699 shellfish derived food,medi cation Not available Not available Not available 06/28/2024 37960 UNK Palmira Eren paul [place] [facility] 15:39:48 878941 Substance with sulfonami de structure and antibacte rial mechanism of action (substanc e) medicatio n Not available Not available Not available 06/28/2024 01381 8003 SNOMED ANA BHARGAV INGRAM [address] [facility] [place], [place], [address], [facility] - [facility] 16:11:00 Medications Name Sig Start Date [...] propionate 50 mcg/actuatio n nasal spray,suspen brian [place] 1 spray every day by intranasal route [...] Updated DateTime 06/28/2024 175.26 cm 51.7 kg/m2 476214.33 g Palmira Jason [facility] 06/28/2024 15:39:13 Date Recorded Body height Body mass index (BMI) Body weight Provider Name and Address Organization Details Last Updated DateTime 08/11/2024 175.26 cm 51.7 kg/m2 784766.33 g Palmira Jason [facility] 08/11/2024 14:22:24 Social History None recorded. Functional [...] Disorder N Anesthesia Complications N Heart Attack ([place]) N Other Skin Condition N Diabetes Y Rhinitis N Bleeding Disorder N Food Allergy N Arthritis Y Hearing Loss N Hyperlipidemia N Cancer N Stroke N Dementia N Nasal polyps N Asthma Y Sleep Disorder N GERD/Reflux N High Cholesterol N Liver Disease N Headaches Y Fibromyalgia N Hypertension N Speech Delay N Kidney Disease N Past Encounters Encounter ID Performer Location Encounter Start Date Encounter Closed Date Diagnosis/Indication Diagnosis SNOMED-CT Code Diagnosis ICD10 Code Diagnosis Note [id number] ANA INGRAM PA-C [facility] [address] [place] [address] 06/28/2024 15:30:07 06/28/2024 16:28:03 Obstructive sleep apnea syndrome 02486017 G47.33 Deviated nasal septum 12 0499401 J34.2 Nasal congestion 9973589 0 R09.81 [id number] CLAUDE ANAYA PA-C [facility] [address] [address] 08/11/2024 14:16:36 08/11/2024 15:25:00 Bilateral tinnitus 0363916981 102 H93.13 Nasal congestion 1770099 0 R09.81 Sensorineu ral hearing loss of bilateral ears 942684382 H90.3 Audiologic al evaluation results: Right ear: [...] ID Guarantor Name 08/11/2024 1 MEDICARE B-[place]: [employer] Manjeet Victor [id number] Manjeet Victor 08/11/2024 2 FOR LIFE ( - MEDICARE SUPPLEMENT) Manjeet Victor [id number] Manjeet Victor
== END ==
LOC: HO.CARD 08:21
PROVIDERS: Visit Provider Internal Medicine
DX: I25.10 Atherosclerotic heart disease of native coronary artery without angina pectoris (principal); I35.0 Nonrheumatic aortic (valve) stenosis
CPT/HCPCS: 93306; Q9957

== ENCOUNTER → 2024-10-05 08:25 | Outpatient (BNV) | payer MEDICARE, OTHER, SELFPAY | PROVIDERS: Visit Provider Internal Medicine Cardiovascular Disease | DX: I35.8 Other nonrheumatic aortic valve disorders (principal); I34.81 Nonrheumatic mitral (valve) annulus calcification | CPT/HCPCS: 93306 ==

== ENCOUNTER 2024-11-01 10:33 | Outpatient (AMB) | payer MEDICARE, OTHER, SELFPAY ==
--- OUTSIDE RECORDS SUMMARY | 2024-07-27 11:30 | XMS_ITS | Continuity of Care Document ---
Author Name [facility] Organization [facility] Care Team Providers Care Form Designer Name Role Phone [facility] Unavailable Unavailable Problems Combined list of problems from Department of [facility] and [facility] facilities. It does not include entries that were removed or entered in error. Problem Status Onset Date Problem Type Date of Resolution Comments Source Asthma Active Condition [facility] Colonoscopy Screening Active Condition July 23, 2022 Entered By: DUSTY PATEL Comment: 2009, 2014, 2019 [facility] Coronary artery disease Active Condition July 23, 2022 Entered By: DUSTY PATEL Comment: 2020 - CABG x 3 [facility] Ex-smoker Active Condition July 23 Entered By: DUSTY PATEL Comment: Quit 1977 - smoked x 6 yrs [facility] History of deep vein thrombosis Active Condition July 23, 2022 Entered By: DUSTY PATEL Comment: 2015 [facility] Hyperlipidemia Active Condition [facility] IELD Hypertension Active Condition [facility] LD Morbid obesity Active Condition [facility] IELD Outside Providers Active Condition [place] 2022 Entered By: DUSTY PATEL Comment: Dr. Mane Huitron- Primary Care, P: [phone] 0Ma2022 Entered By: MILLIE KELLY Comment: Dr. Anil Bynum- Cardiology, P: [phone] 0Ma2022 Entered By: DUSTY PATEL Comment: Dr Conti - Customs Broker [facility] Seasonal Allergies Active Condition [facility] Type 2 diabetes mellitus Active Condition [facility] Diagnosis: ICD-10-CM I10 Essential (primary) hypertension Active Diagnosis [facility] Medications Combined list of outpatient medications from Department of [facility] and [facility] facilities.Medications provided include [...] ATION) ACTIVE ANA CRISTINA PATEL SA 2022 IELD ASPIRIN 81MG TAB,EC TAKE ONE TABLET BY MOUTH ONCE DAILY ORAL ACTIVE ANA CRISTINA PATEL SA 2022 IELD ATORVASTATI N [place] 80MG TAB TAKE ONE TABLET BY MOUTH AT BEDTIME ORAL ACTIVE ANA CRISTINA PATEL SA 2022 IELD EZETIMIBE 10MG TAB TAKE ONE TABLET BY MOUTH ONCE DAILY ORAL ACTIVE ANA CRISTINA PATEL SA 2022 IELD METOPROLOL TARTRATE 50MG TAB TAKE ONE TABLET BY MOUTH TWICE DAILY ORAL ACTIVE ANA CRISTINA PATEL SA 2022 IELD Allergies, Adverse Reactions, Alerts Combined list of [facility] from [facility] facilities. It does not include entries that were removed or entered in error. Substance Category Reaction Severity Reaction type Status Date Reported Comments Source PEN[place] Propensity to adverse reactions to drug (finding) Chest pain active 3 [facility] [place] Propensity to adverse reactions to food (finding) Chest pain active 3 [facility] Results Combined list of recent chemistry, hematology and other laboratory results from [facility], ranging from 15 months to all on record, depending upon the facility. Order Name Results Value Reference Range Date Interpretation Specimen Comments Source OCCULT BLOOD FIT X1 SCREEN (MFP ONLY) HEMOGLOBIN. GASTROINTES TINAL.LOWER [PRESENCE] IN STOOL BY IMMUNOASSAY Negative 02/27 Specimen Type: FECES No comment entered. Ordering Provider: DUSTY PATEL Report Released Date/Time: Feb 09, 2024 11:04 AM Reporting Lab: [address] [address] Performing Lab: [address] [address] [facility] Vital Signs Combined list of inpatient and outpatient Vital Signs from [facility], ranging from 12 months to all on record, depending upon the facility. Vital Sign Value Date Comments Source SYSTOLIC BLOOD PRESSURE 116 07/28/19 15:53:58 [facility] DIASTOLIC BLOOD PRESSURE 73 025 15:53:58 [facility] PULSE OXIMETRY 96 07/27/2024 15:53:58 [facility] WEIGHT 361.2 07/27/2024 15:53:58 [facility] BMI 55 kg/m2 07/27/2024 15:53:58 [facility] PAIN 0 07/27/2024 15:53:58 [facility] HEIGHT 68 07/27/2024 15:53:58 [facility] TEMPERATURE 98.2 07/27/2024 15:53:58 [facility] PULSE 77 07/27/2024 15:53:58 [facility] RESPIRATION 16 07/27/2024 15:53:58 [facility] Encounters Combined [...] [facility] Out[facility] Encounter [id number] 06/19 [facility] [place] OFF[facility] O/P EST LOW 20 MIN [id number] Diagnos is: ICD-10- CM I10 Essenti al (primar y) hyperte PEE [place] 07/27 [facility] IELD [place] OFFICE O/P EST LOW 20 MIN [id number] Diagnos is: ICD-10- CM I10 Essenti al (primar y) hyperte PEE [place] 07/27 [facility] IELD Social History Combined list of available smoking, tobacco, and other social history from Department of Defense and Veterans Affairs facilities. Social History Type Response Date Comment [facility] e Tobacco smoking status [facility] USE FORMER CIGARETTES 07/27/2024 [facility] History of tobacco use [place]-TOBACCO NEVER USED OTHER TYPE 07/27/2024 [facility] History of tobacco use [place]-TOBACCO NEVER USED 07/28/2023 [facility] History of tobacco use [place]-TOBACCO FORMER USER 07/23/2022 [facility]
--- NOTE | 2024-11-01 10:35 | MHC.PC.OV ---
Vital Signs 11/01/24 10:42 Height 5 ft 9 in Weight 365 lb BMI 53.9 BP 160/92 H Blood Pressure Location Rt brachial Position Sitting Respiration 18 Pulse 87 Pulse Source Pulse Oximeter Temp 97.9 F Pulse Oximetry (%) 96 Oxygen Delivery Method Room Air Intake Visit Reasons: Routine - see comments Stave Block Splitter Required: No Allergies Penicillins (PENICILLINS) Allergy (Severe, Verified 11/01/24 10:35) CHEST TIGHTNESS shellfish derived (SHELLFISH DERIVED) Allergy (Severe, Verified 11/01/24 10:35) CHEST TIGHTNESS Sulfa (Sulfonamide Antibiotics) (SULFA (SULFONAMIDE ANTIBIOTICS)) Allergy (Severe, Verified 11/01/24 10:35) CHEST TIGHTNESS meperidine (From Demerol) Adverse Reaction (Mild, Verified 11/01/24 10:35) Nausea and Vomiting Tobacco use date assessed: 07/09/24 Dental Screening Dental Screen Date: 07/09/24 HPI HPI Comments History of Present Illness Details The patient is a 74-year-old male presenting for routine follow-up for his chronic health conditions and management of symptoms, including chronic dizziness. He has a significant history of coronary artery disease with a coronary artery bypass surgery performed previously. In addition, he has a history of Type 2 diabetes mellitus, hypertension, and hyperlipidemia. The patient also mentions experiencing obstructive sleep apnea that he currently attempts to manage with Flonase without using CPAP due to claustrophobia. He has reported dizziness in the past, which was attributed to his original medication, metoprolol succinate. Since then, his quality assurance analyst switched him to metoprolol tartate taken once a day, which has reduced the frequency of dizzy spells to one in the last two to three months. He has a history of uncompleted colonoscopy due to intestinal bend and virtual colonoscopy performed thereafter. His echocardiogram showed increased aortic valve calcification but was otherwise stable compared to a previous study four years ago. His most recent laboratory work indicated elevated blood glucose levels. The patient expressed challenges with weight management and an intention to lose weight to control his diabetes better. He reports a 150-pound loss in the past, which corresponded with improved glycemic control. The patient was noted to have a history of amblyopia in the left eye with a progression expected by the age of 86-87 years, according to his compression molding machine setter. This condition was not managed with timely intervention during childhood. He denies using home glucose monitoring and is reluctant to start metformin, attributing potential improvement to weight loss. He reports a history of nocturia and previous ineffective management with pharmacotherapy. He is also a former smoker. Medical History: - Coronary Artery Disease - Type 2 Diabetes Mellitus - Essential Hypertension - Hyperlipidemia - Obstructive Sleep Apnea - Aortic Valve Stenosis - Left Eye Amblyopia - Benign Prostatic Hyperplasia Surgical History: - Coronary Artery Bypass Grafting Medications: - Metoprolol succinate for coronary artery disease and hypertension - Atorvastatin for hyperlipidemia - Zetia for hyperlipidemia - Albuterol for shortness of breath [facility] Medical History (Updated 11/01/24 @ 11:46 by Deni Corbin MD) Colon cancer screening DJD (degenerative joint disease) GERD (gastroesophageal reflux disease) Diverticulitis Morbid obesity Atherosclerotic cardiovascular disease HLD (hyperlipidemia) HTN (hypertension) Arthritis History of diverticulitis Elevated PSA DVT (deep venous thrombosis) Asthma Surgical History S/P cardiac cath S/P CABG (coronary artery bypass graft) Hx of hemorrhoidectomy H/O nasal septoplasty Hx of colonoscopy (~12/14/19) Family History Mother No problems noted. Brother No problems noted. Social History Housing: House Alcohol intake: current Alcohol intake frequency: holidays/special occasions only Alcohol type: beer and hard liquor Comment: used for heart protection Patient Tobacco Use Status: Former Tobacco user Years Smoked: 7 +/- e-Cigarette/Vaping Use: Never Used service: No Current occupational status: retired Cognitive needs: No Hearing needs: No Vision needs: Yes (rx glasses) Questionnaire Thrive Questionnaire Date Thrive assessed: 07/09/24 AUDIT C Alcohol Use Questionnaire (AUDIT-C) 1. How often do you have a drink containing alcohol?: Monthly or less 2. How many drinks containing alcohol do you have on a typical day when you are drinking?: 1 or 2 Total Score: 1 STEFANIA-7 AMB Questionnaire STEFANIA-7 Date STEFANIA - 7 assessed: 07/09/24 Source: Developed by Drs. Sabas Silva, Em B.W. Paco Rice and colleagues, with an educational moriah from [employer]. Review of Systems Const Details: - Cardiovascular: Reports dizziness; denies chest pain - Endocrine: Reports high blood sugars; denies symptoms of hypoglycemia - Genitourinary: Reports nocturia - Respiratory: Denies shortness of breath - Neurologic: Reports previous dizziness, improved with medication change - Ophthalmologic: Reports stable vision except progressive issues in left eye All systems reviewed & are unremarkable except as noted in HPI and below Physical exam (Primary Care) Vital Signs: Last Vital Signs Temp 97.9 F 11/01/24 10:42 Pulse 87 11/01/24 10:42 Resp 18 11/01/24 10:42 BP 160/92 H 11/01/24 10:42 Pulse Ox 96 11/01/24 10:42 Oxygen Delivery Method Room Air 11/01/24 10:42 BMI result Body Mass Index 53.9 Tobacco/Smoking Status: Tobacco use Status Tobacco use date assessed 07/09/24 11/01/24 10:39 Patient Tobacco Use Status Former Tobacco user 11/01/24 10:39 e-Cigarette/Vaping Use Never Used 11/01/24 10:46 Thrive Assessment: Date of Thrive Assessment Date Thrive assessed 07/09/24 11/01/24 10:39 Const Other: General: Alert and oriented, Well nourished, No acute distress. Eye: Pupils are equal, round and reactive to light, Intact accommodation, Extraocular movements are intact, Normal conjunctiva, Vision decreased in the left eye. HENT: Normocephalic, Atraumatic, Tympanic membranes are clear, Normal hearing, Oral mucosa is moist, No pharyngeal erythema, Ear canals patent. Respiratory: Lungs CTA bilaterally, No wheeze, Respirations are non-labored. Cardiovascular: Regular rate, Regular rhythm, S1 auscultated, S2 auscultated, No murmur, Good pulses equal in all extremities, Normal peripheral perfusion, No edema. Gastrointestinal: Soft, Non-tender, Non-distended, Normal bowel sounds, No organomegaly. Musculoskeletal: Normal range of motion, Normal strength, No tenderness, Swelling in the left leg, No deformity, Limp due to ankle arthritis. Integumentary: Warm, Dry, [place], Intact. Neurologic: Alert, Oriented, Normal sensory, Normal motor function, No focal defects, Cranial Nerves II-XII are grossly intact, Normal deep tendon reflexes. Psychiatric: Cooperative, Appropriate mood & affect, Normal judgment. Coding Level of Care Code Est Pt Level 4 (38323) Complex EM visit Add On G2211 Diagnoses HTN (hypertension) I10 HLD (hyperlipidemia) E78.5 Diabetes E11.9 Colon cancer screening Z12.11 Enlarged prostate with lower urinary tract symptoms (LUTS) N40.1 Time Spent (min) 40 Comment ECHO results revived, prior blood work Assessment & Plan Assessment & Plan (1) HTN (hypertension): Comment: Current regimen includes metoprolol succinate however pressure is elevated in clinic 2 over 160 however patient reports pressures are well controlled at home. At this time while pressures are elevated, we will obtain a pressure record given his prior records or shortness pressures have been well controlled. Code(s): I10 - Essential (primary) hypertension Category: Medical Plan: Continue metoprolol Record daily pressures and bring to clinic to determine escalation blood pressure regimen Strongly enforced right UE restrictions (2) HLD (hyperlipidemia): Comment: Current regimen add atorvastatin and ezetimibe with most recent lipid panel in July within normal limits Code(s): E78.5 - Hyperlipidemia, unspecified Category: Medical Plan: Continue atorvastatin and ezetimibe (3) Diabetes: Comment: Poorly controlled with last A1c elevated to 8.3 with patient declining treatment with metformin setting multiple side effects -discussed with him extensively the ill effects of poorly controlled diabetes with vision involvement and in addition to his elevated blood pressure known cardiac disease will result in more complications. Review of systems medications at this time and expressed to want to lose weight before trying medications but would resume/start metformin in 3 months if he has not had any improvements Code(s): E11.9 - Type 2 diabetes mellitus without complications Category: Medical Plan: Aggressive weight loss management (4) Colon cancer screening: Comment: Due for screening Code(s): Z12.11 - Encounter for screening for malignant neoplasm of colon Category: Medical (5) Enlarged prostate with lower urinary tract symptoms (LUTS): Comment: Endorses having multiple symptoms worse at night with him having to wake up 6-7 times with small amounts of urine. Previously tried medication however unsure what medication was used therefore we will start on tamsulosin and re-evaluate symptoms that next clinical visit Code(s): N40.1 - Benign prostatic hyperplasia with lower urinary tract symptoms Category: Medical Plan: Start tamsulosin Plan - Routine follow-up scheduled for three months with a targeted weight loss goal of 30 pounds to manage diabetes - Discussed medication management for hypertension and hyperlipidemia - Prescribe tamsulosin for nocturia related to benign prostatic hyperplasia - Recommended the use of CPAP for obstructive sleep apnea - Encouragement to resume blood pressure documentation daily - Plan for colonoscopy requisition Patient was informed and verbally consented to the use of an ambient scribe for clinic note documentation during this visit. Orders: Referrals GI Procedure Notification Z12.11 - Encounter for screening for malignant neoplasm of colon Gastroenterology Referral Z12.11 - Encounter for screening for malignant neoplasm of colon Medications: New tamsulosin 0.4 mg PO BEDTIME 30 caps 0RF N40.1 - Benign prostatic hyperplasia with lower urinary tract symptoms Patient Instructions: During today's visit, we discussed in detail the need for appropriate management of his diabetes and hypertension to prevent further cardiovascular complications. I emphasized the significant impact of weight loss on glycemic control, and the patient expressed eagerness to pursue this, setting a target to lose 30 pounds over the next three months. I recommended home monitoring of blood pressure and suggested he refrain from stopping any current cardiac or hyperlipidemic management unless advised by his quality assurance analyst, as lipid panels appeared satisfactory. We discussed the implications of untreated sleep apnea on cardiovascular health and reinforced the importance of ongoing management with the sleep clinic. I explained the potential benefits and minimal side effects of metformin should weight loss goals not be met, and the patient agreed to consider this option if needed. A colonoscopy appointment was planned to address preventive health maintenance. - Aim to lose 30 pounds over the next three months through diet and exercise. - Monitor blood pressure daily and document the readings. - Schedule and complete the planned colonoscopy by December 2022. - Maintain regular follow-up with an compression molding machine setter for left eye amblyopia. - Continue working with the sleep clinic to identify suitable options for sleep apnea management. - Take all prescribed medications for hypertension and hyperlipidemia as recommended. - Monitor symptom progression and report any changes, including increased dizziness or shortness of breath. - Follow-up visit scheduled in three months; contact us sooner if experiencing any concerning symptoms.
[2024-11-01 10:42] VITALS: BP 160/92; PULSE 87; RESP 18; TEMP 36.6; O2SAT 96; BMI 53.9
--- OUTSIDE RECORDS SUMMARY | 2024-11-01 11:45 | XMS_ITS | Clinical Summary ---
Author Organization [facility] Facility Address [address] [address] Care Team Providers Care Music Grapher Name Role Phone Unavailable Primary Care Provider [...] age to complete this topic Insurance Medicare [facility] [place] Medicare [facility] [place]
--- OUTSIDE RECORDS SUMMARY | 2024-11-01 11:45 | XMS_ITS | Patient Health Record ---
Author Organization [facility] Address [address] [facility] [address] [place] [address] Care Team Providers Care Last Model Maker Name Role Phone Mane Huitron Primary Care Provider UnavailMIGUEL King Unavailable [phone] Allergies Allergen (clinical drug ingredient) Drug/Non Drug [...] with food Orally Twice a day Not-Taking Alfuzosin HCl ER 10 MG 1 tablet immediat tika after the same meal Orally Once a day Not-Taking Metoprolol Succinate ER Active Flonase Active Baby Aspirin Active Albuterol Sulfate 108 (90 Base) MCG/ACT 1 puff as needed Inhalation every 4 hrs Not-Takin g Problems Problem Type SNOMED Code ICD Code Onset Dates Problem Status W/U Status Risk Notes Problem 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) Active confirmed Problem Arthritis of left subtalar joint ([id number] 17614) 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 confirmed Problem Morbid obesity ([id number]) Morbid obesity (E66.01) Active confirmed Vital Signs Heart Rate 81 /min 09/23/2024 Temperature 96.5 degrees Fahrenheit 09/23/2024 Respiratory Rate 20 /min 09/23/2024 Height 5ft 9in in 10/08/2024 Weight 364.8 lbs 10/08/2024 BMI 53.87 kg/m2 10/08/2024 Procedures Procedure Date Ordered Date Performed Result Body Sit e DRAIN/INJECT, INTERMEDIATE JOINT/BURSA 05/26/2024 N/A Removal of nail matrix 07/14/2024 N/A DRAIN/INJECT, INTERMEDIATE JOINT/BURSA 09/21/2024 N/A Encounters Encounter Location Date Provider Diagnosis [facility] [address] 05/26/2024 MIGUEL JOSEPH Arthritis of left subtalar joint M19.072 ; 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 ; Nail dystrophy L60.3 and Morbid obesity E66.01 [facility] [address] 07/08/2024 MIGUEL JOSEPH Arthritis of left subtalar joint M19.072 ; 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 and Nail dystrophy L60.3 [facility] [address] 07/14/2024 MIGUEL JOESPH Nail dystrophy L60.3 ; 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 and Pain around toenail, left foot M79.675 [facility] [address] 07/30/2024 MIGUEL JOSEPH Nail dystrophy L60.3 and Osteoarthritis of left subtalar joint M19.072 [facility] [address] 09/21/2024 MIGUEL JOSEPH Osteoarthritis of le ft subtalar joint M19.072 and Pain of joint of left ankle and foot M25.572 [facility] [address] 09/23/2024 MIGUEL JOSEPH Acquired deformity o f nail plate L60.8 ; Pain around toenail, right foot M79.674 and Onychodystrophy L60.3 [facility] [address] 10/08/2024 MIGUEL JOSEPH Arthritis of left subtalar joint M19.072 ; Morbid obesity E66.01 and Nail dystrophy L60.3 [facility] [address] 05/14/2024 MIGUEL RUIZ Assessments Encounter Date Diagnosis [...] in 2 weeks or sooner if needed. 10/08/2024 Arthritis of left subtalar joint (ICD-10 - M19.072) 10/08/2024 Morbid obesity (ICD-10 - E66.01) 07/14/2024 Acquired deformity of nail plate (ICD-10 [...] nail nippers. These were sent off to [facility] for further testing. Will await results [...] around toenail, left foot (ICD-10 - M79.675) 10/08/2024 Nail dystrophy (ICD-10 - L60.3) Patient presents 2 weeks s/p total phenol matrixectomies to the right hallux and 2nd toenails. He has healed nicely. He no longer needs to cover the toes. The scabbing will flake off with time. He can go back to his normal activity. He does have some soreness to the left subtalar joint today due to the rainy weather. I advised he rest and ice as needed. He did have a repeat injection a few weeks ago. Plan Of Treatment Pending Test Test Name Order Date X ray : Foot, left 3v 05/26/2024 Removal of nail matrix 07/14/2024 DRAIN/INJECT, INTERMEDIATE JOINT/BURSA 0 09/21/2024 DRAIN/INJECT, INTERMEDIATE JOINT/BURSA 0 05/26/2024 Insurance Providers Payer Name Payer Address Payer Phone Subscriber Number Group Number Insured Name Patient Relationship to Insured Coverage Start Date Coverage End Date [employer] of [place] [address] [place] [phone] [id number] Manjeet Victor Self - patient is the insured FOR [email or web address] [address] [place] [address] [phone] [id number] Manjeet Victor Self - patient is the insured Medications Administered Medication Instructions Date of Administration Dosage Notes dexAMETHasone Sod Phosphate PF 05/26/2024 2 mg dexAMETHasone Sod Phosphate PF 09/21/2024 2 mg Kenalog 05/26/2024 5 mg Kenalog 09/21/2024 5 mg Medical (General) History Medical History History ICD Code morbid obesity coronary artery disease CABG elevated cholesterol hypertension [id number] diabetes fatty liver hay fever asthma diverticulosis obstructive sleep apnea gastroesophageal reflux disease BPH Surgical History Surgery Date(Month/Year) rhinoseptoplasty 1980 hernia repair 2016 hemmorhoid removal 2018 triple bipass 2022 colonoscopy 2021 colonoscopy 2017 colonoscopy 2006
--- OUTSIDE RECORDS SUMMARY | 2024-11-01 11:45 | XMS_ITS | Clinical Summary ---
Author Organization [facility] Address [address] [place] [address] Care Team Providers Care Banana Expert Name Role Phone Md, Unknown Primary Care [...] this topic Insurance [employer] Care Teams Banana Expert Relationship Specialty Start Date End Date , Unknown 1 Dont Change PCP - General 02/06/23
--- OUTSIDE RECORDS SUMMARY | 2024-11-01 11:45 | XMS_ITS | Clinical Summary ---
Author Organization [facility] Address [address] [place] [address] Care Team Providers Care President Trust Company Name Role Phone Mane Huitron MD Primary Care Provider [phone] Medications Medication Sig Dispensed Refills Start Date [...] age to complete this topic Care Teams President [employer] Relationship Specialty Start Date End Date Mane Huitron MD [address] [place] [address] [address] [place] [address] PCP - General Warehouse Packer 09/27/20
== END 2024-11-01 11:34 | disposition home or self-care (01) ==
LOC: HO.HMCHD 10:35
PROVIDERS: PCP Student in an Organized Health Care Education/Training Program; Visit Provider Student in an Organized Health Care Education/Training Program
DX: I10 Essential (primary) hypertension (principal); E78.5 Hyperlipidemia, unspecified; E11.9 Type 2 diabetes mellitus without complications; Z12.11 Encounter for screening for malignant neoplasm of colon; N40.1 Benign prostatic hyperplasia with lower urinary tract symptoms

== ENCOUNTER → 2024-11-01 10:33 | Outpatient (BNVA) | payer MEDICARE, OTHER, SELFPAY | PROVIDERS: Visit Provider Student in an Organized Health Care Education/Training Program | DX: Z12.11 Encounter for screening for malignant neoplasm of colon (principal); N40.1 Benign prostatic hyperplasia with lower urinary tract symptoms; R35.1 Nocturia; I10 Essential (primary) hypertension; E78.5 Hyperlipidemia, unspecified; E11.65 Type 2 diabetes mellitus with hyperglycemia | CPT/HCPCS: 99212 ==

== ENCOUNTER 2024-11-15 09:43 | Outpatient (AMB) | payer MEDICARE, OTHER, SELFPAY ==
--- OUTSIDE RECORDS SUMMARY | 2024-07-27 11:15 | XMS_ITS ---
Author Organization [facility] Address [address] [address] Care Team Providers Care Predatory Animal Exterminator Name Role Phone Mane Huitron Primary Care Provider MIGUEL Irwin Unavailable [phone] REASON FOR VISIT 2WK Encounters Encounter Location Date Provider Diagnosis [facility] [address] [address] 07/27/2024 MIGUEL RUIZ Plan Of Treatment No Information Progress Notes * VICTORManjeet KDOB: [birth year] (74 yo M)Acc No.[id number]:07/27/2024 Progress Note Patient: Manjeet CARL Provider: Gracie Reid DPM :1950 A ge:73 Y S ex:Male Date:07/27/2024 Phone: Address: [address] [id number] Pcp:Mane Huitron Subjective: * Chief Complaints: * 1 . 2WK. * Medical History: Objective: * Vitals: Assessment: Plan: * Treatment: * Billing Information: * Visit Code: * Procedure Codes: * Electronic signature of DENNY RUIZ D.P.M. on 11/15/2024 at 11:09 AM EDT Sign off status: Pending * Provider: Gracie Reid DPM Date: 07/27/2024 Generated for Flor watson/Erik/eTransmitting on: 0 11/15/2024 11:09 AM EDT
[2024-11-15 09:47] VITALS: BP 124/58; PULSE 86; BMI 53.7
--- NOTE | 2024-11-15 09:47 | MHC.OFFVIS ---
Vital Signs 11/15/24 09:47 Height 5 ft 9 in Weight 363 lb 12.203 oz BMI 53.7 BP 124/58 L Blood Pressure Location Lt brachial Position Sitting Pulse 86 Pulse Source Pulse Oximeter Intake Visit Reasons: 3m follow up Accompanied by: Self / Same As Patient Allergies Penicillins (PENICILLINS) Allergy (Severe, Verified 11/15/24 09:52) CHEST TIGHTNESS shellfish derived (SHELLFISH DERIVED) Allergy (Severe, Verified 11/15/24 09:52) CHEST TIGHTNESS Sulfa (Sulfonamide Antibiotics) (SULFA (SULFONAMIDE ANTIBIOTICS)) Allergy (Severe, Verified 11/15/24 09:52) CHEST TIGHTNESS meperidine (From Demerol) Adverse Reaction (Mild, Verified 11/15/24 09:52) Nausea and Vomiting Medication List - Last Reconciled 11/15/24 by Frank Bynum MD albuterol sulfate 90 mcg/actuation (ProAir HFA) 2 puffs inhalation Q6H PRN aspirin 81 mg PO DAILY atorvastatin 80 mg PO BEDTIME ezetimibe (Zetia) 10 mg PO DAILY fluticasone propionate 50 mcg/actuation 1 spray intranasal DAILY metoprolol succinate ER (Toprol XL) 50 mg PO DAILY tamsulosin 0.4 mg PO BEDTIME HPI Comments Details: Manjeet returns for follow-up regarding coronary artery disease and coronary artery bypass surgery. Overall, he states he feels fine. Last time, he was having tiredness and we had decreased the beta-blockers to once a day and he feels better with that. Otherwise, he also had aortic murmur and that led to an echocardiogram showing mild stenosis. [facility] Medical History (Updated 11/15/24 @ 10:26 by Frank Bynum MD) Colon cancer screening DJD (degenerative joint disease) GERD (gastroesophageal reflux disease) Diverticulitis Morbid obesity Atherosclerotic cardiovascular disease HLD (hyperlipidemia) HTN (hypertension) Arthritis History of diverticulitis Elevated PSA DVT (deep venous thrombosis) Asthma Surgical History S/P cardiac cath S/P CABG (coronary artery bypass graft) Hx of hemorrhoidectomy H/O nasal septoplasty Hx of colonoscopy (~12/14/19) Family History Mother No problems noted. Brother No problems noted. Social History Housing: House Alcohol intake: current Alcohol intake frequency: holidays/special occasions only Alcohol type: beer and hard liquor Comment: used for heart protection Patient Tobacco Use Status: Former Tobacco user Years Smoked: 7 +/- e-Cigarette/Vaping Use: Never Used service: No Current occupational status: retired Cognitive needs: No Hearing needs: No Vision needs: Yes (rx glasses) Review of Systems Const Denies daytime sleepiness, Denies difficulty sleeping, Denies snoring, Denies stops breathing during sleep and Denies weakness Card Denies chest pain, Denies rapid heart rate, Denies irregular heart rhythm, Denies claudication, Denies leg edema, Denies lightheadedness, Denies palpitations, Denies dyspnea, Reports dyspnea on exertion, Denies orthopnea, Denies paroxysmal nocturnal dyspnea and Denies slow heart rate Resp Denies cough, Denies dyspnea, Reports dyspnea on exertion and Denies snoring GI Reports no additional complaints, Denies hematochezia, Denies change in stool character and Denies dyspepsia Musc Denies abnormal gait, Denies muscle weakness and Denies numbness Neuro Denies abnormal gait, Denies numbness and Denies weakness Endo Denies palpitations Physical Exam Vital Signs: Last Vital Signs Pulse 86 11/15/24 09:47 BP 124/58 L 11/15/24 09:47 BMI result Body Mass Index 53.7 Const General: comfortable and no acute distress Orientation/consciousness: patient oriented x3 HEENT Other: Unremarkable Head: Yes normal to inspection Neck Neck: Yes normal visual inspection Chest Chest palpation & inspection: normal inspection of the chest Resp Auscultation: clear to auscultation bilaterally Cardio Palpation: normal PMI Heart sounds: S1 normal heart sound present, S2 normal heart sound present, no gallops, Murmur heart sound present systolic III/ and at the right sternal border and no rubs GI Palpation (GI): Soft to palpation Back/Spine/Pelvis Other: unremarkable Skin General skin exam: no rashes or lesions noted Neuro General: patient oriented x3 Extrem General: Yes normal to inspection Psych Mental Status: mental status grossly normal Assessment & Plan Assessment & Plan (1) Atherosclerotic cardiovascular disease: Code(s): I25.10 - Atherosclerotic heart disease of [place] coronary artery without angina pectoris Category: Medical Plan: Doing well. Remains on aspirin, beta-blockers, statins and Zetia. Last LDL 72 mg/dL. Due to tiredness, beta-gissel dose has been changed to once a day. He feels better with that. (2) S/P CABG (coronary artery bypass graft): Comment: May 2020 - triple bypass Code(s): Z95.1 - Presence of aortocoronary bypass graft Category: Surgical Plan: No recent issues. (3) Nonrheumatic aortic (valve) stenosis: Code(s): I35.0 - Nonrheumatic aortic (valve) stenosis Category: Medical Plan: In the echocardiogram, moderate aortic valve calcification, mild aortic stenosis. We discussed about this today. We will follow periodically. (4) Other and unspecified hyperlipidemia: Code(s): E78.5 - Hyperlipidemia, unspecified Category: Medical Plan: Stable. On statins and Zetia. (5) Morbid obesity: Code(s): E66.01 - Morbid (severe) obesity due to excess calories Category: Medical Plan: We have discussed about the weight issue many times including today. He is well aware of the implications. (6) Type 2 diabetes mellitus with unspecified complications: Code(s): E11.8 - Type 2 diabetes mellitus with unspecified complications Category: Medical Plan: Hemoglobin A1c is 8.3%. He states he wants to manage this by losing a lot of weight and wants to avoid medications. He will follow up on this with PCP. Plan Discussion Notes During the visit, we discussed the patient's aortic valve stenosis, which currently does not require intervention but will be monitored with regular echocardiograms. Regarding diabetes management, the patient expressed concerns about starting medications due to side effects, and wants to lose weight and will go on medications only after that trial. Patient was informed and verbally consented to the use of an ambient scribe for clinic note documentation during this visit. Orders: Orders CA echo transthoracic complete 08/08/25 I35.0 - Nonrheumatic aortic (valve) stenosis Patient Instructions: - Monitor blood pressure regularly and report any significant changes. - Aim to reduce weight to effectively manage diabetes. - Schedule a follow-up echocardiogram next year to monitor aortic valve stenosis. Coding Level of Care Code Est Pt Level 4 (13263) Complex EM visit Add On G2211 Diagnoses Atherosclerotic cardiovascular disease I25.10 S/P CABG (coronary artery bypass graft) Z95.1 Nonrheumatic aortic (valve) stenosis I35.0 Other and unspecified hyperlipidemia E78.5 Morbid obesity E66.01 Type 2 diabetes mellitus with unspecified complications E11.8
--- OUTSIDE RECORDS SUMMARY | 2024-11-15 11:09 | XMS_ITS | Clinical Summary ---
Author Organization [facility] Address [address] [place] [address] Care Team Providers Care Assistant Manager Of Operations Name Role Phone Md, Unknown Primary Care [...] COVID-19 Vaccine (1 - 2023-2 5 season) 2024 Influenza Vaccine (#1) 2024 RSV 60+ (1 [...] this topic Insurance [employer] Care Teams Assistant Manager Of Operations Relationship Specialty Start Date End Date , Unknown 1 Dont Change PCP - General 02/06/23
--- OUTSIDE RECORDS SUMMARY | 2024-11-15 11:09 | XMS_ITS | Encounter Summary ---
Author Organization [facility] Address [address] [place] [id number] Care Team Providers Care Scoop Driver Name Role Phone Md, Unknown Primary Care Provider Unavailabl e Reason for Referral * Imaging (Routine) - Closed Specialty Diagnoses / Procedures Referred By Contac t Referred To Contact Radiology Diagnoses Pain, unspecified Procedures XR ANKLE 2 VIEWS LEFT Raquel Rodríguez PA-C [address] [place] [id number] Phone: tel: fax: [facility] Radiology - Central Scheduling [place] Phone: tel: fax: Referral ID Status Reason Start Date Expiration Date V isits Requested Visits Authorized [id number] Closed Perform Procedure 02/06/2023 02/06/2024 1 1 Encounter Details Date Type Department Care Team ([facility] Contact Info) Description 02/06/2023 Ancillary Orders [facility] Access [address] [place] [address] [id number] Raquel Rodríguez PA-C [address] [place] [phone] Pain, unspecified (Primary Dx) Social History [...] unspecified documented in this encounter Care Teams Scoop Driver Relationship Specialty Start Date End Date Md, Unknown 1 Dont Change PCP - General 02/06/23 documented as of this encounter
--- OUTSIDE RECORDS SUMMARY | 2024-11-15 11:09 | XMS_ITS | Patient Health Record ---
Author Organization [facility] Address [address] [place] [address] Care Team Providers Care Closed Circuit Screen Watcher Name Role Phone Elana (RETIRED) Mane DEAN Primary Care Provide Amaury Guo Jr Unavailable Allergies Allergen (clinical drug ingredient) Drug/Non Drug Allergy documented on EMR Reaction Allergy Type Onset Date Status Sulfa Unknown Drug Allergy Active Penicillin Unknown Drug Allergy Active seasonal (uncoded) Unknown Allergy A ctive Reason For Referral No Information Medications Medication SIG (Take, Route, Frequency, Duration) Notes Start Date End Date Status Carlton 3 Active MiraLax (colon prep) 8.3 ounce [...] Problem Status W/U Status Risk Notes Problem [id number] Colon cancer screening (Z12.11) Active confirmed Problem [id number] Encounter for other preprocedural examination (Z01.818) Active confirmed Problem [id number] moth exterminator (current) use of aspirin (Z79.82) Active confirmed Plan Of Treatment Future Test Test Name Order Date COLONOSCOPY 12/22/2013 COLONOSCOPY 10/28/2019 Insurance Providers Payer Name Payer Address Payer Phone Subscriber Number Group Number Insured Name Patient Relationship to Insured Coverage Start Date Coverage End Date MEDICARE OF [place] [address] [place] [address] [id number] TERRI WILSON Self - patient is the insured FOR LIFE [address] [place] [address] [id number] TERRI WILSON Self - patient is the insured Medical (General) History Medical History History ICD Code colonoscopy 04/20/14, small tubular adeno mn, five-year followup 04/29 elevated blood sugar arthritis elevated cholesterol diverticulitis DVT elevated PSA Surgical History Surgery Date(Month/Year) deviated septum repair 1979 hemorrhoidectomy 2014 hernia repair 2018
--- OUTSIDE RECORDS SUMMARY | 2024-11-15 11:09 | XMS_ITS | Clinical Summary ---
Author Organization [facility] Address [address] [address] Care Team Providers Care Functional Manager Name Role Phone Unavailable Primary Care Provider [...] age to complete this topic Insurance Medicare [facility] Medicare [facility]
--- OUTSIDE RECORDS SUMMARY | 2024-11-15 11:09 | XMS_ITS | Clinical Summary ---
Author Organization [facility] Address [address] [place] [address] Care Team Providers Care Conservation Coordinator Name Role Phone Mane Huitron MD Primary Care Provider Medications Medication Sig Dispensed Refills Start Date [...] age to complete this topic Care Teams Conservation Coordinator Relationship Specialty Start Date End Date Mane Huitron MD [address] [place] [address] Dr [address] [place] [address] PCP - General Review Manager 09/27/20
--- OUTSIDE RECORDS SUMMARY | 2024-11-15 11:09 | XMS_ITS | Patient Health Record ---
Author Organization [facility] Address [address] [facility] [address] [place] [address] Care Team Providers Care Capture Manager Name Role Phone Mane Huitron Primary Care Provider UnavailMIGUEL King Unavailable [phone] Allergies Allergen (clinical drug ingredient) Drug/Non Drug [...] Status W/U Status Risk Notes Problem Osteoarthritis of left subtalar joint (2061826446940892 6) Osteoarthritis of left subtalar joint (M19.072) Active confirmed Problem Arthritis of left subtalar joint (7659676461689337 9) 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 confirmed Problem Morbid obesity (185676855) Morbid obesity (E66.01) Active confirmed Vital Signs [...] N/A Encounters Encounter Location Date Provider Diagnosis [facility] [address] 05/26/2024 MIGUEL JOSEPH Arthritis of left subtalar joint M19.072 ; 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 ; Nail dystrophy L60.3 and Morbid obesity E66.01 [facility] [address] 07/08/2024 MIGUEL JOSEPH Arthritis of left subtalar joint M19.072 ; 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 and Nail dystrophy L60.3 [facility] [address] 07/14/2024 MIGUEL JOSEPH Nail dystrophy L60.3 ; 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 and Pain around toenail, left foot M79.675 [facility] [address] 07/30/2024 MIGUEL JOSEPH Nail dystrophy L60.3 and Osteoarthritis of left subtalar joint M19.072 [facility] [address] 09/21/2024 MIGUEL JOSEPH Osteoarthritis of le ft subtalar joint M19.072 and Pain of joint of left ankle and foot M25.572 [facility] [address] 09/23/2024 MIGUEL JOSEPH Acquired deformity o f nail plate L60.8 ; Pain around toenail, right foot M79.674 and Onychodystrophy L60.3 [facility] [address] [address] 10/08/2024 MIGUEL JOSEPH Arthritis of left subtalar joint M19.072 ; Morbid obesity E66.01 and Nail dystrophy L60.3 [facility] [address] [facility] [address] [place] [address] 05/14/2024 MIGUEL RUIZ Assessments Encounter Date Diagnosis [...] advised that he should be using that [place] brace more often to help stabilize the [...] nail nippers. These were sent off to [facility] for further testing. Will await results [...] Medicare of [place] [address] [place] [address] [id number] Manjeet Victor Self - patient is the insured lettrs [address] [place] [address] [id number] Manjeet Victor Self - patient is the insured Medications Administered Medication Instructions Date of Administration Dosage Notes dexAMETHasone Sod Phosphate PF 05/26/2024 2 mg dexAMETHasone Sod Phosphate PF 09/21/2024 2 mg Kenalog 05/26/2024 5 mg Kenalog 09/21/2024 5 mg Medical (General) History Medical History History ICD Code morbid obesity coronary artery disease CABG elevated cholesterol hypertension [id number]-rygrfrtqn diabetes fatty liver hay fever asthma diverticulosis obstructive sleep apnea gastroesophageal reflux disease BPH Surgical History Surgery Date(Month/Year) rhinoseptoplasty 1980 hernia repair 2016 hemmorhoid removal 2018 triple bipass 2022 colonoscopy 2021 colonoscopy 2017 colonoscopy 2006
== END 2024-11-15 10:26 | disposition home or self-care (01) ==
LOC: HO.HCS 09:44
PROVIDERS: PCP Internal Medicine; Visit Provider Internal Medicine
DX: I25.10 Atherosclerotic heart disease of native coronary artery without angina pectoris (principal); Z95.1 Presence of aortocoronary bypass graft; I35.0 Nonrheumatic aortic (valve) stenosis; E78.5 Hyperlipidemia, unspecified; E66.01 Morbid (severe) obesity due to excess calories; E11.8 Type 2 diabetes mellitus with unspecified complications
CPT/HCPCS: 99214; G2211

== ENCOUNTER → 2024-11-15 09:43 | Outpatient (BNVA) | payer MEDICARE, OTHER, SELFPAY | PROVIDERS: PCP Internal Medicine; Visit Provider Internal Medicine | DX: I25.10 Atherosclerotic heart disease of native coronary artery without angina pectoris (principal); I35.0 Nonrheumatic aortic (valve) stenosis; Z95.1 Presence of aortocoronary bypass graft; E78.5 Hyperlipidemia, unspecified; Z87.891 Personal history of nicotine dependence; E11.8 Type 2 diabetes mellitus with unspecified complications; Z79.82 Long term (current) use of aspirin; E66.01 Morbid (severe) obesity due to excess calories; Z68.43 Body mass index [BMI] 50.0-59.9, adult | CPT/HCPCS: 99212 ==

== ENCOUNTER 2024-11-30 08:09 | Outpatient (AMB) | payer MEDICARE, OTHER, SELFPAY ==
--- OUTSIDE RECORDS SUMMARY | 2024-07-27 11:15 | XMS_ITS ---
Author Organization [facility] Address [address] [address] Care Team Providers Care Wire Stripper Name Role Phone Mane Huitron Primary Care Provider MIGUEL Irwin Unavailable [phone] REASON FOR VISIT 2WK Encounters Encounter Location Date Provider Diagnosis [facility] [address] [address] 07/27/2024 MIGUEL RUIZ Plan Of Treatment No Information Progress Notes * VICTORManjeet KDOB: [birth year] (74 yo M)Acc No.[id number]:07/27/2024 Progress Note Patient: Manjeet ACRL Provider: Gracie Reid DPM :1950 A ge:73 Y S ex:Male Date:07/27/2024 Phone: Address[address] [phone] Pcp:Mane Huitron Subjective: * Chief Complaints: * 1 . 2WK. * Medical History: Objective: * Vitals: Assessment: Plan: * Treatment: * Billing Information: * Visit Code: * Procedure Codes: * Electronic signature of DENNY RUIZ D.P.M. on 11/30/2024 at 09:02 AM EDT Sign off status: Pending * Provider: Gracie Reid DPM Date: 07/27/2024 Generated for Flor watson/Erik/eTransmitting on: 0 11/30/2024 09:02 AM EDT
[2024-11-30 08:16] VITALS: BP 136/92; PULSE 83; O2SAT 96; BMI 54.4
--- NOTE | 2024-11-30 08:16 | MHC.OFFVIS ---
Vital Signs 11/30/24 08:16 Height 5 ft 9 in Weight 368 lb 4 oz BMI 54.4 BP 136/92 H Blood Pressure Location Rt brachial Position Sitting Pulse 83 Pulse Source Pulse Oximeter Pulse Oximetry (%) 96 Oxygen Delivery Method Room Air Intake Visit Reasons: 6mnth follow up Intake Note: Follow up Sleep Apnea and Snoring last seen Gracie August Jigger Crown Pouncing Machine Operator Required: No Accompanied by: Self / Same As Patient Allergies Penicillins (PENICILLINS) Allergy (Severe, Verified 11/30/24 08:22) CHEST TIGHTNESS shellfish derived (SHELLFISH DERIVED) Allergy (Severe, Verified 11/30/24 08:22) CHEST TIGHTNESS Sulfa (Sulfonamide Antibiotics) (SULFA (SULFONAMIDE ANTIBIOTICS)) Allergy (Severe, Verified 11/30/24 08:22) CHEST TIGHTNESS meperidine (From Demerol) Adverse Reaction (Mild, Verified 11/30/24 08:22) Nausea and Vomiting Medication List - Last Reconciled 11/30/24 by Nickie Sharma MD albuterol sulfate 90 mcg/actuation (ProAir HFA) 2 puffs inhalation Q6H PRN aspirin 81 mg PO DAILY atorvastatin 80 mg PO BEDTIME ezetimibe (Zetia) 10 mg PO DAILY fluticasone propionate 50 mcg/actuation 1 spray intranasal DAILY metoprolol succinate ER (Toprol XL) 50 mg PO DAILY tamsulosin 0.4 mg PO BEDTIME HPI Comments Details: 74-yr-old male presents for follow-up visit of sleep apnea. Patient reports he tried to use the CPAP, however he could not tolerate the CPAP even with using a nasal mask. He was seen by ENT - using flonase and uses 3 pillows to elevate the head of the bed. He acknowledges that he has a chronic history of claustrophobia and anxiety. He has a remote history of nasal injury and repair, some 40 years ago. He continues to have bothersome snoring. [facility] Medical History (Updated 11/30/24 @ 09:10 by Nickie Sharma MD) Obstructive sleep apnea hypopnea, moderate Colon cancer screening DJD (degenerative joint disease) GERD (gastroesophageal reflux disease) Diverticulitis Morbid obesity Atherosclerotic cardiovascular disease HLD (hyperlipidemia) HTN (hypertension) Arthritis History of diverticulitis Elevated PSA DVT (deep venous thrombosis) Asthma Surgical History S/P cardiac cath S/P CABG (coronary artery bypass graft) Hx of hemorrhoidectomy H/O nasal septoplasty Hx of colonoscopy (~12/14/19) Family History Mother No problems noted. Brother No problems noted. Social History Housing: House Alcohol intake: current Alcohol intake frequency: holidays/special occasions only Alcohol type: beer and hard liquor Comment: used for heart protection Patient Tobacco Use Status: Former Tobacco user Years Smoked: 7 +/- e-Cigarette/Vaping Use: Never Used service: No Current occupational status: retired Cognitive needs: No Hearing needs: No Vision needs: Yes (rx glasses) Physical Exam Vital Signs: Last Vital Signs Pulse 83 11/30/24 08:16 BP 136/92 H 11/30/24 08:16 Pulse Ox 96 11/30/24 08:16 Oxygen Delivery Method Room Air 11/30/24 08:16 BMI result Body Mass Index 54.4 Const General: no acute distress Orientation/consciousness: patient oriented x3 Resp Effort & Inspection: normal respiratory effort and able to speak in complete sentences Neuro General: patient oriented x3 Psych Mental Status: mental status grossly normal Speech and movement: Clear speech present Attitude: cooperative Assessment & Plan Assessment & Plan (1) Obstructive sleep apnea hypopnea, moderate: Code(s): G47.33 - Obstructive sleep apnea (adult) (pediatric) Category: Medical Plan Discussed about weight management- he sees weight management at [facility] - declined surgery and medications His BMI is too high for treatment with [facility]. Encouraged to use flonase and head elevation, avoid supine sleep. HST for revaluation Refer to [facility] Orders: Orders RT home sleep study Today G47.33 - Obstructive sleep apnea (adult) (pediatric) Referrals Dentistry Referral G47.33 - Obstructive sleep apnea (adult) (pediatric) Coding Level of Care Code Est Pt Level 4 (05325) Complex EM visit Add On G2211 Diagnoses Obstructive sleep apnea hypopnea, moderate G47.33
--- OUTSIDE RECORDS SUMMARY | 2024-11-30 09:02 | XMS_ITS | Patient Health Record ---
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) Active confirmed Problem Arthritis of left subtalar joint (1388593022587811 9) 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 confirmed Problem Morbid obesity (686249664) Morbid obesity (E66.01) Active confirmed Vital Signs [...] N/A Encounters Encounter Location Date Provider Diagnosis [facility] [address] 05/26/2024 MIGUEL JOSEPH Arthritis of left subtalar joint M19.072 ; 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 ; Nail dystrophy L60.3 and Morbid obesity E66.01 [facility] [address] 07/08/2024 MIGUEL JOSEPH Arthritis of left subtalar joint M19.072 ; 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 and Nail dystrophy L60.3 [facility] [address] 07/14/2024 MIGUEL JOSEPH Nail dystrophy L60.3 ; 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 and Pain around toenail, left foot M79.675 [facility] [address] 07/30/2024 MIGUEL JOSEPH Nail dystrophy L60.3 and Osteoarthritis of left subtalar joint M19.072 [facility] [address] 09/21/2024 MIGUEL JOSEPH Osteoarthritis of le ft subtalar joint M19.072 and Pain of joint of left ankle and foot M25.572 [facility] [address] 09/23/2024 MIGUEL JOSEPH Acquired deformity o f nail plate L60.8 ; Pain around toenail, right foot M79.674 and Onychodystrophy L60.3 [facility] [address] [address] 10/08/2024 MIGUEL JOSEPH Arthritis of left subtalar joint M19.072 ; Morbid obesity E66.01 and Nail dystrophy L60.3 [facility] [address] [facility] [address] [place] [address] 05/14/2024 MIGUEL RUIZ Assessments Encounter Date Diagnosis [...] advised that he should be using that [place] brace more often to help stabilize the [...] nail nippers. These were sent off to [facility] for further testing. Will await results to [...] of [place] [address] [place] [address] [id number] Manjeet Victor Self - patient is the insured [employer] [address] [place] [address] [id number] Manjeet Victor Self - patient is the insured Medications Administered Medication Instructions Date of Administration Dosage Notes dexAMETHasone Sod Phosphate PF 05/26/2024 2 mg dexAMETHasone Sod Phosphate PF 09/21/2024 2 mg Kenalog 05/26/2024 5 mg Kenalog 09/21/2024 5 mg Medical (General) History Medical History History ICD Code morbid obesity coronary artery disease CABG elevated cholesterol hypertension dki-qlueees-vwknbhkkq diabetes fatty liver hay fever asthma diverticulosis obstructive sleep apnea gastroesophageal reflux disease BPH Surgical History Surgery Date(Month/Year) rhinoseptoplasty 1980 hernia repair 2016 hemmorhoid removal 2018 triple bipass 2022 colonoscopy 2021 colonoscopy 2017 colonoscopy 2006
--- OUTSIDE RECORDS SUMMARY | 2024-11-30 09:02 | XMS_ITS | Clinical Summary ---
Author Organization [facility] [employer] Address [address] [place] [address] Care Team Providers Care Power Tong Operator Name Role Phone Md, Unknown Primary Care [...] this topic Insurance [employer] Care Teams Power Tong Operator Relationship Specialty Start Date End Date , Unknown 1 Dont Change PCP - General 02/06/23
--- OUTSIDE RECORDS SUMMARY | 2024-11-30 09:03 | XMS_ITS | Clinical Summary ---
Author Organization [facility] Facility Address [address] [address] Care Team Providers Care Belt Weaver Name Role Phone Unavailable Primary Care Provider [...] to complete this topic Insurance Medicare [facility] Medicare [facility]
--- OUTSIDE RECORDS SUMMARY | 2024-11-30 09:03 | XMS_ITS | Patient Health Record ---
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.82) Active confirmed Plan Of Treatment Future Test Test Name Order Date COLONOSCOPY 12/22/2013 COLONOSCOPY 10/28/2019 Insurance Providers Payer Name Payer Address Payer Phone Subscriber Number Group Number Insured Name Patient Relationship to Insured Coverage Start Date Coverage End Date [place] [address] [place] [address] [id number] TERRI WILSON Self - patient is the insured FOR LIFE [address] [place] [address] [id number] TERRI WILSON Self - patient is the insured Medical (General) History Medical History History ICD Code colonoscopy 04/20/14, small tubular adeno id, five-year followup 04/29 elevated blood sugar arthritis elevated cholesterol diverticulitis DVT elevated PSA Surgical History Surgery Date(Month/Year) deviated septum repair 1979 hemorrhoidectomy 2014 hernia repair 2018
--- OUTSIDE RECORDS SUMMARY | 2024-11-30 09:03 | XMS_ITS | Clinical Summary ---
Author Organization [facility] Address [address] [place] [address] Care Team Providers Care Territory Sales Consultant Name Role Phone Mane Huitron MD Primary Care Provider [phone] Medications Medication Sig Dispensed Refills Start Date [...] age to complete this topic Care Teams Territory Sales Consultant Relationship Specialty Start Date End Date Mane Huitron MD [address] [place] [address] Dr [address] [place] [address] PCP - General Landscape Architecture Teacher 09/27/20
--- OUTSIDE RECORDS SUMMARY | 2024-11-30 09:03 | XMS_ITS | Encounter Summary ---
Author Organization [facility] Address [address] [place] [id number] Care Team Providers Care Geodetic Survey Director Name Role Phone Md, Unknown Primary Care Provider Unavailabl e Reason for Referral * Imaging (Routine) - Closed Specialty Diagnoses / Procedures Referred By Contac t Referred To Contact Radiology Diagnoses Pain, unspecified Procedures XR ANKLE 2 VIEWS LEFT Raquel Rodríguez PA-C [address] [place] [phone] Phone: tel: fax: [facility] Radiology - Central Scheduling [facility] Phone: tel: fax: Referral ID Status Reason Start Date Expiration Date V isits Requested Visits Authorized [id number] Closed Perform Procedure 02/06/2023 02/06/2024 1 1 Encounter Details Date Type Department Care Team ([facility] Contact Info) Description 02/06/2023 Ancillary Orders [facility] Access [address] [place] [id number] Raquel Rodríguez PA-C [address] [place] [phone] Pain, unspecified (Primary Dx) Social History [...] unspecified documented in this encounter Care Teams Geodetic Survey Director Relationship Specialty Start Date End Date Md, Unknown 1 Dont Change PCP - General 02/06/23 documented as of this encounter
== END 2024-11-30 09:17 | disposition home or self-care (01) ==
LOC: HO.HSMS 08:10
PROVIDERS: Visit Provider Psychiatry & Neurology Neurology
DX: G47.33 Obstructive sleep apnea (adult) (pediatric) (principal)
CPT/HCPCS: 99214; G2211

== ENCOUNTER → 2024-11-30 08:09 | Outpatient (BNVA) | payer MEDICARE, OTHER, SELFPAY | PROVIDERS: Visit Provider Psychiatry & Neurology Neurology | DX: G47.33 Obstructive sleep apnea (adult) (pediatric) (principal) | CPT/HCPCS: 99212 ==

== ENCOUNTER 2025-01-24 09:02 | Outpatient (AMB) | payer MEDICARE, OTHER, SELFPAY ==
[2025-01-24 09:06] VITALS: BP 140/68; PULSE 84; TEMP 35.9; O2SAT 97; BMI 52.1
--- NOTE | 2025-01-24 09:06 | MHC.PC.OV ---
Vital Signs 01/24/25 09:06 Height 5 ft 9 in Weight 353 lb BMI 52.1 BP 140/68 H Blood Pressure Location Lt brachial Position Sitting Pulse 84 Pulse Source Pulse Oximeter Temp 96.7 F L Temp Source Temporal Artery Scan Pulse Oximetry (%) 97 Oxygen Delivery Method Room Air Intake Visit Reasons: 3 Month F/U Intake Note: wants flu vaccine Bobbin Cleaner Required: No Accompanied by: Self / Same As Patient Allergies Penicillins (PENICILLINS) Allergy (Severe, Verified 01/24/25 09:07) CHEST TIGHTNESS shellfish derived (SHELLFISH DERIVED) Allergy (Severe, Verified 01/24/25 09:07) CHEST TIGHTNESS Sulfa (Sulfonamide Antibiotics) (SULFA (SULFONAMIDE ANTIBIOTICS)) Allergy (Severe, Verified 01/24/25 09:07) CHEST TIGHTNESS meperidine (From Demerol) Adverse Reaction (Mild, Verified 01/24/25 09:07) Nausea and Vomiting Tobacco use date assessed: 01/24/25 Fall risk assessment: No Falls in past year Last assessed Fall Risk: 01/24/25 Dental Screening Dental Screen Date: 01/24/25 Did you have a dental visit in the last 12 months?: Yes Was dental information given to patient?: Patient has dentist HPI HPI Comments History of Present Illness Details History of Present Illness The patient is a 74-year-old male presenting for follow-up and management of multiple chronic conditions, primarily diabetes and hypertension. Regarding his diabetes, the patient acknowledges that he did not meet the previously set goal of losing 30 pounds to avoid medication, having lost only 8-9 pounds. His A1c from July was 8.3, and he agrees to start metformin. For hypertension, the patient has been monitoring his blood pressure at home for the past three months as instructed. He reports variable readings, with a low of 127/72 and a high of 187/47, indicating his current medication, metoprolol, is not providing adequate control. The patient has a history of coronary artery disease, for which he takes aspirin, and hyperlipidemia, managed with atorvastatin 80 mg and Zetia 10 mg. He recounts an event following his second COVID-19 vaccine dose where he developed severe nausea and was found to have an elevated troponin level, leading to a diagnosis of a heart attack. He underwent cardiac catheterization and subsequently a triple coronary artery bypass graft. The patient believes the inciting event was vaccine-induced heart inflammation, though clinicians attributed it to a heart attack; he reports that three subsequent echocardiograms have shown no heart damage. He has a history of BPH, which was well-managed on tamsulosin, with a reduction in nocturia from 6-7 times to 1-2 times per night and an improved urinary stream; however, his prescription ran out and was unable to be refilled. He also has a history of asthma/COPD, for which he has an albuterol inhaler and fluticasone. The patient reports a history of 4-5 colonoscopies, with a notable complication after the third procedure where excessive air insufflation allegedly led to a subsequent intestinal infection requiring hospitalization. He also mentions his last colonoscopy was incomplete due to a sharp bend in the colon. Due to a perceived lack of honesty from the tests superintendent regarding the past complication, he wishes to be referred to a new provider for his upcoming colonoscopy. Medical History: - Type 2 diabetes mellitus - Essential hypertension - Hyperlipidemia - Coronary artery disease, status post myocardial infarction - Asthma/COPD - Benign prostatic hyperplasia - History of diverticulitis - History of intestinal infection requiring hospitalization - Suspected acid reflux Surgical History: - Triple coronary artery bypass graft surgery - Cardiac catheterization - Multiple prior colonoscopies Medications: - Albuterol inhaler for asthma/COPD - Aspirin for coronary artery disease - Atorvastatin 80 mg for hyperlipidemia - Ezetimibe (Zetia) 10 mg for hyperlipidemia - Fluticasone for asthma/COPD - Metoprolol 50 mg for hypertension - Tamsulosin for benign prostatic hyperplasia (prescription recently ) Family History: - Brother: from a heart attack. - Sons: Two sons have autism, one of whom also has epilepsy. Diagnostic Results: - Labs: A1c was 8.3 in July. - Labs: Elevated troponin level during a past hospitalization. - Diagnostics: Multiple prior echocardiograms showed no damage to the heart. - Diagnostics: Prior cardiac catheterization revealed coronary artery disease requiring bypass surgery. Social History - Weight Management: Patient is attempting to lose weight but has only lost 8-9 pounds of a 30-pound goal. - Former Occupation: Former EMT. - Vaccinations: Patient has received four prior COVID-19 vaccinations but declines the current one due to a perceived adverse reaction. - Family: His and daughter are registered nurses. [facility] Medical History Obstructive sleep apnea hypopnea, moderate Colon cancer screening DJD (degenerative joint disease) GERD (gastroesophageal reflux disease) Diverticulitis Morbid obesity Atherosclerotic cardiovascular disease HLD (hyperlipidemia) HTN (hypertension) Arthritis History of diverticulitis Elevated PSA DVT (deep venous thrombosis) Asthma Surgical History S/P cardiac cath S/P CABG (coronary artery bypass graft) Hx of hemorrhoidectomy H/O nasal septoplasty Hx of colonoscopy (~12/14/19) Family History Mother No problems noted. Brother No problems noted. Social History Housing: House Alcohol intake: current Alcohol intake frequency: holidays/special occasions only Alcohol type: beer and hard liquor Comment: used for heart protection Patient Tobacco Use Status: Former Tobacco user Years Smoked: 7 +/- e-Cigarette/Vaping Use: Never Used service: Yes Current occupational status: retired Cognitive needs: Yes (has cane) Hearing needs: No Vision needs: Yes (rx glasses) Questionnaire PHQ-9 Over the last 2 weeks, how often have you been bothered by any of the following problems? 1. Little interest or pleasure in doing things: not at all 2. Feeling down, depressed, or hopeless: not at all 3. Trouble falling or staying asleep, or sleeping too much: not at all 4. Feeling tired or having little energy: not at all 5. Poor appetite or overeating: not at all 6. Feeling bad about yourself - or that you are a failure or have let yourself or your family down: not at all 7. Trouble concentrating on things, such as reading the newspaper or watching television: not at all 8. Moving or speaking so slowly that other people could have noticed. Or the opposite - being so fidgety or restless that you have been moving around a lot more than usual: not at all 9. Thoughts that you would be better off or of hurting yourself in some way: not at all Total score: 0 Depression Screening Interpretation: Negative Depression Screening Done: Yes 41914 - PHQ-9 Billing: Yes Source: Developed by Drs. Sabas Silva, Paco Bailey and colleagues, with an educational moriah from [employer] Thrive Questionnaire Date Thrive assessed: 01/24/25 AUDIT C Alcohol Use Questionnaire (AUDIT-C) 1. How often do you have a drink containing alcohol?: Monthly or less 2. How many drinks containing alcohol do you have on a typical day when you are drinking?: 1 or 2 Total Score: 1 Score Reviewed/Action Taken: Yes STEFANIA-7 AMB Questionnaire STEFANIA-7 Date STEFANIA - 7 assessed: 01/24/25 Feeling nervous, anxious, or on edge: 0 = Not at all Not being able to stop or control worryin = Not at all Worrying too much about different things: 0 = Not at all Trouble relaxin = Not at all Being so restless that it is hard to sit still: 0 = Not at all Becoming easily annoyed or irritable: 0 = Not at all Feeling afraid as if something awful might happen: 0 = Not at all Total STEFANIA-7 score (0-4 normal; 5-9 mild; 10-14 moderate; 15-21 severe): 0 Source: Developed by Drs. Sabas Silva, Em Rice, Paco Melo and colleagues, with an educational moriah from [employer] Review of Systems Narrative Review of Systems - General: Reports weight loss of 8-9 pounds. - Cardiovascular: Reports home blood pressure readings as high as 187/47. - Respiratory: Denies recent use of albuterol inhaler. - Gastrointestinal: Denies problems with diverticulitis since a prior event. - Genitourinary: Reports nocturia improved from 6-7 times per night to 1-2 times per night while on tamsulosin, with improved urinary stream. All systems reviewed & are unremarkable except as reviewed in HPI and above Physical exam (Primary Care) Vital Signs: Last Vital Signs Temp 96.7 F L 01/24/25 09:06 Pulse 84 01/24/25 09:06 BP 140/68 H 01/24/25 09:06 Pulse Ox 97 01/24/25 09:06 Oxygen Delivery Method Room Air 01/24/25 09:06 BMI result Body Mass Index 52.1 Tobacco/Smoking Status: Tobacco use Status Tobacco use date assessed 01/24/25 01/24/25 09:12 Patient Tobacco Use Status Former Tobacco user 01/24/25 09:12 e-Cigarette/Vaping Use Never Used 01/24/25 09:12 PHQ-9: PHQ-9 Score PHQ-9: Total score 0 01/24/25 09:36 Depression Screening Interpretation: Negative Thrive Assessment: Date of Thrive Assessment Date Thrive assessed 01/24/25 01/24/25 09:12 Narrative Physical Exam General: +Alert and oriented, Well nourished, No acute distress. Eye: Pupils are equal, round and reactive to light, Intact accommodation, Extraocular movements are intact, Normal conjunctiva, Vision unchanged. HENT: Normocephalic, Atraumatic, Tympanic membranes are clear, Normal hearing, Oral mucosa is moist, No pharyngeal erythema, Ear canals patent. Respiratory: Lungs CTA bilaterally, No wheeze, Respirations are non-labored. Cardiovascular: Regular rate, Regular rhythm, S1 auscultated, S2 auscultated, No murmur, Good pulses equal in all extremities, Normal peripheral perfusion, No edema. Gastrointestinal: Soft, Non-tender, Non-distended, Normal bowel sounds, No organomegaly. Musculoskeletal: Normal range of motion, Normal strength, No tenderness, No swelling, No deformity, Normal gait. Integumentary: Warm, Dry, [place], Intact. Neurologic: Alert, Oriented, Normal sensory, Normal motor function, No focal defects, Cranial Nerves II-XII are grossly intact, Normal deep tendon reflexes. Psychiatric: Cooperative, Appropriate mood & affect, Normal judgment. Office Procedures Flu Questionnaire Does the patient have a severe egg allergy?: No Does the patient have severe life threatening allergies?: No Does the patient have a fever or illness today?: No Has the patient ever had Guillain-G[place]ville Syndrome?: No Has the patient ever had any past reaction to a flu shot?: No Immunizations Fluarix [id number] (PF) 45 mcg (15 mcg x 3)/0.5 mL IM syringe Performing Provider: Deni Corbin MD Performing Location: [facility] Primary [facility]-10 HD Administered by: Yancy Cheatham CMA on 01/24/25 09:36 Dose Route Admin Location Dispensed Lot Number Expiration Date NDC Account Auditor 0.5 mL IM Left Deltoid 0.5 mL [id number] 09/06/25 [id number] [employer] [facility] VIS Given Date VIS Provided VIS Publication Date 01/24/25 Single Vaccine 24 Eligibility Eligibility Date Funding Source Not [facility] Eligible 01/24/25 Private Coding Level of Care Code Est Pt Level 4 (16252) Complex EM visit Add On G2211 Diagnoses Primary hypertension I10 Hypertension type: primary hypertension Type 2 diabetes mellitus without complication, without long-term current use of insulin E11.9 Diabetes mellitus type: type 2 Diabetes mellitus senior care insulin use: without senior care use Diabetes mellitus complication status: without complication Enlarged prostate with lower urinary tract symptoms (LUTS) N40.1 Colon cancer screening Z12.11 Additional Codes PHQ-9 - 24865 - PHQ-9 Billing: Yes ([id number]) Assessment & Plan Assessment & Plan (1) HTN (hypertension): Comment: - The patient's blood pressure is uncontrolled on metoprolol, with home readings as high as 187/47 mmHg. - This, combined with his diabetes and hyperlipidemia, places him at high risk for cardiovascular events. - Amlodipine 5 mg will be added to his regimen. - He will continue to monitor his blood pressure at home. Code(s): I10 - Essential (primary) hypertension Category: Medical Qualifiers: Hypertension type: primary hypertension Qualified Code(s): I10 - Essential (primary) hypertension (2) Diabetes: Comment: - The patient's A1c was 8.3 in July, and a trial of lifestyle modification did not achieve the desired weight loss. - He has agreed to start metformin. - The patient was counseled on diet, specifically to reduce sweets and carbohydrates. - If his diabetes remains uncontrolled, injectable medications may be considered. Code(s): E11.9 - Type 2 diabetes mellitus without complications Category: Medical Qualifiers: Diabetes mellitus type: type 2 Diabetes mellitus keno terminal operator insulin use: without keno terminal operator use Diabetes mellitus complication status: without complication Qualified Code(s): E11.9 - Type 2 diabetes mellitus without complications (3) Enlarged prostate with lower urinary tract symptoms (LUTS): Comment: - The patient's symptoms of nocturia and weak stream improved significantly with tamsulosin. - The prescription will be renewed. Code(s): N40.1 - Benign prostatic hyperplasia with lower urinary tract symptoms Category: Medical (4) Colon cancer screening: Comment: Due for screening however would like to switch to another group for procedure Code(s): Z12.11 - Encounter for screening for malignant neoplasm of colon Category: Medical Plan: Health Maintenance: - Weight Management: Counseled on continued weight loss, aiming for an additional 15-20 pounds over the next six months. - Diet: Advised to reduce consumption of sweets and carbohydrates. - Vaccinations: Influenza shot administered. Recommended COVID-19 vaccine, but patient declined. - Cancer Screening: Referral for colonoscopy to be sent to a new provider at the patient's request. - Follow-up: Plan for a follow-up visit in six months for an annual physical. - Lab Monitoring: Blood work to be completed one week prior to the next scheduled visit. Patient was informed and verbally consented to the use of an ambient scribe for clinic note documentation during this visit. Vital signs reviewed. Comprehensive history, review of systems, and physical exam completed. Medications, allergies, and problem list reviewed and updated. Counseling provided on nutrition, regular exercise, sleep hygiene, and moderation of alcohol use. Discussed age-appropriate screenings (mammogram, colonoscopy, Pap, bone density) and immunizations (flu, COVID, shingles, Tdap). Screened for depression, fall risk, and home safety; no current concerns. Discussed stress management, dental and vision care, and importance of ongoing preventive follow-up. Routine labs ordered for metabolic and lipid screening. Patient educated on healthy lifestyle and agrees with the plan. Plan I have discussed with the patient his uncontrolled type 2 diabetes, highlighted by his recent A1c of 8.3. As his attempt at lifestyle modification through weight loss was not sufficient, we will begin metformin. I provided counseling on the need to reduce sweets and carbohydrates and explained that failure to control his blood sugar could necessitate injectable medications in the future. We also addressed his uncontrolled hypertension, noting his home blood pressure readings are dangerously high, sometimes in the 180s. I explained that the combination of his high blood pressure, diabetes, and high cholesterol poses a significant risk for stroke and heart attack. To address this, we will add amlodipine 5 mg to his current regimen. The patient requested a new referral for his screening colonoscopy due to a negative past experience with his previous provider, and I have agreed to facilitate this. I recommended he receive an updated COVID-19 vaccine, but he declined, citing a past adverse event; however, he did consent to and receive the influenza vaccine today. We will renew his tamsulosin prescription, which has been effective for his BPH. A follow-up is scheduled for a physical in six months, and I have encouraged him to lose another 15-20 pounds by then. Orders: Orders Influenza [id number] Immunization Today Z23 - Encounter for immunization Referrals Open Access Screening Colonoscopy Referral Z12.11 - Encounter for screening for malignant neoplasm of colon Medications: New metformin 500 mg PO BID 180 tabs 0RF 90 days amlodipine 5 mg PO DAILY 90 tabs 0RF Refilled tamsulosin 0.4 mg PO BEDTIME 90 caps 0RF N40.1 - Benign prostatic hyperplasia with lower urinary tract symptoms Patient Instructions: - Start taking metformin for your diabetes as prescribed. - Start taking the new blood pressure medication, amlodipine 5 mg, once daily in addition to your current metoprolol. - Continue to check your blood pressure at home and keep a log of the readings. - We will send a renewal for your prostate medication, tamsulosin, to your pharmacy. - We will send a referral to a new specialist for your colonoscopy; please cancel the appointment you have with Dr. Sevilla's office. - Pay close attention to your diet by cutting down on sweets and carbohydrates (like bread, pasta, and potatoes). - Try to lose another 15 to 20 pounds before your next visit. - You received your flu shot today. - Please complete blood work one week before your next appointment. - Please schedule your next appointment, an annual physical, in six months.
== END 2025-01-24 09:44 | disposition home or self-care (01) ==
LOC: HO.HMCHD 09:02
PROVIDERS: PCP Student in an Organized Health Care Education/Training Program; Visit Provider Student in an Organized Health Care Education/Training Program
DX: I10 Essential (primary) hypertension (principal); E11.9 Type 2 diabetes mellitus without complications; N40.1 Benign prostatic hyperplasia with lower urinary tract symptoms; Z12.11 Encounter for screening for malignant neoplasm of colon; Z23 Encounter for immunization

== ENCOUNTER → 2025-01-24 09:02 | Outpatient (BNVA) | payer MEDICARE, OTHER, SELFPAY | PROVIDERS: PCP Student in an Organized Health Care Education/Training Program; Visit Provider Student in an Organized Health Care Education/Training Program | DX: I10 Essential (primary) hypertension (principal); Z23 Encounter for immunization; E11.9 Type 2 diabetes mellitus without complications; N40.1 Benign prostatic hyperplasia with lower urinary tract symptoms; R35.1 Nocturia; E78.5 Hyperlipidemia, unspecified; I25.10 Atherosclerotic heart disease of native coronary artery without angina pectoris; J44.9 Chronic obstructive pulmonary disease, unspecified; I25.2 Old myocardial infarction; Z79.82 Long term (current) use of aspirin; Z79.899 Other long term (current) drug therapy; Z13.31 Encounter for screening for depression; Z13.39 Encounter for screening examination for other mental health and behavioral disorders | CPT/HCPCS: 90471; 90656; 96127; 99212 ==

== ENCOUNTER → 2025-02-23 08:32 | Outpatient (REF) | payer MEDICARE, OTHER, SELFPAY ==
--- OUTSIDE RECORDS SUMMARY | 2024-07-27 10:15 | XMS_ITS ---
Author Organization [facility] Address [address] [address] Care Team Providers Care Fitter And Turner Name Role Phone Mane Huitron Primary Care Provider MIGUEL Irwin Unavailable [phone] REASON FOR VISIT 2WK Encounters Encounter Location Date Provider Diagnosis [facility] [address] [address] 07/27/2024 MIGUEL RUIZ Plan Of Treatment No Information Progress Notes * VICTORManjeet KDOB: [birth year] (74 yo M)Acc No.[id number]:07/27/2024 Progress Note Patient: Manjeet CARL Provider: Gracie Reid DPM :1950 A ge:73 Y S ex:Male Date:07/27/2024 Phone: Address: [address] [id number] Pcp:Mane Huitron Subjective: * Chief Complaints: * 1 . 2WK. * Medical History: Objective: * Vitals: Assessment: Plan: * Treatment: * Billing Information: * Visit Code: * Procedure Codes: * Electronic signature of DENNY RUIZ D.P.M. on 02/23/2025 at 08:48 AM EST Sign off status: Pending * Provider: Gracie Reid DPM Date: 07/27/2024 Generated for Flor watson/Erik/eTransmitting on: 1 04/26/2024 08:48 AM EST
--- OUTSIDE RECORDS SUMMARY | 2025-02-23 08:49 | XMS_ITS | Patient Health Record ---
Author Organization [facility] Address [address] [place] [address] Care Team Providers Care Supervisor Benzene Refining Name Role Phone GELACIO DANIEL M.D. Primary Care Provider Amaury Cobb Jr Unavailable [phone] Allergies Allergen (clinical drug ingredient) Drug/Non Drug Allergy documented on EMR Reaction Allergy Type Onset Date Status seasonal (uncoded) Unknown Allergy A ctive Penicillin Unknown Drug Allergy Active Sulfa Unknown Drug Allergy Active Reason For Referral No Information Medications Medication SIG (Take, Route, Frequency, Duration) Notes Start Date End Date Status [place] 3 Active MiraLax (colon prep) 8.3 ounce ((238) grams mixed with Gatorade or Crystal Light orally begin at 5:00 p.m. the day before the procedure; Duration: 1 day 10/28/2019 Active ibuprofen PRN Active Aspir-81 Active Immunizations Vaccine Route Administration Date Status Comme nts Influenza Unknown 12/08/2018 Administered Social History Tobacco Use: Social History Observation Description Date Details (start date - stop date) Former Smoker NA - NA Social History Drugs/Alcohol: Social Info Question Answer Notes Alcohol Screen Did you have a drink containing alcohol in the past year? Yes How often did you have a drink containing alcohol in the past year? Monthly or less (1 point) How many drinks did you have on a typical day when you were drinking in the past year? 1 or 2 drinks (0 point) How often did you have 6 or more drinks on one occasion in the past year? Never (0 point) Points 1 Interpretation Negative Tobacco Use: Social Info Question Answer Notes Tobacco Use/Smoking Patient is a former smoker How long has it been since you last smoked? 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[employer] Problems Problem Type SNOMED Code ICD Code Onset Dates Problem Status W/U Status Risk Notes Problem Colon cancer screening (034523511) Colon cancer screening (Z12.11) Active confirmed Problem Pre-procedure evaluation check (858324049) Encounter for other preprocedural examination (Z01.818) Active confirmed Problem Long-term current use of antiplatelet drug (406417519648697 ) residential (current) use of aspirin (Z79.82) Active confirmed Plan Of Treatment Future Test Test Name Order Date COLONOSCOPY 12/22/2013 COLONOSCOPY 10/28/2019 Next Appt Details Provider Name:Amaury martel Jr, 04/11/2025 09:20:00 AM, [address] [place] [address], [address], [place], [address], Insurance Providers Payer Name Payer Address Payer Phone Subscriber Number Group Number Insured Name Patient Relationship to Insured Coverage Start Date Coverage End Date MEDICARE OF [place] [address] [place] [address] [id number] TERRI WILSON Self - patient is the insured FOR LIFE [address] [place] [address] [phone] [id number] TERRI WILSON Self - patient is the insured Medical (General) History Medical History History ICD Code colonoscopy 04/20/14, small tubular adeno ma, five-year followup 04/29 elevated blood sugar arthritis elevated cholesterol diverticulitis DVT elevated PSA Surgical History Surgery Date(Month/Year) deviated septum repair 1979 hemorrhoidectomy 2014 hernia repair 2018
--- OUTSIDE RECORDS SUMMARY | 2025-02-23 08:49 | XMS_ITS | Patient Health Record ---
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) Active confirmed Problem Arthritis of left subtalar joint (0340924764221733 9) 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 confirmed Problem Morbid obesity (648655330) Morbid obesity (E66.01) Active confirmed Vital Signs [...] N/A Encounters Encounter Location Date Provider Diagnosis [facility] [address] 05/26/2024 MIGUEL JOSEPH Arthritis of left subtalar joint M19.072 ; 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 ; Nail dystrophy L60.3 and Morbid obesity E66.01 [facility] [address] 07/08/2024 MIGUEL JOSEPH Arthritis of left subtalar joint M19.072 ; 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 and Nail dystrophy L60.3 [facility] [address] 07/14/2024 MIGUEL JOSEPH Nail dystrophy L60.3 ; 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 and Pain around toenail, left foot M79.675 [facility] [address] 07/30/2024 MIGUEL JOSEPH Nail dystrophy L60.3 and Osteoarthritis of left subtalar joint M19.072 [facility] [address] 09/21/2024 MIGUEL JOSEPH Osteoarthritis of le ft subtalar joint M19.072 and Pain of joint of left ankle and foot M25.572 [facility] [address] 09/23/2024 MIGUEL JOSEPH Acquired deformity o f nail plate L60.8 ; Pain around toenail, right foot M79.674 and Onychodystrophy L60.3 [facility] [address] [address] 10/08/2024 MIGUEL JOSEPH Arthritis of left subtalar joint M19.072 ; Morbid obesity E66.01 and Nail dystrophy L60.3 [facility] [address] [facility] [address] [place] [address] 05/14/2024 MIGUEL RUIZ Assessments Encounter Date Diagnosis [...] advised that he should be using that [employer] brace more often to help stabilize the [...] nail nippers. These were sent off to [facility] for further testing. Will await results [...] of [place] [address] [place] [address] [id number] Manjeet Victor Self - patient is the insured [employer] [address] [place] [address] [id number] Manjeet Victor Self - patient is the insured Medications Administered Medication Instructions Date of Administration Dosage Notes dexAMETHasone Sod Phosphate PF 05/26/2024 2 mg dexAMETHasone Sod Phosphate PF 09/21/2024 2 mg Kenalog 05/26/2024 5 mg Kenalog 09/21/2024 5 mg Medical (General) History Medical History History ICD Code morbid obesity coronary artery disease CABG elevated cholesterol hypertension pee-ufeusif-ekpevdyez diabetes fatty liver hay fever asthma diverticulosis obstructive sleep apnea gastroesophageal reflux disease BPH Surgical History Surgery Date(Month/Year) rhinoseptoplasty 1980 hernia repair 2016 hemmorhoid removal 2018 triple bipass 2022 colonoscopy 2021 colonoscopy 2017 colonoscopy 2006
--- OUTSIDE RECORDS SUMMARY | 2025-02-23 08:49 | XMS_ITS | Encounter Summary ---
Author Organization [facility] Address [address] [place] [address] Care Team Providers Care Production Expediter Name Role Phone Md, Unknown Primary Care Provider Unavailabl e Reason for Referral * Imaging (Routine) - Closed Specialty Diagnoses / Procedures Referred By Contac t Referred To Contact Radiology Diagnoses Pain, unspecified Procedures XR ANKLE 2 VIEWS LEFT Raquel Rodríguez PA-C [address] [place] [phone] Phone: tel: fax: [facility] Radiology - Central Scheduling CT Phone: tel: fax: Referral ID Status Reason Start Date Expiration Date V isits Requested Visits Authorized [id number] Closed Perform Procedure 02/06/2023 02/06/2024 1 1 Encounter Details Date Type Department Care Team ([facility] Contact Info) Description 02/06/2023 Ancillary Orders [facility] Access [address] [place] [id number] Raquel Rodríguez PA-C [address] [place] [phone] Pain, unspecified (Primary Dx) Social History [...] unspecified documented in this encounter Care Teams Production Expediter Relationship Specialty Start Date End Date Md, Unknown 1 Dont Change PCP - General 02/06/23 documented as of this encounter
--- OUTSIDE RECORDS SUMMARY | 2025-02-23 08:49 | XMS_ITS | Clinical Summary ---
Author Organization [facility] Address [address] [place] [address] Care Team Providers Care Machine Biller Name Role Phone Md, Unknown Primary Care [...] Risk Screening 2017 COVID-19 Vaccine (1 - 2024-2 6 season) 2024 Influenza Vaccine (#1) 2024 RSV [...] this topic Insurance [employer] Care Teams Machine Biller Relationship Specialty Start Date End Date , Unknown 1 Dont Change PCP - General 02/06/23
--- OUTSIDE RECORDS SUMMARY | 2025-02-23 08:49 | XMS_ITS | Clinical Summary ---
Author Organization [facility] Prior to 08/07/[address] [place] [address] Care Team Providers Care Associate Professor Of Chemistry Name Role Phone Mane Huitron MD Primary Care Provider [phone] Medications Medication Sig Dispensed Refills Start Date [...] age to complete this topic Care Teams Associate Professor Of Chemistry Relationship Specialty Start Date End Date Mane Huitron MD [address] [place] [address] [address] [place] [address] PCP - General Dog Day Care Attendant 09/27/20
== END ==
LOC: HO.SL 08:32
PROVIDERS: PCP Student in an Organized Health Care Education/Training Program; Visit Provider Psychiatry & Neurology Neurology
DX: G47.33 Obstructive sleep apnea (adult) (pediatric) (principal); R06.83 Snoring; R40.0 Somnolence
CPT/HCPCS: 95806

== ENCOUNTER → 2025-02-23 08:45 | Outpatient (BNV) | payer MEDICARE, OTHER, SELFPAY | PROVIDERS: PCP Student in an Organized Health Care Education/Training Program; Visit Provider Psychiatry & Neurology Neurology | DX: G47.33 Obstructive sleep apnea (adult) (pediatric) (principal) | CPT/HCPCS: 95806 ==